=== PATIENT | female | born 1995 | race Native Hawaiian/Other Pacific Islander ===

== ENCOUNTER 2016-10-05 05:47 | Inpatient (IN) | payer OTHER ==
[2016-10-05] MEDS ORDERED: ceFAZolin 2 GM in SODIUM CHLORIDE 0.9% 100 ML IVPB ONE (06:03)
[2016-10-05] MEDS ORDERED: LACTATED RINGERS 1,000 ML IV ONE (06:03)
[2016-10-05] MEDS ORDERED: CITRIC ACID-SODIUM CITRATE 15 ML CUP PO ONE (06:03)
[2016-10-05 06:20] LABS: Basophils # (A) 0.1 k/uL (0-0.2); Basophils % (A) 1 %; CH 29.6; CHCM 35.1; Eosinophils # (A) 0.2 k/uL (0-0.7); Eosinophils % (A) 2 %; HCT 35.9 % (34.0-46.0); HDW 2.63; HGB 12.1 gm/dL (11.4-16.0); Luc # (Auto) 0.24; Luc % (Auto) 3; Lymphocytes # (A) 2.1 k/uL (1.0-4.8); Lymphocytes % (A) 22 %; MCH 28.6 pg (25.0-35.0); MCHC 33.7 g/dL (31.0-37.0); MCV 84.7 fL (80.0-100.0); Mean Platelet Volume 7.2; Monocytes # (A) 0.6 k/uL (0-1.0); Monocytes % (A) 7 %; Neutrophils # (A) 6.2 k/uL (1.3-7.7); Neutrophils % (A) 66 %; RBC 4.25 m/uL (3.80-5.40); RDW 14.4 % (11.5-15.5); WBC 9.3 k/uL (4.0-11.0); WBC (Perox) 10.14
[2016-10-05 06:41] VITALS: BMI 32.0
[2016-10-05] MEDS ORDERED: ePHEDrine 50 MG/ML 1 ML AMP ONE (07:50)
[2016-10-05] MEDS ORDERED: ONDANSETRON 4 MG/2 ML VIAL ONE (07:50)
[2016-10-05] MEDS ORDERED: NALBUPHINE 10 MG/ML AMPUL ONE (07:50)
[2016-10-05] MEDS ORDERED: OXYTOCIN 10 UNIT/ML 1 ML VIAL IM ONE (07:50)
[2016-10-05] MEDS ORDERED: MORPHINE SULFATE (PF) 0.3 MG/0.3 ML SYR ONE (07:50)
[2016-10-05] MEDS ORDERED: ACETAMINOPHEN TAB 325 MG TAB PO PRN (08:30)
[2016-10-05] MEDS ORDERED: Acetaminophen-Codeine 300-30mg TAB PO PRN (08:30)
[2016-10-05] MEDS ORDERED: METOCLOPRAMIDE 5 MG/ML 2 ML VIAL IVP PRN (08:30)
[2016-10-05] MEDS ORDERED: diphenhydrAMINE 50 MG/ML 1 ML VIAL IVP PRN ×3 (08:30→11:52)
[2016-10-05] MEDS ORDERED: ZOLPIDEM 5 MG TAB PO PRN (08:30)
[2016-10-05] MEDS ORDERED: diphenhydrAMINE 25 MG CAP PO PRN (08:30)
--- NOTE | 2016-10-05 08:33 | P.HPOB ---
History of Present Illness H&P Date: 10/05/16 Chief Complaint: IUP term: previous c/s Rhea is a 21-year-old at 39 weeks gestation with prior section. She is scheduled for repeat section. Risks benefits alternatives were reviewed and all questions are answered for her prior to proceeding to the operating room. Patient has pertinent labs include O+ blood type Rh and beta was negative rubella was immune appetite B surface antigen was negative. 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 Her course generally speaking otherwise was unremarkable and she was placed on acyclovir in the latter third of the . All questions are answered for her prior to proceeding to the operating room. Past Medical History Past Medical History: No Reported History Additional Past Medical History / Comment(s): ovarian cyst History of Any Multi-Drug Resistant Organisms: None Reported Past Surgical History: Section Past Anesthesia/Blood Transfusion Reactions: No Reported Reaction Past Psychological History: No Psychological Hx Reported Smoking Status: Never smoker Past Alcohol Use History: None Reported Past Drug Use History: None Reported - Past Family History Mother Family Medical History: No Reported History Medications and Allergies Home Medications Medication Instructions Recorded Confirmed Type Pnv with Ca,No.72/Iron/FA 1 tab PO DAILY 02/11/16 09/29/16 History [ Plus Tablet] Allergies Allergy/AdvReac Type Severity Reaction Status Date / Time Iodinated Contrast Media - Allergy Severe Anaphylaxis Verified 09/29/16 08:08 Oral and [Iodinated Contrast Media - IV Dye] iodine Allergy Severe Anaphylaxis Verified 09/29/16 08:08 Iodine and Iodide Containing Allergy Severe Anaphylaxis Verified 09/29/16 08:08 Produc Exam Osteopathic Statement: *. No significant issues noted on an osteopathic structural exam other than those noted in the History and Physical/Consult. - Vital Signs Vital signs: Vital Signs Temp Pulse Resp BP Pulse Ox 10/05/16 05:52 97.0 F L 90 16 116/72 97 Intake and Output 10/04/16 10/05/16 10/05/16 22:59 06:59 14:59 Other: Weight 79.379 kg - OBG Physical Exam Breast: both: normal (no masses) Abdomen: bowel sounds normal, no diffuse tenderness, no bruit present, no guarding noted, no hepatomegaly, no splenomegaly, no mass Vulva: both: normal Vagina: normal moisture, no discharge Cervix: no lesion, no discharge Uterus: normal size, normal contour Adnexa: both: normal Anus/Rectum: normal perianal skin, no rectal mass, no hemorrhoids, heme negative Results Result Diagrams: 10/05/16 06:10
--- NOTE | 2016-10-05 08:36 | P.OP ---
Date of Procedure: 10/05/16 Preoperative Diagnosis: Intrauterine at term: Previous section Postoperative Diagnosis: Same Procedure(s) Performed: Repeat low transverse section Anesthesia: spinal Surgeon: Efren Hagan Gas Examiner #1: Miya Saldana Estimated Blood Loss (ml): 400 IV fluids (ml): 1,000 Urine output (ml): 200 Pathology: other (Placenta) Condition: stable Disposition: floor Operative Findings: Female scores of 9 and 9 at one and 5 minutes respectively and the weight was 8 lbs. 3 oz. or was scar tissue noted uterus had essentially a shelf where the old scarring had created a divot in the uterus and under the skin there was also a another shelf had to be resected. Description of Procedure: Patient was taken to the operating suite where a spinal anesthetic was found be adequate she was prepped and draped in the normal sterile fashion and placed in dorsal supine position with leftward tilt. Initially a Pfannenstiel skin incision was made and this incision was carried through to underlying layer of the fascia was second knife. Fascia was then nicked in the midline and this opening was extended across with Maynard scissors. Superior and inferior aspect of this incision were then grasped tented up and bluntly and sharply dissected off the rectus muscles. Rectus muscles were then divided the midline and sharp dissection through the peritoneum was made. This opening was then extended superiorly and inferiorly with good visualization of both bowel bladder. Bladder blade was then placed vesicouterine peritoneum was identified grasped pickups and entered with Metzenbaum scissors. This opening was then extended across face of the uterus with Metzenbaum scissors and her bladder flap was digitally created. Knife was then used to incise uterus. This opening was then extended bluntly. Clear fluid was noted and head was atraumatically delivered. Mouth nares were then bulb suctioned and then anterior posterior shoulders were delivered gentle downward and upward traction. Once baby was fully delivered umbilical cord was clamped and cut in usual fashion nursery personnel was present to assume care. Placenta was then delivered intact and Pitocin was added to the IV. Uterus was then exteriorized cleared of clots and debris and closed in 2 layers with 0 Vicryl suture. Once excellent hemostasis was obtained blood and debris was suctioned the posterior cul-de-sac and the uterus was reinserted into the abdomen. Peritoneal layer was then closed oh with 2-0 Vicryl fascial layer was closed with 0 Vicryl suture one layer of 3-0 Vicryl was used to reapproximate the skin following resection and undermining of the tissues to remove scar tissue that had created a divot in her skin. Once this was accomplished skin was then closed with 3-0 Vicryl on a Chele needle. Patient tolerated surgery very well sponge lap and needle counts were correct 2 patient was taken to the recovery room in stable and satisfactory condition.
[2016-10-05] MEDS ORDERED: MORPHINE SULFATE 4 MG/ML SYRINGE IVP PRN ×3 (08:49→12:36)
[2016-10-05] MEDS ORDERED: NALOXONE 0.4 MG/ML 1 ML VIAL IV PRN ×2 (08:49→11:52)
[2016-10-05] MEDS: LACTATED RINGERS 1,000 ML IV SCH ×5 (09:07→19:08)
[2016-10-05] MEDS: KETOROLAC 30 MG/ML 1 ML VIAL IVP PRN ×3 (09:31→22:27)
[2016-10-05] MEDS: OXYTOCIN 30 UNITS/500 ML NS 30 UNIT in SALINE 1 500ML.BAG IV SCH ×3 (09:43→18:54)
[2016-10-05] MEDS: diphenhydrAMINE 50 MG/ML 1 ML VIAL IVP PRN ×2 (16:51→22:27)
[2016-10-05] MEDS: SENNOSIDES-DOCUSATE SODIUM 1 EACH TAB PO SCH (19:30)
[2016-10-06 07:26] LABS: Basophils % (A) 0 %; CH 29.5; CHCM 34.6; Eosinophils # (A) 0.1 k/uL (0-0.7); Eosinophils % (A) 1 %; HCT 30.5 % (34.0-46.0); HDW 2.53; HGB 10.3 gm/dL (11.4-16.0); Luc # (Auto) 0.12; Luc % (Auto) 1; Lymphocytes # (A) 1.4 k/uL (1.0-4.8); Lymphocytes % (A) 15 %; MCH 28.8 pg (25.0-35.0); MCHC 33.7 g/dL (31.0-37.0); MCV 85.6 fL (80.0-100.0); Mean Platelet Volume 7.8; Monocytes # (A) 0.7 k/uL (0-1.0); Monocytes % (A) 8 %; Neutrophils # (A) 6.8 k/uL (1.3-7.7); Neutrophils % (A) 75 %; RBC 3.57 m/uL (3.80-5.40); RDW 14.5 % (11.5-15.5); WBC 9.1 k/uL (4.0-11.0); WBC (Perox) 9.59
--- NOTE | 2016-10-06 08:15 | P.PNOBGPC ---
Subjective - Subjective Principal diagnosis: Postop day 1 Interval history: Rhea is seen and evaluated. She is overall doing very well. She voices no complaints. Her vital signs are stable and afebrile. Heart is regular, lungs are clear extremities without pain. Patient reports: Reports appetite normal, Reports voiding normally, Reports pain well controlled, Reports ambulating normally [place]: doing well Objective - Vital Signs Latest vital signs: Vital Signs Temp Pulse Resp BP Pulse Ox 10/06/16 04:00 99.3 F 108 H 16 105/55 95 10/06/16 00:00 99.4 F 100 16 103/55 96 10/05/16 19:51 98.8 F 88 16 129/63 96 10/05/16 16:00 98.3 F 82 16 112/62 99 10/05/16 12:53 98 10/05/16 12:00 98.5 F 77 16 115/65 100 10/05/16 11:49 100 10/05/16 10:37 96.4 F L 86 18 130/81 100 10/05/16 10:07 74 19 124/73 100 10/05/16 09:49 100 10/05/16 09:37 79 17 118/58 100 10/05/16 09:22 75 16 114/59 99 10/05/16 09:07 75 18 128/74 99 10/05/16 08:52 71 18 127/66 97 10/05/16 08:49 99 10/05/16 08:37 96.4 F L 86 17 125/60 98 Intake and Output 10/05/16 10/06/16 10/06/16 22:59 06:59 14:59 Intake Total 600 Output Total 900 400 Balance -900 200 Intake: Oral 600 Output: Urine 900 400 Other: # Voids 1 1 - Exam Lungs: bilateral: normal Chest: Normal S1, Normal S2 Extremities: Present: normal Abdomen: Present: normal appearance, soft. Absent: distention, tenderness Incision: Present: normal, dry, intact Uterus: Present: normal, firm - Labs Labs: Abnormal Lab Results - Last 24 Hours (Table) 10/06/16 Range/Units 07:05 RBC 3.57 L (3.80-5.40) m/uL Hgb 10.3 L (11.4-16.0) gm/dL Hct 30.5 L (34.0-46.0) %
[2016-10-06] MEDS: IBUPROFEN 600 MG TAB PO PRN ×2 (08:19→16:16)
[2016-10-06] MEDS: SENNOSIDES-DOCUSATE SODIUM 1 EACH TAB PO SCH ×3 (08:55→19:59)
--- NOTE | 2016-10-06 10:13 | P.PN ---
Progress Note - Text 0723 Anesthesia POD 1. Patient is status post section under spinal anesthesia with intra-thecal preservative free morphine 300 g. Minimal pruritus, good post-op analgesia, and headache or other complications.
[2016-10-06] MEDS: Acetaminophen-Codeine 300-30mg TAB PO PRN ×3 (13:11→23:56)
[2016-10-07] MEDS: IBUPROFEN 600 MG TAB PO PRN ×3 (06:58→19:52)
[2016-10-07] MEDS: SENNOSIDES-DOCUSATE SODIUM 1 EACH TAB PO SCH ×2 (08:01→20:38)
--- NOTE | 2016-10-07 08:46 | P.PNOBGPC ---
Subjective - Subjective Principal diagnosis: Postoperative day 2 Interval history: Overall Rhea is doing well. She is able to ambulate, void and she is tolerating her diet. Her only real complaint today is that her pain is not is well-controlled she would like, as well as a rash around her incision. Likely this rashes secondary to tape as it appeared shortly after we have removed the tape. Were provided Benadryl if still problematic may need to switch to steroid cream. Vital signs are otherwise stable she is afebrile Objective - Vital Signs Latest vital signs: Vital Signs Temp Pulse Resp BP Pulse Ox 10/07/16 07:53 98.6 F 83 16 115/66 10/07/16 00:00 98.0 F 95 18 111/59 98 10/06/16 16:00 97.9 F 94 16 115/58 Intake and Output 10/06/16 10/07/16 10/07/16 22:59 06:59 14:59 Other: # Voids 1 2 - Exam Abdomen: Present: other (Rash noted around incision otherwise incisions clean, dry, and intact)
[2016-10-07] MEDS: Acetaminophen-Codeine 300-30mg TAB PO PRN ×2 (09:25→16:37)
[2016-10-07] MEDS: diphenhydrAMINE 50 MG CAP PO PRN ×2 (17:29→23:47)
[2016-10-08] MEDS: Acetaminophen-Codeine 300-30mg TAB PO PRN (08:31)
[2016-10-08] MEDS: SENNOSIDES-DOCUSATE SODIUM 1 EACH TAB PO SCH ×2 (08:32→20:05)
--- NOTE | 2016-10-08 10:36 | P.PNOBGPC ---
Subjective - Subjective Principal diagnosis: Postop day 3 Interval history: Overall Rhea appears well. However her rash around her incision is actually worse today it is weeping a little bit and appears to have ALLERGIC reaction to the irrigated tape for dressing that was used. It is red and somewhat indurated again with some weeping along the incision line. As precaution we'll start antibiotics but also provide anti-allergens. We'll plan to adjust medication somewhat today with expectation hopefully to discharge home tomorrow. I would like this to be at least a little bit better before discharging her home just in case or something else that is actually going on. I'll signs are otherwise stable and she is afebrile. Objective - Vital Signs Latest vital signs: Vital Signs Temp Pulse Resp BP Pulse Ox 10/08/16 08:00 99.2 F 108 H 20 111/71 97 10/08/16 00:00 98.2 F 110 H 16 123/66 10/07/16 15:31 98.3 F 93 16 116/69 - Exam Abdomen: Present: other (Red rash around the incision along where the tape would 've been put on her given. Incision itself is clean and intact. Some weeping is noted however )
[2016-10-08] MEDS: CEPHALEXIN 500 MG CAP PO SCH ×2 (15:57→22:00)
[2016-10-08] MEDS: TRIAMCINOLONE 0.1% CREAM 80 GM TUBE TOPICAL SCH ×2 (15:57→22:01)
[2016-10-08] MEDS: IBUPROFEN 600 MG TAB PO PRN (19:48)
--- NOTE | 2016-10-09 05:50 | P.PNOBGPC ---
Subjective - Subjective Principal diagnosis: S/P RLTCS POD #4 Interval history: Patient seen and examined. Her pain is controlled but the area around her incision is still painful and red. It is warm and weepy. I do not believe she is ready to go home and we may need to culture the area today. Patient reports: Reports appetite normal, Reports voiding normally, Reports pain well controlled, Reports ambulating normally [place]: doing well Objective - Vital Signs Latest vital signs: Vital Signs Temp Pulse Resp BP Pulse Ox 10/09/16 00:00 98.5 F 99 16 115/55 99 10/08/16 16:00 98.2 F 100 20 108/61 99 10/08/16 08:00 99.2 F 108 H 20 111/71 97 - Exam Lungs: bilateral: normal Chest: Normal S1, Normal S2 Extremities: Present: normal Abdomen: Present: normal appearance, soft. Absent: distention, tenderness Incision: Present: erythematous (extends about 2-3 inches above the incision), intact, warm Uterus: Present: normal, firm Assessment and Plan (1) Status post repeat low transverse section Narrative/Plan: 1. cont po care 2. cont keflex po 3. may need to culture the area. Current Visit: Yes Status: Acute Code(s): Z98.891 - HISTORY OF UTERINE SCAR FROM PREVIOUS SURGERY SNOMED Code(s): 261828684 (2) Inflammation of operative incision Current Visit: Yes Status: Acute Code(s): T81.89XA - OTH COMPLICATIONS OF PROCEDURES, NEC, INIT SNOMED Code(s): 062827932
[2016-10-09] MEDS: CEPHALEXIN 500 MG CAP PO SCH ×3 (09:20→22:05)
[2016-10-09] MEDS: TRIAMCINOLONE 0.1% CREAM 80 GM TUBE TOPICAL SCH ×2 (09:20→18:26)
[2016-10-09] MEDS: SENNOSIDES-DOCUSATE SODIUM 1 EACH TAB PO SCH ×2 (09:20→22:05)
[2016-10-09] MEDS: Acetaminophen-Codeine 300-30mg TAB PO PRN (09:26)
[2016-10-10] MEDS: TRIAMCINOLONE 0.1% CREAM 80 GM TUBE TOPICAL SCH ×2 (00:56→09:10)
[2016-10-10] MEDS: IBUPROFEN 600 MG TAB PO PRN ×2 (05:05→13:52)
[2016-10-10 08:06] VITALS: BP 123/70; PULSE 85; RESP 17; TEMP 98.3
[2016-10-10] MEDS: SENNOSIDES-DOCUSATE SODIUM 1 EACH TAB PO SCH (08:24)
[2016-10-10] MEDS: CEPHALEXIN 500 MG CAP PO SCH (09:10)
--- NOTE | 2016-10-10 13:26 | P.DS ---
Providers Date of admission: 10/05/16 05:47 Expected date of discharge: 10/10/16 Attending physician: Efren Hagan Primary care physician: Stated None Hospital Course: Patient seen and evaluated postop day 5. Overall she is doing very well. Her incision exited today looks better than it did a couple of days ago. No sign of infection of cellulitis this time still some little bit of redness likely secondary to rash seems to be improving with the Kenalog cream. We'll plan to continue her on antibiotics and the Kenalog cream and have her follow up with me on just lichen taken a look at the incision. Otherwise her vital signs are stable and afebrile. Heart regular, lungs clear, extremities without pain. Abdomen is otherwise soft incisions clean dry and intact. She does have pain around the incision but otherwise no other issues. Assessment postop day 5. Plan discharged home discharge instructions thoroughly reviewed and all questions were answered for her. Prescriptions for Tok and Motrin have also been provided. She was wondering if the changes could be due to herpes virus but grossly does not appear to the that is the case. Seems unlikely as this does cross the midline and would involve more than one dermatome. Patient Condition at Discharge: Good Plan - Discharge Summary New Discharge Prescriptions: Cephalexin [Keflex] 500 mg PO Q6HR #20 cap HYDROcodone/APAP 5-325MG [Tok 5-325] 1 tab PO Q4HR PRN #30 tab PRN Reason: Pain Ibuprofen [Motrin] 600 mg PO Q6HR PRN #30 tab PRN Reason: Pain Discharge Medication List Pnv with Ca,No.72/Iron/FA [ Plus Tablet] 1 tab PO DAILY 02/11/16 [ History] Cephalexin [Keflex] 500 mg PO Q6HR #20 cap 10/08/16 [Rx] HYDROcodone/APAP 5-325MG [Tok 5-325] 1 tab PO Q4HR PRN #30 tab 10/08/16 [Rx] Ibuprofen [Motrin] 600 mg PO Q6HR PRN #30 tab 10/08/16 [Rx] Follow up Appointment(s)/Referral(s): Efren Hagan DO [Doctor of Osteopathic Medicine] - 1 Week Activity/Diet/Wound Care/Special Instructions: No heavy lifting, limit stairs and driving and pelvic rest. If any high temperatures, heavy bleeding, or severe pain call my office Discharge Disposition: HOME SELF-CARE
== END 2016-10-10 14:23 | disposition home or self-care (01) | DRG 766 ==
LOC: 4FBP 05:47
PROVIDERS: ADMIT Obstetrics & Gynecology; ATTEND Obstetrics & Gynecology
PROC: 10D00Z1 Extraction of Products of Conception, Low, Open Approach (ICD-10-PCS; principal; 2016-10-05 08:03)
DX: O34.211 Maternal care for low transverse scar from previous cesarean delivery (principal); Z91.041 Radiographic dye allergy status; Z37.0 Single live birth; Z3A.39 39 weeks gestation of pregnancy
CPT/HCPCS: 85025; 86850; 86900; 86901; 87070; 87077; 87186; 87205; 88307

== ENCOUNTER → 2017-02-10 | Outpatient (CLI) | payer OTHER ==
[2017-02-10 12:07] LABS: Basophils # (A) 0.1 k/uL (0-0.2); Basophils % (A) 1 %; CH 25.9; CHCM 32.9; Eosinophils # (A) 0.2 k/uL (0-0.7); Eosinophils % (A) 3 %; HCT 37.4 % (34.0-46.0); HGB 12.3 gm/dL (11.4-16.0); Luc # (Auto) 0.15; Luc % (Auto) 3; Lymphocytes # (A) 1.6 k/uL (1.0-4.8); Lymphocytes % (A) 27 %; MCH 25.9 pg (25.0-35.0); MCHC 32.9 g/dL (31.0-37.0); MCV 78.9 fL (80.0-100.0); Mean Platelet Volume 7.3; Monocytes # (A) 0.4 k/uL (0-1.0); Monocytes % (A) 6 %; Neutrophils # (A) 3.8 k/uL (1.3-7.7); Neutrophils % (A) 62 %; RBC 4.74 m/uL (3.80-5.40); RDW 14.9 % (11.5-15.5); WBC 6.2 k/uL (4.0-11.0); WBC (Perox) 6.27
== END | disposition home or self-care (01) ==
LOC: LABWHC1 11:44
PROVIDERS: ATTEND Nurse Practitioner Family
DX: L30.8 Other specified dermatitis (principal); L02.426 Furuncle of left lower limb; L02.425 Furuncle of right lower limb; R23.3 Spontaneous ecchymoses
CPT/HCPCS: 36415; 85025

== ENCOUNTER 2017-03-18 16:30 | Emergency (ER) | payer OTHER ==
--- NOTE | 2017-03-18 16:52 | ED ---
General Adult HPI - General Chief complaint: Urogenital Stated complaint: Urogenital Time Seen by Provider: 03/18/17 16:44 Source: patient, RN notes reviewed Mode of arrival: ambulatory Limitations: no limitations - History of Present Illness Initial comments: This is a 21-year-old female presents emergency Department chief complaint of dysuria possible . Patient states she took a home test which there was a faint line. Patient states that she is late for her menstrual cycle. Patient will be A0. Patient states her [employer] is Dr. Olmstead. Patient denies any vaginal bleeding or vaginal discharge. Patient has had recurrent urinary tract infections in the past. Denies any abdominal pains time she states that she had some cramping other day was felt like her menstrual cycle states that has subsided. Denies flank pain denies any vomiting states she's had some nausea. - Related Data Home Medications Medication Instructions Recorded Confirmed Pnv,Calcium 72/Iron/Folic Acid 1 tab PO DAILY 02/11/16 09/29/16 [ Plus Tablet] Previous Rx's Medication Instructions Recorded Cephalexin [Keflex] 500 mg PO Q6HR #20 cap 10/08/16 HYDROcodone/APAP 5-325MG [[place] 1 tab PO Q4HR PRN #30 tab 10/08/16 5-325] Ibuprofen [Motrin] 600 mg PO Q6HR PRN #30 tab 10/08/16 Nitrofurantoin Monohyd/M-Cryst 100 mg PO Q12HR #14 cap 03/18/17 [Macrobid] Allergies Allergy/AdvReac Type Severity Reaction Status Date / Time Iodinated Contrast Media - Allergy Severe Anaphylaxis Verified 03/18/17 16:39 Oral and [Iodinated Contrast Media - IV Dye] iodine Allergy Severe Anaphylaxis Verified 03/18/17 16:39 Iodine and Iodide Containing Allergy Severe Anaphylaxis Verified 03/18/17 16:39 Produc Review of Systems ROS Statement: Those systems with pertinent positive or pertinent negative responses have been documented in the HPI. ROS Other: All systems not noted in ROS Statement are negative. Past Medical History Past Medical History: No Reported History Additional Past Medical History / Comment(s): ovarian cyst History of Any Multi-Drug Resistant Organisms: None Reported Past Surgical History: No Surgical Hx Reported Past Anesthesia/Blood Transfusion Reactions: No Reported Reaction Past Psychological History: No Psychological Hx Reported Smoking Status: Never smoker Past Alcohol Use History: Occasional Past Drug Use History: None Reported - Past Family History Mother Family Medical History: No Reported History General Exam Limitations: no limitations General appearance: alert, in no apparent distress Neck exam: Present: normal inspection. Absent: tenderness, meningismus, lymphadenopathy Respiratory exam: Present: normal lung sounds bilaterally. Absent: respiratory distress, wheezes, rales, rhonchi, stridor Cardiovascular Exam: Present: regular rate, normal rhythm, normal heart sounds. Absent: systolic murmur, diastolic murmur, rubs, gallop, clicks GI/Abdominal exam: Present: soft, normal bowel sounds. Absent: distended, tenderness, guarding, rebound, rigid Back exam: Absent: CVA tenderness (R), CVA tenderness (L) Skin exam: Present: warm, dry, intact, normal color. Absent: rash Course Vital Signs 03/18/17 16:35 Temperature 98.5 F Pulse Rate 81 Respiratory 15 Rate Blood Pressure 108/59 O2 Sat by Pulse 96 Oximetry Medical Decision Making - Medical Decision Making 21-year-old female presented for possible , dysuria. Patient has urinary tract infection there is no evidence of test here. Patient will follow-up outpatient return parameters were discussed. - Lab Data Lab Results 03/18/17 03/18/17 Range/Units 16:54 16:54 Urine Color Light Yellow Urine Appearance Clear (Clear) Urine pH 7.0 (5.0-8.0) Ur Specific [place] 1.010 (1.001-1.035) Urine Protein Negative (Negative) Urine Glucose (UA) Negative (Negative) Urine Ketones Negative (Negative) Urine Blood Negative (Negative) Urine Nitrite Negative (Negative) Urine Bilirubin Negative (Negative) Urine Urobilinogen <2.0 (<2.0) mg/dL Ur Leukocyte Esterase Moderate H (Negative) Urine RBC <1 (0-5) /hpf Urine WBC 12 H (0-5) /hpf Ur Squamous Epith Cells 2 (0-4) /hpf Urine HCG, Qual Not Detected (Not Detectd) Disposition Clinical Impression: Urinary tract infection Disposition: HOME SELF-CARE Condition: Stable Instructions: Urinary Tract Infection in Women (ED) Additional Instructions: Please return to the Emergency Department if symptoms worsen or any other concerns. Prescriptions: Nitrofurantoin Monohyd/M-Cryst [Macrobid] 100 mg PO Q12HR #14 cap Referrals: None,Stated [Primary Care Provider] - 1-2 days Time of Disposition: 17:58
[2017-03-18 17:44] LABS: Appearance,Urine Clear (Clear); Bilirubin,Urine Negative (Negative); Glucose,Urine (UA) Negative (Negative); Ketones,Urine Negative (Negative); Leukocyte Esterase,Urine Moderate (Negative); Nitrite,Urine Negative (Negative); Particle Count 867; Protein,Urine Negative (Negative); RBC,Urine <1 /hpf (0-5); Squamous Epithelial Cell,Urine 2 /hpf (0-4); UA Billing (MACRO vs. MICRO) MICRO; Urobilinogen,Urine <2.0 mg/dL (<2.0); WBC,Urine 12 /hpf (0-5)
[2017-03-18 18:06] VITALS: BP 148/67; PULSE 70; RESP 18; TEMP 98
== END 2017-03-18 18:05 | disposition home or self-care (01) ==
LOC: EC 16:30
DX: N39.0 Urinary tract infection, site not specified (principal); R11.0 Nausea; Z79.899 Other long term (current) drug therapy; Z91.041 Radiographic dye allergy status; Z88.8 Allergy status to other drugs, medicaments and biological substances
CPT/HCPCS: 81001; 81025; 87086; 99283

== ENCOUNTER 2017-03-21 08:52 | Emergency (ER) | payer OTHER ==
[2017-03-21 09:00] VITALS: BP 117/77; PULSE 80; RESP 20; TEMP 98.1
--- NOTE | 2017-03-21 09:18 | ED ---
Abdominal Pain HPI - General Chief Complaint: Abdominal Pain Stated Complaint: abd pain Time Seen by Provider: 03/21/17 09:04 Source: patient, RN notes reviewed Mode of arrival: ambulatory Limitations: no limitations - History of Present Illness Initial Comments: Patient is a 21-year-old female presents to the emergency room for evaluation. Patient states she was here on Monday for abdominal pain. Patient states she was told she had a urinary tract infection and was sent home with antibiotics. Patient states she has not filled her antibiotic prescription yet. Patient states she still having left lower quadrant pain. Patient states she thinks she has an ovarian cyst. Patient states she is having 5 out of 10 intermittent pain in her left lower quadrant. Patient states she has history of 2 sections. Patient also states that she has not had a period in about a month. Patient states she received a test on Monday and it was negative. Patient states she wants another test. Patient does admit she began lightly spotting this morning. Patient states she is nauseous but denies vomiting. Patient denies chest pain or shortness of breath. Patient denies headache or dizziness. Patient denies any other history of abdominal surgeries. Patient denies any pain or burning during urination. - Related Data Home Medications Medication Instructions Recorded Confirmed Pnv,Calcium 72/Iron/Folic Acid 1 tab PO DAILY 02/11/16 03/21/17 [ Plus Tablet] Previous Rx's Medication Instructions Recorded Nitrofurantoin Monohyd/M-Cryst 100 mg PO Q12HR #14 cap 03/18/17 [Macrobid] Allergies Allergy/AdvReac Type Severity Reaction Status Date / Time Iodinated Contrast Media - Allergy Severe Anaphylaxis Verified 03/21/17 09:03 Oral and [Iodinated Contrast Media - IV Dye] iodine Allergy Severe Anaphylaxis Verified 03/21/17 09:03 Iodine and Iodide Containing Allergy Severe Anaphylaxis Verified 03/21/17 09:03 Produc Review of Systems ROS Statement: Those systems with pertinent positive or pertinent negative responses have been documented in the HPI. ROS Other: All systems not noted in ROS Statement are negative. Past Medical History Past Medical History: No Reported History Additional Past Medical History / Comment(s): ovarian cyst History of Any Multi-Drug Resistant Organisms: None Reported Past Surgical History: Section Past Anesthesia/Blood Transfusion Reactions: No Reported Reaction Past Psychological History: No Psychological Hx Reported Smoking Status: Never smoker Past Alcohol Use History: Occasional Past Drug Use History: None Reported - Past Family History Mother Family Medical History: No Reported History General Exam - General Exam Comments Initial Comments: Sitting in exam room, no acute distress. Limitations: no limitations General appearance: alert, in no apparent distress Head exam: Present: atraumatic, normocephalic, normal inspection Eye exam: Present: normal appearance ENT exam: Present: normal exam Neck exam: Present: normal inspection Respiratory exam: Present: normal lung sounds bilaterally. Absent: respiratory distress Cardiovascular Exam: Present: regular rate, normal rhythm, normal heart sounds GI/Abdominal exam: Present: soft, tenderness (LLQ), normal bowel sounds. Absent : distended, guarding, rebound, rigid Extremities exam: Present: normal inspection Back exam: Present: normal inspection Neurological exam: Present: alert, oriented X3, CN II-XII intact, normal gait Psychiatric exam: Present: normal affect, normal mood Skin exam: Present: warm, dry, intact, normal color. Absent: rash Course Vital Signs 03/21/17 08:58 Temperature 98.1 F Pulse Rate 80 Respiratory 20 Rate Blood Pressure 117/77 O2 Sat by Pulse 98 Oximetry Medical Decision Making - Medical Decision Making Patient is a 21-year-old female presents to the emergency room for evaluation of left lower quadrant pain and vaginal spotting. Patient states she was here on Monday and received a test that was negative. Patient requested another test. test was redone here and was positive. Patient refused transvaginal ultrasound. Patient refused pelvic exam or any further workup. Patient states she would rather follow-up with her [employer]. Risks discussed with patient on possible ectopic with abdominal pain and spotting. Patient still chooses to leave AGAINST MEDICAL ADVICE. Case discussed Dr. Haile. - Lab Data Lab Results 03/21/17 03/21/17 Range/Units 09:30 09:30 Urine Color Yellow Urine Appearance Clear (Clear) Urine pH 5.5 (5.0-8.0) Ur Specific [place] 1.011 (1.001-1.035) Urine Protein Negative (Negative) Urine Glucose (UA) Negative (Negative) Urine Ketones Negative (Negative) Urine Blood Moderate H (Negative) Urine Nitrite Negative (Negative) Urine Bilirubin Negative (Negative) Urine Urobilinogen <2.0 (<2.0) mg/dL Ur Leukocyte Esterase Small H (Negative) Urine RBC 1 (0-5) /hpf Urine WBC 7 H (0-5) /hpf Ur Squamous Epith Cells 2 (0-4) /hpf Urine Mucus Rare H (None) /hpf Urine HCG, Qual Detected (Not Detectd) Disposition Clinical Impression: , Abdominal pain Disposition: Left Against Medical Advice Condition: Stable Instructions: Abdominal Pain in (ED) Additional Instructions: Please follow-up with [employer]. If any new symptom arises or symptoms worsen, return to ER as soon as possible. Referrals: Efren Hagan DO [Doctor of Osteopathic Medicine] - 1-2 days Time of Disposition: 10:06
[2017-03-21 10:02] LABS: Appearance,Urine Clear (Clear); Bilirubin,Urine Negative (Negative); Glucose,Urine (UA) Negative (Negative); Ketones,Urine Negative (Negative); Leukocyte Esterase,Urine Small (Negative); Mucus,Urine Rare /hpf; Nitrite,Urine Negative (Negative); PH, Urine 5.5 (5.0-8.0); Particle Count 4038; Protein,Urine Negative (Negative); RBC,Urine 1 /hpf (0-5); Specific Gravity,Urine 1.011 (1.001-1.035); Squamous Epithelial Cell,Urine 2 /hpf (0-4); UA Billing (MACRO vs. MICRO) MICRO; Urobilinogen,Urine <2.0 mg/dL (<2.0); WBC,Urine 7 /hpf (0-5)
== END 2017-03-21 10:11 | disposition left against medical advice (07) ==
LOC: EC 08:52
DX: O99.89 Other specified diseases and conditions complicating pregnancy, childbirth and the puerperium (principal); R10.32 Left lower quadrant pain; R11.0 Nausea; O26.851 Spotting complicating pregnancy, first trimester; Z91.041 Radiographic dye allergy status
CPT/HCPCS: 81001; 81025; 99284

== ENCOUNTER → 2017-03-21 | Outpatient (CLI) | payer OTHER | END | disposition home or self-care (01) | LOC: LABWHC1 17:08 | PROVIDERS: ATTEND Obstetrics & Gynecology | DX: Z34.80 Encounter for supervision of other normal pregnancy, unspecified trimester (principal); Z3A.00 Weeks of gestation of pregnancy not specified | CPT/HCPCS: 36415; 84702 ==

== ENCOUNTER → 2017-03-23 | Outpatient (CLI) | payer OTHER | END | disposition home or self-care (01) | LOC: LABWHC1 13:14 | PROVIDERS: ATTEND Obstetrics & Gynecology | DX: Z34.80 Encounter for supervision of other normal pregnancy, unspecified trimester (principal); Z3A.00 Weeks of gestation of pregnancy not specified | CPT/HCPCS: 36415; 84702 ==

== ENCOUNTER 2017-03-27 18:04 | Emergency (ER) | payer OTHER ==
[2017-03-27 18:12] VITALS: BP 104/62; PULSE 83; RESP 20; TEMP 98.5
--- NOTE | 2017-03-27 18:42 | ED ---
General Adult HPI - General Chief complaint: OB/Uterine Contractions Stated complaint: Bleeding/ Time Seen by Provider: 03/27/17 18:15 Source: patient, RN notes reviewed Mode of arrival: ambulatory Limitations: no limitations - History of Present Illness Initial comments: Patient 21-year-old female who presents emergency room today with chief complaint of vaginal bleeding off and off for the last 5 days. Patient does admit that he started once again earlier today. She states she has been seen here in the emergency room for the same complaint recently. States she declined having ultrasound done at that time. States concerned about . States she is G5, P2 with 2 previous miscarriages. Does admit to abdominal cramping in lower abdomen both the left and right comes and goes. Patient denies any other complaints or symptoms. Patient denies any recent fever , chills, shortness of breath, chest pain, back pain, nausea or vomiting, numbness or tingling, dysuria or hematuria, constipation or diarrhea, headaches or visual changes, or any other complaints. - Related Data Home Medications Medication Instructions Recorded Confirmed Pnv,Calcium 72/Iron/Folic Acid 1 tab PO DAILY 02/11/16 03/27/17 [ Plus Tablet] Previous Rx's Medication Instructions Recorded Nitrofurantoin Monohyd/M-Cryst 100 mg PO Q12HR #14 cap 03/18/17 [Macrobid] Allergies Allergy/AdvReac Type Severity Reaction Status Date / Time Iodinated Contrast Media - Allergy Severe Anaphylaxis Verified 03/27/17 18:11 Oral and [Iodinated Contrast Media - IV Dye] Iodine and Iodide Containing Allergy Severe Anaphylaxis Verified 03/27/17 18:11 Produc Review of Systems ROS Statement: Those systems with pertinent positive or pertinent negative responses have been documented in the HPI. ROS Other: All systems not noted in ROS Statement are negative. Past Medical History Past Medical History: No Reported History Additional Past Medical History / Comment(s): ovarian cyst History of Any Multi-Drug Resistant Organisms: None Reported Past Surgical History: Section Past Anesthesia/Blood Transfusion Reactions: No Reported Reaction Past Psychological History: No Psychological Hx Reported Smoking Status: Never smoker Past Alcohol Use History: Occasional Past Drug Use History: None Reported - Past Family History Mother Family Medical History: No Reported History General Exam - General Exam Comments Initial Comments: General: The patient is awake and alert, in no distress, and does not appear acutely ill. Eye: Pupils are equal, round and reactive to light, extra-ocular movements are intact. No nystagmus. There is normal conjunctiva bilaterally. No signs of icterus. Ears, nose, mouth and throat: There are moist mucous membranes and no oral lesions. Neck: The neck is supple, there is no tenderness or JVD. Cardiovascular: There is a regular rate and rhythm. No murmur, rub or gallop is appreciated. Respiratory: Lungs are clear to auscultation, respirations are non-labored, breath sounds are equal. No wheezes, stridor, rales, or rhonchi. Gastrointestinal: Soft, non-distended, non-tender abdomen without masses or organomegaly noted. There is no rebound or guarding present. No CVA tenderness. Bowel sounds are unremarkable. Musculoskeletal: Normal ROM, no tenderness. Strength 5/5. Sensation intact. Pulses equal bilaterally 2+. Neurological: A&O x 3. CN II-XII intact, There are no obvious motor or sensory deficits. Coordination appears grossly intact. Speech is normal. Skin: Skin is warm and dry and no rashes or lesions are noted. Psychiatric: Cooperative, appropriate mood & affect, normal judgment. Limitations: no limitations Course Vital Signs 03/27/17 18:09 Temperature 98.5 F Pulse Rate 83 Respiratory 20 Rate Blood Pressure 104/62 O2 Sat by Pulse 100 Oximetry Medical Decision Making - Medical Decision Making Patient's ultrasound reviewed does show possible early intrauterine sac measuring 5 mm. No adnexal mass. Follow-up recommended in the next 14 days to confirm living fetus as read by radiologist Dr. Frederick. Patient's beta hCG greater than 5000 today. Compared to previous on March 23 and March 21 with beta hCG of 779 and 249 respectively. Results were discussed with the patient. At this time abdomen soft nontender. No abdominal pain. She states she does have cramping that comes and goes. Patient will be discharged advised following up with the [facility] over the next 2 days. Advised return if any symptoms increase or worsen. Will be given a prescription every beta hCG in 2 days. - Lab Data Lab Results 03/27/17 03/27/17 Range/Units 18:53 18:53 HCG, Quant 5305.9 mIU/mL Urine Color Yellow Urine Appearance Clear (Clear) Urine pH 6.0 (5.0-8.0) Ur Specific [place] 1.017 (1.001-1.035) Urine Protein Negative (Negative) Urine Glucose (UA) Negative (Negative) Urine Ketones Negative (Negative) Urine Blood Negative (Negative) Urine Nitrite Negative (Negative) Urine Bilirubin Negative (Negative) Urine Urobilinogen <2.0 (<2.0) mg/dL Ur Leukocyte Esterase Trace H (Negative) Urine RBC <1 (0-5) /hpf Urine WBC 5 (0-5) /hpf Ur Squamous Epith Cells 7 H (0-4) /hpf Urine Bacteria Rare H (None) /hpf Urine Mucus Rare H (None) /hpf Disposition Clinical Impression: Threatened Disposition: HOME SELF-CARE Condition: Good Instructions: Threatened Miscarriage (ED) Additional Instructions: Please have repeat blood test performed in 2 days. Please follow-up with OB/ FUNERAL ASSISTANT over the next 2 days. Please return to emergency room if the symptoms increase or worsen or for any other concerns. Referrals: None,Stated [Primary Care Provider] - 1-2 days Time of Disposition: 19:44
[2017-03-27 19:06] LABS: Appearance,Urine Clear (Clear); Bacteria,Urine Rare /hpf; Bilirubin,Urine Negative (Negative); Glucose,Urine (UA) Negative (Negative); Ketones,Urine Negative (Negative); Leukocyte Esterase,Urine Trace (Negative); Mucus,Urine Rare /hpf; Nitrite,Urine Negative (Negative); Particle Count 2568; Protein,Urine Negative (Negative); RBC,Urine <1 /hpf (0-5); Specific Gravity,Urine 1.017 (1.001-1.035); Squamous Epithelial Cell,Urine 7 /hpf (0-4); UA Billing (MACRO vs. MICRO) MICRO; Urobilinogen,Urine <2.0 mg/dL (<2.0); WBC,Urine 5 /hpf (0-5)
--- NOTE | 2017-03-27 19:39 | US ---
EXAMINATION TYPE: US OB <=14 wks transvag DATE OF EXAM: 03/27/2017 COMPARISON: NONE CLINICAL HISTORY: Spotting, Pain. EXAM PERFORMED: Transvaginal (TV) and Transabdominal (TA) EXAM MEASUREMENTS: GESTATIONAL AGE / DATING Physician Established: Not established Dates by LMP: Unknown Dates by First Scan: No previous Dates by Current Scan for: Too early MATERNAL ANATOMY Uterus: 8.2 x 4.5 x 5.4 cm Right Ovary: 2.9 x 1.7 x 2.0 cm Left Ovary: 4.4 x 2.6 x 2.3 cm. Hyperechoic area visualized measuring 1.6 x 1.4 x 1.8 cm, possible de rmoid vs other etiology Post CDS / Adnexa: Tiny amount of free fluid visualized in the posterior cul de sac Presence of free fluid: yes Presence of corpus luteal cyst: Yes, left ovary measuring 1.9 x 2.2 x 1.6 cm Presence of subchorionic bleed: No GESTATION / SURVEY IUP: No pole or yolk sac visualized on this exam, only possible early gestational sac visualiz ed Date of LMP: Unsure Beta HcG (if available): Not available at time of exam No pole or yolk sac visualized on this exam, only possible early gestational sac visualized. IMPRESSION: Possible early intrauterine gestational sac that measures 5 mm. No adnexal mass. Follow-up is recomme nded in 14 days to confirm a living fetus of clinically indicated.
== END 2017-03-27 20:07 | disposition home or self-care (01) ==
LOC: EC 18:04
DX: O20.0 Threatened abortion (principal); Z91.041 Radiographic dye allergy status; Z91.048 Other nonmedicinal substance allergy status; Z98.890 Other specified postprocedural states; Z3A.00 Weeks of gestation of pregnancy not specified; Z79.899 Other long term (current) drug therapy
CPT/HCPCS: 36415; 76801; 76817; 81001; 84702; 87086; 99284

== ENCOUNTER 2017-04-15 15:04 | Emergency (ER) | payer OTHER ==
[2017-04-15 16:49] LABS: Amorphous Sediment,Urine Rare /hpf; Appearance,Urine Clear (Clear); Bilirubin,Urine Negative (Negative); Glucose,Urine (UA) Negative (Negative); Ketones,Urine Trace (Negative); Leukocyte Esterase,Urine Small (Negative); Mucus,Urine Rare /hpf; Nitrite,Urine Negative (Negative); PH, Urine 5.5 (5.0-8.0); Particle Count 1336; Protein,Urine Negative (Negative); RBC,Urine 19 /hpf (0-5); Specific Gravity,Urine 1.008 (1.001-1.035); Sperm,Urine Moderate /hpf; Squamous Epithelial Cell,Urine <1 /hpf (0-4); UA Billing (MACRO vs. MICRO) MICRO; Urobilinogen,Urine <2.0 mg/dL (<2.0); WBC,Urine 7 /hpf (0-5)
--- NOTE | 2017-04-15 17:18 | US ---
EXAMINATION TYPE: US OB <=14 wks transvag DATE OF EXAM: 04/15/2017 COMPARISON: NONE CLINICAL HISTORY: bleeding EXAM PERFORMED: Transabdominal EXAM MEASUREMENTS: GESTATIONAL AGE / DATING Physician Established: not established yet Dates by LMP: unknown Dates by First Scan: not able to measure at the time 03/27/17 Dates by Current Scan for: ( 7 weeks/2 days) EDC: 11/30/2017 MATERNAL ANATOMY Uterus: 10.2 x 6.2 x 6.5 cm; appears wnl Right Ovary: 2.3 x 1.4 x 1.3 cm; appears wnl Left Ovary: 3.8 x 2.2 x 3.2 cm; appears to have echogenic lesion measuring 1.8 x 1.5 x 1.2 cm Post CDS / Adnexa: appears wnl Presence of free fluid: no Presence of corpus luteal cyst: not seen Presence of subchorionic bleed: not seen GESTATION / SURVEY CRL: 1.2 cm 7 weeks/2 days Yolk Sac (normal less than 6mm): 3 mm Heart Rate: 147 bpm Rhythm: normal IUP: single viable Date of LMP: unknown Beta HcG (if available): not avail. IMPRESSION: The ultrasound gestational age is 7 weeks 2 days. I see no complicating process.
--- NOTE | 2017-04-15 17:52 | ED ---
Female Urogenital HPI - General Chief complaint: Vaginal Bleeding Stated complaint: 8 weeks and spotting Time Seen by Provider: 04/15/17 15:40 Source: patient, RN notes reviewed Mode of arrival: ambulatory Limitations: no limitations - History of Present Illness Initial comments: 21-year-old female presented emergency Department chief complaint of vaginal bleeding in early . Patient states that she had sexual her course today which started the bleeding. Patient had on-and-off bleeding throughout the . Patient is O+ blood type. Patient denies any abdominal cramping. Patient states she has not seen her REPOSSESSOR but states she is appointment in [address] Olmstead. Patient is A0 Last Menstrual Period: 02/17/17 - Related Data Home Medications Medication Instructions Recorded Confirmed Pnv,Calcium 72/Iron/Folic Acid 1 tab PO DAILY 02/11/16 04/15/17 [ Plus Tablet] Allergies Allergy/AdvReac Type Severity Reaction Status Date / Time Iodinated Contrast- Oral and Allergy Severe Anaphylaxis Verified 04/15/17 15:37 IV Dye [Iodinated Contrast Media - IV Dye] Iodine and Iodide Containing Allergy Severe Anaphylaxis Verified 04/15/17 15:37 Produc Review of Systems ROS Statement: Those systems with pertinent positive or pertinent negative responses have been documented in the HPI. ROS Other: All systems not noted in ROS Statement are negative. Past Medical History Past Medical History: No Reported History Additional Past Medical History / Comment(s): ovarian cyst History of Any Multi-Drug Resistant Organisms: None Reported Past Surgical History: Section Past Anesthesia/Blood Transfusion Reactions: No Reported Reaction Past Psychological History: No Psychological Hx Reported Smoking Status: Never smoker Past Alcohol Use History: None Reported Past Drug Use History: None Reported - Past Family History Mother Family Medical History: No Reported History General Exam Limitations: no limitations General appearance: alert, in no apparent distress Respiratory exam: Present: normal lung sounds bilaterally. Absent: respiratory distress, wheezes, rales, rhonchi, stridor Cardiovascular Exam: Present: regular rate, normal rhythm, normal heart sounds. Absent: systolic murmur, diastolic murmur, rubs, gallop, clicks GI/Abdominal exam: Present: soft, normal bowel sounds. Absent: distended, tenderness, guarding, rebound, rigid External exam: Present: other (deferred) Course Vital Signs 04/15/17 15:27 Temperature 98.9 F Pulse Rate 72 Respiratory 16 Rate Blood Pressure 105/61 O2 Sat by Pulse 100 Oximetry Medical Decision Making - Medical Decision Making 21-year-old female presented for vaginal bleeding and . Patient ultrasound shows viable IUP 7 weeks 3 days. Patient is O+ blood type. There is no evidence of urinary tract infection. Patient states that she has an appointment with her REPOSSESSOR. patient refused pelvic - Lab Data Lab Results 04/15/17 Range/Units 16:20 Urine Color Yellow Urine Appearance Clear (Clear) Urine pH 5.5 (5.0-8.0) Ur Specific [place] 1.008 (1.001-1.035) Urine Protein Negative (Negative) Urine Glucose (UA) Negative (Negative) Urine Ketones Trace H (Negative) Urine Blood Moderate H (Negative) Urine Nitrite Negative (Negative) Urine Bilirubin Negative (Negative) Urine Urobilinogen <2.0 (<2.0) mg/dL Ur Leukocyte Esterase Small H (Negative) Urine RBC 19 H (0-5) /hpf Urine WBC 7 H (0-5) /hpf Ur Squamous Epith Cells <1 (0-4) /hpf Amorphous Sediment Rare H (None) /hpf Urine Mucus Rare H (None) /hpf Urine Sperm Moderate H (None) /hpf Disposition Clinical Impression: Threatened miscarriage in early Disposition: HOME SELF-CARE Condition: Stable Instructions: Threatened Miscarriage (ED) Additional Instructions: Please return to the Emergency Department if symptoms worsen or any other concerns. Referrals: None,Stated [Primary Care Provider] - 1-2 days Time of Disposition: 17:52
[2017-04-15 18:05] VITALS: BP 107/59; PULSE 60; RESP 18; TEMP 99.1
== END 2017-04-15 18:04 | disposition home or self-care (01) ==
LOC: EC 15:04
DX: O20.0 Threatened abortion (principal); Z79.899 Other long term (current) drug therapy; Z91.041 Radiographic dye allergy status; Z98.890 Other specified postprocedural states; Z67.40 Type O blood, Rh positive; Z3A.01 Less than 8 weeks gestation of pregnancy
CPT/HCPCS: 36415; 76801; 81001; 84702; 87086; 99284

== ENCOUNTER → 2017-05-08 | Outpatient (CLI) | payer OTHER ==
[2017-05-08 13:03] LABS: Glucose 79 mg/dL (74-99); Non-African American GFR(MDRD) >60 (>60 ml/min/1.73 sqM)
[2017-05-08 13:09] LABS: Anisocytosis Slight; HCT 36.6 % (34.0-46.0); HDW 2.49; HGB 12.3 gm/dL (11.4-16.0); MCH 26.9 pg (25.0-35.0); MCHC 33.5 g/dL (31.0-37.0); MCV 80.2 fL (80.0-100.0); Mean Platelet Volume 7.4; Microcytosis Slight; RBC 4.56 m/uL (3.80-5.40); RDW 16.8 % (11.5-15.5); WBC 8.4 k/uL (3.8-10.6)
--- NOTE | 2017-05-08 13:28 | US ---
EXAMINATION TYPE: US OB <= 14 wk fetus DATE OF EXAM: 05/08/2017 COMPARISON: NONE CLINICAL HISTORY: Z36 Confirm dates. EXAM PERFORMED: Transabdominal (TA) EXAM MEASUREMENTS: GESTATIONAL AGE / DATING Physician Established: not established Dates by LMP: unknown Dates by First Scan: (10 weeks/4 days) EDC: 11/30/17 Dates by Current Scan for: (11 weeks/1 days) EDC: 11/26/17 MATERNAL ANATOMY Uterus: 13.2 x 8.2 x 8.8cm Right Ovary: 2.9 x 2.5 x 1.5cm Left Ovary: 4.2 x 2.4 x 2.1cm Post CDS / Adnexa: wnl Presence of free fluid: no Presence of corpus luteal cyst: hyperechoic area left ovary = 1.4 x 1.5 x 1.3cm . This is unchanged from the examination of 03/15/2016 GESTATION / SURVEY CRL: 4.4cm (11 weeks/1 days) Yolk Sac (normal less than 6mm): 0.4cm Heart Rate: 151 bpm Rhythm: Normal IUP: Viable IUP Date of LMP: unknown Beta HcG (if available): unavailable Single viable IUP 11wks/1day with NORMA of 11/26/17. Hyperechoic area left ovary, ?possible corpus lute um vs. other IMPRESSION: 1. Single live intrauterine measuring 11 weeks and 1 day with estimated date of delivery of 11/26/2017. Dates are concordant with prior examinations. 2. Persistent left ovarian hyperechoic lesion is unchanged in size dating back to 03/15/2016 and may r epresent an ovarian dermoid.
[2017-05-08 13:35] LABS: Hepatitis B Surface Ag Index 0.05
== END ==
LOC: RADUSWWP 11:56
PROVIDERS: ATTEND Obstetrics & Gynecology
DX: Z36 Encounter for antenatal screening of mother (principal); Z34.90 Encounter for supervision of normal pregnancy, unspecified, unspecified trimester; Z3A.11 11 weeks gestation of pregnancy
CPT/HCPCS: 36415; 76801; 82565; 82947; 85027; 86762; 86780; 86850; 86900; 86901; 87340

== ENCOUNTER 2017-06-10 14:06 | Emergency (ER) | payer OTHER ==
[2017-06-10 15:53] LABS: Anisocytosis Slight; Basophils % (A) 0 %; CH 28.8; CHCM 36.9; Eosinophils # (A) 0.1 k/uL (0-0.7); Eosinophils % (A) 1 %; HCT 33.8 % (34.0-46.0); HDW 2.72; HGB 11.9 gm/dL (11.4-16.0); Luc # (Auto) 0.16; Luc % (Auto) 2; Lymphocytes % (A) 19 %; MCH 27.5 pg (25.0-35.0); MCHC 35.1 g/dL (31.0-37.0); MCV 78.4 fL (80.0-100.0); Microcytosis Slight; Monocytes # (A) 0.4 k/uL (0-1.0); Monocytes % (A) 4 %; Neutrophils % (A) 74 %; RBC 4.31 m/uL (3.80-5.40); RDW 16.5 % (11.5-15.5); WBC 10.7 k/uL (3.8-10.6)
[2017-06-10 15:55] LABS: Appearance,Urine Clear (Clear); Bilirubin,Urine Negative (Negative); Glucose,Urine (UA) Negative (Negative); Ketones,Urine Negative (Negative); Leukocyte Esterase,Urine Small (Negative); Mucus,Urine Occasional /hpf; Nitrite,Urine Negative (Negative); PH, Urine 5.5 (5.0-8.0); Particle Count 5184; Protein,Urine Negative (Negative); RBC,Urine 1 /hpf (0-5); Specific Gravity,Urine 1.013 (1.001-1.035); Squamous Epithelial Cell,Urine 1 /hpf (0-4); UA Billing (MACRO vs. MICRO) MICRO; Urobilinogen,Urine <2.0 mg/dL (<2.0); WBC,Urine 6 /hpf (0-5)
[2017-06-10 16:05] LABS: ALT 26 U/L (9-52); AST 19 U/L (14-36); Alkaline Phosphatase 50 U/L (38-126); Anion Gap 9 mmol/L; Blood Urea Nitrogen 5 mg/dL (7-17); Calcium 9.8 mg/dL (8.4-10.2); Carbon Dioxide 22 mmol/L (22-30); Chloride 106 mmol/L (98-107); Glucose 69 mg/dL (74-99); Non-African American GFR(MDRD) >60 (>60 ml/min/1.73 sqM); Potassium 3.7 mmol/L (3.5-5.1); Sodium 137 mmol/L (137-145); Total Bilirubin 0.6 mg/dL (0.2-1.3); Total Protein 7.3 g/dL (6.3-8.2)
[2017-06-10 16:08] LABS: Prothrombin Time 9.8 sec (9.0-12.0)
[2017-06-10 16:12] LABS: Partial Thromboplastin Time 20.4 sec (22.0-30.0)
--- NOTE | 2017-06-10 16:25 | ED ---
General Adult HPI - General Chief complaint: Abdominal Pain Stated complaint: abd pain-16 weeks pg Time Seen by Provider: 06/10/17 15:10 Source: patient, RN notes reviewed Mode of arrival: ambulatory Limitations: no limitations - History of Present Illness Initial comments: 22-year-old female presents for evaluation of hematuria and vaginal bleeding. Patient is approximately 16 weeks . She has had care. Last ultrasound was at approximately 16 weeks. She was evaluated for similar complaints at another hospital, told this was a possible threatened miscarriage. She has had some crampy lower abdominal pain, this was minimal. The patient time my evaluation. No significant vaginal bleeding, patient only has problems when she urinates. No clots. Patient has no significant past medical history. Denies fever or chills. Denies dysuria. Denies flank pain. - Related Data Home Medications Medication Instructions Recorded Confirmed Pnv,Calcium 72/Iron/Folic Acid 1 tab PO DAILY 02/11/16 06/10/17 [ Plus Tablet] Previous Rx's Medication Instructions Recorded Cephalexin [Keflex] 500 mg PO Q12HR #14 cap 06/10/17 Allergies Allergy/AdvReac Type Severity Reaction Status Date / Time Iodinated Contrast- Oral and Allergy Severe Anaphylaxis Verified 06/10/17 15:18 IV Dye [Iodinated Contrast Media - IV Dye] Iodine and Iodide Containing Allergy Severe Anaphylaxis Verified 06/10/17 15:18 Produc Review of Systems ROS Statement: Those systems with pertinent positive or pertinent negative responses have been documented in the HPI. ROS Other: All systems not noted in ROS Statement are negative. Past Medical History Past Medical History: No Reported History Additional Past Medical History / Comment(s): ovarian cyst History of Any Multi-Drug Resistant Organisms: None Reported Past Surgical History: Section Past Anesthesia/Blood Transfusion Reactions: No Reported Reaction Past Psychological History: No Psychological Hx Reported Smoking Status: Never smoker Past Alcohol Use History: Rare Past Drug Use History: None Reported - Past Family History Mother Family Medical History: No Reported History General Exam Limitations: no limitations General appearance: alert, in no apparent distress Head exam: Present: atraumatic, normocephalic Eye exam: Present: normal appearance, PERRL ENT exam: Present: normal exam Neck exam: Present: normal inspection. Absent: tenderness Respiratory exam: Present: normal lung sounds bilaterally. Absent: respiratory distress Cardiovascular Exam: Present: regular rate, normal rhythm GI/Abdominal exam: Present: soft. Absent: distended, tenderness Rectal exam: Present: normal inspection External exam: Present: normal external exam Speculum exam: Present: normal speculum exam. Absent: cervical discharge, vaginal bleeding Extremities exam: Present: normal inspection, full ROM Neurological exam: Present: alert, oriented X3 Psychiatric exam: Present: normal affect, normal mood Skin exam: Present: warm, dry, intact. Absent: cyanosis, diaphoretic Course Vital Signs 06/10/17 14:48 Temperature 98.2 F Pulse Rate 87 Respiratory 18 Rate Blood Pressure 126/64 O2 Sat by Pulse 99 Oximetry Medical Decision Making - Medical Decision Making 22-year-old female presenting with chief complaint hematuria and possible vaginal bleeding. Patient is 16 weeks . She is . This is her second ER visit for similar complaint. She has had care. Laboratory studies are obtained, significant for stable hemoglobin 11.9. Urinalysis shows 6 to be BC with positive leukocyte esterase. Urine culture is obtained. Patient will be started on a course of antibiotics. Ultrasound shows single live IUP 15 weeks gestation. Heart rate 154. No placenta previa. No active vaginal bleeding. Vital signs are stable. Diagnosis: Vaginal bleeding in , possible threatened miscarriage. - Lab Data Result diagrams: 06/10/17 15:40 06/10/17 15:40 Lab Results 06/10/17 06/10/17 06/10/17 Range/Units 15:40 15:40 15:40 WBC 10.7 H (3.8-10.6) k/uL RBC 4.31 (3.80-5.40) m/uL Hgb 11.9 (11.4-16.0) gm/dL Hct 33.8 L (34.0-46.0) % MCV 78.4 L (80.0-100.0) fL MCH 27.5 (25.0-35.0) pg MCHC 35.1 (31.0-37.0) g/dL RDW 16.5 H (11.5-15.5) % Plt Count 247 (150-450) k/uL Neutrophils % 74 % Lymphocytes % 19 % Monocytes % 4 % Eosinophils % 1 % Basophils % 0 % Neutrophils # 8.0 H (1.3-7.7) k/uL Lymphocytes # 2.0 (1.0-4.8) k/uL Monocytes # 0.4 (0-1.0) k/uL Eosinophils # 0.1 (0-0.7) k/uL Basophils # 0.0 (0-0.2) k/uL Anisocytosis Slight Microcytosis Slight PT 9.8 (9.0-12.0) sec INR 1.0 (<1.2) APTT 20.4 L (22.0-30.0) sec Sodium 137 (137-145) mmol/L Potassium 3.7 (3.5-5.1) mmol/L Chloride 106 (98-107) mmol/L Carbon Dioxide 22 (22-30) mmol/L Anion Gap 9 mmol/L BUN 5 L (7-17) mg/dL Creatinine 0.56 (0.52-1.04) mg/dL Est GFR (MDRD) Af Amer >60 (>60 ml/min/1.73 sqM) Est GFR (MDRD) Non-Af >60 (>60 ml/min/1.73 sqM) Glucose 69 L (74-99) mg/dL Calcium 9.8 (8.4-10.2) mg/dL Total Bilirubin 0.6 (0.2-1.3) mg/dL AST 19 (14-36) U/L ALT 26 (9-52) U/L Alkaline Phosphatase 50 (38-126) U/L Total Protein 7.3 (6.3-8.2) g/dL Albumin 4.1 (3.5-5.0) g/dL HCG, Quant 37383.7 mIU/mL Urine Color Urine Appearance (Clear) Urine pH (5.0-8.0) Ur Specific [place] (1.001-1.035) Urine Protein (Negative) Urine Glucose (UA) (Negative) Urine Ketones (Negative) Urine Blood (Negative) Urine Nitrite (Negative) Urine Bilirubin (Negative) Urine Urobilinogen (<2.0) mg/dL Ur Leukocyte Esterase (Negative) Urine RBC (0-5) /hpf Urine WBC (0-5) /hpf Ur Squamous Epith Cells (0-4) /hpf Urine Mucus (None) /hpf Urine HCG, Qual (Not Detectd) 06/10/17 06/10/17 Range/Units 15:40 15:40 WBC (3.8-10.6) k/uL RBC (3.80-5.40) m/uL Hgb (11.4-16.0) gm/dL Hct (34.0-46.0) % MCV (80.0-100.0) fL MCH (25.0-35.0) pg MCHC (31.0-37.0) g/dL RDW (11.5-15.5) % Plt Count (150-450) k/uL Neutrophils % % Lymphocytes % % Monocytes % % Eosinophils % % Basophils % % Neutrophils # (1.3-7.7) k/uL Lymphocytes # (1.0-4.8) k/uL Monocytes # (0-1.0) k/uL Eosinophils # (0-0.7) k/uL Basophils # (0-0.2) k/uL Anisocytosis Microcytosis PT (9.0-12.0) sec INR (<1.2) APTT (22.0-30.0) sec Sodium (137-145) mmol/L Potassium (3.5-5.1) mmol/L Chloride (98-107) mmol/L Carbon Dioxide (22-30) mmol/L Anion Gap mmol/L BUN (7-17) mg/dL Creatinine (0.52-1.04) mg/dL Est GFR (MDRD) Af Amer (>60 ml/min/1.73 sqM) Est GFR (MDRD) Non-Af (>60 ml/min/1.73 sqM) Glucose (74-99) mg/dL Calcium (8.4-10.2) mg/dL Total Bilirubin (0.2-1.3) mg/dL AST (14-36) U/L ALT (9-52) U/L Alkaline Phosphatase (38-126) U/L Total Protein (6.3-8.2) g/dL Albumin (3.5-5.0) g/dL HCG, Quant mIU/mL Urine Color Yellow Urine Appearance Clear (Clear) Urine pH 5.5 (5.0-8.0) Ur Specific [place] 1.013 (1.001-1.035) Urine Protein Negative (Negative) Urine Glucose (UA) Negative (Negative) Urine Ketones Negative (Negative) Urine Blood Negative (Negative) Urine Nitrite Negative (Negative) Urine Bilirubin Negative (Negative) Urine Urobilinogen <2.0 (<2.0) mg/dL Ur Leukocyte Esterase Small H (Negative) Urine RBC 1 (0-5) /hpf Urine WBC 6 H (0-5) /hpf Ur Squamous Epith Cells 1 (0-4) /hpf Urine Mucus Occasional H (None) /hpf Urine HCG, Qual Detected (Not Detectd) Disposition Clinical Impression: Urinary tract infection, Threatened miscarriage Disposition: HOME SELF-CARE Condition: Good Instructions: Urinary Tract Infection in Women (ED), Threatened Miscarriage (ED ) Prescriptions: Cephalexin [Keflex] 500 mg PO Q12HR #14 cap Referrals: None,Stated [Primary Care Provider] - 1-2 days
--- NOTE | 2017-06-10 16:42 | US ---
EXAMINATION TYPE: US OB >= 14 wk fetus DATE OF EXAM: 06/10/2017 COMPARISON: None CLINICAL HISTORY: Lower abdomen pain with spotting when patient urinates. TECHNIQUE: Transabdominal (TA) GESTATIONAL AGE / DATING Physician Established: (15 weeks/6 days) EDC: 11/26/17 Dates by LMP: LMP unknown Dates by First Scan: (15 weeks/2 days) EDC: 11/30/17 Dates by Current Scan: (15 weeks/3 days) EDC: 11/29/17 Beta HCG (if available): Not available at this time SURVEY IUP: Single PLACENTA: Anterior PREVIA: No Previa KELI: 9.7 cm Oligohydramnios CERVICAL LENGTH (transabdominal: norm > 3.0cm): 3.3 cm BIOMETRY PRESENTATION: Breech LIE: Longitudinal BPD: 2.9 cm 15 weeks / 1 days HC: 11.0 cm 15 weeks / 2 days AC: 9.1 cm 15 weeks / 2 days FL: 1.8 cm 15 weeks / 2 days ESTIMATED WEIGHT IN GRAMS: 119.2 grams ESTIMATED WEIGHT IN LBS/OZ: 4 lbs. 1 oz. WEIGHT PERCENTAGE BASED ON ESTABLISHED DATES: 10.7% HC/AC: 1.22 1.05-1.37 FL/AC: 19.62 HEART RATE: 154 bpm RHYTHM: Normal The cervix measures within normal limits. Bilateral ovarian color flow documented. IMPRESSION: 1. Single viable IUP in breech position measuring approximately 15 weeks 3 days with a heart ra te of 154 bpm. Dates are concordant with the physician established dates. There is no evidence of ke centa previa as the placenta is anterior and fundal. 2. There appears to be borderline oligohydramnios (9.7 cm) with the KELI measuring less that 10 cm. 3. The left ovary appears to have a hyperechoic area as seen in previous; possible dermoid versus oth er etiology . No free fluid noted in pelvis.
[2017-06-10 17:33] VITALS: BP 132/60; PULSE 90; RESP 20; TEMP 98
== END 2017-06-10 17:33 | disposition home or self-care (01) ==
LOC: EC 14:06
DX: O20.0 Threatened abortion (principal); O23.42 Unspecified infection of urinary tract in pregnancy, second trimester; Z3A.16 16 weeks gestation of pregnancy; Z91.041 Radiographic dye allergy status; Z91.048 Other nonmedicinal substance allergy status; Z79.899 Other long term (current) drug therapy
CPT/HCPCS: 36415; 76805; 80053; 81001; 81025; 84702; 85025; 85610; 85730; 87086; 99284

== ENCOUNTER 2017-06-25 15:19 | Emergency (ER) | payer OTHER ==
[2017-06-25] MEDS ORDERED: SODIUM CHLORIDE 0.9% 1,000 ML IV STA (15:39)
[2017-06-25 16:13] LABS: Anisocytosis Slight; Basophils % (A) 0 %; CH 29.8; Eosinophils # (A) 0.1 k/uL (0-0.7); Eosinophils % (A) 2 %; HCT 32.9 % (34.0-46.0); HDW 2.76; HGB 11.3 gm/dL (11.4-16.0); Luc # (Auto) 0.18; Luc % (Auto) 2; Lymphocytes # (A) 1.6 k/uL (1.0-4.8); Lymphocytes % (A) 20 %; MCH 28.5 pg (25.0-35.0); MCHC 34.2 g/dL (31.0-37.0); MCV 83.3 fL (80.0-100.0); Mean Platelet Volume 7.3; Monocytes # (A) 0.5 k/uL (0-1.0); Monocytes % (A) 6 %; Neutrophils # (A) 5.5 k/uL (1.3-7.7); Neutrophils % (A) 70 %; RBC 3.95 m/uL (3.80-5.40); RDW 16.8 % (11.5-15.5); WBC 7.8 k/uL (3.8-10.6); WBC (Perox) 8.07
--- NOTE | 2017-06-25 16:23 | ED ---
General Adult HPI - General Chief complaint: Dizziness Stated complaint: SYNCOPE 18 WEEKS Source: patient, EMS, RN notes reviewed Mode of arrival: EMS Limitations: no limitations - History of Present Illness Initial comments: 22-year-old female presents emergency Department chief complaint of near syncopal at episode at 18 weeks . Patient states she was walking through [place] starts just feel lightheaded. She states her vision started to fall. She sat down slowly started to feel better. Patient states she fell off like this for the past few weeks. Patient states she does get nausea during this otherwise feels fine. She has been getting some on and off headaches as well. Patient denies any nausea vomiting any vaginal bleeding. She has had normal pregnancies and this is her third . She lives at home. She's not had any fever chills any changes in urination. She denies any chest pain or shortness of breath this happened. Patient denies any recent fever, chills, shortness of breath, chest pain, back pain, abdominal pain, nausea vomiting, numbness or tingling, dysuria or hematuria, constipation or diarrhea, headaches or visual changes, or any other current symptoms. - Related Data Home Medications Medication Instructions Recorded Confirmed Pnv,Calcium 72/Iron/Folic Acid 1 tab PO DAILY 02/11/16 06/25/17 [ Plus Tablet] Allergies Allergy/AdvReac Type Severity Reaction Status Date / Time Iodinated Contrast- Oral and Allergy Severe Anaphylaxis Verified 06/25/17 16:22 IV Dye [Iodinated Contrast Media - IV Dye] Iodine and Iodide Containing Allergy Severe Anaphylaxis Verified 06/25/17 16:22 Produc Review of Systems ROS Statement: Those systems with pertinent positive or pertinent negative responses have been documented in the HPI. ROS Other: All systems not noted in ROS Statement are negative. Past Medical History Past Medical History: No Reported History Additional Past Medical History / Comment(s): ovarian cyst History of Any Multi-Drug Resistant Organisms: None Reported Past Surgical History: Section Past Anesthesia/Blood Transfusion Reactions: No Reported Reaction Past Psychological History: No Psychological Hx Reported Smoking Status: Never smoker Past Alcohol Use History: None Reported Past Drug Use History: None Reported - Past Family History Mother Family Medical History: No Reported History General Exam - General Exam Comments Initial Comments: General: The patient is awake and alert, in no distress, and does not appear acutely ill. Eye: Pupils are equal, round and reactive to light, extra-ocular movements are intact; there is normal conjunctiva bilaterally. No signs of icterus. Ears, nose, mouth and throat: There are moist mucous membranes and no oral lesions. Neck: The neck is supple, there is no tenderness. Cardiovascular: There is a regular rate and rhythm. No murmur, rub or gallop is appreciated. Respiratory: Lungs are clear to auscultation, respirations are non-labored, breath sounds are equal. No wheezes, stridor, rales, or rhonchi. Gastrointestinal: Soft, non-distended, non-tender abdomen without masses or organomegaly noted. There is no rebound or guarding present. No CVA tenderness. Bowel sounds are unremarkable. Back: There is no tenderness to palpation in the midline. There is no obvious deformity. No rashes noted. Musculoskeletal: Normal ROM, no tenderness, There is no pedal edema. There is no calf tenderness or swelling. Sensation intact. Pulses equal bilaterally 2+. Neurological: CN II-XII intact, There are no obvious motor or sensory deficits. Coordination appears grossly intact. Speech is normal. Skin: Skin is warm and dry and no rashes or lesions are noted. Psychiatric: Cooperative, appropriate mood & affect, normal judgment. Limitations: no limitations Course Vital Signs 06/25/17 06/25/17 06/25/17 15:28 16:01 16:02 Temperature 99.1 F Pulse Rate 75 73 Pulse Rate [ 77 82 Frozen Pie Maker ] Respiratory 16 16 Rate Blood Pressure 105/55 Blood Pressure 103/53 111/63 [Right Arm] O2 Sat by Pulse 100 100 Oximetry 06/25/17 16:03 Temperature Pulse Rate Pulse Rate [ 91 Frozen Pie Maker ] Respiratory Rate Blood Pressure Blood Pressure 99/57 [Right Arm] O2 Sat by Pulse Oximetry EKG Findings - EKG Comments: EKG Findings:: normal sinus rhythm 77 bpm, normal axis, no atopy, no S-T depressions or elevations, Medical Decision Making - Medical Decision Making 22-year-old female presents to the emergency department with a chief complaint of near syncope in . heart tones are stable at this time. Orthostatics are reviewed. This time lab work is reviewed. There is concern for possible UTI. We'll start her on antibiotics. We discussed increasing fluids and return parameters all patient's questions. She stated that she understood and she is in agreement with this plan. All questions have been answered. She will be discharged. - Lab Data Result diagrams: 06/25/17 16:00 06/25/17 16:00 Lab Results 06/25/17 06/25/17 06/25/17 Range/Units 16:00 16:00 17:17 WBC 7.8 (3.8-10.6) k/uL RBC 3.95 (3.80-5.40) m/uL Hgb 11.3 L (11.4-16.0) gm/dL Hct 32.9 L (34.0-46.0) % MCV 83.3 (80.0-100.0) fL MCH 28.5 (25.0-35.0) pg MCHC 34.2 (31.0-37.0) g/dL RDW 16.8 H (11.5-15.5) % Plt Count 197 (150-450) k/uL Neutrophils % 70 % Lymphocytes % 20 % Monocytes % 6 % Eosinophils % 2 % Basophils % 0 % Neutrophils # 5.5 (1.3-7.7) k/uL Lymphocytes # 1.6 (1.0-4.8) k/uL Monocytes # 0.5 (0-1.0) k/uL Eosinophils # 0.1 (0-0.7) k/uL Basophils # 0.0 (0-0.2) k/uL Anisocytosis Slight Sodium 135 L (137-145) mmol/L Potassium 3.8 (3.5-5.1) mmol/L Chloride 106 (98-107) mmol/L Carbon Dioxide 22 (22-30) mmol/L Anion Gap 7 mmol/L BUN 5 L (7-17) mg/dL Creatinine 0.50 L (0.52-1.04) mg/dL Est GFR (MDRD) Af Amer >60 (>60 ml/min/1.73 sqM) Est GFR (MDRD) Non-Af >60 (>60 ml/min/1.73 sqM) Glucose 76 (74-99) mg/dL Calcium 9.2 (8.4-10.2) mg/dL Total Bilirubin 0.4 (0.2-1.3) mg/dL AST 15 (14-36) U/L ALT 25 (9-52) U/L Alkaline Phosphatase 50 (38-126) U/L Total Protein 6.0 L (6.3-8.2) g/dL Albumin 3.2 L (3.5-5.0) g/dL Urine Color Light Yellow Urine Appearance Cloudy H (Clear) Urine pH 6.5 (5.0-8.0) Ur Specific [place] 1.007 (1.001-1.035) Urine Protein Negative (Negative) Urine Glucose (UA) Negative (Negative) Urine Ketones Negative (Negative) Urine Blood Negative (Negative) Urine Nitrite Negative (Negative) Urine Bilirubin Negative (Negative) Urine Urobilinogen <2.0 (<2.0) mg/dL Ur Leukocyte Esterase Moderate H (Negative) Urine RBC 1 (0-5) /hpf Urine WBC 8 H (0-5) /hpf Ur Squamous Epith Cells 4 (0-4) /hpf Urine Bacteria Rare H (None) /hpf Urine Mucus Rare H (None) /hpf Disposition Clinical Impression: Urinary tract infection Disposition: HOME SELF-CARE Condition: Stable Instructions: Urinary Tract Infection in Women (ED) Additional Instructions: Please use medication as discussed. Please follow up with family doctor if symptoms have not improved over the next two days. Please return to the emergency room if your symptoms increase or worsen or for any other concerns. Referrals: Efren Hagan DO [Primary Care Provider] - 1-2 days Time of Disposition: 17:42
[2017-06-25 16:29] LABS: ALT 25 U/L (9-52); AST 15 U/L (14-36); Alkaline Phosphatase 50 U/L (38-126); Anion Gap 7 mmol/L; Blood Urea Nitrogen 5 mg/dL (7-17); Calcium 9.2 mg/dL (8.4-10.2); Carbon Dioxide 22 mmol/L (22-30); Chloride 106 mmol/L (98-107); Glucose 76 mg/dL (74-99); Non-African American GFR(MDRD) >60 (>60 ml/min/1.73 sqM); Potassium 3.8 mmol/L (3.5-5.1); Sodium 135 mmol/L (137-145); Total Bilirubin 0.4 mg/dL (0.2-1.3)
[2017-06-25 17:26] LABS: Appearance,Urine Cloudy (Clear); Bacteria,Urine Rare /hpf; Bilirubin,Urine Negative (Negative); Glucose,Urine (UA) Negative (Negative); Ketones,Urine Negative (Negative); Leukocyte Esterase,Urine Moderate (Negative); Mucus,Urine Rare /hpf; Nitrite,Urine Negative (Negative); PH, Urine 6.5 (5.0-8.0); Particle Count 4069; Protein,Urine Negative (Negative); RBC,Urine 1 /hpf (0-5); Specific Gravity,Urine 1.007 (1.001-1.035); Squamous Epithelial Cell,Urine 4 /hpf (0-4); UA Billing (MACRO vs. MICRO) MICRO; Urobilinogen,Urine <2.0 mg/dL (<2.0); WBC,Urine 8 /hpf (0-5)
[2017-06-25 17:56] VITALS: BP 97/71; PULSE 93; RESP 18; TEMP 98.5
== END 2017-06-25 17:56 | disposition home or self-care (01) ==
LOC: EC 15:19
DX: O23.42 Unspecified infection of urinary tract in pregnancy, second trimester (principal); O99.89 Other specified diseases and conditions complicating pregnancy, childbirth and the puerperium; R42 Dizziness and giddiness; R55 Syncope and collapse; R11.0 Nausea; R51 Headache; Z3A.18 18 weeks gestation of pregnancy; Z91.041 Radiographic dye allergy status; Z88.8 Allergy status to other drugs, medicaments and biological substances
CPT/HCPCS: 36415; 80053; 81001; 85025; 87086; 93005; 96360; 99284

== ENCOUNTER 2017-09-05 19:50 | Outpatient (CLI) | payer OTHER ==
[2017-09-05 20:56] VITALS: BP 125/63; PULSE 93; RESP 16; TEMP 97.3
--- NOTE | 2017-11-06 06:42 | P.MSEPDOC ---
Presenting Problems - Arrival Data Date of Arrival on Unit: 09/05/17 Time of Arrival on Unit: 19:50 Mode of Transport: Ambulatory Medical History - Information : 5 Para: 2 Term: 2 : 0 Abortions: Spontaneous or Elective: 0 Number of Living Children: 2 - Gestational Age Gestational Age by NORMA (wks/days): 28 Weeks and 3 Days Vital Signs - Temperature Temperature: 97.3 F Temperature Source: Tympanic - Pulse Right Brachial Pulse Rate: 93 Pulse Assessment Method: Automatic Cuff - Respirations Respiratory Rate: 16 Oxygen Delivery Method: Room Air O2 Sat by Pulse Oximetry: 98 - Blood Pressure Right Arm Blood Pressure: 125/63 Blood Pressure Mean: 83 Blood Pressure Source: Automatic Cuff Medical Screen Scoring (Post) - Cervical Exam Dilation: Exam Deferred Effacement: Exam Deferred - Uterine Contractions Frequency: N/A Duration: N/A Intensity: N/A - Maternal Vital Signs Maternal Temperature: N/A Signs of Preeclampsia: N/A Maternal Respirations: N/A - Maternal Trauma Maternal Trauma: N/A - Assessment Heart Rate: 135 Heart Rate - NICHD Category: Category I (Normal) = 0 NST: Reactive Position: N/A Station: N/A - Total Score Total Score (Post): 0 - Post Treatment Level of Risk Post Treatment Level of Risk: Low (0-5) Physician Notification (Post) - Physician Notified Physician Notified Date: 09/05/17 Physician Notified Time: 20:30 Spoke With: florina Rashid Order Received: Yes - Notification Comment Comment: pt to call Dr. Hagan in the morning for follow up appointment Disposition - Disposition OB Disposition: Discharge to home Discharge Date: 09/05/17 Discharge Time: 20:32 I agree with the RN Medical Screening Exam: No Risk & Benefit of care provided described in d/c instruction: No Diagnosis: RELATED CONDITIONS, UNSPECIFIED, THIRD TRIMESTER ( Insufficient information is provided to me to complete this form.)
== END 2017-09-05 20:32 | disposition home or self-care (01) ==
LOC: FBPOP 19:50
PROVIDERS: ATTEND Obstetrics & Gynecology
DX: O26.93 Pregnancy related conditions, unspecified, third trimester (principal); Z3A.28 28 weeks gestation of pregnancy
CPT/HCPCS: 59025; G0463; 99213

== ENCOUNTER 2017-10-11 15:26 | Outpatient (CLI) | payer OTHER ==
[2017-10-11 17:30] LABS: Anisocytosis Slight; Basophils # (A) 0.1 k/uL (0-0.2); Basophils % (A) 1 %; Eosinophils # (A) 0.2 k/uL (0-0.7); Eosinophils % (A) 2 %; HCT 34.7 % (34.0-46.0); HGB 11.8 gm/dL (11.4-16.0); Lymphocytes # (A) 1.8 k/uL (1.0-4.8); Lymphocytes % (A) 17 %; MCH 28.8 pg (25.0-35.0); MCHC 33.9 g/dL (31.0-37.0); MCV 84.9 fL (80.0-100.0); Mean Platelet Volume 7.8; Monocytes # (A) 0.6 k/uL (0-1.0); Monocytes % (A) 6 %; Neutrophils # (A) 7.6 k/uL (1.3-7.7); Neutrophils % (A) 72 %; Platelet Count 188 k/uL (150-450); RBC 4.09 m/uL (3.80-5.40); RDW 16.2 % (11.5-15.5); WBC 10.5 k/uL (3.8-10.6)
[2017-10-11 17:37] LABS: Appearance,Urine Clear (Clear); Bilirubin,Urine Negative (Negative); Blood,Urine Negative (Negative); Color,Urine Light Yellow; Glucose,Urine (UA) Negative (Negative); Ketones,Urine Negative (Negative); Leukocyte Esterase,Urine Negative (Negative); Nitrite,Urine Negative (Negative); PH, Urine 6.5 (5.0-8.0); Protein,Urine Negative (Negative); Specific Gravity,Urine 1.009 (1.001-1.035); Urobilinogen,Urine <2.0 mg/dL (<2.0)
[2017-10-11 17:38] VITALS: PULSE 120; RESP 16; TEMP 97.3
[2017-10-11 17:40] LABS: ALT 27 U/L (9-52); AST 19 U/L (14-36); Blood Urea Nitrogen 5 mg/dL (7-17); LDH 508 U/L (313-618); Uric Acid 3.4 mg/dL (3.7-7.4)
[2017-10-11] MEDS ORDERED: ACETAMINOPHEN TAB 325 MG TAB PO STA (18:07)
[2017-10-11 19:26] VITALS: BP 126/45
--- NOTE | 2017-10-11 20:15 | P.MSEPDOC ---
Presenting Problems - Arrival Data Date of Arrival on Unit: 10/11/17 Time of Arrival on Unit: 15:19 Mode of Transport: Ambulatory - Complaint OB-Reason for Admission/Chief Complaint: Pain Comment: Pt reports to triage c/o suprapubic pain 03/04-started last night at 1800 Medical History - Information : 5 Para: 2 Term: 2 : 0 Abortions: Spontaneous or Elective: 0 Number of Living Children: 2 - Gestational Age Gestational Age by NORMA (wks/days): 33 Weeks and 2 Days - History Complications: Prior Review of Systems - Review of Systems Constitutional: No problems Breast: No problems ENT: No problems Cardiovascular: No problems Respiratory: No problems Gastrointestinal: No problems Genitourinary: No problems Musculoskeletal: No problems Neurological: No problems Skin: No problems Vital Signs - Temperature Temperature: 97.3 F Temperature Source: Temporal Artery Scan - Pulse Pulse Oximetery Pulse Rate: 120 Pulse Assessment Method: Pulse Oximetry - Respirations Respiratory Rate: 16 Oxygen Delivery Method: Room Air O2 Sat by Pulse Oximetry: 98 - Blood Pressure Right Arm Sitting Blood Pressure: 126/45 Blood Pressure Mean: 72 Blood Pressure Source: Automatic Cuff Medical Screen Scoring (Pre) - Cervical Exam Dilation: Exam Deferred Effacement: Exam Deferred Membranes: Intact - Uterine Contractions Frequency: N/A - Maternal Vital Signs Maternal Temperature: N/A Maternal Blood Pressure: Systolic >139 = 2 Signs of Preeclampsia: Headache = 1 Maternal Respirations: N/A - Pain Assessment Pain Location and Character: Abdomen Pain Scale Used: Numeric (1 - 10) Pain Intensity: 6 Pain Radiation Location: suprapubic Pain Frequency: Intermittent Pain Duration: 10 Pain Duration Units: Hours Pain Behavior: Vocalization Pain Aggravating Factors: None - Maternal Trauma Maternal Trauma: N/A - Assessment Baseline FHR: 140 Heart Rate - NICHD Category: Category I (Normal) = 0 NST: Reactive Position: N/A Station: N/A - Total Score Total Score (Pre): 3 - Level of Risk Level of Risk: Low (0-5) Physician Notification (Pre) - Physician Notified Physician Notified Date: 10/11/17 Physician Notified Time: 15:55 Physician/Practitioner Notifed:: Bentley Spoke With: Bentley New Order Received: Yes - Notification Comment Comment: Pts BP 164/84, repeat 198/88 on peritronics, REINOSO L frontal x 1 day, clonus absent, patellar bilateral reflexes +2, denies epigastric pain or RUQ pain, nausea or visual disturbances. No hx of HTN. Order PIH workup, serial BP. Medical Screen Scoring (Post) - Cervical Exam Dilation: Exam Deferred Effacement: Exam Deferred Membranes: Intact - Uterine Contractions Frequency: N/A - Maternal Vital Signs Maternal Temperature: N/A Maternal Blood Pressure: N/A Signs of Preeclampsia: N/A Maternal Respirations: N/A - Maternal Trauma Maternal Trauma: N/A - Assessment Heart Rate: 140 Heart Rate - NICHD Category: Category I (Normal) = 0 NST: Reactive Position: N/A Station: N/A - Total Score Total Score (Post): 0 - Post Treatment Level of Risk Post Treatment Level of Risk: N/A Physician Notification (Post) - Physician Notified Physician Notified Date: 10/11/17 Physician Notified Time: 17:50 Physician/Practitioner Notified:: Bentley Spoke With: Bentley New Order Received: Yes - Notification Comment Comment: Pt to be d/c home, call and make appt r/t missing appt today Disposition - Disposition OB Disposition: Discharge to home, Written follow up instructions reviewed Discharge Date: 10/11/17 Discharge Time: 18:50 I agree with the RN Medical Screening Exam: Yes Risk & Benefit of care provided described in d/c instruction: Yes Diagnosis: FALSE LABOR BEFORE 37 COMPLETED WEEKS OF GEST, THIRD TRI
== END 2017-10-11 18:50 | disposition home or self-care (01) ==
LOC: FBPOP 15:26
PROVIDERS: ATTEND Obstetrics & Gynecology
DX: O47.03 False labor before 37 completed weeks of gestation, third trimester (principal); Z3A.33 33 weeks gestation of pregnancy
CPT/HCPCS: 59025; 82565; 83615; 84450; 84460; 84520; 84550; 85025; 81003; G0463; 99213

== ENCOUNTER 2017-10-19 14:08 | Outpatient (CLI) | payer OTHER ==
[2017-10-19 14:36] VITALS: BP 116/68; PULSE 99; RESP 18; TEMP 97.9
--- NOTE | 2017-10-19 17:33 | P.MSEPDOC ---
Presenting Problems - Arrival Data Date of Arrival on Unit: 10/19/17 Time of Arrival on Unit: 14:10 Mode of Transport: Ambulatory - Complaint OB-Reason for Admission/Chief Complaint: Rule Out SROM Comment: pos SROM 1100 today, pt noticed spot of clear fluid x 2 today Medical History - Information : 5 Para: 2 Term: 2 : 0 Abortions: Spontaneous or Elective: 0 Number of Living Children: 2 - Gestational Age Gestational Age by NORMA (wks/days): 34 Weeks and 3 Days - History Complications: Prior Review of Systems - Review of Systems Constitutional: No problems Breast: No problems ENT: No problems Cardiovascular: No problems Respiratory: No problems Gastrointestinal: No problems Genitourinary: No problems Musculoskeletal: No problems Neurological: No problems Skin: No problems Vital Signs - Temperature Temperature: 97.9 F Temperature Source: Temporal Artery Scan - Pulse Right Sitting Brachial Pulse Rate: 99 Pulse Assessment Method: Automatic Cuff - Respirations Respiratory Rate: 18 Oxygen Delivery Method: Room Air - Blood Pressure Right Arm Sitting Blood Pressure: 116/68 Blood Pressure Mean: 84 Blood Pressure Source: Automatic Cuff Medical Screen Scoring (Pre) - Cervical Exam Dilation: Exam Deferred Effacement: Exam Deferred - Uterine Contractions Frequency: N/A Duration: N/A Intensity: N/A - Maternal Vital Signs Maternal Temperature: N/A Maternal Blood Pressure: N/A Signs of Preeclampsia: N/A Maternal Respirations: N/A - Pain Assessment Pain Scale Used: Numeric (1 - 10) Pain Intensity: 0 - Maternal Trauma Maternal Trauma: N/A - Assessment Baseline FHR: 140 Heart Rate - NICHD Category: Category I (Normal) = 0 NST: Reactive Position: N/A Station: N/A - Total Score Total Score (Pre): 0 - Level of Risk Level of Risk: Low (0-5) Medical Screen Scoring (Post) - Cervical Exam Dilation: 0 cm = 0 - Uterine Contractions Frequency: > 5 minutes apart = 1 Duration: N/A Intensity: N/A - Maternal Vital Signs Maternal Temperature: N/A Maternal Blood Pressure: N/A Signs of Preeclampsia: N/A Maternal Respirations: N/A - Pain Assessment Pain Intensity: 0 - Maternal Trauma Maternal Trauma: N/A - Assessment Heart Rate: 135 Heart Rate - NICHD Category: Category I (Normal) = 0 NST: Reactive Position: N/A Station: N/A - Total Score Total Score (Post): 1 - Post Treatment Level of Risk Post Treatment Level of Risk: Low (0-5) Physician Notification (Post) - Physician Notified Physician Notified Date: 10/19/17 Physician Notified Time: 15:09 Physician/Practitioner Notified:: Dr Saldana Spoke With: Dr Saldana New Order Received: Yes - Notification Comment Comment: Discharge home. Amnisure neg. Repeat amnisure performed with speculum - negative. No pooling of fluid noted on sterile vaginal exam. Disposition - Disposition OB Disposition: Discharge to home Discharge Date: 10/19/17 Discharge Time: 15:09 I agree with the RN Medical Screening Exam: Yes Risk & Benefit of care provided described in d/c instruction: Yes Diagnosis: FALSE LABOR BEFORE 37 COMPLETED WEEKS OF GEST, THIRD TRI
== END 2017-10-19 15:15 | disposition home or self-care (01) ==
LOC: FBPOP 14:08
PROVIDERS: ATTEND Obstetrics & Gynecology
DX: O47.02 False labor before 37 completed weeks of gestation, second trimester (principal); Z3A.34 34 weeks gestation of pregnancy
CPT/HCPCS: 59025; 84112; G0463; 99213

== ENCOUNTER 2017-10-31 06:34 | Outpatient (CLI) | payer OTHER ==
[2017-10-31 09:57] VITALS: BP 137/58; PULSE 103; RESP 15; TEMP 97.5
--- NOTE | 2017-10-31 12:24 | P.MSEPDOC ---
Presenting Problems - Arrival Data Date of Arrival on Unit: 10/31/17 Time of Arrival on Unit: 08:10 Mode of Transport: Ambulatory - Complaint OB-Reason for Admission/Chief Complaint: Other Comment: labial swelling and abd cramping Medical History - Information : 3 Para: 2 Term: 2 : 0 Abortions: Spontaneous or Elective: 0 Number of Living Children: 2 - Gestational Age Gestational Age by NORMA (wks/days): 36 Weeks and 2 Days - History Sexually Transmitted Diseases: HSV Review of Systems - Review of Systems Constitutional: No problems Breast: No problems ENT: No problems Cardiovascular: No problems Respiratory: No problems Gastrointestinal: No problems Genitourinary: No problems Musculoskeletal: No problems Neurological: No problems Skin: No problems Vital Signs - Temperature Temperature: 97.5 F Temperature Source: Temporal Artery Scan - Pulse Brachial Pulse Rate: 103 Pulse Assessment Method: Automatic Cuff - Respirations Respiratory Rate: 15 Oxygen Delivery Method: Room Air - Blood Pressure Right Arm Sitting Blood Pressure: 137/58 Blood Pressure Mean: 84 Blood Pressure Source: Automatic Cuff Medical Screen Scoring (Pre) - Cervical Exam Dilation: 1-3 cm = 1 Membranes: Intact - Uterine Contractions Frequency: > 5 minutes apart = 1 Duration: N/A Intensity: N/A - Maternal Vital Signs Maternal Temperature: N/A Maternal Blood Pressure: N/A Signs of Preeclampsia: N/A Maternal Respirations: N/A - Total Score Total Score (Pre): 2 - Level of Risk Level of Risk: Low (0-5) Medical Screen Scoring (Post) - Cervical Exam Dilation: 1-3 cm = 1 Membranes: Intact - Uterine Contractions Frequency: > 5 minutes apart = 1 Duration: N/A Intensity: N/A - Maternal Vital Signs Maternal Temperature: N/A Maternal Blood Pressure: N/A Signs of Preeclampsia: N/A Maternal Respirations: N/A - Pain Assessment Pain Location and Character: Abdomen Pain Scale Used: Numeric (1 - 10) Pain Intensity: 5 Pain Management Goal: 3 Pain Description: *Acute, Cramping Pain Frequency: Intermittent Pain Duration Units: Hours Pain Behavior: Vocalization Pain Aggravating Factors: Activity Pharmacological Interventions: PRN Medication Non-Pharmacological Interventions: Relaxation Technique - Maternal Trauma Maternal Trauma: N/A - Assessment Heart Rate: 145 - Total Score Total Score (Post): 2 - Post Treatment Level of Risk Post Treatment Level of Risk: Low (0-5) Physician Notification (Post) - Physician Notified Physician Notified Date: 10/31/17 Physician Notified Time: 08:05 Physician/Practitioner Notified:: Dr Hagan New Order Received: Yes - Notification Comment Comment: pt here for labial swelling and abd cramping. cervix was 1cm yest and remains the same today. orders received to dc pt home per v.o. Dr Hagan Disposition - Disposition OB Disposition: Triage Discharge Date: 10/31/17 Discharge Time: 08:10 I agree with the RN Medical Screening Exam: Yes Risk & Benefit of care provided described in d/c instruction: Yes Diagnosis: FALSE LABOR BEFORE 37 COMPLETED WEEKS OF GEST, THIRD TRI
== END 2017-10-31 08:10 | disposition home or self-care (01) ==
LOC: FBPOP 06:34
PROVIDERS: ATTEND Obstetrics & Gynecology
DX: O47.03 False labor before 37 completed weeks of gestation, third trimester (principal); Z3A.36 36 weeks gestation of pregnancy
CPT/HCPCS: 59025; G0463; 99213

== ENCOUNTER 2017-11-12 15:22 | Outpatient (CLI) | payer OTHER ==
[2017-11-12 15:56] VITALS: BP 117/72; PULSE 115; RESP 20; TEMP 98.9
--- NOTE | 2017-12-06 17:35 | P.MSEPDOC ---
Presenting Problems - Arrival Data Date of Arrival on Unit: 11/12/17 Time of Arrival on Unit: 15:26 Mode of Transport: Ambulatory - Complaint OB-Reason for Admission/Chief Complaint: Other Comment: painful bones in her hands and left leg numbness when walking at hinduism this am. ambulates well at this time. stable on her feet. needs no assist. pt is 5-3 and appears to have large fetus. discussed pelvic pressure against vessels and nerves. verb underst Medical History - Information : 5 Para: 2 Term: 2 : 0 Abortions: Spontaneous or Elective: 0 Number of Living Children: 2 - Gestational Age Gestational Age by NORMA (wks/days): 37 Weeks and 6 Days - History Complications: Other Comment: hands and left leg today. Review of Systems - Review of Systems Constitutional: No problems Breast: No problems ENT: No problems Cardiovascular: No problems Respiratory: No problems Gastrointestinal: No problems Genitourinary: No problems Musculoskeletal: No problems Neurological: No problems Skin: No problems Vital Signs - Temperature Temperature: 98.9 F Temperature Source: Oral - Pulse Right Brachial Pulse Rate: 115 Pulse Assessment Method: Automatic Cuff - Respirations Respiratory Rate: 20 Oxygen Delivery Method: Room Air O2 Sat by Pulse Oximetry: 98 - Blood Pressure Right Arm Blood Pressure: 117/72 Blood Pressure Mean: 87 Blood Pressure Source: Automatic Cuff Medical Screen Scoring (Pre) - Cervical Exam Dilation: Exam Deferred Effacement: Exam Deferred Membranes: Intact - Uterine Contractions Frequency: N/A Duration: N/A Intensity: N/A - Maternal Vital Signs Maternal Temperature: N/A Maternal Blood Pressure: N/A Signs of Preeclampsia: N/A Maternal Respirations: N/A - Pain Assessment Pain Location and Character: Left, Right, Hand Pain Scale Used: Numeric (1 - 10) Pain Intensity: 7 Pain Management Goal: 4 Pain Description: *Acute Pain Frequency: Intermittent Pain Duration: 3 Pain Duration Units: Hours Pain Behavior: Frustrated, Vocalization Pain Aggravating Factors: None Non-Pharmacological Interventions: Darkened Room - Maternal Trauma Maternal Trauma: N/A - Assessment Baseline FHR: 140 Heart Rate - NICHD Category: Category II (Indeterminate) = 3 NST: Non-reactive = 3 Position: N/A Station: N/A - Total Score Total Score (Pre): 6 - Level of Risk Level of Risk: Medium (6-9) Physician Notification (Pre) - Physician Notified Spoke With: cholo Rashid Order Received: Yes - Notification Comment Comment: discharge home after reactive nst. Medical Screen Scoring (Post) - Cervical Exam Dilation: Exam Deferred Effacement: Exam Deferred Membranes: Intact - Uterine Contractions Frequency: > 5 minutes apart = 1, > or = 36 weeks =2 Duration: N/A - Maternal Vital Signs Maternal Temperature: N/A Signs of Preeclampsia: N/A Maternal Respirations: N/A - Maternal Trauma Maternal Trauma: N/A - Assessment Heart Rate: 125 Heart Rate - NICHD Category: Category I (Normal) = 0 NST: Reactive Position: N/A Station: N/A - Total Score Total Score (Post): 3 - Post Treatment Level of Risk Post Treatment Level of Risk: Low (0-5) Physician Notification (Post) - Physician Notified Physician Notified Date: 11/12/17 Physician Notified Time: 16:15 Spoke With: dr cholo Rashid Order Received: No - Notification Comment Comment: reactive nst pt discharged to home insatisfactory condition Disposition - Disposition OB Disposition: Discharge to home Discharge Date: 11/12/17 Discharge Time: 16:30 I agree with the RN Medical Screening Exam: Yes Risk & Benefit of care provided described in d/c instruction: Yes Diagnosis: PAIN, UNSPECIFIED
== END 2017-11-12 16:30 | disposition home or self-care (01) ==
LOC: FBPOP 15:22
PROVIDERS: ATTEND Obstetrics & Gynecology
DX: O26.893 Other specified pregnancy related conditions, third trimester (principal); R10.2 Pelvic and perineal pain; Z3A.37 37 weeks gestation of pregnancy
CPT/HCPCS: 59025; G0463; 99213

== ENCOUNTER 2017-11-21 05:29 | Inpatient (IN) | payer OTHER ==
[2017-11-21] MEDS ORDERED: LACTATED RINGERS 1,000 ML IV ONE (05:39)
[2017-11-21] MEDS ORDERED: ceFAZolin IN SWFI 2 GM/20 ML SYRINGE IVP ONE (05:39)
[2017-11-21] MEDS ORDERED: CITRIC ACID-SODIUM CITRATE 15 ML CUP PO ONE (05:39)
[2017-11-21 05:48] VITALS: BMI 34.5
[2017-11-21] MEDS: LACTATED RINGERS 1,000 ML IV SCH ×4 (05:50→21:40)
[2017-11-21 05:59] LABS: Basophils % (A) 1 %; Eosinophils # (A) 0.2 k/uL (0-0.7); Eosinophils % (A) 2 %; HCT 35.4 % (34.0-46.0); HGB 11.9 gm/dL (11.4-16.0); Lymphocytes # (A) 1.9 k/uL (1.0-4.8); Lymphocytes % (A) 24 %; MCHC 33.5 g/dL (31.0-37.0); MCV 83.6 fL (80.0-100.0); Mean Platelet Volume 7.4; Monocytes # (A) 0.6 k/uL (0-1.0); Monocytes % (A) 7 %; Neutrophils # (A) 5.1 k/uL (1.3-7.7); Neutrophils % (A) 64 %; Platelet Count 189 k/uL (150-450); RBC 4.24 m/uL (3.80-5.40); RDW 14.6 % (11.5-15.5)
[2017-11-21] MEDS ORDERED: OXYTOCIN 10 UNIT/ML 1 ML VIAL ONE (07:57)
[2017-11-21] MEDS ORDERED: HYDROmorphone (PF) 1 MG/ML ONE (07:57)
[2017-11-21] MEDS ORDERED: KETOROLAC 30 MG/ML 1 ML VIAL ONE (07:57)
[2017-11-21] MEDS ORDERED: ONDANSETRON 4 MG/2 ML VIAL ONE (07:57)
[2017-11-21] MEDS ORDERED: PHENYLEPHRINE-0.9% NACL SYG 1 MG/10 ML SYRINGE ONE (07:57)
[2017-11-21] MEDS ORDERED: MIDAZOLAM 2 MG/2 ML VIAL ONE (07:57)
[2017-11-21] MEDS ORDERED: MORPHINE SULFATE (PF) 0.3 MG/0.3 ML SYR ONE (07:57)
[2017-11-21] MEDS ORDERED: NALBUPHINE 10 MG/ML AMPUL ONE (07:57)
[2017-11-21] MEDS ORDERED: MORPHINE SULFATE 4 MG/ML SYRINGE IVP PRN (08:19)
[2017-11-21] MEDS ORDERED: NALOXONE 0.4 MG/ML 1 ML VIAL IV PRN ×2 (08:19→08:37)
[2017-11-21] MEDS ORDERED: diphenhydrAMINE 50 MG/ML 1 ML VIAL IVP PRN ×3 (08:19→08:37)
[2017-11-21] MEDS ORDERED: ONDANSETRON 4 MG/2 ML VIAL IVP PRN ×2 (08:19→08:37)
[2017-11-21] MEDS ORDERED: SIMETHICONE 80 MG CHEWABLE PO PRN (08:37)
[2017-11-21] MEDS ORDERED: diphenhydrAMINE 50 MG CAP PO PRN (08:37)
[2017-11-21] MEDS ORDERED: Acetaminophen-Codeine 300-30mg TAB PO PRN ×2 (08:37)
[2017-11-21] MEDS ORDERED: diphenhydrAMINE 25 MG CAP PO PRN (08:37)
[2017-11-21] MEDS ORDERED: LANOLIN CREAM 5 GM TUBE TOPICAL PRN (08:37)
[2017-11-21] MEDS ORDERED: ZOLPIDEM 5 MG TAB PO PRN (08:37)
[2017-11-21] MEDS ORDERED: METOCLOPRAMIDE 5 MG/ML 2 ML VIAL IVP PRN (08:37)
[2017-11-21] MEDS ORDERED: ACETAMINOPHEN TAB 325 MG TAB PO PRN (08:37)
--- NOTE | 2017-11-21 08:41 | P.HPOB ---
History of Present Illness H&P Date: 11/21/17 Chief Complaint: Intrauterine at term repeat section Rhea is a 22-year-old with 2 prior sections is scheduled for repeat low transverse section. Her course was,. 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 She does have a son was diagnosed with a genetic disorder and later . she did see maternal medicine and coordinated with them. No other issues are noted. On physical exam vital signs are stable and afebrile. Heart regular, lungs clear, extremities without pain. Osteopathic exams unremarkable. Abdomen soft gravid uterus is noted in the heart tones were in the 140s to 150s. There are reactive. Pertinent labs did include O+ blood type rubella was immune hepatitis B surface antigen was negative as was RPR and her GBS was positive. Assessment intrauterine at term with 2 prior section. Plan repeat low transverse section Past Medical History Past Medical History: No Reported History Additional Past Medical History / Comment(s): hx ovarian cyst History of Any Multi-Drug Resistant Organisms: None Reported Past Surgical History: Section Past Anesthesia/Blood Transfusion Reactions: Previous Problems w/ Anesthesia Additional Past Anesthesia/Blood Transfusion Reaction / Comment(s): had skin reaction to topical betadine Past Psychological History: No Psychological Hx Reported Smoking Status: Never smoker Past Alcohol Use History: None Reported Past Drug Use History: None Reported - Past Family History Mother Family Medical History: No Reported History Medications and Allergies Home Medications Medication Instructions Recorded Confirmed Type Pnv,Calcium 72/Iron/Folic Acid 1 tab PO DAILY 02/11/16 11/21/17 History [ Plus Tablet] Allergies Allergy/AdvReac Type Severity Reaction Status Date / Time Iodinated Contrast- Oral and Allergy Severe Anaphylaxis Verified 11/21/17 05:38 IV Dye [Iodinated Contrast Media - IV Dye] Iodine and Iodide Containing Allergy Severe Anaphylaxis Verified 11/21/17 05:38 Produc povidone-iodine Allergy Severe Rash/Hives Verified 11/21/17 05:38 [From Betadine] soap [From Betadine] Allergy Severe Rash/Hives Verified 11/21/17 05:38 Exam Osteopathic Statement: *. No significant issues noted on an osteopathic structural exam other than those noted in the History and Physical/Consult. - Vital Signs Vital signs: Vital Signs Temp Pulse Resp BP Pulse Ox 11/21/17 05:41 97.0 F L 99 19 118/65 98 Intake and Output 11/20/17 11/21/17 11/21/17 22:59 06:59 14:59 Other: # Voids 0 Weight 85.729 kg Results Result Diagrams: 11/21/17 05:42
--- NOTE | 2017-11-21 08:44 | P.OP ---
Date of Procedure: 11/21/17 Preoperative Diagnosis: Intrauterine at term: Prior section Postoperative Diagnosis: Same Procedure(s) Performed: Repeat low transverse section Anesthesia: spinal Surgeon: Efren Hagan Landman #1: Sherry Saldana Estimated Blood Loss (ml): 500 IV fluids (ml): 800 Urine output (ml): 200 Pathology: other (Placenta) Condition: stable Disposition: floor Operative Findings: Male scores of 9 and 9 at one and 5 minutes respectively and the weight was 7 lbs. 10 oz. Description of Procedure: Patient was taken to the operating suite where a spinal anesthetic was found be adequate. She was prepped and draped in the normal sterile fashion and placed in dorsal supine position with leftward tilt. Initially a Pfannenstiel skin incision was made and this incision was then carried through to underlying layer of the fashion with second knife. Fascia was then nicked in the midline and this opening was extended laterally with Maynard scissors. Superior and inferior aspect of this incision were then grasped tented up and bluntly and sharply dissected off the rectus muscles. Rectus muscles were then divided the midline and sharp dissection into the peritoneum was made. This opening was then extended superiorly and inferiorly with good visualization of both bowel bladder with Metzenbaum scissors. Bladder blade was then placed and the vesicouterine peritoneum was identified. It was entered with Metzenbaum scissors and this opening was extended across face of the uterus Metzenbaum scissors. Knife was then used to maryse the midline getting close to through the uterine wall hemostat was then used to perforate through the uterine wall and this opening was extended bluntly. Head was then atraumatically delivered and mouth nares bulb suctioned. Anterior and posterior shoulders were delivered gentle downward and upward traction followed by the remainder of the baby. Umbilical cord was clamped cut usual fashion an nursery personnel was present to assume care. Placenta was then delivered intact and Pitocin was added to the IV. Uterus was then exteriorized cleared of clots and debris and closed in 2 layers with 0 Vicryl suture. Once excellent hemostasis was obtained and debris was suctioned from the posterior cul-de-sac. Uterus was then reinserted into the abdomen and peritoneal layer was reapproximated with 0 Vicryl suture. Fascial layer was then closed Lobac suture. 3-0 Vicryl was then used to reapproximate the skin and close the space. Skin was then closed with caridad. Sponge, lap, needle counts were all correct 2. Patient was then taken to the recovery room in stable and satisfactory condition.
[2017-11-21] MEDS: KETOROLAC 30 MG/ML 1 ML VIAL IVP PRN (17:28)
[2017-11-21] MEDS: SENNOSIDES-DOCUSATE SODIUM 1 EACH TAB PO SCH (20:43)
[2017-11-22] MEDS: KETOROLAC 30 MG/ML 1 ML VIAL IVP PRN (00:03)
[2017-11-22] MEDS: LACTATED RINGERS 1,000 ML IV SCH ×2 (01:13→04:28)
[2017-11-22] MEDS: SENNOSIDES-DOCUSATE SODIUM 1 EACH TAB PO SCH (08:19)
[2017-11-22 08:21] LABS: Basophils % (A) 0 %; Eosinophils # (A) 0.1 k/uL (0-0.7); Eosinophils % (A) 2 %; HCT 34.2 % (34.0-46.0); HGB 11.4 gm/dL (11.4-16.0); Lymphocytes # (A) 1.3 k/uL (1.0-4.8); Lymphocytes % (A) 15 %; MCH 28.2 pg (25.0-35.0); MCHC 33.2 g/dL (31.0-37.0); MCV 85.1 fL (80.0-100.0); Mean Platelet Volume 7.1; Monocytes # (A) 0.7 k/uL (0-1.0); Monocytes % (A) 8 %; Neutrophils # (A) 6.6 k/uL (1.3-7.7); Neutrophils % (A) 74 %; Platelet Count 197 k/uL (150-450); RBC 4.02 m/uL (3.80-5.40); RDW 14.6 % (11.5-15.5)
--- NOTE | 2017-11-22 08:29 | P.PN ---
Progress Note - Text Date: 11/22/2017 Time: 07 The patient is status post section Vital signs stable VAS:0-10 Patient has no complaints of pain. The patient incurred some minimal itching yesterday, this itching is now subsiding. Pain meds to be managed by service.
[2017-11-22] MEDS ORDERED: HYDROcodone/APAP 5-325MG 1 EACH TAB PO PRN (12:21)
--- NOTE | 2017-11-22 12:22 | P.PNOBGPC ---
Subjective - Subjective Principal diagnosis: Postop day 1 Interval history: Rhea is doing well postop day 1. She is ambulating, voiding and she is tolerating a diet. She voices no points of than tenderness particularly the left side of her incision her incision is however intact. Her vital signs stable and afebrile. Heart regular, lungs clear, extremities are without pain. Abdomen is soft and has positive bowel sounds. She does report that the time of 3 is not to enough for pain switched [place]. All the questions are answered for her at this time. Assessment postop day 1. Plan continue care. Patient reports: Reports appetite normal, Reports voiding normally, Reports pain well controlled, Reports ambulating normally : doing well Objective - Vital Signs Latest vital signs: Vital Signs Temp Pulse Resp BP Pulse Ox 11/22/17 11:53 99.0 F 86 16 102/58 97 11/22/17 11:47 16 11/22/17 07:44 98.5 F 85 18 121/51 97 11/22/17 04:00 99.6 F 88 17 110/54 11/22/17 01:00 18 11/22/17 00:00 100.0 F H 90 18 111/70 11/21/17 23:00 16 11/21/17 21:00 16 11/21/17 20:00 98.7 F 85 17 113/50 99 11/21/17 19:00 18 11/21/17 17:00 18 99 11/21/17 16:00 99.4 F 97 18 129/79 99 11/21/17 15:00 18 11/21/17 13:19 99 11/21/17 13:00 18 Intake and Output 11/21/17 11/22/17 11/22/17 22:59 06:59 14:59 Intake Total 360 Output Total 650 1250 Balance -650 -1250 360 Intake: Oral 360 Output: Urine 650 1250 Other: # Voids 1 1 - Exam Lungs: bilateral: normal Chest: Normal S1, Normal S2 Extremities: Present: normal Abdomen: Present: normal appearance, soft. Absent: distention, tenderness Incision: Present: normal, dry, intact Uterus: Present: normal, firm
[2017-11-22] MEDS: IBUPROFEN 600 MG TAB PO PRN ×2 (12:32→20:08)
[2017-11-22] MEDS: HYDROcodone/APAP 5-325MG 1 EACH TAB PO PRN ×2 (17:05→22:56)
[2017-11-23 00:38] VITALS: RESP 16
[2017-11-23] MEDS: SENNOSIDES-DOCUSATE SODIUM 1 EACH TAB PO SCH (08:00)
--- NOTE | 2017-11-23 09:00 | P.DS ---
Providers Date of admission: 11/21/17 05:29 Expected date of discharge: 11/23/17 Attending physician: Efren Hagan Primary care physician: Stated None Hospital Course: Rhea seen and evaluated postop day 2. She is doing very well. She is involuting, voiding, and she is tolerating her diet. She voices no placed. Pain is better controlled [place]. As she has a possible tape pathology will plan to leave caridad in place until Monday she'll follow-up in my office on Monday and have them removed then. We'll try and arrange a time for her to do that prior to her discharge. Otherwise her heart is regular, lungs are clear, extremities are without pain. Abdomen soft uterus is firm below the umbilicus lochia is reported be light. Incisions clean dry and intact. Assessment postop day 2. Plan discharged home follow up with me in approximately 1 week and follow-up follow up for staple removal in 3 days. Otherwise prescription for [place] and Motrin are provided as well as a prescription for a breast pump. Patient Condition at Discharge: Good Plan - Discharge Summary New Discharge Prescriptions: New HYDROcodone/APAP 5-325MG [[place] 5-325] 1 tab PO Q4HR PRN #30 tab PRN Reason: Pain Ibuprofen [Motrin] 600 mg PO Q6HR PRN #30 tab PRN Reason: Pain No Action Pnv,Calcium 72/Iron/Folic Acid [ Plus Tablet] 1 tab PO DAILY Discharge Medication List Pnv,Calcium 72/Iron/Folic Acid [ Plus Tablet] 1 tab PO DAILY 02/11/16 [ History] HYDROcodone/APAP 5-325MG [[place] 5-325] 1 tab PO Q4HR PRN #30 tab 11/23/17 [Rx] Ibuprofen [Motrin] 600 mg PO Q6HR PRN #30 tab 11/23/17 [Rx] Follow up Appointment(s)/Referral(s): Efren Hagan DO [Doctor of Osteopathic Medicine] - 3 Days (come in for staple removal) Activity/Diet/Wound Care/Special Instructions: No heavy lifting, limit stairs and driving, and pelvic rest. If any high temperatures, heavy bleeding, or severe pain call my office Discharge Disposition: HOME SELF-CARE
[2017-11-23 10:06] VITALS: BP 107/57; PULSE 84; TEMP 98.3
== END 2017-11-23 14:45 | disposition home or self-care (01) | DRG 765 ==
LOC: 4FBP 05:29
PROVIDERS: ADMIT Obstetrics & Gynecology; ATTEND Obstetrics & Gynecology
PROC: 10D00Z1 Extraction of Products of Conception, Low, Open Approach (ICD-10-PCS; principal; 2017-11-21 08:00)
DX: O34.211 Maternal care for low transverse scar from previous cesarean delivery (principal); O98.32 Other infections with a predominantly sexual mode of transmission complicating childbirth; Z37.0 Single live birth; Z91.041 Radiographic dye allergy status; Z3A.39 39 weeks gestation of pregnancy; O99.824 Streptococcus B carrier state complicating childbirth; A60.04 Herpesviral vulvovaginitis
CPT/HCPCS: 85025; 86850; 86900; 86901; 88307

== ENCOUNTER 2018-05-23 21:10 | Emergency (ER) | payer OTHER ==
[2018-05-23 21:19] VITALS: PULSE 60; RESP 20; TEMP 98.4
--- NOTE | 2018-05-23 22:02 | ED ---
ENT HPI - General Chief complaint: ENT Stated complaint: Sore Throat Time Seen by Provider: 05/23/18 21:28 Source: patient Mode of arrival: ambulatory Limitations: no limitations - History of Present Illness Initial comments: This patient is a 23-year-old woman who presents to be evaluated for left-sided anterior throat pain. She states it is now in its second day. She rates the severity is mild, states it is constant, and it does get worse when she swallows. It has not interfered with eating or drinking. She has not had fevers, chills, or cough. No change in speech or breathing. The patient mainly presents because she had used [employer] for the symptoms and have informed that cancer and HIV were possibilities for throat pain. The patient however is denying risk factors for both of these. MD complaint: sore throat -: hour(s) Location: throat Severity: mild Quality: dull Consistency: constant Improves with: none Worsens with: swallowing - Related Data Home Medications Medication Instructions Recorded Confirmed No Known Home Medications 05/23/18 05/23/18 Allergies Allergy/AdvReac Type Severity Reaction Status Date / Time Iodinated Contrast- Oral and Allergy Severe Anaphylaxis Verified 05/23/18 21:19 IV Dye [Iodinated Contrast Media - IV Dye] Iodine and Iodide Containing Allergy Severe Anaphylaxis Verified 05/23/18 21:19 Produc povidone-iodine Allergy Severe Rash/Hives Verified 05/23/18 21:19 [From Betadine] soap [From Betadine] Allergy Severe Rash/Hives Verified 05/23/18 21:19 Review of Systems ROS Statement: Those systems with pertinent positive or pertinent negative responses have been documented in the HPI. ROS Other: All systems not noted in ROS Statement are negative. Constitutional: Denies: fever, chills ENT: Reports: throat pain. Denies: ear pain, dental pain, hearing loss, congestion Respiratory: Denies: cough, dyspnea Cardiovascular: Denies: chest pain Gastrointestinal: Denies: abdominal pain, nausea, vomiting Skin: Denies: rash Neurological: Denies: headache Past Medical History Past Medical History: No Reported History Additional Past Medical History / Comment(s): hx ovarian cyst History of Any Multi-Drug Resistant Organisms: None Reported Past Surgical History: Section Past Anesthesia/Blood Transfusion Reactions: Previous Problems w/ Anesthesia Additional Past Anesthesia/Blood Transfusion Reaction / Comment(s): had skin reaction to topical betadine Past Psychological History: No Psychological Hx Reported Smoking Status: Never smoker Past Alcohol Use History: None Reported Past Drug Use History: None Reported - Past Family History Mother Family Medical History: No Reported History General Exam Limitations: no limitations General appearance: alert, in no apparent distress Head exam: Present: atraumatic, normocephalic Eye exam: Present: normal appearance. Absent: scleral icterus, conjunctival injection ENT exam: Present: mucous membranes moist, other (There is some cobblestoning of the pharynx. The uvula is midline without edema.) Neck exam: Present: normal inspection, full ROM. Absent: tenderness, meningismus, lymphadenopathy Respiratory exam: Present: normal lung sounds bilaterally. Absent: respiratory distress, wheezes, rales, rhonchi, stridor Cardiovascular Exam: Present: regular rate, normal rhythm, normal heart sounds. Absent: systolic murmur, diastolic murmur, rubs, gallop Neurological exam: Present: other (Speech normal) Skin exam: Present: warm, dry, intact, normal color. Absent: rash Course Vital Signs 05/23/18 21:16 Temperature 98.4 F Pulse Rate 60 Respiratory 20 Rate O2 Sat by Pulse 98 Oximetry Medical Decision Making - Lab Data Lab Results 05/23/18 Range/Units 21:20 Group A Strep Rapid Negative (Negative) Disposition Clinical Impression: Pharyngitis Disposition: HOME SELF-CARE Condition: Good Instructions: Strep Throat (ED) Is patient prescribed a controlled substance at d/c from ED?: No Referrals: None,Stated [Primary Care Provider] - 1-2 days
[2018-05-23] MEDS ORDERED: LIDOCAINE VISCOUS 2% 15 ML CUP MUCOUS MEM STA (22:11)
== END 2018-05-23 22:25 | disposition home or self-care (01) ==
LOC: EC 21:10
DX: J02.9 Acute pharyngitis, unspecified (principal); Z91.041 Radiographic dye allergy status; Z91.09 Other allergy status, other than to drugs and biological substances; Z88.8 Allergy status to other drugs, medicaments and biological substances
CPT/HCPCS: 87081; 87430; 99283

== ENCOUNTER 2018-06-22 01:29 | Emergency (ER) | payer OTHER ==
--- NOTE | 2018-06-22 01:51 | ED ---
Female Urogenital HPI - General Source: patient, family, RN notes reviewed Mode of arrival: ambulatory Limitations: no limitations <Caitlyn Yancey - Last Filed: 06/22/18 02:15> <Linda Pat - Last Filed: 06/22/18 02:22> - General Chief complaint: Urogenital Stated complaint: UTI Time Seen by Provider: 06/22/18 01:36 - History of Present Illness Initial comments: This is a 23-year-old female who presents to the emergency department with chief complaint of urinary tract infection symptoms. Patient states that 3 hours ago she developed dysuria, lower abdominal discomfort while urinating, increased urinary frequency and urgency and feelings of inability to fully empty the bladder. She denies any fevers or chills. Denies flank pain. Denies hematuria. Patient states that prior to arrival she did have sexual intercourse with the previous partner. She states that following intercourse, while urinating she has noticed a fishy odor. Denies concern for . Patient states that she did have sexual intercourse this evening with a previous partner and is concerned for possible STDs. She states that her last STD screening was negative. Denies nausea or vomiting, diarrhea. (Caitlyn Yancey) - Related Data Previous Rx's Medication Instructions Recorded Sulfamethox-Tmp 800-160Mg [Bactrim 1 tab PO Q12HR #10 tab 06/22/18 DS 800-160 mg] Allergies Allergy/AdvReac Type Severity Reaction Status Date / Time Iodinated Contrast- Oral and Allergy Severe Anaphylaxis Verified 05/23/18 21:19 IV Dye [Iodinated Contrast Media - IV Dye] Iodine and Iodide Containing Allergy Severe Anaphylaxis Verified 05/23/18 21:19 Produc povidone-iodine Allergy Severe Rash/Hives Verified 05/23/18 21:19 [From Betadine] soap [From Betadine] Allergy Severe Rash/Hives Verified 05/23/18 21:19 Review of Systems ROS Other: All systems not noted in ROS Statement are negative. <Caitlyn Yancey - Last Filed: 06/22/18 02:15> ROS Other: All systems not noted in ROS Statement are negative. <Linda Pat - Last Filed: 06/22/18 02:22> ROS Statement: Those systems with pertinent positive or pertinent negative responses have been documented in the HPI. Past Medical History Past Medical History: No Reported History Additional Past Medical History / Comment(s): hx ovarian cyst History of Any Multi-Drug Resistant Organisms: None Reported Past Surgical History: Section Past Anesthesia/Blood Transfusion Reactions: Previous Problems w/ Anesthesia Additional Past Anesthesia/Blood Transfusion Reaction / Comment(s): had skin reaction to topical betadine Past Psychological History: No Psychological Hx Reported Smoking Status: Never smoker Past Alcohol Use History: None Reported Past Drug Use History: None Reported - Past Family History Mother Family Medical History: No Reported History <Caitlyn Yancey - Last Filed: 06/22/18 02:15> General Exam Limitations: no limitations External exam: Present: normal external exam. Absent: erythema, swelling, lesions Speculum exam: Present: normal speculum exam. Absent: erythema, vaginal discharge <Caitlyn Yancey - Last Filed: 06/22/18 02:15> <Linda Pat - Last Filed: 06/22/18 02:22> - General Exam Comments Initial Comments: General: Awake and alert, well-developed; in no apparent distress. HEENT: Head atraumatic, normocephalic. Pupils are equal, round and reactive to light. Extraocular movements intact. Oropharynx moist without erythema or exudate. Neck: Supple. Normal ROM. Cardiovascular: Regular rate and rhythm. No murmurs, rubs or gallops. Chest symmetrical. Respiratory: Lungs clear to auscultation bilaterally. No wheezes, rales or rhonchi. Normal respiratory effort with no use of accessory muscles. Abdomen: Soft, non-tender, non-distended. No rigidity, rebound or guarding. Normal bowel sounds in all 4 quadrants. No CVA tenderness bilaterally. Musculoskeletal: Normal ROM, no tenderness bilateral upper and lower extremities. Ambulating normally. Skin: [place], warm and dry without rashes or lesions. Neurological: Alert and oriented x3. CN II-XII grossly intact. Speech is fluent and answers are appropriate. No focal neuro deficits. Psychiatric: Normal mood and affect. No overt signs of depression or anxiety noted. (Caitlyn Yancey) Vital Signs 06/22/18 01:32 Temperature 98.3 F Pulse Rate 60 Respiratory 20 Rate Blood Pressure 104/68 O2 Sat by Pulse 100 Oximetry Medical Decision Making <Caitlyn Yancey - Last Filed: 06/22/18 02:15> <Linda Pat - Last Filed: 06/22/18 02:22> - Medical Decision Making This is a 23-year-old female who presents to the emergency department with chief complaint of urinary tract infection symptoms. Patient reports dysuria, increased frequency, urgency and inability to fully empty bladder. Denies flank pain, fevers or chills. Patient states she is also concerned for STDs as she did have sexual intercourse with a previous partner since her last normal STD testing. Patient also reported a fishy vaginal odor. Pelvic examination was performed and no abnormalities were noted. Urine chlamydia and gonorrhea testing is pending. Patient does wish to be empirically treated so 1 g of azithromycin and 250 mg of ceftriaxone were administered. Patient will be started on Bactrim for a urinary tract infection. UA revealed large leukocyte esterase, high white blood cells and white blood cell clumps. UA also revealed blood and red blood cells. Recommended following up with primary care provider next week for repeat UA. Patient's vital signs have been stable and she is in no acute distress. She will be discharged home at this time. She is in agreement and voices understanding. All questions were answered. (Caitlyn Yancey) I was available for consultation in the emergency department. The history and physical exam were done by the midlevel provider. I was consulted for this patient's care. I reviewed the case with the midlevel provider and based on their presentation of the patient, I agree with the assessment, medical decision making and plan of care as documented. (Linda Pat) - Lab Data Lab Results 06/22/18 06/22/18 Range/Units 01:45 01:45 Urine Color Yellow Urine Appearance Cloudy H (Clear) Urine pH 6.5 (5.0-8.0) Ur Specific [place] 1.012 (1.001-1.035) Urine Protein Trace H (Negative) Urine Glucose (UA) Negative (Negative) Urine Ketones Negative (Negative) Urine Blood Large H (Negative) Urine Nitrite Negative (Negative) Urine Bilirubin Negative (Negative) Urine Urobilinogen <2.0 (<2.0) mg/dL Ur Leukocyte Esterase Large H (Negative) Urine RBC 145 H (0-5) /hpf Urine WBC >182 H (0-5) /hpf Urine WBC Clumps Many H (None) /hpf Ur Squamous Epith Cells 3 (0-4) /hpf Urine HCG, Qual Not Detected (Not Detectd) Disposition Is patient prescribed a controlled substance at d/c from ED?: No Time of Disposition: 02:19 <Caitlyn Yancey - Last Filed: 06/22/18 02:15> <Linda Pat - Last Filed: 06/22/18 02:22> Clinical Impression: Urinary tract infection, Possible exposure to STD Disposition: HOME SELF-CARE Condition: Good Instructions: Sexually Transmitted Diseases (ED), Urinary Tract Infection in Women (ED) Additional Instructions: Please take medications as prescribed. As discussed, please follow-up with primary care provider for repeat urinalysis. Please follow up with primary care provider within 1-2 days. Return to emergency department if symptoms should worsen or any concerns arise. Prescriptions: Sulfamethox-Tmp 800-160Mg [Bactrim DS 800-160 mg] 1 tab PO Q12HR #10 tab Referrals: Mary Borden DO [Primary Care Provider] - 1-2 days
[2018-06-22 01:56] LABS: Appearance,Urine Cloudy (Clear); Bilirubin,Urine Negative (Negative); Blood,Urine Large (Negative); Color,Urine Yellow; Glucose,Urine (UA) Negative (Negative); Ketones,Urine Negative (Negative); Leukocyte Esterase,Urine Large (Negative); Nitrite,Urine Negative (Negative); PH, Urine 6.5 (5.0-8.0); Protein,Urine Trace (Negative); RBC,Urine 145 /hpf (0-5); Specific Gravity,Urine 1.012 (1.001-1.035); Squamous Epithelial Cell,Urine 3 /hpf (0-4); Urobilinogen,Urine <2.0 mg/dL (<2.0); WBC,Urine >182 /hpf (0-5)
[2018-06-22] MEDS ORDERED: cefTRIAXone 250 MG VIAL IM STA (02:14)
[2018-06-22] MEDS ORDERED: AZITHROMYCIN 500 MG TAB PO STA (02:14)
[2018-06-22] MEDS ORDERED: SULFAMETHOX-TMP 800-160MG 1 EACH TAB PO STA (02:15)
[2018-06-22 02:38] VITALS: BP 110/66; PULSE 58; RESP 16; TEMP 98
[2018-06-23 15:24] LABS: C. trachomatis,PCR Negative (Neg,Equiv); Chlamydia trachomatis Source Urine; N. gonorrhoeae,PCR Negative (Neg,Equiv); Neisseria Source Urine
== END 2018-06-22 02:40 | disposition home or self-care (01) ==
LOC: EC 01:29
DX: N39.0 Urinary tract infection, site not specified (principal); R19.8 Other specified symptoms and signs involving the digestive system and abdomen; Z91.041 Radiographic dye allergy status; Z88.8 Allergy status to other drugs, medicaments and biological substances
CPT/HCPCS: 81001; 81025; 87491; 87591; 96372; 99283

== ENCOUNTER 2018-06-23 22:14 | Emergency (ER) | payer OTHER ==
[2018-06-23 22:20] VITALS: BP 104/69; PULSE 78; RESP 18; TEMP 98.3
--- NOTE | 2018-06-23 22:52 | ED ---
General Adult HPI - General Chief complaint: Urogenital Stated complaint: Urogenital Time Seen by Provider: 06/23/18 22:34 Source: patient, RN notes reviewed Mode of arrival: ambulatory Limitations: no limitations - History of Present Illness Initial comments: 23-year-old female presents to the emergency department for a chief complaint of sore on genitals times one day. Patient states she was evaluated in the emergency department yesterday and treated for gonorrhea and Chlamydia along with a urinary tract infection. Patient states this sore started today after she had sex. Patient states it is painful to touch. Patient states she has tested positive for herpes in her blood in the past and is concerned this is a herpes outbreak. Patient is not aware of any previous herpes outbreaks. Patient denies fevers or chills. Patient denies any vaginal discharge. Patient denies any pelvic pain. Patient states she is currently taking an antibiotic for a urinary tract infection. Patient has no other complaints at this time including shortness of breath, chest pain, abdominal pain, nausea or vomiting, headache, or visual changes. - Related Data Previous Rx's Medication Instructions Recorded Sulfamethox-Tmp 800-160Mg [Bactrim 1 tab PO Q12HR #10 tab 06/22/18 DS 800-160 mg] Acyclovir 400 mg PO TID 7 Days tablet 06/23/18 Allergies Allergy/AdvReac Type Severity Reaction Status Date / Time Iodinated Contrast- Oral and Allergy Severe Anaphylaxis Verified 06/23/18 22:20 IV Dye [Iodinated Contrast Media - IV Dye] Iodine and Iodide Containing Allergy Severe Anaphylaxis Verified 06/23/18 22:20 Produc povidone-iodine Allergy Severe Rash/Hives Verified 06/23/18 22:20 [From Betadine] soap [From Betadine] Allergy Severe Rash/Hives Verified 06/23/18 22:20 Review of Systems ROS Statement: Those systems with pertinent positive or pertinent negative responses have been documented in the HPI. ROS Other: All systems not noted in ROS Statement are negative. Past Medical History Past Medical History: No Reported History Additional Past Medical History / Comment(s): hx ovarian cyst History of Any Multi-Drug Resistant Organisms: None Reported Past Surgical History: Section Past Anesthesia/Blood Transfusion Reactions: Previous Problems w/ Anesthesia Additional Past Anesthesia/Blood Transfusion Reaction / Comment(s): had skin reaction to topical betadine Past Psychological History: No Psychological Hx Reported Smoking Status: Never smoker Past Alcohol Use History: None Reported Past Drug Use History: None Reported - Past Family History Mother Family Medical History: No Reported History General Exam Limitations: no limitations General appearance: alert, in no apparent distress Head exam: Present: atraumatic, normocephalic, normal inspection Eye exam: Present: normal appearance, PERRL, EOMI. Absent: scleral icterus, conjunctival injection, periorbital swelling ENT exam: Present: normal exam, mucous membranes moist Neck exam: Present: normal inspection, full ROM. Absent: tenderness, meningismus, lymphadenopathy Respiratory exam: Present: normal lung sounds bilaterally. Absent: respiratory distress, wheezes, rales, rhonchi, stridor Cardiovascular Exam: Present: regular rate, normal rhythm, normal heart sounds. Absent: systolic murmur, diastolic murmur, rubs, gallop, clicks GI/Abdominal exam: Present: soft, normal bowel sounds. Absent: distended, tenderness (No lower abdominal tenderness noted), guarding, rebound, rigid External exam: Present: lesions (Erythematous lesion noted on the inner right labia minora near the vaginal opening). Absent: swelling, lacerations, ecchymosis Speculum exam: Present: other (Patient refused speculum exam as she did just have one yesterday) By manual exam: Present: other (Patient refused bimanual examination she had one yesterday.) Course Vital Signs 06/23/18 22:16 Temperature 98.3 F Pulse Rate 78 Respiratory 18 Rate Blood Pressure 104/69 O2 Sat by Pulse 99 Oximetry Medical Decision Making - Medical Decision Making 23-year-old female presents to the emergency department for a chief complaint of genital sore times one day. Patient states this sore started today after she had sex. Patient was treated empirically for gonorrhea and Chlamydia yesterday and is currently on antibiotics for a urinary tract infection. Patient had a negative test at that time. Patient states she has had a positive blood test for herpes in the past but has not had an outbreak. She is concerned this is her initial outbreak. On exam there is an erythematous lesion noted on the labia minora. here is no vesicle to test fluid from at this time unfortunately. This is likely irritation rather than herpes. I did discuss this with the patient. However, patient is very concerned as she has had a positive blood test for herpes and states she thinks this is herpes. Patient is aware that I do not have a strong suspicion of herpes at this time but specifically requests the medication for it. I also discussed the patient that just because she had a positive HSV and blood it does not mean she has genital herpes. However, due to patient's concern as well as positive herpes blood test and lesion she will be treated. She is to follow up with primary care for this concern. Patient aware to return to the emergency Department if she has any worsening symptoms. Disposition Clinical Impression: Irritation of external female genitalia Disposition: HOME SELF-CARE Condition: Good Instructions: Genital Herpes Simplex (ED) Additional Instructions: Please take medications as directed. Please follow-up with primary care in 1-2 days. Return to the emergency department if you have any worsening symptoms. Prescriptions: Acyclovir 400 mg PO TID 7 Days tablet Is patient prescribed a controlled substance at d/c from ED?: No Referrals: Mary Borden DO [Primary Care Provider] - 1-2 days Time of Disposition: 22:51
== END 2018-06-23 23:13 | disposition home or self-care (01) ==
LOC: EC 22:14
DX: N90.89 Other specified noninflammatory disorders of vulva and perineum (principal); N39.0 Urinary tract infection, site not specified; Z88.8 Allergy status to other drugs, medicaments and biological substances; Z91.041 Radiographic dye allergy status; Z91.048 Other nonmedicinal substance allergy status
CPT/HCPCS: 99283

== ENCOUNTER 2018-09-04 20:10 | Emergency (ER) | payer OTHER ==
[2018-09-04 20:21] VITALS: TEMP 98.6
--- NOTE | 2018-09-04 20:51 | ED ---
Eye Problem HPI - General Chief complaint: Eye Problems Stated complaint: MRSA Time Seen by Provider: 09/04/18 20:46 Source: patient Mode of arrival: ambulatory Limitations: no limitations - History of Present Illness Initial comments: This is a 24-year-old female the ER for evaluation patient presents today for evasive bilateral lower edema. Patient has swelling but typically swelling just like her mouth swells she did patient's of steroid cream on not around her eyes. Patient encouraged not to place steroids This is patient is coming to the edema and edema started tonight with eye drainage. -: days(s) (1) Onset Description: gradual Location: both eyes Place: home If Injury: none Eye Symptoms: itching, blurry vision Severity: mild Severity scale (1-10): 1 Consistency: constant Context: recent uri Associated Symptoms: none Treatments Prior to Arrival: none - Related Data Previous Rx's Medication Instructions Recorded Famotidine [Pepcid] 20 mg PO BID #28 tablet 09/04/18 hydrOXYzine HCL [Atarax] 25 mg PO TID PRN #15 tab 09/04/18 Allergies Allergy/AdvReac Type Severity Reaction Status Date / Time Iodinated Contrast- Oral and Allergy Severe Anaphylaxis Verified 09/04/18 20:35 IV Dye [Iodinated Contrast Media - IV Dye] Iodine and Iodide Containing Allergy Severe Anaphylaxis Verified 09/04/18 20:35 Produc povidone-iodine Allergy Severe Rash/Hives Verified 09/04/18 20:35 [From Betadine] soap [From Betadine] Allergy Severe Rash/Hives Verified 09/04/18 20:35 Review of Systems ROS Statement: Those systems with pertinent positive or pertinent negative responses have been documented in the HPI. ROS Other: All systems not noted in ROS Statement are negative. Past Medical History Past Medical History: No Reported History Additional Past Medical History / Comment(s): hx ovarian cyst History of Any Multi-Drug Resistant Organisms: MRSA Date of last positivie culture/infection: 04/2018 MDRO Source:: mouth Past Surgical History: Section Past Anesthesia/Blood Transfusion Reactions: Previous Problems w/ Anesthesia Additional Past Anesthesia/Blood Transfusion Reaction / Comment(s): had skin reaction to topical betadine Past Psychological History: No Psychological Hx Reported Smoking Status: Never smoker Past Alcohol Use History: None Reported Past Drug Use History: None Reported - Past Family History Mother Family Medical History: No Reported History General Exam Limitations: no limitations General appearance: alert, in no apparent distress Head exam: Present: atraumatic, normocephalic, normal inspection Eye exam: Present: normal appearance, PERRL, EOMI. Absent: scleral icterus, conjunctival injection, periorbital swelling ENT exam: Present: normal exam, mucous membranes moist Neck exam: Present: normal inspection. Absent: tenderness, meningismus, lymphadenopathy Respiratory exam: Present: normal lung sounds bilaterally. Absent: respiratory distress, wheezes, rales, rhonchi, stridor Cardiovascular Exam: Present: regular rate, normal rhythm, normal heart sounds. Absent: systolic murmur, diastolic murmur, rubs, gallop, clicks GI/Abdominal exam: Present: soft, normal bowel sounds. Absent: distended, tenderness, guarding, rebound, rigid Extremities exam: Present: normal inspection, full ROM, normal capillary refill. Absent: tenderness, pedal edema, joint swelling, calf tenderness Back exam: Present: normal inspection Neurological exam: Present: alert, oriented X3, CN II-XII intact Psychiatric exam: Present: normal affect, normal mood Skin exam: Present: warm, dry, intact, normal color. Absent: rash Course Vital Signs 09/04/18 20:19 Temperature 98.6 F Pulse Rate 71 Respiratory 16 Rate Blood Pressure 109/57 O2 Sat by Pulse 98 Oximetry - Reevaluation(s) Reevaluation #1: 09/04/18 21:54 Medical record is reviewed Reevaluation #2: 09/04/18 21:54 Symptoms are controlled Medical Decision Making - Medical Decision Making 23 female the ER for evaluation of bilateral eyelid edema, patient placed on anti-inflammatories, given steroids and can be discharged home Disposition Clinical Impression: Allergic conjunctivitis, Eyelid edema Narrative: BIlateral Eyelid Edema Disposition: HOME SELF-CARE Condition: Good Instructions: Blurred Vision (ED), Edema (ED) Is patient prescribed a controlled substance at d/c from ED?: No Referrals: Mary Borden DO [Primary Care Provider] - 1-2 days
[2018-09-04] MEDS ORDERED: DEXAMETHASONE SOD PHOSPHATE 10 MG/ML 1 ML VIAL IM STA (21:49)
[2018-09-04] MEDS ORDERED: FAMOTIDINE 20 MG TAB PO STA (21:49)
[2018-09-04] MEDS ORDERED: hydrOXYzine HCL 25 MG TAB PO STA (21:49)
[2018-09-04] MEDS ORDERED: KETOTIFEN 0.025% OPHTH DROPS 5 ML BTL BOTH EYES STA (22:10)
[2018-09-04 22:17] LABS: Amorphous Sediment,Urine Rare /hpf; Appearance,Urine Cloudy (Clear); Bacteria,Urine Rare /hpf; Bilirubin,Urine Negative (Negative); Blood,Urine Trace (Negative); Color,Urine Light Yellow; Glucose,Urine (UA) Negative (Negative); Ketones,Urine Negative (Negative); Leukocyte Esterase,Urine Large (Negative); Nitrite,Urine Negative (Negative); PH, Urine 6.5 (5.0-8.0); Protein,Urine Trace (Negative); Squamous Epithelial Cell,Urine <1 /hpf (0-4); Urobilinogen,Urine <2.0 mg/dL (<2.0)
[2018-09-04 22:53] VITALS: BP 106/84; PULSE 83; RESP 18
[2018-09-05] MEDS ORDERED: MOXIFLOXACIN HCL 0.5% DROPS 3 ML BTL OP ONE (05:00)
[2018-09-05] MEDS ORDERED: TIMOLOL 0.5% OPHTH DROPS 5 ML BTL OP ONE (05:00)
[2018-09-05] MEDS ORDERED: PHENYLEPHRINE 2.5% OPHTH DRP 2ML OP NR (05:00)
[2018-09-05] MEDS ORDERED: TETRACAINE 0.5% OPHTH (PF) DROPS 4 ML BTL OP ONE (05:00)
[2018-09-05] MEDS ORDERED: CYCLOPENTOLATE 1% OPHTH SOLN 2 ML BTL OP ONE (05:00)
== END 2018-09-04 22:53 | disposition home or self-care (01) ==
LOC: EC 20:10
DX: H10.13 Acute atopic conjunctivitis, bilateral (principal); H02.843 Edema of right eye, unspecified eyelid; H02.846 Edema of left eye, unspecified eyelid; Z91.041 Radiographic dye allergy status; Z91.048 Other nonmedicinal substance allergy status; Z86.14 Personal history of Methicillin resistant Staphylococcus aureus infection
CPT/HCPCS: 81001; 81025; 87086; 99284; 96372; J1100

== ENCOUNTER 2018-09-10 15:07 | Emergency (ER) | payer OTHER ==
[2018-09-10] MEDS ORDERED: MORPHINE SULFATE 2 MG/ML SYRINGE IM STA (17:20)
[2018-09-10] MEDS ORDERED: predniSONE 20 MG TAB PO STA (17:20)
--- NOTE | 2018-09-10 17:28 | ED ---
Eye Problem HPI - General Chief complaint: Eye Problems Stated complaint: MRSA in eyes Time Seen by Provider: 09/10/18 15:29 Source: patient Mode of arrival: ambulatory Limitations: no limitations - History of Present Illness Initial comments: 23-year-old female presenting today for chief complaint of rash below the eyes. Patient states she's been following dermatology for chronic rashes of her face , below her eyes b/l. Pt states that she experienced a similar rash last week and was treated with steroids, she states this helped alleviate symptoms within that day. Patient denies any redness of the eye, pain of the eyes or pain with extra ocular eye movements. Patient is not a contact lens user, states she wore glasses as a child but has not of gait her prescription. Patient states that the rash is painful to touch. She also notes that the rash worsens and she experiences increased # of rash "outbreaks" with sunlight exposure. Pt has family history of lupus. Patient denies a fever, chills, night sweats, general malaise, visual changes, diplopia. Patient states that she has this rash often and often coincides with joint pain. Patient denies any ocular discharge, dysuria, urgency, frequency, vaginal discharge or concern for STD. Patient states she briefly had a Pap smear within the last month that was (-) for STD. Upon arrival pt appears well, vital signs within normal limits. Remainder of ROS is negative, patient denies any recent shortness of breath, chest pain, back pain, abdominal pain, nausea or vomiting, numbness or tingling, dysuria or hematuria, constipation or diarrhea, headaches or visual changes, or any other complaints. - Related Data Previous Rx's Medication Instructions Recorded Famotidine [Pepcid] 20 mg PO BID #28 tablet 09/04/18 hydrOXYzine HCL [Atarax] 25 mg PO TID PRN #15 tab 09/04/18 predniSONE 20 mg PO BID 4 Days #8 tab 09/10/18 Allergies Allergy/AdvReac Type Severity Reaction Status Date / Time Iodinated Contrast- Oral and Allergy Severe Anaphylaxis Verified 09/10/18 15:25 IV Dye [Iodinated Contrast Media - IV Dye] Iodine and Iodide Containing Allergy Severe Anaphylaxis Verified 09/10/18 15:25 Produc povidone-iodine Allergy Severe Rash/Hives Verified 09/10/18 15:25 [From Betadine] soap [From Betadine] Allergy Severe Rash/Hives Verified 09/10/18 15:25 Review of Systems ROS Statement: Those systems with pertinent positive or pertinent negative responses have been documented in the HPI. ROS Other: All systems not noted in ROS Statement are negative. Constitutional: Denies: fever, chills, night sweats Eyes: Denies: eye pain, vision change ENT: Denies: ear pain, throat pain Respiratory: Denies: cough, dyspnea, wheezes, hemoptysis Cardiovascular: Denies: chest pain, palpitations Gastrointestinal: Denies: abdominal pain, nausea, vomiting Genitourinary: Denies: urgency, dysuria Musculoskeletal: Reports: arthralgia Skin: Reports: rash Neurological: Denies: headache, weakness, numbness, paresthesias, confusion, abnormal gait Past Medical History Past Medical History: No Reported History Additional Past Medical History / Comment(s): hx ovarian cyst History of Any Multi-Drug Resistant Organisms: MRSA Date of last positivie culture/infection: 04/2018 MDRO Source:: mouth Past Surgical History: Section Past Anesthesia/Blood Transfusion Reactions: Previous Problems w/ Anesthesia Additional Past Anesthesia/Blood Transfusion Reaction / Comment(s): had skin reaction to topical betadine Past Psychological History: No Psychological Hx Reported Smoking Status: Never smoker Past Alcohol Use History: None Reported Past Drug Use History: None Reported - Past Family History Mother Family Medical History: No Reported History General Exam - General Exam Comments Initial Comments: General: The patient is awake and alert, in no distress, and does not appear acutely ill. Eye: No noted swelling of the orbits upon inspection of the eye, no erythema surrounding the orbits. +3 mm pupils are equal, round and reactive to light, extra-ocular movements are intact no pain with extraocular eye movement. No nystagmus. There is normal conjunctiva bilaterally. No signs of icterus. Ears, nose, mouth and throat: There are moist mucous membranes and no oral lesions. Neck: The neck is supple, there is no tenderness or JVD. Cardiovascular: There is a regular rate and rhythm. No murmur, rub or gallop is appreciated. Respiratory: Lungs are clear to auscultation, respirations are non-labored, breath sounds are equal. No wheezes, stridor, rales, or rhonchi. Musculoskeletal: Normal ROM, no tenderness. Strength 5/5. Sensation intact. Radial pulses equal bilaterally 2+. Neurological: A&O x 3. CN II-XII intact, There are no obvious motor or sensory deficits. Coordination appears grossly intact. Speech is normal. Skin: Skin is warm and dry. There is mild erythema in the malar distribution noted on face. No noted rashes of the LE. Psychiatric: Cooperative, appropriate mood & affect, normal judgment. Limitations: no limitations Course Vital Signs 09/10/18 09/10/18 15:22 17:45 Temperature 98.1 F 98.2 F Pulse Rate 89 86 Respiratory 16 18 Rate Blood Pressure 110/73 108/76 O2 Sat by Pulse 97 99 Oximetry Medical Decision Making - Medical Decision Making Given patient's rash is chronic in nature and was alleviated with steroids, pt has chronic complaints of joint pain, the rash worsens in sunlight and there is a family history for lupus I was concerned that patient's rash is related to lupus. Physical examination findings are not consistent with infection, more so a malar rash. I discussed the case with Dr. Gee who agrees with impression. Patient be started on prednisone 20 mg twice a day 4 days. In addition I instructed patient to follow up with rheumatology for further evaluation and treatment. Patient is to follow-up with her primary provider in the next 1-2 days. Patient is to return for any worsening symptoms, new symptoms, persistent symptoms, visual changes/loss, fever, chills or night sweats. Upon discharge pt VS within acceptable limits, pt appears well, nontoxic and appears pleased with plan. Disposition Clinical Impression: Rash and other nonspecific skin eruption Disposition: HOME SELF-CARE Condition: Good Instructions: Lupus Erythematosus (DC) Additional Instructions: Please use medication as discussed. Please follow-up with family doctor in the next 2 days, please seek evaluation by Rheumatoid specialist in the next 2-3 days. Please return to emergency room if the symptoms increase or worsen or for any other concerns. Prescriptions: predniSONE 20 mg PO BID 4 Days #8 tab Is patient prescribed a controlled substance at d/c from ED?: No Referrals: Mary Borden DO [Primary Care Provider] - 1-2 days Sandra Kwong MD [STAFF PHYSICIAN] - 1-2 days Time of Disposition: 17:21
[2018-09-10 17:46] VITALS: BP 108/76; PULSE 86; RESP 18; TEMP 98.2
== END 2018-09-10 17:45 | disposition home or self-care (01) ==
LOC: EC 15:07
DX: R21 Rash and other nonspecific skin eruption (principal); M25.50 Pain in unspecified joint; Z91.041 Radiographic dye allergy status; Z91.048 Other nonmedicinal substance allergy status; Z88.8 Allergy status to other drugs, medicaments and biological substances
CPT/HCPCS: 99282; J2270; J7512

== ENCOUNTER 2018-12-05 17:22 | Emergency (ER) | payer OTHER ==
[2018-12-05 18:11] VITALS: RESP 16; TEMP 99.7
--- NOTE | 2018-12-05 19:46 | XR ---
EXAMINATION TYPE: XR chest 2V DATE OF EXAM: 12/05/2018 COMPARISON: 05/17/2015 HISTORY: Cough and fever TECHNIQUE: Frontal and lateral views of the chest are obtained. FINDINGS: Heart and mediastinum are normal. Lungs are clear. Diaphragm is normal. Bony thorax appear s normal. IMPRESSION: Normal chest. No change.
[2018-12-05] MEDS ORDERED: ACETAMINOPHEN TAB 500 MG TAB PO STA (19:52)
--- NOTE | 2018-12-05 19:58 | ED ---
General Adult HPI - General Chief complaint: Upper Respiratory Infection Stated complaint: sick Time Seen by Provider: 12/05/18 19:09 Source: patient Mode of arrival: ambulatory Limitations: no limitations - History of Present Illness Initial comments: 23-year-old female presents to the emergency department for a chief complaint of fever and cough 3 days. Patient states the cough started 3 days ago and the fever started 2 days ago. Patient states the cough is nonproductive. She states she has not taken Motrin or Tylenol. Patient has not checked her temperature but states she feels like she has a fever and chills. She is complaining of body aches in her legs. Patient also complains of a sore throat. She has congestion as well. Patient did not receive her flu shot. Patient has no other complaints at this time including shortness of breath, chest pain, abdominal pain, nausea or vomiting, headache, or visual changes. - Related Data Previous Rx's Medication Instructions Recorded Famotidine [Pepcid] 20 mg PO BID #28 tablet 09/04/18 hydrOXYzine HCL [Atarax] 25 mg PO TID PRN #15 tab 09/04/18 predniSONE 20 mg PO BID 4 Days #8 tab 09/10/18 Allergies Allergy/AdvReac Type Severity Reaction Status Date / Time Iodinated Contrast- Oral and Allergy Severe Anaphylaxis Verified 12/05/18 18:11 IV Dye [Iodinated Contrast Media - IV Dye] Iodine and Iodide Containing Allergy Severe Anaphylaxis Verified 12/05/18 18:11 Produc povidone-iodine Allergy Severe Rash/Hives Verified 12/05/18 18:11 [From Betadine] soap [From Betadine] Allergy Severe Rash/Hives Verified 12/05/18 18:11 Review of Systems ROS Statement: Those systems with pertinent positive or pertinent negative responses have been documented in the HPI. ROS Other: All systems not noted in ROS Statement are negative. Past Medical History Past Medical History: No Reported History Additional Past Medical History / Comment(s): hx ovarian cyst History of Any Multi-Drug Resistant Organisms: MRSA Date of last positivie culture/infection: 04/2018 MDRO Source:: mouth Past Surgical History: Section Past Anesthesia/Blood Transfusion Reactions: Previous Problems w/ Anesthesia Additional Past Anesthesia/Blood Transfusion Reaction / Comment(s): had skin reaction to topical betadine Past Psychological History: No Psychological Hx Reported Smoking Status: Never smoker Past Alcohol Use History: None Reported Past Drug Use History: None Reported - Past Family History Mother Family Medical History: No Reported History General Exam Limitations: no limitations General appearance: alert, in no apparent distress Head exam: Present: atraumatic, normocephalic, normal inspection Eye exam: Present: normal appearance, PERRL, EOMI. Absent: scleral icterus, conjunctival injection, periorbital swelling ENT exam: Present: normal exam, normal oropharynx (uvula midline, no tonsillar exudates noted bilaterally,), mucous membranes moist, TM's normal bilaterally, normal external ear exam, other (Minimal maxillary tenderness) Neck exam: Present: normal inspection, full ROM. Absent: tenderness, meningismus, lymphadenopathy Respiratory exam: Present: normal lung sounds bilaterally. Absent: respiratory distress, wheezes, rales, rhonchi, stridor Cardiovascular Exam: Present: regular rate, normal rhythm, normal heart sounds. Absent: systolic murmur, diastolic murmur, rubs, gallop, clicks GI/Abdominal exam: Present: soft, normal bowel sounds. Absent: distended, tenderness, guarding, rebound, rigid Neurological exam: Present: alert, oriented X3, CN II-XII intact Psychiatric exam: Present: normal affect, normal mood Course Vital Signs 12/05/18 18:09 Temperature 99.7 F H Pulse Rate 93 Respiratory 16 Rate Blood Pressure 110/72 O2 Sat by Pulse 99 Oximetry Medical Decision Making - Medical Decision Making 23-year-old female presents for chief complaint of cough and fever 3 days. Patient also has congestion and sore throat. Patient has a low-grade fever of 99.7. Patient given Tylenol. Chest x-ray negative for pneumonia. However patient is positive for influenza A. Given that patient's symptoms were greater than 2 days she will not be treated with Tamiflu. Discussed hydration therapy and follow up with primary care. Discussed returning if she has any worsening symptoms. - Lab Data Lab Results 12/05/18 Range/Units 19:15 Influenza Type A RNA Detected H (Not Detectd) Influenza Type B (PCR) Not Detected (Not Detectd) Disposition Clinical Impression: Influenza A Disposition: HOME SELF-CARE Condition: Good Instructions (If sedation given, give patient instructions): Influenza (ED) Additional Instructions: Please drink plenty of fluids. Take over the counter cold and flu medicines. Take Motrin or Tylenol for fever. Follow-up with primary care in 1-2 days. Return to the emergency department if you have any worsening symptoms. Is patient prescribed a controlled substance at d/c from ED?: No Referrals: Mary Borden DO [Primary Care Provider] - 1-2 days Time of Disposition: 19:57
[2018-12-05 20:26] VITALS: BP 99/73; PULSE 73
== END 2018-12-05 20:24 | disposition home or self-care (01) ==
LOC: EC 17:22
DX: J10.1 Influenza due to other identified influenza virus with other respiratory manifestations (principal); Z86.14 Personal history of Methicillin resistant Staphylococcus aureus infection; Z91.041 Radiographic dye allergy status; Z91.048 Other nonmedicinal substance allergy status; Z88.8 Allergy status to other drugs, medicaments and biological substances
CPT/HCPCS: 71046; 87502; 99283

== ENCOUNTER 2018-12-07 10:30 | Emergency (ER) | payer OTHER ==
[2018-12-07 10:48] VITALS: BP 103/64; PULSE 98; RESP 18; TEMP 99.4
--- NOTE | 2018-12-07 11:26 | ED ---
Fever HPI - General Chief Complaint: Fever Stated Complaint: Flu, fever Time Seen by Provider: 12/07/18 11:13 Source: patient, RN notes reviewed, old records reviewed Mode of arrival: ambulatory Limitations: no limitations - History of Present Illness Initial Comments: This is a 21-year-old female the ER for evaluation. Patient resents today for evaluation regarding fever. Not feeling well. Recent diagnosis of influenza. Other sick contacts that she knows about no cough or congestion. No nausea vomiting or diarrhea. Patient not taking, regularly. MD Complaint: fever, weakness -: days(s) Temperature Source: subjective Associated Symptoms: chills, myalgias, sore throat Treatments Prior to Arrival: none - Related Data Home Medications Medication Instructions Recorded Confirmed Acetaminophen [Tylenol] 1,000 mg PO Q6H 12/07/18 12/07/18 Previous Rx's Medication Instructions Recorded Naproxen [Naprosyn] 500 mg PO Q12HR PRN #30 tab 12/07/18 Ondansetron [Zofran] 4 mg PO Q8HR PRN #30 tab 12/07/18 Allergies Allergy/AdvReac Type Severity Reaction Status Date / Time Iodinated Contrast- Oral and Allergy Severe Anaphylaxis Verified 12/07/18 11:33 IV Dye [Iodinated Contrast Media - IV Dye] Iodine and Iodide Containing Allergy Severe Anaphylaxis Verified 12/07/18 11:33 Produc povidone-iodine Allergy Severe Rash/Hives Verified 12/07/18 11:33 [From Betadine] soap [From Betadine] Allergy Severe Rash/Hives Verified 12/07/18 11:33 Review of Systems ROS Statement: Those systems with pertinent positive or pertinent negative responses have been documented in the HPI. ROS Other: All systems not noted in ROS Statement are negative. Past Medical History Past Medical History: No Reported History Additional Past Medical History / Comment(s): hx ovarian cyst History of Any Multi-Drug Resistant Organisms: MRSA Date of last positivie culture/infection: 04/2018 MDRO Source:: mouth Past Surgical History: Section Past Anesthesia/Blood Transfusion Reactions: Previous Problems w/ Anesthesia Additional Past Anesthesia/Blood Transfusion Reaction / Comment(s): had skin reaction to topical betadine Past Psychological History: No Psychological Hx Reported Smoking Status: Never smoker Past Alcohol Use History: None Reported Past Drug Use History: None Reported - Past Family History Mother Family Medical History: No Reported History General Exam Limitations: no limitations General appearance: alert, in no apparent distress Head exam: Present: atraumatic, normocephalic, normal inspection Eye exam: Present: normal appearance, PERRL, EOMI. Absent: scleral icterus, conjunctival injection, periorbital swelling ENT exam: Present: normal exam, mucous membranes moist Neck exam: Present: normal inspection. Absent: tenderness, meningismus, lymphadenopathy Respiratory exam: Present: normal lung sounds bilaterally. Absent: respiratory distress, wheezes, rales, rhonchi, stridor Cardiovascular Exam: Present: regular rate, normal rhythm, normal heart sounds. Absent: systolic murmur, diastolic murmur, rubs, gallop, clicks GI/Abdominal exam: Present: soft, normal bowel sounds. Absent: distended, tenderness, guarding, rebound, rigid Extremities exam: Present: normal inspection, full ROM, normal capillary refill. Absent: tenderness, pedal edema, joint swelling, calf tenderness Back exam: Present: normal inspection Neurological exam: Present: alert, oriented X3, CN II-XII intact Psychiatric exam: Present: normal affect, normal mood Skin exam: Present: warm, dry, intact, normal color. Absent: rash Course Vital Signs 12/07/18 12/07/18 10:45 12:27 Temperature 99.4 F 99.4 F Pulse Rate 98 98 Respiratory 18 18 Rate Blood Pressure 103/64 103/64 O2 Sat by Pulse 99 99 Oximetry Medical Decision Making - Medical Decision Making 23 female the ER with follow-up regarding influenza. Patient given medications which are improving symptoms here in the ER patient can be discharged home to increase hydration Disposition Clinical Impression: Influenza A, Influenza Disposition: HOME SELF-CARE Condition: Good Instructions (If sedation given, give patient instructions): Fever in Adults (ED), Influenza (ED) Prescriptions: Naproxen [Naprosyn] 500 mg PO Q12HR PRN #30 tab PRN Reason: Pain Ondansetron [Zofran] 4 mg PO Q8HR PRN #30 tab PRN Reason: Nausea And Vomiting Is patient prescribed a controlled substance at d/c from ED?: No Referrals: Mary Borden DO [Primary Care Provider] - 1-2 days
[2018-12-07] MEDS ORDERED: DEXAMETHASONE SOD PHOSPHATE 10 MG/ML 1 ML VIAL IM STA (11:41)
[2018-12-07] MEDS ORDERED: ACETAMINOPHEN TAB 500 MG TAB PO STA (11:41)
[2018-12-07] MEDS ORDERED: ONDANSETRON ODT 4 MG TAB PO STA (11:41)
[2018-12-07] MEDS ORDERED: IBUPROFEN 800 MG TAB PO STA (11:43)
== END 2018-12-07 12:27 | disposition home or self-care (01) ==
LOC: EC 10:30
DX: J10.1 Influenza due to other identified influenza virus with other respiratory manifestations (principal); Z86.14 Personal history of Methicillin resistant Staphylococcus aureus infection; Z79.899 Other long term (current) drug therapy; Z91.041 Radiographic dye allergy status; Z88.8 Allergy status to other drugs, medicaments and biological substances; Z91.09 Other allergy status, other than to drugs and biological substances
CPT/HCPCS: 99283; 96372; J1100

== ENCOUNTER 2019-01-02 17:44 | Emergency (ER) | payer OTHER ==
[2019-01-02 18:07] VITALS: BP 113/60; PULSE 113; RESP 16; TEMP 100.1
[2019-01-02 20:14] LABS: Amorphous Sediment,Urine Rare /hpf; Appearance,Urine Cloudy (Clear); Bilirubin,Urine Negative (Negative); Blood,Urine Trace (Negative); Color,Urine Yellow; Glucose,Urine (UA) Negative (Negative); Ketones,Urine Negative (Negative); Leukocyte Esterase,Urine Large (Negative); Mucus,Urine Occasional /hpf; Nitrite,Urine Negative (Negative); Protein,Urine Negative (Negative); RBC,Urine 2 /hpf (0-5); Specific Gravity,Urine 1.015 (1.001-1.035); Squamous Epithelial Cell,Urine 3 /hpf (0-4); Urobilinogen,Urine <2.0 mg/dL (<2.0); WBC,Urine 46 /hpf (0-5)
[2019-01-02] MEDS ORDERED: ACETAMINOPHEN TAB 325 MG TAB PO STA (20:49)
[2019-01-02] MEDS ORDERED: IBUPROFEN 600 MG TAB PO STA (20:49)
[2019-01-02] MEDS ORDERED: AZITHROMYCIN 500 MG TAB PO STA (21:04)
[2019-01-02] MEDS ORDERED: metroNIDAZOLE 500 MG TAB PO STA (21:04)
--- NOTE | 2019-01-02 21:06 | ED ---
Fever HPI - General Chief Complaint: Fever Stated Complaint: Fever Time Seen by Provider: 01/02/19 19:04 Source: patient Mode of arrival: ambulatory Limitations: no limitations - History of Present Illness Initial Comments: 23-year-old female patient presents to the emergency department today for evaluation of fever and body aches. Patient states she is also having abnormal vaginal discharge and is concerned she may be . Patient states that fever and bodyaches a going on for the last 2 days. She denies any cough, nasal congestion, sore throat, rash, or wounds. States she is having some mild dysuria and a yellowish thick vaginal discharge. She denies any dyspareunia. States that she has taken several negative test at home but is concerned that she may be . She denies any nausea, vomiting, abdominal pain, constipation, or diarrhea. States her period is 6 days late. She is . Patient denies any recent rash, shortness breath, chest pain, back pain, numbness, tingling, dizziness, weakness, headache, visual changes, or any other complaints. - Related Data Previous Rx's Medication Instructions Recorded Cephalexin [Keflex] 500 mg PO Q6H #28 cap 01/02/19 Allergies Allergy/AdvReac Type Severity Reaction Status Date / Time Iodinated Contrast- Oral and Allergy Severe Anaphylaxis Verified 01/02/19 19:07 IV Dye [Iodinated Contrast Media - IV Dye] Iodine and Iodide Containing Allergy Severe Anaphylaxis Verified 01/02/19 19:07 Produc povidone-iodine Allergy Severe Rash/Hives Verified 01/02/19 19:07 [From Betadine] soap [From Betadine] Allergy Severe Rash/Hives Verified 01/02/19 19:07 Review of Systems ROS Statement: Those systems with pertinent positive or pertinent negative responses have been documented in the HPI. ROS Other: All systems not noted in ROS Statement are negative. Past Medical History Past Medical History: No Reported History Additional Past Medical History / Comment(s): hx ovarian cyst History of Any Multi-Drug Resistant Organisms: MRSA Date of last positivie culture/infection: 04/2018 MDRO Source:: mouth Past Surgical History: Section Past Anesthesia/Blood Transfusion Reactions: Previous Problems w/ Anesthesia Additional Past Anesthesia/Blood Transfusion Reaction / Comment(s): had skin reaction to topical betadine Past Psychological History: No Psychological Hx Reported Smoking Status: Never smoker Past Alcohol Use History: None Reported Past Drug Use History: None Reported - Past Family History Mother Family Medical History: No Reported History General Exam Limitations: no limitations General appearance: alert, in no apparent distress, other (Also well-developed, well-nourished adult female patient in no acute distress. Vital signs upon presentation are temperature 100.1F, pulse 113, respirations 16, blood pressure 113/60, pulse ox 97% on room air.) Eye exam: Present: normal appearance, PERRL, EOMI. Absent: scleral icterus, conjunctival injection, periorbital swelling ENT exam: Present: normal exam, normal oropharynx, mucous membranes moist Respiratory exam: Present: normal lung sounds bilaterally. Absent: respiratory distress, wheezes, rales, rhonchi, stridor Cardiovascular Exam: Present: regular rate, normal rhythm, normal heart sounds. Absent: systolic murmur, diastolic murmur, rubs, gallop, clicks GI/Abdominal exam: Present: soft, normal bowel sounds. Absent: distended, tenderness, guarding, rebound, rigid External exam: Present: normal external exam Speculum exam: Present: vaginal discharge (Small amount of white vaginal discharge), vaginal bleeding (Trace amounts of vaginal bleeding). Absent: normal speculum exam, cervical discharge By manual exam: Present: normal by manual exam. Absent: cervical motion tenderness, adnexal tenderness Back exam: Present: normal inspection. Absent: CVA tenderness (R), CVA tenderness (L) Neurological exam: Present: alert, oriented X3, CN II-XII intact Psychiatric exam: Present: normal affect, normal mood Skin exam: Present: warm, dry, intact, normal color. Absent: rash Course Vital Signs 01/02/19 18:04 Temperature 100.1 F H Pulse Rate 113 H Respiratory 16 Rate Blood Pressure 113/60 O2 Sat by Pulse 97 Oximetry Medical Decision Making - Medical Decision Making 23-year-old female patient presents to the emergency department today for evalua tion of fever and vaginal discharge. Physical examination did reveal a small amount of whitish vaginal discharge. No cervical motion tenderness or adnexal tenderness. Abdomen is soft and nontender. She is influenza negative. Patient does report urinary symptoms. Urinalysis did show 46 white blood cells and white blood cell clumps. We will treat for urinary tract infection. Genital swabs have been sent. Patient is concerned for STDs we will treat her however she does refuse to take an intramuscular dose of Rocephin until she knows for sure. She has been given Flagyl and azithromycin. She will be discharged at this time to follow-up through primary care physician for recheck in 1-2 days. Return parameters were discussed in detail. She verbalizes understanding and agrees with this plan. - Lab Data Lab Results 01/02/19 01/02/19 01/02/19 Range/Units 19:45 19:45 19:45 Urine Color Yellow Urine Appearance Cloudy H (Clear) Urine pH 6.0 (5.0-8.0) Ur Specific [place] 1.015 (1.001-1.035) Urine Protein Negative (Negative) Urine Glucose (UA) Negative (Negative) Urine Ketones Negative (Negative) Urine Blood Trace H (Negative) Urine Nitrite Negative (Negative) Urine Bilirubin Negative (Negative) Urine Urobilinogen <2.0 (<2.0) mg/dL Ur Leukocyte Esterase Large H (Negative) Urine RBC 2 (0-5) /hpf Urine WBC 46 H (0-5) /hpf Urine WBC Clumps Occasional H (None) /hpf Ur Squamous Epith Cells 3 (0-4) /hpf Amorphous Sediment Rare H (None) /hpf Urine Mucus Occasional H (None) /hpf Urine HCG, Qual Not Detected (Not Detectd) Influenza Type A RNA Not Detected (Not Detectd) Influenza Type B (PCR) Not Detected (Not Detectd) Trichomonas Ag (Rapid) (Negative) 01/02/19 Range/Units 21:20 Urine Color Urine Appearance (Clear) Urine pH (5.0-8.0) Ur Specific [place] (1.001-1.035) Urine Protein (Negative) Urine Glucose (UA) (Negative) Urine Ketones (Negative) Urine Blood (Negative) Urine Nitrite (Negative) Urine Bilirubin (Negative) Urine Urobilinogen (<2.0) mg/dL Ur Leukocyte Esterase (Negative) Urine RBC (0-5) /hpf Urine WBC (0-5) /hpf Urine WBC Clumps (None) /hpf Ur Squamous Epith Cells (0-4) /hpf Amorphous Sediment (None) /hpf Urine Mucus (None) /hpf Urine HCG, Qual (Not Detectd) Influenza Type A RNA (Not Detectd) Influenza Type B (PCR) (Not Detectd) Trichomonas Ag (Rapid) Negative (Negative) Disposition Clinical Impression: Urinary tract infection, Concern about STD in female without diagnosis Disposition: HOME SELF-CARE Condition: Good Instructions (If sedation given, give patient instructions): Urinary Tract Infection in Women (ED) Additional Instructions: Take medications as directed. Increase fluids. Follow-up with your primary care physician for recheck in 1-2 days. Await culture results. Return to the emergency department immediately for any new, worsening, or concerning symptoms. Prescriptions: Cephalexin [Keflex] 500 mg PO Q6H #28 cap Is patient prescribed a controlled substance at d/c from ED?: No Referrals: Mary Borden DO [Primary Care Provider] - 1-2 days Time of Disposition: 21:06
[2019-01-04 14:26] LABS: C. trachomatis,PCR Negative (Neg,Equiv); Chlamydia trachomatis Source Vagina; N. gonorrhoeae,PCR Negative (Neg,Equiv); Neisseria Source Vagina
== END 2019-01-02 21:28 | disposition home or self-care (01) ==
LOC: EC 17:44
DX: N39.0 Urinary tract infection, site not specified (principal); Z20.2 Contact with and (suspected) exposure to infections with a predominantly sexual mode of transmission; Z86.14 Personal history of Methicillin resistant Staphylococcus aureus infection; Z88.8 Allergy status to other drugs, medicaments and biological substances; Z91.041 Radiographic dye allergy status
CPT/HCPCS: 81001; 81025; 87070; 87086; 87205; 87491; 87502; 87591; 87808; 99283

== ENCOUNTER 2019-04-08 14:37 | Emergency (ER) | payer OTHER ==
[2019-04-08 14:48] VITALS: BP 107/66; PULSE 83; RESP 18; TEMP 98.7
--- NOTE | 2019-04-08 15:55 | ED ---
Skin/Abscess/FB HPI - General Chief complaint: Skin/Abscess/Foreign Body Stated complaint: MRSA & Staph Infection-16 wks Time Seen by Provider: 04/08/19 14:54 Source: patient Mode of arrival: ambulatory Limitations: no limitations - History of Present Illness Initial comments: Patient is a 23-year-old female presenting to the emergency Department with complaints of a rash around her mouth 2 days. Patient is currently 4 months . Patient states she has a history of a staph infection of her face and currently sees a production line mechanic for this. Patient states she has noticed a few red bumps around her lips and states that this is likely going to get worse next few days and her OB as off, so patient came here instead. Patient states she previously used topical steroid cream that worked great on her rash. Patient denies any fever, chills. No other complaints at this time. - Related Data Home Medications Medication Instructions Recorded Confirmed Cholecalciferol [Vitamin D3 (25 1,000 unit PO DAILY 04/08/19 04/08/19 Mcg = 1000 Iu)] Dyj-Vuxe-Krrgu Acid 1 cap PO DAILY 04/08/19 04/08/19 [-U Capsule (formulary)] Previous Rx's Medication Instructions Recorded Cephalexin [Keflex] 500 mg PO Q6HR 5 Days #20 cap 04/08/19 Allergies Allergy/AdvReac Type Severity Reaction Status Date / Time Iodinated Contrast- Oral and Allergy Severe Anaphylaxis Verified 04/08/19 14:59 IV Dye [Iodinated Contrast Media - IV Dye] Iodine and Iodide Containing Allergy Severe Anaphylaxis Verified 04/08/19 14:59 Produc povidone-iodine Allergy Severe Rash/Hives Verified 04/08/19 14:59 [From Betadine] soap [From Betadine] Allergy Severe Rash/Hives Verified 04/08/19 14:59 [email or web address] Allergy Rash/Hives Verified 04/08/19 14:59 Review of Systems ROS Statement: Those systems with pertinent positive or pertinent negative responses have been documented in the HPI. ROS Other: All systems not noted in ROS Statement are negative. Past Medical History Past Medical History: No Reported History Additional Past Medical History / Comment(s): hx ovarian cyst History of Any Multi-Drug Resistant Organisms: MRSA Date of last positivie culture/infection: 04/2018 MDRO Source:: mouth Past Surgical History: Section Past Anesthesia/Blood Transfusion Reactions: Previous Problems w/ Anesthesia Additional Past Anesthesia/Blood Transfusion Reaction / Comment(s): had skin reaction to topical betadine Past Psychological History: No Psychological Hx Reported Smoking Status: Never smoker Past Alcohol Use History: None Reported Past Drug Use History: None Reported - Past Family History Mother Family Medical History: No Reported History General Exam - General Exam Comments Initial Comments: GENERAL: Well-appearing, well-nourished and in no acute distress. HEAD: Atraumatic, normocephalic. EYES: Pupils equal round and reactive to light, extraocular movements intact, sclera anicteric, conjunctiva are normal. ENT: Nares patent, oropharynx clear without exudates. Moist mucous membranes. NECK: Normal range of motion, supple without lymphadenopathy or JVD. LUNGS: Breath sounds clear to auscultation bilaterally and equal. No wheezes rales or rhonchi. HEART: Regular rate and rhythm without murmurs, rubs or gallops. ABDOMEN: Soft, nontender, normoactive bowel sounds. No guarding, no rebound. No masses appreciated. : Deferred EXTREMITIES: Normal range of motion, no pitting or edema. No clubbing or cyanosis. NEUROLOGICAL: Cranial nerves II through XII grossly intact. Normal speech, normal gait. PSYCH: Normal mood, normal affect. Limitations: no limitations Skin exam: Present: rash Expanded Distribution of rash: other (Around the mouth) Description of rash: Present: macular (A few small macular papular spots around the mouth.), papular Course Vital Signs 04/08/19 14:43 Temperature 98.7 F Pulse Rate 83 Respiratory 18 Rate Blood Pressure 107/66 O2 Sat by Pulse 99 Oximetry Medical Decision Making - Medical Decision Making Patient is a 23-year-old female complaining of a rash around her mouth 2 days. Patient states she has a history of staph infection. Patient is currently 4 months and is requesting more steroids to use for the rash. On exam patient has a few small macular/papular bumps that are not open, not draining, non erythematous. Patient is afebrile. Patient is concerned the rash will get worse if she doesn't have treatment today. It was discussed with patient that s teroids are not recommended for use during . Patient was giving a short course of antibiotics to use if the rash got worse. Patient will follow up with OB and/or production line mechanic for further treatment. Patient is okay with this plan. Return parameters were discussed with the patient. Case discussed with Dr. Dubon. Disposition Clinical Impression: Skin infection Disposition: HOME SELF-CARE Condition: Stable Instructions (If sedation given, give patient instructions): Acute Rash (ED) Additional Instructions: Please return to the Emergency Department if symptoms worsen or any other concerns. Follow-up with dermatology and/or RECRUITING SPECIALIST. Prescriptions: Cephalexin [Keflex] 500 mg PO Q6HR 5 Days #20 cap Is patient prescribed a controlled substance at d/c from ED?: No Referrals: Mary Borden DO [Primary Care Provider] - 1-2 days
== END 2019-04-08 16:09 | disposition home or self-care (01) ==
LOC: EC 14:37
DX: O99.712 Diseases of the skin and subcutaneous tissue complicating pregnancy, second trimester (principal); L08.9 Local infection of the skin and subcutaneous tissue, unspecified; Z88.8 Allergy status to other drugs, medicaments and biological substances; Z91.041 Radiographic dye allergy status; Z91.048 Other nonmedicinal substance allergy status; Z86.14 Personal history of Methicillin resistant Staphylococcus aureus infection; Z98.890 Other specified postprocedural states; Z3A.16 16 weeks gestation of pregnancy
CPT/HCPCS: 99282

== ENCOUNTER 2019-05-16 14:14 | Emergency (ER) | payer OTHER ==
[2019-05-16 14:31] VITALS: RESP 18
[2019-05-16] MEDS ORDERED: SODIUM CHLORIDE 0.9% 500 ML 500 ML IV STA (15:39)
--- NOTE | 2019-05-16 15:55 | ED ---
General Adult HPI - General Chief complaint: Abdominal Pain Stated complaint: Dizziness, cramping 18 weeks Time Seen by Provider: 05/16/19 15:29 Source: patient, RN notes reviewed, old records reviewed Mode of arrival: wheelchair Limitations: no limitations - History of Present Illness Initial comments: 24-year-old female patient who is a approximately 18 weeks dated by LMP and US presents to ED with multiple compaints. Patient reports that last week she had approximately 2 days of spotting which has since resolved. Patient reports that when she walks or gets up suddenly she has dizziness. Patient also reports that approximately 3 weeks ago she did have a syncopal episode getting up abruptly. Patient has been evaluated by her MARKETING AND PUBLIC RELATIONS MANAGER approximately 1 week ago who recommended presentation to cardiology. Patient not have any previous cardiac history. Patient reports that she does not have time to go to cardiology so she came here for further evaluation. Patient is currently asymptomatic at this time. She reports that last week she had a small amount of suprapubic cramping but does not have pain now. Systemic: Pt denies fatigue, fever/chills, rash. Pt denies weakness, night sweats, weight loss. Neuro: Pt denies headache, visual disturbances, syncope or pre-syncope. HEENT: Pt denies ocular discharge or irritation, otalgia, rhinorrhea, pharyngitis or notable lymphadenopathy. Cardiopulmonary: Pt denies chest pain, SOB, heart palpitations, dyspnea on exertion. Abdominal/GI: Pt denies abdominal pain, n/v/d. : Pt denies dysuria, burning w/ urination, frequency/urgency. Denies new onset urinary or bowel incontinence. MSK: Pt denies myalgia, loss of strength or function in extremities. Neuro: Pt denies new onset weakness, paresthesias. - Related Data Home Medications Medication Instructions Recorded Confirmed Cholecalciferol [Vitamin D3 (25 1,000 unit PO DAILY 04/08/19 04/08/19 Mcg = 1000 Iu)] Qge-Gztc-Crriu Acid 1 cap PO DAILY 04/08/19 04/08/19 [-U Capsule (formulary)] Previous Rx's Medication Instructions Recorded Cephalexin [Keflex] 500 mg PO Q6HR 5 Days #20 cap 04/08/19 Allergies Allergy/AdvReac Type Severity Reaction Status Date / Time Iodinated Contrast- Oral and Allergy Severe Anaphylaxis Verified 04/08/19 14:59 IV Dye [Iodinated Contrast Media - IV Dye] Iodine and Iodide Containing Allergy Severe Anaphylaxis Verified 04/08/19 14:59 Produc povidone-iodine Allergy Severe Rash/Hives Verified 04/08/19 14:59 [From Betadine] soap [From Betadine] Allergy Severe Rash/Hives Verified 04/08/19 14:59 hydrocortisone Allergy Rash/Hives Verified 04/08/19 14:59 Review of Systems ROS Statement: Those systems with pertinent positive or pertinent negative responses have been documented in the HPI. ROS Other: All systems not noted in ROS Statement are negative. Past Medical History Past Medical History: No Reported History Additional Past Medical History / Comment(s): hx ovarian cyst History of Any Multi-Drug Resistant Organisms: MRSA Date of last positivie culture/infection: 04/2018 MDRO Source:: mouth Past Surgical History: Section Past Anesthesia/Blood Transfusion Reactions: Previous Problems w/ Anesthesia Additional Past Anesthesia/Blood Transfusion Reaction / Comment(s): had skin reaction to topical betadine Past Psychological History: No Psychological Hx Reported Smoking Status: Never smoker Past Alcohol Use History: None Reported Past Drug Use History: None Reported - Past Family History Mother Family Medical History: No Reported History General Exam - General Exam Comments Initial Comments: Constitutional: NAD, AOX3, Pt has pleasant affect. HEENT: NC/AT, trachea midline, neck supple, no lymphadenopathy. Posterior pharynx non erythematous, without exudates. External ears appear normal, without discharge. Mucous membranes moist. Eyes PERRLA, EOM intact. There is no scleral icterus. No pallor noted. Cardiopulmonary: RRR, no murmurs, rubs or gallops, no JVD noted. Lungs CTAB in anterior and posterior jones. No peripheral edema. Abdominal exam: Abdomen soft and non-distended. Abdomen non-tender to palpation in all 4 quadrants. Bowel sounds active in LLQ. No hepatosplenomegaly. No ecchymosis Neuro: CN II-XII grossly intact. No nuchal rigidity. No raccon eyes, no lizama sign, no hemotympanum. No cervical spinal tenderness. MSK: No posterior calf tenderness bilaterally, homans sign negative bilaterally. Posterior tibialis and radial pulse +2 bilaterally. Sensation intact in upper and lower extremities. Full active ROM in upper and lower extremities, 5/5 stregnth. Limitations: no limitations Course Vital Signs 05/16/19 05/16/19 14:27 17:35 Temperature 98.3 F Pulse Rate 79 Pulse Rate [ 76 Sitting] Pulse Rate [ 78 Standing] Pulse Rate [ 88 Supine] Respiratory 18 Rate Blood Pressure 107/60 Blood Pressure 102/74 [Sitting] Blood Pressure 99/78 [Standing] Blood Pressure 106/66 [Supine] O2 Sat by Pulse 99 Oximetry Medical Decision Making - Medical Decision Making 24-year-old female patient who is a approximately 18 weeks dated by LMP and US presents to ED with multiple compaints. Patient reports that last week she had approximately 2 days of spotting which has since resolved. Patient reports that when she walks or gets up suddenly she has dizziness. Patient also reports that approximately 3 weeks ago she did have a syncopal episode getting up abruptly. Patient has been evaluated by her MARKETING AND PUBLIC RELATIONS MANAGER approximately 1 week ago who recommended presentation to cardiology. Patient not have any previous cardiac history. Patient reports that she does not have time to go to cardiology so she came here for further evaluation. Patient is currently asymptomatic at this time. She reports that last week she had a small amount of suprapubic cramping but does not have pain now. Patient vital signs stable, afebrile. Physical exam did not display acute pathology. Neurologic exam within normal limits, abdomen soft, nontender. Laboratory investigations revealed asymptomatic bacteria. Troponin negative 2. EKG not concerning for acute ischemia. Patient declined CT due to radiation burden. Patient blood type O positive. ultrasound displayed no, came process, gestational age 18 weeks 3 days. Patient discharged with Keflex. Patient to follow-up with law librarian as well as cardiology referral tomorrow as recommended byob/pt escort. Case discussed in depth with Dr. Abdullahi. - Lab Data Result diagrams: 05/16/19 15:45 05/16/19 15:45 Lab Results 05/16/19 05/16/19 05/16/19 Range/Units 15:45 15:45 15:45 WBC 9.4 (3.8-10.6) k/uL RBC 4.40 (3.80-5.40) m/uL Hgb 12.3 (11.4-16.0) gm/dL Hct 35.3 (34.0-46.0) % MCV 80.2 (80.0-100.0) fL MCH 27.9 (25.0-35.0) pg MCHC 34.9 (31.0-37.0) g/dL RDW 16.3 H (11.5-15.5) % Plt Count 222 (150-450) k/uL Neutrophils % 73 % Lymphocytes % 19 % Monocytes % 4 % Eosinophils % 2 % Basophils % 1 % Neutrophils # 6.9 (1.3-7.7) k/uL Lymphocytes # 1.8 (1.0-4.8) k/uL Monocytes # 0.4 (0-1.0) k/uL Eosinophils # 0.2 (0-0.7) k/uL Basophils # 0.1 (0-0.2) k/uL Anisocytosis Slight Sodium 138 (137-145) mmol/L Potassium 3.6 (3.5-5.1) mmol/L Chloride 104 (98-107) mmol/L Carbon Dioxide 27 (22-30) mmol/L Anion Gap 7 mmol/L BUN 6 L (7-17) mg/dL Creatinine 0.50 L (0.52-1.04) mg/dL Est GFR (CKD-EPI)AfAm >90 (>60 ml/min/1.73 sqM) Est GFR (CKD-EPI)NonAf >90 (>60 ml/min/1.73 sqM) Glucose 86 (74-99) mg/dL Calcium 9.5 (8.4-10.2) mg/dL Total Bilirubin 0.4 (0.2-1.3) mg/dL AST 18 (14-36) U/L ALT 14 (9-52) U/L Alkaline Phosphatase 55 (38-126) U/L Troponin I (0.000-0.034) ng/mL Total Protein 6.8 (6.3-8.2) g/dL Albumin 3.8 (3.5-5.0) g/dL Urine Color Urine Appearance (Clear) Urine pH (5.0-8.0) Ur Specific [place] (1.001-1.035) Urine Protein (Negative) Urine Glucose (UA) (Negative) Urine Ketones (Negative) Urine Blood (Negative) Urine Nitrite (Negative) Urine Bilirubin (Negative) Urine Urobilinogen (<2.0) mg/dL Ur Leukocyte Esterase (Negative) Urine RBC (0-5) /hpf Urine WBC (0-5) /hpf Ur Squamous Epith Cells (0-4) /hpf Urine Bacteria (None) /hpf Urine Mucus (None) /hpf Urine HCG, Qual (Not Detectd) Blood Type O Positive Blood Type Recheck No 05/16/19 05/16/19 05/16/19 Range/Units 15:45 15:47 15:47 WBC (3.8-10.6) k/uL RBC (3.80-5.40) m/uL Hgb (11.4-16.0) gm/dL Hct (34.0-46.0) % MCV (80.0-100.0) fL MCH (25.0-35.0) pg MCHC (31.0-37.0) g/dL RDW (11.5-15.5) % Plt Count (150-450) k/uL Neutrophils % % Lymphocytes % % Monocytes % % Eosinophils % % Basophils % % Neutrophils # (1.3-7.7) k/uL Lymphocytes # (1.0-4.8) k/uL Monocytes # (0-1.0) k/uL Eosinophils # (0-0.7) k/uL Basophils # (0-0.2) k/uL Anisocytosis Sodium (137-145) mmol/L Potassium (3.5-5.1) mmol/L Chloride (98-107) mmol/L Carbon Dioxide (22-30) mmol/L Anion Gap mmol/L BUN (7-17) mg/dL Creatinine (0.52-1.04) mg/dL Est GFR (CKD-EPI)AfAm (>60 ml/min/1.73 sqM) Est GFR (CKD-EPI)NonAf (>60 ml/min/1.73 sqM) Glucose (74-99) mg/dL Calcium (8.4-10.2) mg/dL Total Bilirubin (0.2-1.3) mg/dL AST (14-36) U/L ALT (9-52) U/L Alkaline Phosphatase (38-126) U/L Troponin I <0.012 (0.000-0.034) ng/mL Total Protein (6.3-8.2) g/dL Albumin (3.5-5.0) g/dL Urine Color Yellow Urine Appearance Clear (Clear) Urine pH 7.0 (5.0-8.0) Ur Specific [place] 1.012 (1.001-1.035) Urine Protein Negative (Negative) Urine Glucose (UA) Negative (Negative) Urine Ketones Negative (Negative) Urine Blood Negative (Negative) Urine Nitrite Negative (Negative) Urine Bilirubin Negative (Negative) Urine Urobilinogen <2.0 (<2.0) mg/dL Ur Leukocyte Esterase Large H (Negative) Urine RBC 1 (0-5) /hpf Urine WBC 2 (0-5) /hpf Ur Squamous Epith Cells 4 (0-4) /hpf Urine Bacteria Occasional H (None) /hpf Urine Mucus Rare H (None) /hpf Urine HCG, Qual Detected (Not Detectd) Blood Type Blood Type Recheck 05/16/19 Range/Units 18:40 WBC (3.8-10.6) k/uL RBC (3.80-5.40) m/uL Hgb (11.4-16.0) gm/dL Hct (34.0-46.0) % MCV (80.0-100.0) fL MCH (25.0-35.0) pg MCHC (31.0-37.0) g/dL RDW (11.5-15.5) % Plt Count (150-450) k/uL Neutrophils % % Lymphocytes % % Monocytes % % Eosinophils % % Basophils % % Neutrophils # (1.3-7.7) k/uL Lymphocytes # (1.0-4.8) k/uL Monocytes # (0-1.0) k/uL Eosinophils # (0-0.7) k/uL Basophils # (0-0.2) k/uL Anisocytosis Sodium (137-145) mmol/L Potassium (3.5-5.1) mmol/L Chloride (98-107) mmol/L Carbon Dioxide (22-30) mmol/L Anion Gap mmol/L BUN (7-17) mg/dL Creatinine (0.52-1.04) mg/dL Est GFR (CKD-EPI)AfAm (>60 ml/min/1.73 sqM) Est GFR (CKD-EPI)NonAf (>60 ml/min/1.73 sqM) Glucose (74-99) mg/dL Calcium (8.4-10.2) mg/dL Total Bilirubin (0.2-1.3) mg/dL AST (14-36) U/L ALT (9-52) U/L Alkaline Phosphatase (38-126) U/L Troponin I <0.012 (0.000-0.034) ng/mL Total Protein (6.3-8.2) g/dL Albumin (3.5-5.0) g/dL Urine Color Urine Appearance (Clear) Urine pH (5.0-8.0) Ur Specific [place] (1.001-1.035) Urine Protein (Negative) Urine Glucose (UA) (Negative) Urine Ketones (Negative) Urine Blood (Negative) Urine Nitrite (Negative) Urine Bilirubin (Negative) Urine Urobilinogen (<2.0) mg/dL Ur Leukocyte Esterase (Negative) Urine RBC (0-5) /hpf Urine WBC (0-5) /hpf Ur Squamous Epith Cells (0-4) /hpf Urine Bacteria (None) /hpf Urine Mucus (None) /hpf Urine HCG, Qual (Not Detectd) Blood Type Blood Type Recheck - EKG Data -: EKG Interpreted by Me (and Dr. Abdullahi ) EKG Comments: QRS 92, QT/QTC 390 02/26/2011. Normal sinus rhythm, normal EKG, no concern for acute ischemia. Disposition Clinical Impression: Lightheadedness, Asymptomatic bacteriuria Disposition: HOME SELF-CARE Condition: Stable Instructions (If sedation given, give patient instructions): (ED) Additional Instructions: Patient to adhere to previously discussed treatment plan and will take medication(s) as directed. Patient to follow up with PCP in 1-2 days. Patient to return to ED if symptoms do not improve. Take medication as directed. Follow up with primary care provider, MARKETING AND PUBLIC RELATIONS MANAGER and cardiology referral tomorrow. Return to ER if condition worsens. Is patient prescribed a controlled substance at d/c from ED?: No Referrals: Mary Borden DO [Primary Care Provider] - 1-2 days Cheryl Silva PAC [PHYSICIAN WINDOW DRESSER] - 1-2 days
[2019-05-16 16:11] LABS: ALT 14 U/L (9-52); AST 18 U/L (14-36); African American GFR (CKD) >90 (>60 ml/min/1.73 sqM); Albumin 3.8 g/dL (3.5-5.0); Alkaline Phosphatase 55 U/L (38-126); Anion Gap 7 mmol/L; Blood Urea Nitrogen 6 mg/dL (7-17); Calcium 9.5 mg/dL (8.4-10.2); Carbon Dioxide 27 mmol/L (22-30); Chloride 104 mmol/L (98-107); Glucose 86 mg/dL (74-99); Potassium 3.6 mmol/L (3.5-5.1); Sodium 138 mmol/L (137-145); Total Bilirubin 0.4 mg/dL (0.2-1.3); Total Protein 6.8 g/dL (6.3-8.2)
[2019-05-16 16:14] LABS: Appearance,Urine Clear (Clear); Bacteria,Urine Occasional /hpf; Bilirubin,Urine Negative (Negative); Blood,Urine Negative (Negative); Color,Urine Yellow; Glucose,Urine (UA) Negative (Negative); Ketones,Urine Negative (Negative); Leukocyte Esterase,Urine Large (Negative); Mucus,Urine Rare /hpf; Nitrite,Urine Negative (Negative); Protein,Urine Negative (Negative); RBC,Urine 1 /hpf (0-5); Specific Gravity,Urine 1.012 (1.001-1.035); Squamous Epithelial Cell,Urine 4 /hpf (0-4); Urobilinogen,Urine <2.0 mg/dL (<2.0); WBC,Urine 2 /hpf (0-5)
[2019-05-16 16:37] LABS: Anisocytosis Slight; Basophils # (A) 0.1 k/uL (0-0.2); Basophils % (A) 1 %; Eosinophils # (A) 0.2 k/uL (0-0.7); Eosinophils % (A) 2 %; HCT 35.3 % (34.0-46.0); HGB 12.3 gm/dL (11.4-16.0); Lymphocytes # (A) 1.8 k/uL (1.0-4.8); Lymphocytes % (A) 19 %; MCH 27.9 pg (25.0-35.0); MCHC 34.9 g/dL (31.0-37.0); MCV 80.2 fL (80.0-100.0); Mean Platelet Volume 7.1; Monocytes # (A) 0.4 k/uL (0-1.0); Monocytes % (A) 4 %; Neutrophils # (A) 6.9 k/uL (1.3-7.7); Neutrophils % (A) 73 %; Platelet Count 222 k/uL (150-450); RDW 16.3 % (11.5-15.5); WBC 9.4 k/uL (3.8-10.6)
--- NOTE | 2019-05-16 16:46 | US ---
EXAMINATION TYPE: US OB >= 14 wk fetus DATE OF EXAM: 05/16/2019 COMPARISON: None CLINICAL HISTORY: Pain TECHNIQUE: Transabdominal (TA) GESTATIONAL AGE / DATING Physician Established: (18 weeks/5 days) EDC: 10/12/18 Dates by LMP: LMP unknown Dates by First Scan: No previous this is first scan Dates by Current Scan: (18 weeks/3 days) EDC: 10/14/18 SURVEY IUP: Single PLACENTA: Anterior PREVIA: No Previa KELI: 13.3 cm CERVICAL LENGTH (transabdominal: norm > 3.0cm): 3.1 cm BIOMETRY PRESENTATION: Vertex BPD: 4.1 cm 18 weeks / 3 days HC: 15.3 cm 18 weeks / 2 days AC: 12.8 cm 18 weeks / 3 days FL: 2.9 cm 19 weeks / 0 days ESTIMATED WEIGHT IN GRAMS: 249 grams ESTIMATED WEIGHT IN LBS/OZ: 0 lbs. 9 oz. WEIGHT PERCENTAGE BASED ON ESTABLISHED DATES: 40% HC/AC: 1.2 FL/AC: 22.7 HEART RATE: 161 bpm RHYTHM: Normal IMPRESSION: Ultrasound gestational age is 18 weeks and 3 days. No complicating process seen.
[2019-05-16] MEDS ORDERED: CEPHALEXIN 500 MG CAP PO STA (17:08)
[2019-05-16] MEDS ORDERED: CEPHALEXIN 500MG STARTER PACK 4 CAP BTL PO STA (17:08)
[2019-05-16 19:37] VITALS: BP 109/60; PULSE 80; TEMP 98.7
== END 2019-05-16 19:36 | disposition home or self-care (01) ==
LOC: EC 14:14
DX: O99.89 Other specified diseases and conditions complicating pregnancy, childbirth and the puerperium (principal); R42 Dizziness and giddiness; R82.71 Bacteriuria; Z86.14 Personal history of Methicillin resistant Staphylococcus aureus infection; Z87.42 Personal history of other diseases of the female genital tract; Z91.041 Radiographic dye allergy status; Z88.8 Allergy status to other drugs, medicaments and biological substances; Z53.29 Procedure and treatment not carried out because of patient's decision for other reasons; Z3A.18 18 weeks gestation of pregnancy
CPT/HCPCS: 36415; 76805; 80053; 81001; 81025; 84484; 85025; 86900; 86901; 93005; 96360; 96361; 99285

== ENCOUNTER 2019-10-10 21:15 | Emergency (ER) | payer OTHER ==
[2019-10-10 21:19] VITALS: RESP 16
[2019-10-10] MEDS ORDERED: MORPHINE SULFATE 4 MG/ML SYRINGE IV STA (21:50)
[2019-10-10] MEDS ORDERED: SODIUM CHLORIDE 0.9% 500 ML 500 ML IV STA (21:51)
--- NOTE | 2019-10-10 21:52 | ED ---
General Adult HPI - General Chief complaint: Skin/Abscess/Foreign Body Stated complaint: C section infection Time Seen by Provider: 10/10/19 21:26 Source: patient Mode of arrival: ambulatory Limitations: no limitations - History of Present Illness Initial comments: Dictation was produced using [employer] dictation software. please excuse any grammatical, word or spelling errors. Chief Complaint: 24-year-old female presents with painful site History of Present Illness: She is 24-year-old female she just had her fourth . Patient states that she had performed on Monday at [facility] by Dr. Campbell. Since the patient has been having pain at the site. Patient began taking Keflex that she received from our emergency department April last year to try site pain. Patient noted that she feels as though the wound is coming apart and having slight drainage. States since its increasingly tender to the touch. He does have pain medications she's been taking. She states has not really been working. He was instructed to come to the emergency department if she had any issues with her site. She does report having slight constitutional symptoms. The ROS documented in this emergency department record has been reviewed and confirmed by me. Those systems with pertinent positive or negative responses have been documented in the HPI. All other systems are other negative and/or noncontributory. PHYSICAL EXAM: General Impression: Alert and oriented x3, acute distress secondary to pain HEENT: Normocephalic atraumatic, extra-ocular movements intact, pupils equal and reactive to light bilaterally, mucous membranes moist. Cardiovascular: Heart regular rate and rhythm, S1&S2 audible, no murmurs, rubs or gallops Chest: Lungs clear to auscultation bilaterally, no rhonchi, no wheeze, no rales Abdomen: Bowel sounds present, abdomen soft, non-tender, non-distended, no organomegaly Musculoskeletal: Pulses present and equal in all extremities, no peripheral edema Motor: no focal deficits noted Neurological: CN II-XII grossly intact, no focal motor or sensory deficits noted Skin: site is erythematous, very painful to the touch, there is clear drainage around the site, no induration, no significant dehiscence Psych: Normal affect and mood ED course: 24-year-old female presents with pain at site. was performed 4 days ago. She was just discharged from [facility] yesterday. Signs upon arrival are within acceptable limits. There is no significant dehiscence seen on physical examination, inflammation seem to be li mited to the intertriginous fold just below the pannus. There is no significant induration over site was very painful to the touch. There is no purulent drainage however there is erythema and tenderness at the surgical site. Differential includes cellulitis versus fungal infection. Discussed patient case in detail with Dr. Campbell who is patient's offset second press operator. She reports that patient was given Keflex yesterday for treatment of surgical site inflammatory changes. She requests that patient's physical site be probably Q- tip to see if there is any significant dehiscence. Q-tip was used to probe the wound without any significant dehiscence. It is recommended to us by primary surgeon to discharge the patient with instruction to continue taking her Keflex and to follow up at her office clinic tomorrow. Patient instructed to keep the wound site clean and dry. She is advised to wash the wound site with light soap and water twice a day. Patient given dressing supplies.Laboratory evaluation obtained. CBC unremarkable. Metabolic panel is negative. No significant leuk ocytosis. Patient is understandable and agreeable with discharge. Differential diagnosis was discussed with patient. She is encouraged to mention to her CRYPTOGRAPHIC VULNERABILITY ANALYST to consider potential fungal infection versus dermatitis. - Related Data Home Medications Medication Instructions Recorded Confirmed Cholecalciferol [Vitamin D3 (25 1,000 unit PO DAILY 04/08/19 04/08/19 Mcg = 1000 Iu)] Cct-Pzmo-Ljijo Acid 1 cap PO DAILY 04/08/19 04/08/19 [-U Capsule (formulary)] Previous Rx's Medication Instructions Recorded Cephalexin [Keflex] 500 mg PO Q6HR 5 Days #20 cap 04/08/19 Cephalexin [Keflex] 500 mg PO Q12HR 7 Days #14 cap 05/16/19 Allergies Allergy/AdvReac Type Severity Reaction Status Date / Time Iodinated Contrast Media Allergy Severe Anaphylaxis Verified 10/10/19 21:19 [Iodinated Contrast Media - IV Dye] Iodine and Iodide Containing Allergy Severe Anaphylaxis Verified 10/10/19 21:19 Produc povidone-iodine Allergy Severe Rash/Hives Verified 10/10/19 21:19 [From Betadine] soap [From Betadine] Allergy Severe Rash/Hives Verified 10/10/19 21:19 hydrocortisone Allergy Rash/Hives Verified 10/10/19 21:19 Review of Systems ROS Statement: Those systems with pertinent positive or pertinent negative responses have been documented in the HPI. ROS Other: All systems not noted in ROS Statement are negative. Past Medical History Past Medical History: No Reported History Additional Past Medical History / Comment(s): hx ovarian cyst History of Any Multi-Drug Resistant Organisms: MRSA Date of last positivie culture/infection: 04/2018 MDRO Source:: mouth Past Surgical History: Section Past Anesthesia/Blood Transfusion Reactions: Previous Problems w/ Anesthesia Additional Past Anesthesia/Blood Transfusion Reaction / Comment(s): had skin reaction to topical betadine Past Psychological History: No Psychological Hx Reported Smoking Status: Never smoker Past Alcohol Use History: None Reported Past Drug Use History: None Reported - Past Family History Mother Family Medical History: No Reported History General Exam Limitations: no limitations Course Vital Signs 10/10/19 21:16 Temperature 98.7 F Pulse Rate 85 Respiratory 16 Rate Blood Pressure 114/60 O2 Sat by Pulse 100 Oximetry Medical Decision Making - Lab Data Result diagrams: 10/10/19 22:05 10/10/19 22:05 Lab Results 10/10/19 10/10/19 Range/Units 22:05 22:05 WBC 9.1 (3.8-10.6) k/uL RBC 4.18 (3.80-5.40) m/uL Hgb 11.9 (11.4-16.0) gm/dL Hct 34.8 (34.0-46.0) % MCV 83.3 (80.0-100.0) fL MCH 28.4 (25.0-35.0) pg MCHC 34.1 (31.0-37.0) g/dL RDW 14.8 (11.5-15.5) % Plt Count 215 (150-450) k/uL Neutrophils % 68 % Lymphocytes % 16 % Monocytes % 7 % Eosinophils % 5 % Basophils % 2 % Neutrophils # 6.2 (1.3-7.7) k/uL Lymphocytes # 1.5 (1.0-4.8) k/uL Monocytes # 0.6 (0-1.0) k/uL Eosinophils # 0.4 (0-0.7) k/uL Basophils # 0.2 (0-0.2) k/uL Sodium 139 (137-145) mmol/L Potassium 4.2 (3.5-5.1) mmol/L Chloride 104 (98-107) mmol/L Carbon Dioxide 28 (22-30) mmol/L Anion Gap 7 mmol/L BUN 11 (7-17) mg/dL Creatinine 0.56 (0.52-1.04) mg/dL Est GFR (CKD-EPI)AfAm >90 (>60 ml/min/1.73 sqM) Est GFR (CKD-EPI)NonAf >90 (>60 ml/min/1.73 sqM) Glucose 93 (74-99) mg/dL Calcium 9.8 (8.4-10.2) mg/dL Disposition Clinical Impression: Pain at surgical site Disposition: HOME SELF-CARE Condition: Good Instructions (If sedation given, give patient instructions): Cellulitis (ED) Additional Instructions: follow up with Dr. Campbell in her office tomorrow morning. continue to take keflex. Is patient prescribed a controlled substance at d/c from ED?: No Referrals: Linda Campbell MD [REFERRING] - 1-2 days Time of Disposition: 22:33
[2019-10-10 22:19] LABS: Basophils # (A) 0.2 k/uL (0-0.2); Basophils % (A) 2 %; Eosinophils # (A) 0.4 k/uL (0-0.7); Eosinophils % (A) 5 %; HCT 34.8 % (34.0-46.0); HGB 11.9 gm/dL (11.4-16.0); Lymphocytes # (A) 1.5 k/uL (1.0-4.8); Lymphocytes % (A) 16 %; MCH 28.4 pg (25.0-35.0); MCHC 34.1 g/dL (31.0-37.0); MCV 83.3 fL (80.0-100.0); Mean Platelet Volume 7.8; Monocytes # (A) 0.6 k/uL (0-1.0); Monocytes % (A) 7 %; Neutrophils # (A) 6.2 k/uL (1.3-7.7); Neutrophils % (A) 68 %; Platelet Count 215 k/uL (150-450); RBC 4.18 m/uL (3.80-5.40); RDW 14.8 % (11.5-15.5); WBC 9.1 k/uL (3.8-10.6)
[2019-10-10] MEDS ORDERED: diphenhydrAMINE 50 MG/ML 1 ML VIAL IVP STA (22:20)
[2019-10-10 22:28] LABS: African American GFR (CKD) >90 (>60 ml/min/1.73 sqM); Anion Gap 7 mmol/L; Blood Urea Nitrogen 11 mg/dL (7-17); Calcium 9.8 mg/dL (8.4-10.2); Carbon Dioxide 28 mmol/L (22-30); Chloride 104 mmol/L (98-107); Glucose 93 mg/dL (74-99); Non-African American GFR(CKD) >90 (>60 ml/min/1.73 sqM); Potassium 4.2 mmol/L (3.5-5.1); Sodium 139 mmol/L (137-145)
[2019-10-10 23:13] VITALS: BP 118/78; PULSE 81; TEMP 98.2
== END 2019-10-10 23:11 | disposition home or self-care (01) ==
LOC: EC 21:15
DX: O99.355 Diseases of the nervous system complicating the puerperium (principal); G89.18 Other acute postprocedural pain; O99.89 Other specified diseases and conditions complicating pregnancy, childbirth and the puerperium; R10.30 Lower abdominal pain, unspecified; Z86.14 Personal history of Methicillin resistant Staphylococcus aureus infection; Z91.041 Radiographic dye allergy status; Z88.8 Allergy status to other drugs, medicaments and biological substances
CPT/HCPCS: 36415; 80048; 85025; 99283; 96374; 96375; J2270; J1200

== ENCOUNTER 2020-04-11 17:09 | Emergency (ER) | payer OTHER ==
[2020-04-11 17:21] VITALS: BP 104/84; PULSE 76; RESP 18; TEMP 98.3
--- NOTE | 2020-04-11 17:31 | ED ---
General Adult HPI - General Chief complaint: Urogenital Stated complaint: UTI Time Seen by Provider: 04/11/20 17:11 Source: patient Mode of arrival: ambulatory Limitations: no limitations - History of Present Illness Initial comments: Dictation was produced using [employer] dictation software. please excuse any grammatical, word or spelling errors. This patient was cared for during a federal and state declared state of emergency secondary to Covid 19 Chief Complaint: 24-year-old female with urinary symptoms. History of Present Illness: Patient 24-year-old female was presents today with multiple days of urinary frequency, urgency and hesitancy. Patient states that she was diagnosed recently with a urinary tract infection [place]. Patient travels frequently between main campus medical center and [place]. Patient states she had a prescription for Macrobid but only complaint 4 days. Points persistent symptoms. Patient denies any flank pain. No fever, chills or night sweats. The ROS documented in this emergency department record has been reviewed and confirmed by me. Those systems with pertinent positive or negative responses have been documented in the HPI. All other systems are other negative and/or noncontributory. PHYSICAL EXAM: General Impression: Alert and oriented x3, not in acute distress HEENT: Normocephalic atraumatic, extra-ocular movements intact, pupils equal and reactive to light bilaterally, mucous membranes moist. Cardiovascular: Heart regular rate and rhythm Chest: Able to complete full sentences, no retractions, no tachypnea Abdomen: abdomen soft, non-tender, non-distended, no organomegaly Musculoskeletal: Pulses present and equal in all extremities, no peripheral edema, no CVA tenderness Motor: no focal deficits noted Neurological: CN II-XII grossly intact, no focal motor or sensory deficits noted Skin: Intact with no visualized rashes Psych: Normal affect and mood ED course: 24-year-old female with urinary symptoms.. All signs upon arrival are within acceptable limits. Patient's well-appearing. Urinalysis is unremarkable. No red blood cells or white blood cells. Patient's urine is clear. Patient be discharged per she is told to follow up with primary care physician. - Related Data Home Medications Medication Instructions Recorded Confirmed Cholecalciferol [Vitamin D3 (25 1,000 unit PO DAILY 04/08/19 04/08/19 Mcg = 1000 Iu)] Fra-Qbhs-Bahql Acid 1 cap PO DAILY 04/08/19 04/08/19 [-U Capsule (formulary)] Previous Rx's Medication Instructions Recorded Cephalexin [Keflex] 500 mg PO Q6HR 5 Days #20 cap 04/08/19 Cephalexin [Keflex] 500 mg PO Q12HR 7 Days #14 cap 05/16/19 Allergies Allergy/AdvReac Type Severity Reaction Status Date / Time Iodinated Contrast Media Allergy Severe Anaphylaxis Verified 04/11/20 17:16 [Iodinated Contrast Media - IV Dye] Iodine and Iodide Containing Allergy Severe Anaphylaxis Verified 04/11/20 17:16 Produc povidone-iodine Allergy Severe Rash/Hives Verified 04/11/20 17:16 [From Betadine] soap [From Betadine] Allergy Severe Rash/Hives Verified 04/11/20 17:16 hydrocortisone Allergy Rash/Hives Verified 04/11/20 17:16 Review of Systems ROS Statement: Those systems with pertinent positive or pertinent negative responses have been documented in the HPI. ROS Other: All systems not noted in ROS Statement are negative. Past Medical History Past Medical History: No Reported History Additional Past Medical History / Comment(s): hx ovarian cyst History of Any Multi-Drug Resistant Organisms: MRSA Date of last positivie culture/infection: 04/2018 MDRO Source:: mouth Past Surgical History: Section Past Anesthesia/Blood Transfusion Reactions: Previous Problems w/ Anesthesia Additional Past Anesthesia/Blood Transfusion Reaction / Comment(s): had skin reaction to topical betadine Past Psychological History: No Psychological Hx Reported Smoking Status: Never smoker Past Alcohol Use History: Occasional Past Drug Use History: None Reported - Past Family History Mother Family Medical History: No Reported History General Exam Limitations: no limitations Course Vital Signs 04/11/20 17:16 Temperature 98.3 F Pulse Rate 76 Respiratory 18 Rate Blood Pressure 104/84 O2 Sat by Pulse 98 Oximetry Medical Decision Making - Lab Data Lab Results 04/11/20 04/11/20 Range/Units 17:25 17:37 Urine Color Yellow Urine Appearance Clear (Clear) Urine pH 6.0 (5.0-8.0) Ur Specific [place] 1.014 (1.001-1.035) Urine Protein Negative (Negative) Urine Glucose (UA) Negative (Negative) Urine Ketones Negative (Negative) Urine Blood Negative (Negative) Urine Nitrite Negative (Negative) Urine Bilirubin Negative (Negative) Urine Urobilinogen <2.0 (<2.0) mg/dL Ur Leukocyte Esterase Small H (Negative) Urine RBC 1 (0-5) /hpf Urine WBC 2 (0-5) /hpf Ur Squamous Epith Cells 2 (0-4) /hpf Urine Mucus Rare H (None) /hpf Urine HCG, Qual Not Detected (Not Detectd) Disposition Clinical Impression: Dysuria Disposition: HOME SELF-CARE Condition: Good Instructions (If sedation given, give patient instructions): Urinary Tract Infection in Women (ED) Is patient prescribed a controlled substance at d/c from ED?: No Referrals: Mary Borden DO [Primary Care Provider] - 1-2 days Time of Disposition: 18:19
[2020-04-11 17:45] LABS: Appearance,Urine Clear (Clear); Bilirubin,Urine Negative (Negative); Blood,Urine Negative (Negative); Color,Urine Yellow; Glucose,Urine (UA) Negative (Negative); Ketones,Urine Negative (Negative); Leukocyte Esterase,Urine Small (Negative); Mucus,Urine Rare /hpf; Nitrite,Urine Negative (Negative); Protein,Urine Negative (Negative); RBC,Urine 1 /hpf (0-5); Specific Gravity,Urine 1.014 (1.001-1.035); Squamous Epithelial Cell,Urine 2 /hpf (0-4); Urobilinogen,Urine <2.0 mg/dL (<2.0); WBC,Urine 2 /hpf (0-5)
== END 2020-04-11 18:35 | disposition home or self-care (01) ==
LOC: EC 17:09
DX: R30.0 Dysuria (principal); R39.15 Urgency of urination; R39.11 Hesitancy of micturition; Z91.041 Radiographic dye allergy status; Z91.048 Other nonmedicinal substance allergy status; Z88.8 Allergy status to other drugs, medicaments and biological substances
CPT/HCPCS: 81001; 81025; 99283

== ENCOUNTER 2020-06-16 16:50 | Emergency (ER) | payer SELFPAY ==
[2020-06-16 16:58] VITALS: TEMP 98.4
--- NOTE | 2020-06-16 17:01 | ED ---
SOB HPI - General Chief Complaint: Shortness of Breath Stated Complaint: SOB, fever, cough Time Seen by Provider: 06/16/20 17:00 Source: patient Mode of arrival: ambulatory Limitations: no limitations - History of Present Illness Initial Comments: She notes 25-year-old female presenting to the emergency room with a chief complaint of a cough and shortness of breath. Patient states her symptoms started about 2-3 weeks ago. Patient states she recently came from [place] where she was in close contact with a covert positive patient. Patient states over the past week she has been having increased cough with yellow/green sputum production. Patient reports she develops wheezing particularly at night and morning. States the symptoms improved throughout the day. She denies any fevers but does report chills. She does report some shortness of breath whenever she has wheezing. Denies any unilateral calf swelling or pain. Does not take any exogenous estrogens. No history of DVT or PE. Denies hemoptysis or recent hospital stay. No smoker history of asthma. Patient also requesting to be tested for a UTI due to increased urgency or frequency but no dysuria. She states her blood pressure is low at baseline. - Related Data Home Medications Medication Instructions Recorded Confirmed Cholecalciferol [Vitamin D3 (25 1,000 unit PO DAILY 04/08/19 04/08/19 Mcg = 1000 Iu)] Mov-Kxpw-Mipsn Acid 1 cap PO DAILY 04/08/19 04/08/19 [-U Capsule (formulary)] Previous Rx's Medication Instructions Recorded Cephalexin [Keflex] 500 mg PO Q6HR 5 Days #20 cap 04/08/19 Cephalexin [Keflex] 500 mg PO Q12HR 7 Days #14 cap 05/16/19 Albuterol Sulfate [Ventolin HFA] 1 - 2 puff INHALATION Q6H PRN #1 06/16/20 inhaler Azithromycin [Zithromax Z-pack] 0 mg PO DIRECTED #1 pack 06/16/20 Fluconazole [Diflucan] 150 mg PO ONCE #2 tab 06/16/20 Allergies Allergy/AdvReac Type Severity Reaction Status Date / Time Iodinated Contrast Media Allergy Severe Anaphylaxis Verified 06/16/20 16:58 [Iodinated Contrast Media - IV Dye] Iodine and Iodide Containing Allergy Severe Anaphylaxis Verified 06/16/20 16:58 Produc povidone-iodine Allergy Severe Rash/Hives Verified 06/16/20 16:58 [From Betadine] soap [From Betadine] Allergy Severe Rash/Hives Verified 06/16/20 16:58 hydrocortisone Allergy Rash/Hives Verified 06/16/20 16:58 Review of Systems ROS Statement: Those systems with pertinent positive or pertinent negative responses have been documented in the HPI. ROS Other: All systems not noted in ROS Statement are negative. Past Medical History Past Medical History: No Reported History Additional Past Medical History / Comment(s): hx ovarian cyst History of Any Multi-Drug Resistant Organisms: MRSA Date of last positivie culture/infection: 04/2018 MDRO Source:: mouth Past Surgical History: Section Past Anesthesia/Blood Transfusion Reactions: Previous Problems w/ Anesthesia Additional Past Anesthesia/Blood Transfusion Reaction / Comment(s): had skin reaction to topical betadine Past Psychological History: No Psychological Hx Reported Smoking Status: Never smoker Past Alcohol Use History: None Reported Past Drug Use History: None Reported - Past Family History Mother Family Medical History: No Reported History General Exam Limitations: no limitations General appearance: alert, in no apparent distress Head exam: Present: atraumatic, normocephalic, normal inspection Eye exam: Present: normal appearance, PERRL, EOMI. Absent: conjunctival injection, nystagmus Pupils: Present: normal accommodation ENT exam: Present: normal exam, normal oropharynx, mucous membranes moist, TM's normal bilaterally, normal external ear exam Neck exam: Present: normal inspection, full ROM. Absent: tenderness Respiratory exam: Present: normal lung sounds bilaterally. Absent: respiratory distress, wheezes, rales, rhonchi, stridor, chest wall tenderness, accessory muscle use, decreased breath sounds, prolonged expiratory Cardiovascular Exam: Present: regular rate, normal rhythm, normal heart sounds GI/Abdominal exam: Present: soft. Absent: distended, tenderness, guarding, rebound Extremities exam: Present: normal inspection, full ROM, normal capillary refill. Absent: tenderness, pedal edema, joint swelling, calf tenderness Back exam: Present: normal inspection, full ROM. Absent: tenderness, CVA tenderness (R), CVA tenderness (L) Neurological exam: Present: alert, oriented X3 Psychiatric exam: Present: normal affect, normal mood Skin exam: Present: warm, dry, intact, normal color Course Vital Signs 06/16/20 06/16/20 06/16/20 16:54 18:16 18:27 Temperature 98.4 F Pulse Rate 89 68 72 Respiratory 18 16 16 Rate Blood Pressure 99/42 O2 Sat by Pulse 98 Oximetry Medical Decision Making - Medical Decision Making Patient is 25-year-old female presenting to emergency Department with chief complaint of cough and shortness of breath. On physical examination, patient has an intermittent dry cough. She is clear to auscultation. She does not have history of asthma or smoking. X-rays are negative. Covid testing pending. Patient is PERC negative. Patient was also requesting UTI testing. UA shows no signs of a urinary tract infection. Patient was also concerned that she might develop a yeast infection and was requesting Diflucan and will only use if necessary. She will be discharged with Diflucan. Patient will also be discharged with azithromycin considering her symptoms of an ongoing for about 2- 3 weeks. I also give her a refill for the albuterol inhaler. I advised the patient to self isolate and only take Tylenol and to she receives results of the Covid testing. She was advised to follow-up with her primary care physician. Strict return parameters were thoroughly discussed the patient was understanding and agreeable. Case discussed with physician. - Lab Data Lab Results 06/16/20 06/16/20 Range/Units 17:23 17:27 Urine Color Yellow Urine Appearance Clear (Clear) Urine pH 6.5 (5.0-8.0) Ur Specific [place] 1.015 (1.001-1.035) Urine Protein Negative (Negative) Urine Glucose (UA) Negative (Negative) Urine Ketones Negative (Negative) Urine Blood Negative (Negative) Urine Nitrite Negative (Negative) Urine Bilirubin Negative (Negative) Urine Urobilinogen <2.0 (<2.0) mg/dL Ur Leukocyte Esterase Moderate H (Negative) Urine RBC 1 (0-5) /hpf Urine WBC 4 (0-5) /hpf Ur Squamous Epith Cells 3 (0-4) /hpf Amorphous Sediment Rare H (None) /hpf Urine Mucus Rare H (None) /hpf Urine HCG, Qual Not Detected (Not Detectd) Disposition Clinical Impression: Coughing, Respiratory infection Disposition: HOME SELF-CARE Condition: Stable Instructions (If sedation given, give patient instructions): Acute Bronchitis (ED) Additional Instructions: Take prescribed medication as directed. Follow with the primary care physician. Return to emergency department if symptoms worsen. Prescriptions: Albuterol Sulfate [Ventolin HFA] 1 - 2 puff INHALATION Q6H PRN #1 inhaler PRN Reason: Wheezing Azithromycin [Zithromax Z-pack] 0 mg PO DIRECTED #1 pack Is patient prescribed a controlled substance at d/c from ED?: No Referrals: None,Stated [Primary Care Provider] - 1-2 days Time of Disposition: 18:42
[2020-06-16] MEDS ORDERED: IPRATROPIUM-ALBUTEROL 3 ML NEB INHALATION STA (17:36)
[2020-06-16 17:38] LABS: Amorphous Sediment,Urine Rare /hpf; Appearance,Urine Clear (Clear); Bilirubin,Urine Negative (Negative); Blood,Urine Negative (Negative); Color,Urine Yellow; Glucose,Urine (UA) Negative (Negative); Ketones,Urine Negative (Negative); Leukocyte Esterase,Urine Moderate (Negative); Mucus,Urine Rare /hpf; Nitrite,Urine Negative (Negative); PH, Urine 6.5 (5.0-8.0); Protein,Urine Negative (Negative); RBC,Urine 1 /hpf (0-5); Specific Gravity,Urine 1.015 (1.001-1.035); Squamous Epithelial Cell,Urine 3 /hpf (0-4); Urobilinogen,Urine <2.0 mg/dL (<2.0); WBC,Urine 4 /hpf (0-5)
--- NOTE | 2020-06-16 18:09 | XR ---
EXAMINATION TYPE: XR chest 2V DATE OF EXAM: 06/16/2020 COMPARISON: Prior chest x-ray 12/05/2018 HISTORY: Cough TECHNIQUE: Frontal and lateral views of the chest are obtained. FINDINGS: There is no focal air space opacity, pleural effusion, or pneumothorax seen. The cardiac silhouette size is within normal limits. The osseous structures are intact. IMPRESSION: No acute cardiopulmonary process.
[2020-06-16 18:17] VITALS: RESP 16
[2020-06-16 18:45] VITALS: BP 110/70; PULSE 80
== END 2020-06-16 18:44 | disposition home or self-care (01) ==
LOC: EC 16:50
DX: J98.8 Other specified respiratory disorders (principal); Z91.041 Radiographic dye allergy status; Z91.048 Other nonmedicinal substance allergy status; Z88.8 Allergy status to other drugs, medicaments and biological substances; Z86.14 Personal history of Methicillin resistant Staphylococcus aureus infection; Z20.828 Contact with and (suspected) exposure to other viral communicable diseases
CPT/HCPCS: 94640; 81001; 81025; 71046; 99285; U0003

== ENCOUNTER 2020-06-17 21:57 | Emergency (ER) | payer OTHER ==
[2020-06-17 22:07] VITALS: RESP 16
[2020-06-18 00:10] LABS: Appearance,Urine Clear (Clear); Bilirubin,Urine Negative (Negative); Blood,Urine Negative (Negative); Color,Urine Light Yellow; Glucose,Urine (UA) Negative (Negative); Ketones,Urine Negative (Negative); Leukocyte Esterase,Urine Trace (Negative); Nitrite,Urine Negative (Negative); Protein,Urine Negative (Negative); Specific Gravity,Urine 1.012 (1.001-1.035); Squamous Epithelial Cell,Urine <1 /hpf (0-4); Urobilinogen,Urine <2.0 mg/dL (<2.0); WBC,Urine 1 /hpf (0-5)
--- NOTE | 2020-06-18 00:32 | ED ---
SOB HPI - General Chief Complaint: Shortness of Breath Stated Complaint: SOB, revisit Time Seen by Provider: 06/17/20 22:27 Source: patient Mode of arrival: ambulatory Limitations: no limitations - History of Present Illness MD Complaint: shortness of breath, cough -: days(s) Quality: other (Tightness) Consistency: constant Improves With: nothing Worsens With: nothing Context: recent URI Associated Symptoms: denies other symptoms - Related Data Home Medications Medication Instructions Recorded Confirmed Cholecalciferol [Vitamin D3 (25 1,000 unit PO DAILY 04/08/19 04/08/19 Mcg = 1000 Iu)] Wsy-[id number]-Nidcz Acid 1 cap PO DAILY 04/08/19 04/08/19 [-U Capsule (formulary)] Previous Rx's Medication Instructions Recorded Cephalexin [Keflex] 500 mg PO Q6HR 5 Days #20 cap 04/08/19 Cephalexin [Keflex] 500 mg PO Q12HR 7 Days #14 cap 05/16/19 Albuterol Sulfate [Ventolin HFA] 1 - 2 puff INHALATION Q6H PRN #1 06/16/20 inhaler Azithromycin [Zithromax Z-pack (6 0 mg PO DIRECTED #1 pack 06/16/20 tabs)] Fluconazole [Diflucan] 150 mg PO ONCE #2 tab 06/16/20 Allergies Allergy/AdvReac Type Severity Reaction Status Date / Time Iodinated Contrast Media Allergy Severe Anaphylaxis Verified 06/17/20 22:07 [Iodinated Contrast Media - IV Dye] Iodine and Iodide Containing Allergy Severe Anaphylaxis Verified 06/17/20 22:07 Produc povidone-iodine Allergy Severe Rash/Hives Verified 06/17/20 22:07 [From Betadine] soap [From Betadine] Allergy Severe Rash/Hives Verified 06/17/20 22:07 hydrocortisone Allergy Rash/Hives Verified 06/17/20 22:07 Review of Systems ROS Statement: Those systems with pertinent positive or pertinent negative responses have been documented in the HPI. ROS Other: All systems not noted in ROS Statement are negative. Constitutional: Denies: fever, chills ENT: Reports: congestion Respiratory: Reports: cough, dyspnea, wheezes Cardiovascular: Denies: chest pain, palpitations, edema Gastrointestinal: Denies: abdominal pain, vomiting, diarrhea Genitourinary: Reports: dysuria, discharge. Denies: frequency, hematuria Musculoskeletal: Denies: back pain Skin: Denies: rash Neurological: Denies: headache, weakness, numbness Past Medical History Past Medical History: No Reported History Additional Past Medical History / Comment(s): Lupus; hx ovarian cyst History of Any Multi-Drug Resistant Organisms: MRSA Date of last positivie culture/infection: 04/2018 MDRO Source:: mouth Past Surgical History: Section Past Anesthesia/Blood Transfusion Reactions: Previous Problems w/ Anesthesia Additional Past Anesthesia/Blood Transfusion Reaction / Comment(s): had skin reaction to topical betadine Past Psychological History: No Psychological Hx Reported Smoking Status: Never smoker Past Alcohol Use History: None Reported Past Drug Use History: None Reported - Past Family History Mother Family Medical History: No Reported History General Exam Limitations: no limitations General appearance: alert, in no apparent distress Head exam: Present: atraumatic, normocephalic Eye exam: Present: normal appearance. Absent: scleral icterus, conjunctival injection ENT exam: Present: normal oropharynx Neck exam: Present: normal inspection Respiratory exam: Present: wheezes. Absent: respiratory distress, rales, rhonchi, stridor, accessory muscle use, decreased breath sounds, prolonged expiratory Cardiovascular Exam: Present: regular rate, normal rhythm, normal heart sounds. Absent: systolic murmur, diastolic murmur, rubs, gallop GI/Abdominal exam: Present: soft. Absent: distended, tenderness, guarding, rebound, rigid, mass Extremities exam: Present: normal inspection, normal capillary refill. Absent: pedal edema, calf tenderness Back exam: Present: normal inspection. Absent: CVA tenderness (R), CVA tenderness (L) Neurological exam: Present: alert Skin exam: Present: warm, dry, intact, normal color. Absent: rash Course Vital Signs 06/17/20 06/18/20 22:01 00:57 Temperature 98.3 F 98.4 F Pulse Rate 79 84 Respiratory 16 16 Rate Blood Pressure 124/72 124/62 O2 Sat by Pulse 97 97 Oximetry Medical Decision Making - Medical Decision Making Patient is 25-year-old woman with mild wheeze and dyspnea. Patient with recent started treatment, and looks stable to continue treatment as outpatient. She is continuing have dysuria, and we did discuss possibility of STI as the etiology and patient does request empiric treatment pending the results of testing. Discussed appropriate further care and follow-up. - Lab Data Lab Results 06/17/20 06/17/20 06/17/20 Range/Units 23:27 23:27 23:27 Urine Color Light Yellow Urine Appearance Clear (Clear) Urine pH 7.0 (5.0-8.0) Ur Specific [place] 1.012 (1.001-1.035) Urine Protein Negative (Negative) Urine Glucose (UA) Negative (Negative) Urine Ketones Negative (Negative) Urine Blood Negative (Negative) Urine Nitrite Negative (Negative) Urine Bilirubin Negative (Negative) Urine Urobilinogen <2.0 (<2.0) mg/dL Ur Leukocyte Esterase Trace H (Negative) Urine WBC 1 (0-5) /hpf Ur Squamous Epith Cells <1 (0-4) /hpf Urine HCG, Qual Not Detected (Not Detectd) Chlamydia Source Urine Chlamydia DNA (PCR) Negative (Neg,Equiv) N. gonorrhoeae Source Urine N.gonorrhoeae DNA Probe Negative (Neg,Equiv) Disposition Clinical Impression: Upper respiratory infection, Vulvovaginal candidiasis Disposition: HOME SELF-CARE Condition: Good Instructions (If sedation given, give patient instructions): Upper Respiratory Infection (ED), Vaginitis (ED) Is patient prescribed a controlled substance at d/c from ED?: No Referrals: None,Stated [Primary Care Provider] - 1-2 days
[2020-06-18] MEDS ORDERED: cefTRIAXone 250 MG VIAL IM STA (00:37)
[2020-06-18 00:58] VITALS: BP 124/62; PULSE 84; TEMP 98.4
[2020-06-19 15:17] LABS: C. trachomatis,PCR Negative (Neg,Equiv); Chlamydia trachomatis Source Urine; N. gonorrhoeae,PCR Negative (Neg,Equiv); Neisseria Source Urine
== END 2020-06-18 00:55 | disposition home or self-care (01) ==
LOC: EC 21:57
DX: J06.9 Acute upper respiratory infection, unspecified (principal); B37.3 Candidiasis of vulva and vagina; Z91.041 Radiographic dye allergy status; Z88.3 Allergy status to other anti-infective agents; Z88.8 Allergy status to other drugs, medicaments and biological substances; Z91.048 Other nonmedicinal substance allergy status; Z86.14 Personal history of Methicillin resistant Staphylococcus aureus infection; Z98.890 Other specified postprocedural states
CPT/HCPCS: 81001; 81025; 87491; 87591; 96372; 99284; J0696

== ENCOUNTER 2021-02-24 12:02 | Emergency (ER) | payer OTHER ==
[2021-02-24] MEDS ORDERED: SODIUM CHLORIDE 0.9% 1,000 ML IV STA (12:38)
--- NOTE | 2021-02-24 12:51 | ED ---
General Adult HPI - General Chief complaint: Syncope Stated complaint: 17Wks Preg/Abd Pain Time Seen by Provider: 02/24/21 12:23 Source: patient Mode of arrival: ambulatory Limitations: no limitations - History of Present Illness Initial comments: 25 year-old female patient presents to the emergency department for evaluation after having a syncope while in the shower. She also reports feeling a "small gush of fluid" from the vagina. Patient is 17w4d , . Receives [facility] care in [place]. Had amniocentesis on 02/16. States she has had mild abdominal cramping. One episode of mild clear fluid discharge today. No vaginal bleeding. No back pain. States that she has been having frequent syncopal episodes since becoming , has had 8 previous episodes. States she has also been having headaches. States today she was in the shower, her legs and arms went numb, vision went blurry, then she passed out. Sister helped her to the couch. She denies any chest pain or shortness of breath. Denies any leg swelling or pain. States that she has been evaluated by cardiology will be having a heart monitor placed soon back in [place]. Patient denies any recent rash, cough, shortness of breath, abdominal pain, nausea, vomiting, diarrhea, constipation, back pain, hematuria, dysuria, urinary urgency, urinary frequency, or any other complaints. - Related Data Home Medications Medication Instructions Recorded Confirmed [id number] Acid 1 cap PO DAILY 04/08/19 02/24/21 [-U Capsule (formulary)] Allergies Allergy/AdvReac Type Severity Reaction Status Date / Time Iodinated Contrast Media Allergy Severe Anaphylaxis Verified 02/24/21 12:53 [Iodinated Contrast Media - IV Dye] Iodine and Iodide Containing Allergy Severe Anaphylaxis Verified 02/24/21 12:53 Produc povidone-iodine Allergy Severe Rash/Hives Verified 02/24/21 12:53 [From Betadine] soap [From Betadine] Allergy Severe Rash/Hives Verified 02/24/21 12:53 hydrocortisone Allergy Rash/Hives Verified 02/24/21 12:53 Review of Systems ROS Statement: Those systems with pertinent positive or pertinent negative responses have been documented in the HPI. ROS Other: All systems not noted in ROS Statement are negative. Past Medical History Past Medical History: No Reported History Additional Past Medical History / Comment(s): Lupus; hx ovarian cyst History of Any Multi-Drug Resistant Organisms: MRSA Date of last positivie culture/infection: 04/2018 MDRO Source:: mouth Past Surgical History: Section Past Anesthesia/Blood Transfusion Reactions: Previous Problems w/ Anesthesia Additional Past Anesthesia/Blood Transfusion Reaction / Comment(s): had skin reaction to topical betadine Past Psychological History: No Psychological Hx Reported Smoking Status: Never smoker Past Alcohol Use History: None Reported Past Drug Use History: None Reported - Past Family History Mother Family Medical History: No Reported History General Exam Limitations: no limitations General appearance: alert, in no apparent distress Eye exam: Present: normal appearance, PERRL, EOMI. Absent: scleral icterus, conjunctival injection, periorbital swelling ENT exam: Present: normal exam, normal oropharynx, mucous membranes moist Respiratory exam: Present: normal lung sounds bilaterally. Absent: respiratory distress, wheezes, rales, rhonchi, stridor Cardiovascular Exam: Present: regular rate, normal rhythm, normal heart sounds. Absent: systolic murmur, diastolic murmur, rubs, gallop, clicks GI/Abdominal exam: Present: soft, normal bowel sounds. Absent: distended, tenderness, guarding, rebound, rigid Neurological exam: Present: alert, oriented X3, CN II-XII intact, other (Strength in all 4 extremities is 5/5.) Psychiatric exam: Present: normal affect, normal mood Skin exam: Present: warm, dry, intact, normal color. Absent: rash Course Vital Signs 02/24/21 02/24/21 12:14 16:10 Pulse Rate 83 78 Respiratory 16 18 Rate Blood Pressure 104/69 118/78 O2 Sat by Pulse 98 99 Oximetry EKG Findings - EKG Comments: EKG Findings:: EKG obtained at 1223 shows normal sinus rhythm with ventricular rate of 90, DE interval 134, QRS duration 88, QT 378, QTC 462. No evidence of ST elevation or depression. Medical Decision Making - Medical Decision Making 25-year-old female patient presents to the emergency department today for evaluation after having a syncopal episode. Also follow small gush of fluid and is 17 weeks . Physical examination reveals soft nontender abdomen. Denies any current vaginal discharge or bleeding. Ultrasound was obtained and was unremarkable, heart rate 150. Labs reviewed and were unremarkable. EKG shows normal sinus rhythm. Patient has been having frequent syncopal episodes and is currently being worked up by her credit officer in [place]. She will be discharged with instructions to follow-up as soon as possible. Return parameters were discussed in detail. She verbalizes understanding and agrees with this plan. Case discussed with my attending Dr. Kang. - Lab Data Result diagrams: 02/24/21 13:02 02/24/21 13:02 Lab Results 02/24/21 02/24/21 02/24/21 Range/Units 13:02 13:02 13:02 WBC 10.4 (3.8-10.6) k/uL RBC 4.33 (3.80-5.40) m/uL Hgb 12.6 (11.4-16.0) gm/dL Hct 34.6 (34.0-46.0) % MCV 79.9 L (80.0-100.0) fL MCH 29.2 (25.0-35.0) pg MCHC 36.5 (31.0-37.0) g/dL RDW 14.6 (11.5-15.5) % Plt Count 189 (150-450) k/uL MPV 7.2 Neutrophils % 75 % Lymphocytes % 17 % Monocytes % 5 % Eosinophils % 2 % Basophils % 1 % Neutrophils # 7.8 H (1.3-7.7) k/uL Lymphocytes # 1.7 (1.0-4.8) k/uL Monocytes # 0.5 (0-1.0) k/uL Eosinophils # 0.2 (0-0.7) k/uL Basophils # 0.1 (0-0.2) k/uL Sodium 135 L (137-145) mmol/L Potassium 4.0 (3.5-5.1) mmol/L Chloride 106 (98-107) mmol/L Carbon Dioxide 24 (22-30) mmol/L Anion Gap 5 mmol/L BUN 6 L (7-17) mg/dL Creatinine 0.52 (0.52-1.04) mg/dL Est GFR (CKD-EPI)AfAm >90 (>60 ml/min/1.73 sqM) Est GFR (CKD-EPI)NonAf >90 (>60 ml/min/1.73 sqM) Glucose 84 (74-99) mg/dL Calcium 9.6 (8.4-10.2) mg/dL Magnesium 1.8 (1.6-2.3) mg/dL Total Bilirubin 0.3 (0.2-1.3) mg/dL AST 16 (14-36) U/L ALT 6 (4-34) U/L Alkaline Phosphatase 49 (38-126) U/L Total Protein 6.3 (6.3-8.2) g/dL Albumin 3.6 (3.5-5.0) g/dL Urine Color Light Yellow Urine Appearance Clear (Clear) Urine pH 6.5 (5.0-8.0) Ur Specific [place] 1.013 (1.001-1.035) Urine Protein Negative (Negative) Urine Glucose (UA) Negative (Negative) Urine Ketones 1+ H (Negative) Urine Blood Negative (Negative) Urine Nitrite Negative (Negative) Urine Bilirubin Negative (Negative) Urine Urobilinogen <2.0 (<2.0) mg/dL Ur Leukocyte Esterase Trace H (Negative) Urine WBC 5 (0-5) /hpf Ur Squamous Epith Cells <1 (0-4) /hpf Urine Mucus Rare H (None) /hpf - Radiology Data Radiology results: report reviewed, image reviewed Ultrasound showed single intrauterine with an average ultrasound gestational age is 17 weeks and 3 days. Last menstrual. Gestational age is 17 weeks 4 days. heart rate is 150. Disposition Clinical Impression: Syncope, Vaginal discharge Disposition: HOME SELF-CARE Condition: Good Instructions (If sedation given, give patient instructions): Syncope (ED) Additional Instructions: Follow-up with the primary care physician for recheck in 1-2 days for follow-up with [facility] for recheck as soon as possible. Return for any new, worsening, or concerning symptoms. Is patient prescribed a controlled substance at d/c from ED?: No Referrals: None,Stated [Primary Care Provider] - 1-2 days Time of Disposition: 15:32
[2021-02-24] MEDS ORDERED: ACETAMINOPHEN TAB 325 MG TAB PO STA (13:13)
[2021-02-24 13:21] LABS: Basophils # (A) 0.1 k/uL (0-0.2); Basophils % (A) 1 %; Eosinophils # (A) 0.2 k/uL (0-0.7); Eosinophils % (A) 2 %; HCT 34.6 % (34.0-46.0); HGB 12.6 gm/dL (11.4-16.0); Lymphocytes # (A) 1.7 k/uL (1.0-4.8); Lymphocytes % (A) 17 %; MCH 29.2 pg (25.0-35.0); MCHC 36.5 g/dL (31.0-37.0); MCV 79.9 fL (80.0-100.0); Mean Platelet Volume 7.2; Monocytes # (A) 0.5 k/uL (0-1.0); Monocytes % (A) 5 %; Neutrophils # (A) 7.8 k/uL (1.3-7.7); Neutrophils % (A) 75 %; Platelet Count 189 k/uL (150-450); RBC 4.33 m/uL (3.80-5.40); RDW 14.6 % (11.5-15.5); WBC 10.4 k/uL (3.8-10.6)
[2021-02-24 13:35] LABS: ALT 6 U/L (4-34); AST 16 U/L (14-36); African American GFR (CKD) >90 (>60 ml/min/1.73 sqM); Albumin 3.6 g/dL (3.5-5.0); Alkaline Phosphatase 49 U/L (38-126); Anion Gap 5 mmol/L; Blood Urea Nitrogen 6 mg/dL (7-17); Calcium 9.6 mg/dL (8.4-10.2); Carbon Dioxide 24 mmol/L (22-30); Chloride 106 mmol/L (98-107); Glucose 84 mg/dL (74-99); Magnesium 1.8 mg/dL (1.6-2.3); Non-African American GFR(CKD) >90 (>60 ml/min/1.73 sqM); Sodium 135 mmol/L (137-145); Total Bilirubin 0.3 mg/dL (0.2-1.3); Total Protein 6.3 g/dL (6.3-8.2)
--- NOTE | 2021-02-24 14:37 | US ---
EXAMINATION TYPE: US OB >= 14 wk fetus DATE OF EXAM: 02/24/2021 COMPARISON: None CLINICAL HISTORY: Leaking fluidSyncope leaking fluid GESTATIONAL AGE / DATING Physician Established: (17 weeks/4 days) EDC: 07/31/2021 Dates by LMP: (17 weeks/4 days) EDC: 07/31/2021 Dates by First Scan: No previous this is first scan Dates by Current Scan: (17 weeks/3 days) EDC: 08/01/2021 Beta HCG (if available): Not available at this time SURVEY IUP: Single PLACENTA: Posterior PREVIA: No Previa KELI: 13.2 cm Normal CERVICAL LENGTH (transabdominal: norm > 3.0cm): 3.3 cm BIOMETRY PRESENTATION: Breech LIE: Longitudinal BPD: 3.61 cm 17 weeks / 1 days HC: 4.6 cm 16 weeks / 5 days AC: 12.41 cm 18 weeks / 0 days FL: 71.03 cm 17 weeks / 6 days ESTIMATED WEIGHT IN GRAMS: 209.39 grams ESTIMATED WEIGHT IN LBS/OZ: 0 lbs. 7 oz. WEIGHT PERCENTAGE BASED ON ESTABLISHED DATES: 58% HC/AC: 1.06 Normal FL/AC: 20.68 Normal HEART RATE: 150 bpm RHYTHM: Normal IMPRESSION: Single intrauterine with an average ultrasound gestational age of 17 weeks and 3 days. Last menstrual period gestational age is 17 weeks 4 days. heart rate is 150 bpm. Please see finding s above.
[2021-02-24 15:29] LABS: Appearance,Urine Clear (Clear); Bilirubin,Urine Negative (Negative); Blood,Urine Negative (Negative); Color,Urine Light Yellow; Glucose,Urine (UA) Negative (Negative); Ketones,Urine 1+ (Negative); Leukocyte Esterase,Urine Trace (Negative); Mucus,Urine Rare /hpf; Nitrite,Urine Negative (Negative); PH, Urine 6.5 (5.0-8.0); Protein,Urine Negative (Negative); Specific Gravity,Urine 1.013 (1.001-1.035); Squamous Epithelial Cell,Urine <1 /hpf (0-4); Urobilinogen,Urine <2.0 mg/dL (<2.0); WBC,Urine 5 /hpf (0-5)
[2021-02-24 16:11] VITALS: BP 118/78; PULSE 78; RESP 18
== END 2021-02-24 16:11 | disposition home or self-care (01) ==
LOC: EC 12:02
DX: O26.892 Other specified pregnancy related conditions, second trimester (principal); R55 Syncope and collapse; O23.592 Infection of other part of genital tract in pregnancy, second trimester; N89.8 Other specified noninflammatory disorders of vagina; Z3A.17 17 weeks gestation of pregnancy; Z88.8 Allergy status to other drugs, medicaments and biological substances; Z91.048 Other nonmedicinal substance allergy status
CPT/HCPCS: 36415; 76805; 80053; 81001; 83735; 85025; 93005; 99284

== ENCOUNTER 2021-07-05 14:55 | Emergency (ER) | payer SELFPAY ==
[2021-07-05 15:15] VITALS: RESP 18; TEMP 98.5
[2021-07-05] MEDS ORDERED: SODIUM CHLORIDE 0.9% 1,000 ML IV ONE (16:11)
--- NOTE | 2021-07-05 16:26 | ED ---
General Adult HPI - General Chief complaint: Extremity Problem,Nontraumatic Stated complaint: 36wks preg, SOB Time Seen by Provider: 07/05/21 15:36 Source: patient, RN notes reviewed Mode of arrival: ambulatory Limitations: no limitations - History of Present Illness Initial comments: 26-year-old female, , presents to the emergency Department with complaints of bilateral lower extremity edema and numbness. Patient states she relocated here yesterday, arriving from [place] where all her care has been done. Patient states the lower extremity symptoms do not correlate with activity or positioning. States the symptoms have been occurring intermittently for the past week so had not discussed them with her previous OB provider. Den ies injury; has not attempted use of compression stockings to alleviate symptoms. States she has been resting with her legs elevated, but does not notice a difference. Also reports multiple episodes of syncope occurring prior to June 15. Patient states she had been hospitalized for the previous episodes of syncope and diagnosed with orthostatic hypotension. Denies feeling dizzy or lightheaded at this time but was instructed to seek Emergency department when she called a local OB provider who delivered her previous pregnancies. Denies headache, chest pain, shortness of breath, abdominal pain, vaginal bleeding or leaking of fluid. - Related Data Home Medications Medication Instructions Recorded Confirmed Byj-Ride-Fhgwn Acid 1 cap PO DAILY 04/08/19 07/05/21 [-U Capsule (formulary)] Previous Rx's Medication Instructions Recorded Cephalexin [Keflex] 500 mg PO Q12HR 7 Days #14 cap 07/05/21 Allergies Allergy/AdvReac Type Severity Reaction Status Date / Time Iodinated Contrast Media Allergy Severe Anaphylaxis Verified 07/05/21 15:50 [Iodinated Contrast Media - IV Dye] Iodine and Iodide Containing Allergy Severe Anaphylaxis Verified 07/05/21 15:50 Produc povidone-iodine Allergy Severe Rash/Hives Verified 07/05/21 15:50 [From Betadine] soap [From Betadine] Allergy Severe Rash/Hives Verified 07/05/21 15:50 hydrocortisone Allergy Rash/Hives Verified 07/05/21 15:50 Review of Systems ROS Statement: Those systems with pertinent positive or pertinent negative responses have been documented in the HPI. ROS Other: All systems not noted in ROS Statement are negative. Past Medical History Past Medical History: No Reported History, Syncope Additional Past Medical History / Comment(s): Lupus; hx ovarian cyst History of Any Multi-Drug Resistant Organisms: MRSA Date of last positivie culture/infection: 04/2018 MDRO Source:: mouth Past Surgical History: Section Past Anesthesia/Blood Transfusion Reactions: Previous Problems w/ Anesthesia Additional Past Anesthesia/Blood Transfusion Reaction / Comment(s): had skin reaction to topical betadine Past Psychological History: No Psychological Hx Reported Smoking Status: Never smoker Past Alcohol Use History: None Reported Past Drug Use History: None Reported - Past Family History Mother Family Medical History: No Reported History General Exam Limitations: no limitations (Well-developed, well-nourished female in no acute distress. Initial temperature 98.5, pulse 95, respirations 18, blood pressure 103/63, pulse ox 99% on room air.) General appearance: alert, in no apparent distress Respiratory exam: Present: normal lung sounds bilaterally. Absent: respiratory distress, wheezes, rales, rhonchi, stridor Cardiovascular Exam: Present: regular rate, normal rhythm, normal heart sounds. Absent: systolic murmur, diastolic murmur, rubs, gallop, clicks GI/Abdominal exam: Present: soft, normal bowel sounds. Absent: distended, tenderness, guarding Left Lower Leg exam: Present: normal inspection, full ROM. Absent: tenderness, swelling Ankle exam: Present: full ROM. Absent: normal inspection, tenderness, swelling Foot/Toe exam: Present: normal inspection, full ROM. Absent: tenderness, swelling Neurovascular tendon exam: Present: no vascular compromise. Absent: pulse d eficit, abnormal cap refill, motor deficit, sensory deficit Right Lower Leg exam: Present: normal inspection, full ROM. Absent: tenderness, swelling Ankle exam: Present: normal inspection, full ROM. Absent: tenderness, swelling Foot/Toe exam: Present: normal inspection, full ROM. Absent: tenderness, swelling Neurovascular tendon exam: Present: no vascular compromise. Absent: pulse deficit, abnormal cap refill, motor deficit, sensory deficit Back exam: Present: normal inspection, full ROM Neurological exam: Present: alert, oriented X3, CN II-XII intact Psychiatric exam: Present: normal affect, normal mood Skin exam: Present: warm, dry, intact, normal color. Absent: rash Course Vital Signs 07/05/21 07/05/21 07/05/21 15:09 17:00 17:48 Temperature 98.5 F Pulse Rate 95 Pulse Rate [ 111 H Right Sitting Pulse Oximetery ] Pulse Rate [ 133 H Right Standing Pulse Oximetery ] Pulse Rate [ 107 H Right Supine Pulse Oximetery ] Respiratory 18 18 18 Rate Blood Pressure 103/63 Blood Pressure 111/66 [Right Arm Sitting] Blood Pressure 82/56 [Right Arm Standing] Blood Pressure 109/81 [Right Arm Supine] O2 Sat by Pulse 99 Oximetry 07/05/21 18:24 Temperature 98.5 F Pulse Rate 96 Pulse Rate [ Right Sitting Pulse Oximetery ] Pulse Rate [ Right Standing Pulse Oximetery ] Pulse Rate [ Right Supine Pulse Oximetery ] Respiratory 18 Rate Blood Pressure 102/62 Blood Pressure [Right Arm Sitting] Blood Pressure [Right Arm Standing] Blood Pressure [Right Arm Supine] O2 Sat by Pulse 99 Oximetry Medical Decision Making - Medical Decision Making 36 week 26-year-old female, , with a history of orthostatic hypotension is evaluated for complaints of intermittent bilateral lower extremity edema and numbness. Patient's physical exam is negative for any edema or shortness of breath. Sensation remains intact; +2 pedal and posttibial pulses palpable. heart tones range from 135-141 with observed movement. Positive orthostatic hypotension, which patient was already aware of. 1 L of IV fluid was infused; vitals were rechecked and found to be within normal limits. Pertinent lab findings include some urinary leukocytes with rare bacteria. As patient is new to the area, just moved here from [place] yesterday, and is not established with OB services, antibiotic therapy will be initiated. This patient's case was discussed with my attending Dr. Borden. Patient is instructed to follow up with OB as soon as possible. Return parameters were discussed in detail. Patient verbalizes understanding and agrees with this plan. - Lab Data Result diagrams: 07/05/21 16:38 07/05/21 16:38 Lab Results 07/05/21 07/05/21 07/05/21 Range/Units 16:38 16:38 16:38 WBC 10.9 H (3.8-10.6) k/uL RBC 4.13 (3.80-5.40) m/uL Hgb 12.2 (11.4-16.0) gm/dL Hct 33.8 L (34.0-46.0) % MCV 81.8 (80.0-100.0) fL MCH 29.5 (25.0-35.0) pg MCHC 36.1 (31.0-37.0) g/dL RDW 15.6 H (11.5-15.5) % Plt Count 194 (150-450) k/uL MPV 7.6 Neutrophils % 75 % Lymphocytes % 15 % Monocytes % 6 % Eosinophils % 2 % Basophils % 1 % Neutrophils # 8.2 H (1.3-7.7) k/uL Lymphocytes # 1.6 (1.0-4.8) k/uL Monocytes # 0.6 (0-1.0) k/uL Eosinophils # 0.2 (0-0.7) k/uL Basophils # 0.1 (0-0.2) k/uL Sodium 135 L (137-145) mmol/L Potassium 3.7 (3.5-5.1) mmol/L Chloride 107 (98-107) mmol/L Carbon Dioxide 23 (22-30) mmol/L Anion Gap 5 mmol/L BUN 4 L (7-17) mg/dL Creatinine 0.49 L (0.52-1.04) mg/dL Est GFR (CKD-EPI)AfAm >90 (>60 ml/min/1.73 sqM) Est GFR (CKD-EPI)NonAf >90 (>60 ml/min/1.73 sqM) Glucose 109 H (74-99) mg/dL Calcium 9.6 (8.4-10.2) mg/dL Total Bilirubin 0.6 (0.2-1.3) mg/dL AST 22 (14-36) U/L ALT 8 (4-34) U/L Alkaline Phosphatase 100 (38-126) U/L Total Protein 5.9 L (6.3-8.2) g/dL Albumin 3.2 L (3.5-5.0) g/dL Urine Color Yellow Urine Appearance Clear (Clear) Urine pH 6.0 (5.0-8.0) Ur Specific [place] 1.013 (1.001-1.035) Urine Protein Negative (Negative) Urine Glucose (UA) Negative (Negative) Urine Ketones Trace H (Negative) Urine Blood Negative (Negative) Urine Nitrite Negative (Negative) Urine Bilirubin Negative (Negative) Urine Urobilinogen <2.0 (<2.0) mg/dL Ur Leukocyte Esterase Small H (Negative) Urine WBC 10 H (0-5) /hpf Ur Squamous Epith Cells <1 (0-4) /hpf Urine Bacteria Rare H (None) /hpf Urine Mucus Rare H (None) /hpf Disposition Clinical Impression: Third trimester , Urinary tract infection during Disposition: HOME SELF-CARE Condition: Stable Instructions (If sedation given, give patient instructions): (ED), Urinary Tract Infection in Women (ED) Additional Instructions: Increase fluids Elevate lower extremities Reduce sodium intake Take antibiotic as directed. Call OB provider first thing tomorrow morning. Explained that you were seen in the emergency department and started on an antibiotic for an early urinary tract infection. Keep July 09 appointment if unable to be seen sooner. Return to the emergency department with any new, worsening, or concerning symptoms. Prescriptions: Cephalexin [Keflex] 500 mg PO Q12HR 7 Days #14 cap Is patient prescribed a controlled substance at d/c from ED?: No Referrals: None,Stated [Primary Care Provider] - 1-2 days Time of Disposition: 18:08
[2021-07-05 16:46] LABS: Basophils # (A) 0.1 k/uL (0-0.2); Basophils % (A) 1 %; Eosinophils # (A) 0.2 k/uL (0-0.7); Eosinophils % (A) 2 %; HCT 33.8 % (34.0-46.0); HGB 12.2 gm/dL (11.4-16.0); Lymphocytes # (A) 1.6 k/uL (1.0-4.8); Lymphocytes % (A) 15 %; MCH 29.5 pg (25.0-35.0); MCHC 36.1 g/dL (31.0-37.0); MCV 81.8 fL (80.0-100.0); Mean Platelet Volume 7.6; Monocytes # (A) 0.6 k/uL (0-1.0); Monocytes % (A) 6 %; Neutrophils # (A) 8.2 k/uL (1.3-7.7); Neutrophils % (A) 75 %; Platelet Count 194 k/uL (150-450); RBC 4.13 m/uL (3.80-5.40); RDW 15.6 % (11.5-15.5); WBC 10.9 k/uL (3.8-10.6)
[2021-07-05 16:50] LABS: Appearance,Urine Clear (Clear); Bacteria,Urine Rare /hpf; Bilirubin,Urine Negative (Negative); Blood,Urine Negative (Negative); Color,Urine Yellow; Glucose,Urine (UA) Negative (Negative); Ketones,Urine Trace (Negative); Leukocyte Esterase,Urine Small (Negative); Mucus,Urine Rare /hpf; Nitrite,Urine Negative (Negative); Protein,Urine Negative (Negative); Specific Gravity,Urine 1.013 (1.001-1.035); Squamous Epithelial Cell,Urine <1 /hpf (0-4); Urobilinogen,Urine <2.0 mg/dL (<2.0); WBC,Urine 10 /hpf (0-5)
[2021-07-05 17:01] LABS: ALT 8 U/L (4-34); AST 22 U/L (14-36); African American GFR (CKD) >90 (>60 ml/min/1.73 sqM); Albumin 3.2 g/dL (3.5-5.0); Alkaline Phosphatase 100 U/L (38-126); Anion Gap 5 mmol/L; Blood Urea Nitrogen 4 mg/dL (7-17); Calcium 9.6 mg/dL (8.4-10.2); Carbon Dioxide 23 mmol/L (22-30); Chloride 107 mmol/L (98-107); Glucose 109 mg/dL (74-99); Non-African American GFR(CKD) >90 (>60 ml/min/1.73 sqM); Potassium 3.7 mmol/L (3.5-5.1); Sodium 135 mmol/L (137-145); Total Bilirubin 0.6 mg/dL (0.2-1.3); Total Protein 5.9 g/dL (6.3-8.2)
[2021-07-05 18:25] VITALS: BP 102/62; PULSE 96
== END 2021-07-05 18:25 | disposition home or self-care (01) ==
LOC: EC 14:55
DX: O23.43 Unspecified infection of urinary tract in pregnancy, third trimester (principal); O12.03 Gestational edema, third trimester; O99.891 Other specified diseases and conditions complicating pregnancy; Z3A.36 36 weeks gestation of pregnancy; R06.02 Shortness of breath; R20.0 Anesthesia of skin; Z88.8 Allergy status to other drugs, medicaments and biological substances; Z91.041 Radiographic dye allergy status; Z88.3 Allergy status to other anti-infective agents
CPT/HCPCS: 36415; 80053; 81001; 85025; 96360; 99284

== ENCOUNTER 2024-05-11 08:48 | Emergency (ER) | payer OTHER ==
[2024-05-11] MEDS ORDERED: PHENAZOPYRIDINE 100 MG TAB ONE (10:05)
[2024-05-11] MEDS ORDERED: KETOROLAC 15 MG/ML 1 ML VIAL ONE (10:06)
[2024-05-11] MEDS ORDERED: methylPREDNISolone SOD SUCCI 125 MG/2 ML VIAL ONE (10:42)
[2024-05-11] MEDS ORDERED: CYCLOBENZAPRINE 10MG STARTER 3 TAB BTL ONE (10:42)
[2024-05-11] MEDS ORDERED: ACET/COD 300 MG/30 MG STARTER PACK 6 TAB BTL PO ONE (11:51)
[2024-05-11] MEDS ORDERED: HYDROcodone/APAP 7.5-325MG 1 EACH TAB ONE (11:52)
[2024-05-11] MEDS ORDERED: cefTRIAXone 250 MG VIAL ONE (11:52)
[2024-05-11] MEDS ORDERED: cefTRIAXone 1,000 MG VIAL (IM USE) IM ONE (11:58)
[2024-05-11] MEDS ORDERED: LIDOCAINE 1% INJ 10MG/ML (20 ML MDV) ONE (11:58)
== END 2024-05-11 12:14 | disposition home or self-care (01) ==
LOC: EC 08:48
DX: N39.0 Urinary tract infection, site not specified (principal)
CPT/HCPCS: 87077; 87086; 87186; 96372; 99283

== ENCOUNTER 2024-06-04 09:23 | Emergency (ER) | payer OTHER ==
[2024-06-04 09:32] VITALS: BP 104/58; PULSE 77; TEMP 98.4
[2024-06-04] MEDS: cefTRIAXone 1,000 MG VIAL (IM USE) IM STA (10:57)
[2024-06-04] MEDS: KETOROLAC 15 MG/ML 1 ML VIAL IM STA (10:58)
[2024-06-04] MEDS: HYDROcodone/APAP 5-325MG 1 EACH TAB PO STA (10:58)
--- NOTE | 2024-06-04 11:00 | ED ---
Female Urogenital HPI - General Chief complaint: Vaginal Bleeding Stated complaint: female issues Time Seen by Provider: 06/04/24 09:52 Source: patient, RN notes reviewed Mode of arrival: ambulatory Limitations: no limitations - History of Present Illness Initial comments: This is a 29-year-old female who presents to the emergency department for genitourinary concerns and a lupus flare. Patient states that for the last few days she has had yellow vaginal discharge with a foul fishy odor. Reports a history of bacterial vaginosis and states that symptoms feel similar. She is also concerned about STDs and would like to be treated for those as well. Additionally, states that she has a history of lupus and it has been flaring up on her recently. She has been here before and was treated with muscle relaxants and anti-inflammatories, which she states are usually effective for her. Not currently on any maintenance medication for the lupus. States that steroids do not typically help very much. - Related Data Previous Rx's Medication Instructions Recorded Doxycycline Hyclate 100 mg PO BID 7 Days #14 capsule 06/04/24 Fluconazole [Diflucan] 150 mg PO ONCE 1 Days #1 tab 06/04/24 Ketorolac [Toradol] 10 mg PO Q6HR PRN #15 tab 06/04/24 metroNIDAZOLE [Flagyl] 500 mg PO BID 7 Days #14 tab 06/04/24 tiZANidine HCL 6 mg PO Q8HR PRN #30 cap 06/04/24 Allergies Allergy/AdvReac Type Severity Reaction Status Date / Time Iodinated Contrast Media Allergy Anaphylaxis Verified 06/04/24 09:32 iodine AdvReac Anaphylaxis Verified 06/04/24 09:32 Review of Systems ROS Statement: Those systems with pertinent positive or pertinent negative responses have been documented in the HPI. ROS Other: All systems not noted in ROS Statement are negative. Past Medical History Additional Past Medical History / Comment(s): daniel History of Any Multi-Drug Resistant Organisms: MRSA Date of last positivie culture/infection: 05/04/24 Past Surgical History: Section Smoking Status: Never smoker Past Alcohol Use History: None Reported Past Drug Use History: Marijuana General Exam Limitations: no limitations General appearance: alert, in no apparent distress Head exam: Present: atraumatic, normocephalic, normal inspection Respiratory exam: Present: normal lung sounds bilaterally. Absent: respiratory distress, wheezes, rales, rhonchi, stridor Cardiovascular Exam: Present: regular rate, normal rhythm, normal heart sounds. Absent: systolic murmur, diastolic murmur, rubs, gallop, clicks GI/Abdominal exam: Present: soft, normal bowel sounds. Absent: distended, tenderness, guarding, rebound, rigid Neurological exam: Present: alert, oriented X3, CN II-XII intact Psychiatric exam: Present: normal affect, normal mood Skin exam: Present: warm, dry, intact, normal color. Absent: rash Course Vital Signs 06/04/24 06/04/24 09:28 11:24 Temperature 98.4 F Pulse Rate 77 Respiratory 20 16 Rate Blood Pressure 104/58 O2 Sat by Pulse 99 Oximetry Medical Decision Making - Medical Decision Making This is a 29-year-old female who presents to the emergency department for vaginal discharge and bodyaches. Was pt. sent in by a medical professional or institution? @ -No Did you speak to anyone other than the patient for history? @ -No Did you review nursing and triage notes? @ -Yes, and I agree, it is accurate with regards to the patient's symptoms. Were old charts reviewed? @ -No Differential Diagnosis? @ -Differential Vaginal Discharge: UTI, STI, BV, yeast infection, this is not meant to be an all-inclusive list. EKG interpreted by me (3pts min.)? @ -Not obtained X-rays interpreted by me (1pt min.)? @ -Not obtained CT interpreted by me (1pt min.)? @ -Not obtained U/S interpreted by me (1pt. min.)? @ -Not obtained What testing was considered but not performed? (CT, X-rays, U/S, labs)? Why? @ -We discussed lab lab work, such as a CBC and CMP, however patient declined and states that symptoms are consistent with prior flareups. What meds were considered but not given? Why? @ -None Did you discuss the management of the patient with other professionals? @ -No Did you reconcile home meds? @ -No Was smoking cessation discussed for >3mins.? @ -No Was critical care preformed (if so, how long)? @ -No Were there social determinants of health that impacted care today? How? (Homelessness, low income, unemployed, alcoholism, drug addiction, transportation, low edu. Level, literacy, decrease access to med. care, long term, rehab)? @ -No Was there de-escalation of care discussed even if they declined? (Discuss DNR or withdrawal of care, Hospice)? @ -No What co-morbidities impacted this encounter? (DM, HTN, Smoking, COPD, CAD, Cancer, CVA, Hep., AIDS, mental health diagnosis, sleep apnea, morbid obesity)? @ -Lupus Was patient admitted / discharged? @ -Discharged. Urinalysis demonstrates some blood. Gonorrhea and chlamydia testing ordered with results pending at the time of discharge. Patient states that symptoms feel consistent with prior BV and lupus flareups. She declines any additional testing aside from the urine and states that she would just like to be treated for the lupus and BV. Patient started on Flagyl for concerns of BV. She is concerned about STD treatment as well. 1 g of Rocephin administered in the emergency department and she was given a prescription for 7 days of doxycycline. Toradol and tizanidine refilled for lupus flareup. Diflucan prescribed as well due to her concern for developing a yeast infection with Flagyl. Patient then discharged home in stable condition and advised to follow- up with her PCP. Case discussed with ED attending Dr. Ryan. Return precautions reviewed in depth, the patient is instructed to return to the emergency department with any new, worsening, or concerning symptoms. Patient verbalized understanding. Undiagnosed new problem with uncertain prognosis? @ -None Drug Therapy requiring intensive monitoring for toxicity (Heparin, Nitro, Insulin, Cardizem)? @ -None Were any procedures done? @ -None Diagnosis/symptom? @ -BV, possible STD exposure Acute, or Chronic, or Acute on Chronic? @ -Acute Uncomplicated (without systemic symptoms) or Complicated (systemic symptoms)? @ -Uncomplicated Side effects of treatment? @ -None Exacerbation, Progression, or Severe Exacerbation] @ -Not applicable Poses a threat to life or bodily function? @ -No Diagnosis/symptom? @ -Lupus arthritis Acute, or Chronic, or Acute on Chronic? @ -Chronic Uncomplicated (without systemic symptoms) or Complicated (systemic symptoms)? @ -Complicated Side effects of treatment? @ -None Exacerbation, Progression, or Severe Exacerbation] @ -Exacerbation Poses a threat to life or bodily function? @ -Patient states that pain is limiting her function. - Lab Data Lab Results 06/04/24 06/04/24 Range/Units 11:06 11:06 Urine Color Colorless Urine Appearance Clear (Clear) Urine pH 6.0 (5.0-8.0) Ur Specific [place] 1.013 (1.001-1.035) Urine Protein Negative (Negative) Urine Glucose (UA) Negative (Negative) Urine Ketones Negative (Negative) Urine Blood Large H (Negative) Urine Nitrite Negative (Negative) Urine Bilirubin Negative (Negative) Urine Urobilinogen <2.0 (<2.0) mg/dL Ur Leukocyte Esterase Moderate H (Negative) Urine RBC 9 H (0-5) /hpf Urine WBC 7 H (0-5) /hpf Ur Squamous Epith Cells 1 (0-4) /hpf Urine Mucus Rare H (None) /hpf Urine HCG, Qual Not Detected (Not Detectd) Disposition Clinical Impression: Bacterial vaginosis, Lupus arthritis, Possible exposure to STD Disposition: HOME SELF-CARE Instructions (If sedation given, give patient instructions): Bacterial Vaginosis (ED) Additional Instructions: Return to the emergency department with any new, worsening, or concerning symptoms. Take the metronidazole and doxycycline as prescribed for 7 days. Take the Toradol with Tylenol as needed for pain relief. If you choose to take the Toradol, do not take any other anti-inflammatories such as ibuprofen, take one or the other. Take the tizanidine every 6-8 hours as needed. Follow up with your primary care provider in 1-2 days. Prescriptions: Fluconazole [Diflucan] 150 mg PO ONCE 1 Days #1 tab Doxycycline Hyclate 100 mg PO BID 7 Days #14 capsule metroNIDAZOLE [Flagyl] 500 mg PO BID 7 Days #14 tab tiZANidine HCL 6 mg PO Q8HR PRN #30 cap PRN Reason: Pain Ketorolac [Toradol] 10 mg PO Q6HR PRN #15 tab PRN Reason: Pain Is patient prescribed a controlled substance at d/c from ED?: No Referrals: None,Stated [Primary Care Provider] - 1-2 days Time of Disposition: 11:03
[2024-06-04] MEDS: ACET/COD 300 MG/30 MG STARTER PACK 6 TAB BTL PO STA (11:11)
[2024-06-04 11:23] LABS: Appearance,Urine Clear (Clear); Bilirubin,Urine Negative (Negative); Blood,Urine Large (Negative); Color,Urine Colorless; Glucose,Urine (UA) Negative (Negative); Ketones,Urine Negative (Negative); Leukocyte Esterase,Urine Moderate (Negative); Mucus,Urine Rare /hpf; Nitrite,Urine Negative (Negative); Protein,Urine Negative (Negative); RBC,Urine 9 /hpf (0-5); Specific Gravity,Urine 1.013 (1.001-1.035); Squamous Epithelial Cell,Urine 1 /hpf (0-4); Urobilinogen,Urine <2.0 mg/dL (<2.0); WBC,Urine 7 /hpf (0-5)
[2024-06-04 11:25] VITALS: RESP 16
[2024-06-10 11:58] LABS: C. trachomatis,PCR Negative (Negative)
[2024-06-10 12:13] LABS: N. gonorrhoeae,PCR Negative (Negative)
== END 2024-06-04 11:25 | disposition home or self-care (01) ==
LOC: EC 09:23 → MERGE 09:23 → EC 11:25
DX: N76.0 Acute vaginitis (principal); M32.8 Other forms of systemic lupus erythematosus; Z91.041 Radiographic dye allergy status
CPT/HCPCS: 81001; 81025; 87491; 87591; 96372; 99284; J0696; J1885

== ENCOUNTER 2024-06-21 10:16 | Emergency (ER) | payer OTHER ==
[2024-06-21 10:29] VITALS: BP 128/78; PULSE 83; RESP 18; TEMP 98.7
--- NOTE | 2024-06-21 10:55 | ED ---
Recheck HPI - General Chief Complaint: Recheck/Abnormal Lab/Rx Stated Complaint: Weakness Time Seen by Provider: 06/21/24 10:33 Source: patient, RN notes reviewed Mode of arrival: ambulatory Limitations: no limitations - History of Present Illness Initial Comments: 29-year-old female presents emergency department with chief complaint of lupus flare. 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 Patient states she started having increasing joint pain, lupus issues. She is also concerned about possible UTI denies any chance of she states that she had recent vaginal testing but still concerned about possible gonorrhea chlamydia. Patient denies any fevers chills abdominal pain - Related Data Home Medications Medication Instructions Recorded Confirmed [id number] Acid 1 cap PO DAILY 04/08/19 07/05/21 [-U Capsule (formulary)] Previous Rx's Medication Instructions Recorded Cephalexin [Keflex] 500 mg PO Q12HR 7 Days #14 cap 07/05/21 Sulfamethox-Tmp 800-160Mg [Bactrim 1 each PO Q12HR #20 tab 02/02/22 Ds] Doxycycline Hyclate 100 mg PO BID 7 Days #14 capsule 06/04/24 Fluconazole [Diflucan] 150 mg PO ONCE 1 Days #1 tab 06/04/24 Ketorolac [Toradol] 10 mg PO Q6HR PRN #15 tab 06/04/24 metroNIDAZOLE [Flagyl] 500 mg PO BID 7 Days #14 tab 06/04/24 tiZANidine HCL 6 mg PO Q8HR PRN #30 cap 06/04/24 predniSONE 50 mg PO DAILY #5 tab 06/21/24 Allergies Allergy/AdvReac Type Severity Reaction Status Date / Time Iodinated Contrast Media Allergy Severe Anaphylaxis Verified 06/21/24 10:28 [Iodinated Contrast Media - IV Dye] Iodine and Iodide Containing Allergy Severe Anaphylaxis Verified 06/21/24 10:28 Produc povidone-iodine Allergy Severe Rash/Hives Verified 06/21/24 10:28 [From Betadine] soap [From Betadine] Allergy Severe Rash/Hives Verified 06/21/24 10:28 hydrocortisone Allergy Rash/Hives Verified 06/21/24 10:28 iodine AdvReac Anaphylaxis Verified 06/21/24 10:28 Review of Systems ROS Statement: Those systems with pertinent positive or pertinent negative responses have been documented in the HPI. ROS Other: All systems not noted in ROS Statement are negative. Past Medical History Past Medical History: No Reported History, Syncope Additional Past Medical History / Comment(s): daniel History of Any Multi-Drug Resistant Organisms: MRSA Date of last positivie culture/infection: 05/04/24 MDRO Source:: mouth Past Surgical History: Section Past Anesthesia/Blood Transfusion Reactions: Previous Problems w/ Anesthesia Additional Past Anesthesia/Blood Transfusion Reaction / Comment(s): had skin reaction to topical betadine Past Psychological History: No Psychological Hx Reported Past Drug Use History: Marijuana, None Reported - Past Family History Mother Family Medical History: No Reported History General Exam Limitations: no limitations General appearance: alert, in no apparent distress Head exam: Present: atraumatic, normocephalic, normal inspection Neck exam: Present: normal inspection, full ROM. Absent: tenderness, meningismus, lymphadenopathy Respiratory exam: Present: normal lung sounds bilaterally. Absent: respiratory distress, wheezes, rales, rhonchi, stridor Cardiovascular Exam: Present: regular rate, normal rhythm, normal heart sounds. Absent: systolic murmur, diastolic murmur, rubs, gallop, clicks GI/Abdominal exam: Present: soft, normal bowel sounds. Absent: distended, tenderness, guarding, rebound, rigid Course Vital Signs 06/21/24 10:22 Temperature 98.7 F Pulse Rate 83 Respiratory 18 Rate Blood Pressure 128/78 O2 Sat by Pulse 97 Oximetry Medical Decision Making - Medical Decision Making Was pt. sent in by a medical professional or institution (, PA, HOT STICK MAN, urgent care, hospital, or group home...) When possible be specific @ -No Did you speak to anyone other than the patient for history (EMS, parent, family, police, friend...)? What history was obtained from this source @ -No Did you review nursing and triage notes (agree or disagree)? Why? @ -I reviewed and agree with nursing and triage notes Were old charts reviewed (outside hosp., previous admission, EMS record, old EKG, old radiological studies, urgent care reports/EKG's, group home records)? Report findings @ -none Differential Diagnosis (chest pain, altered mental status, abdominal pain women, abdominal pain men, vaginal bleeding, weakness, fever, dyspnea, syncope, headache, dizziness, GI bleed, back pain, seizure, CVA, palpatations, mental health, musculoskeletal)? @ -joint pain, lupus, osteoarthritis, UTI, EKG interpreted by me (3pts min.). @ -None X-rays interpreted by me (1pt min.). @ -None done CT interpreted by me (1pt min.). @ -None done U/S interpreted by me (1pt. min.). @ -None done What testing was considered but not performed or refused? (CT, X-rays, U/S, labs)? Why? @ -None What meds were considered but not given or refused? Why? @ -None Did you discuss the management of the patient with other professionals (professionals i.e. , PA, HOT STICK MAN, lab, RT, psych nurse, clinical social work therapist, aircraft loadmaster superintendent, teacher, chief revenue officer, hospice case manager)? Give summary @ -No Was smoking cessation discussed for >3mins.? @ -No Was critical care preformed (if so, how long)? @ -No Were there social determinants of health that impacted care today? How? (Homelessness, low income, unemployed, alcoholism, drug addiction, transportation, low edu. Level, literacy, decrease access to med. care, care home, rehab)? @ -No Was there de-escalation of care discussed even if they declined (Discuss DNR or withdrawal of care, Hospice)? DNR status @ -No What co-morbidities impacted this encounter? (DM, HTN, Smoking, COPD, CAD, Cancer, CVA, ARF, Chemo, Hep., AIDS, mental health diagnosis, sleep apnea, morbid obesity)? @ -None Was patient admitted / discharged? Hospital course, mention meds given and route, prescriptions, significant lab abnormalities, going to OR and other perti nent info. @Patient left AGAINST MEDICAL ADVICE Undiagnosed new problem with uncertain prognosis? @ -No Drug Therapy requiring intensive monitoring for toxicity (Heparin, Nitro, Insulin, Cardizem)? @ -No Were any procedures done? @ -No Diagnosis/symptom? @ -Pain, lupus Acute, or Chronic, or Acute on Chronic? @ -Acute Uncomplicated (without systemic symptoms) or Complicated (systemic symptoms)? @ -On complicated Side effects of treatment? @ -No Exacerbation, Progression, or Severe Exacerbation? @ -No Poses a threat to life or bodily function? How? (Chest pain, USA, CT, pneumonia, PE, COPD, DKA, ARF, appy, cholecystitis, CVA, Diverticulitis, Homicidal, Suicidal, threat to staff... and all critical care pts) @ -No - Lab Data Lab Results 06/21/24 06/21/24 Range/Units 11:00 11:00 Urine Color Colorless Urine Appearance Clear (Clear) Urine pH 5.5 (5.0-8.0) Ur Specific [place] 1.011 (1.001-1.035) Urine Protein Negative (Negative) Urine Glucose (UA) Negative (Negative) Urine Ketones Negative (Negative) Urine Blood Negative (Negative) Urine Nitrite Negative (Negative) Urine Bilirubin Negative (Negative) Urine Urobilinogen <2.0 (<2.0) mg/dL Ur Leukocyte Esterase Small H (Negative) Urine RBC <1 (0-5) /hpf Urine WBC 1 (0-5) /hpf Ur Squamous Epith Cells 4 (0-4) /hpf Urine Mucus Rare H (None) /hpf Urine HCG, Qual Not Detected (Not Detectd) Disposition Clinical Impression: Lupus arthritis Disposition: LEFT AGAINST MEDICAL ADVICE Condition: Stable Additional Instructions: Please return to the Emergency Department if symptoms worsen or any other concerns. Prescriptions: predniSONE 50 mg PO DAILY #5 tab Is patient prescribed a controlled substance at d/c from ED?: No Referrals: None,Stated [Primary Care Provider] - 1-2 days Time of Disposition: 11:50
[2024-06-21 11:19] LABS: Appearance,Urine Clear (Clear); Bilirubin,Urine Negative (Negative); Blood,Urine Negative (Negative); Color,Urine Colorless; Glucose,Urine (UA) Negative (Negative); Ketones,Urine Negative (Negative); Leukocyte Esterase,Urine Small (Negative); Mucus,Urine Rare /hpf; Nitrite,Urine Negative (Negative); PH, Urine 5.5 (5.0-8.0); Protein,Urine Negative (Negative); RBC,Urine <1 /hpf (0-5); Specific Gravity,Urine 1.011 (1.001-1.035); Squamous Epithelial Cell,Urine 4 /hpf (0-4); Urobilinogen,Urine <2.0 mg/dL (<2.0); WBC,Urine 1 /hpf (0-5)
[2024-06-21] MEDS ORDERED: ACET/COD 300 MG/30 MG STARTER PACK 6 TAB BTL PO STA (11:50)
[2024-06-24 12:45] LABS: N. gonorrhoeae,PCR Negative (Negative)
[2024-06-24 12:57] LABS: C. trachomatis,PCR Negative (Negative)
== END 2024-06-21 11:51 | disposition left against medical advice (07) ==
LOC: EC 10:16
CPT/HCPCS: 81001; 81025; 87491; 87591; 99284

== ENCOUNTER 2024-07-21 08:06 | Emergency (ER) | payer OTHER ==
--- NOTE | 2024-07-21 08:48 | ED ---
ENT HPI - General Chief complaint: Dental/Oral Stated complaint: Oral Pain Time Seen by Provider: 07/21/24 08:45 Source: patient, RN notes reviewed, old records reviewed Mode of arrival: ambulatory Limitations: no limitations - History of Present Illness Initial comments: 29-year-old female presenting to the ER with a chief complaint of left-sided chest discomfort and jaw pain. Patient reports a history of lupus. She is currently visiting from [place] and has not been able to follow-up outpatient with a linen folder due to insurance issues. Patient states for approximately 3 days she has been endorsing a pressure left-sided chest discomfort. She denies any radiation. She denies any shortness of breath, dizziness, lightheadedness, nausea or vomiting. Patient also is reporting a throbbing pain to her right upper jaw. She states jaw pain started approximately 5 days ago. She does report she has a fracture in one of her upper right molars. She denies any drainage. Patient does state her pain feels similar to lupus flareup. Patient denies any fevers, chills, abdominal pain, constipation/diarrhea, urinary complaints or peripheral edema - Related Data Home Medications Medication Instructions Recorded Confirmed Celecoxib [CeleBREX] 100 mg PO BID 07/21/24 07/21/24 HYDROcodone/APAP 5-325MG [[place] 1 tab PO Q6H PRN 07/21/24 07/21/24 5-325] Metaxalone [Skelaxin] 800 mg PO DIRECTED 07/21/24 07/21/24 Naproxen Sodium [Aleve] 220 mg PO BID PRN 07/21/24 07/21/24 predniSONE 50 mg PO DIRECTED 07/21/24 07/21/24 traZODone HCL [Desyrel] 100 mg PO DIRECTED 07/21/24 07/21/24 Previous Rx's Medication Instructions Recorded Ketorolac [Toradol] 10 mg PO Q6HR PRN #15 tab 06/04/24 tiZANidine HCL 6 mg PO Q8HR PRN #30 cap 06/04/24 Amoxic-Pot Clav 875-125Mg 1 tab PO Q12HR #20 tab 07/21/24 [Augmentin 875-125] Allergies Allergy/AdvReac Type Severity Reaction Status Date / Time Iodinated Contrast Media Allergy Severe Anaphylaxis Verified 07/21/24 12:07 [Iodinated Contrast Media - IV Dye] Iodine and Iodide Containing Allergy Severe Anaphylaxis Verified 07/21/24 12:07 Produc povidone-iodine Allergy Severe Rash/Hives Verified 07/21/24 12:07 [From Betadine] soap [From Betadine] Allergy Severe Rash/Hives Verified 07/21/24 12:07 hydrocortisone Allergy Rash/Hives Verified 07/21/24 12:07 iodine AdvReac Anaphylaxis Verified 07/21/24 12:07 Review of Systems ROS Statement: Those systems with pertinent positive or pertinent negative responses have been documented in the HPI. ROS Other: All systems not noted in ROS Statement are negative. Past Medical History Past Medical History: No Reported History, Syncope Additional Past Medical History / Comment(s): daniel History of Any Multi-Drug Resistant Organisms: MRSA Date of last positivie culture/infection: 05/04/24 MDRO Source:: mouth Past Surgical History: Section Past Anesthesia/Blood Transfusion Reactions: Previous Problems w/ Anesthesia Additional Past Anesthesia/Blood Transfusion Reaction / Comment(s): had skin reaction to topical betadine Past Psychological History: No Psychological Hx Reported Smoking Status: Never smoker Past Alcohol Use History: None Reported Past Drug Use History: Marijuana - Past Family History Mother Family Medical History: No Reported History General Exam Limitations: no limitations General appearance: alert, in no apparent distress ENT exam: Present: normal exam, mucous membranes moist, TM's normal bilaterally, other (Fracture to right upper molar. No drainable dental abscess. No erythema. Tenderness palpation of right maxillary sinus. No overlying skin changes. ) Respiratory exam: Present: normal lung sounds bilaterally. Absent: respiratory distress, wheezes, rales, rhonchi, stridor Cardiovascular Exam: Present: regular rate, normal rhythm, normal heart sounds. Absent: systolic murmur, diastolic murmur, rubs, gallop, clicks Extremities exam: Present: normal inspection, full ROM, normal capillary refill. Absent: tenderness, pedal edema, joint swelling, calf tenderness Neurological exam: Present: alert, oriented X3, CN II-XII intact Skin exam: Present: warm, dry, intact, normal color. Absent: rash Course Vital Signs 07/21/24 07/21/24 08:14 13:47 Temperature 98.5 F 97.9 F Pulse Rate 79 82 Respiratory 16 18 Rate Blood Pressure 104/65 141/86 O2 Sat by Pulse 100 97 Oximetry - Reevaluation(s) Reevaluation #1: 07/21/24 10:20 Case discussed with sound physician, , who advised on outpatient management as she is a low cardiac risk at this time. Medical Decision Making - Medical Decision Making Was pt. sent in by a medical professional or institution (, PA, MANAGER PRODUCT, urgent care, hospital, or fpc...) When possible be specific @ -No Did you speak to anyone other than the patient for history (EMS, parent, family, police, friend...)? What history was obtained from this source @ -No Did you review nursing and triage notes (agree or disagree)? Why? @ -I reviewed and agree with nursing and triage notes Were old charts reviewed (outside hosp., previous admission, EMS record, old EKG, old radiological studies, urgent care reports/EKG's, fpc records)? Report findings @ -No old charts were reviewed Differential Diagnosis (chest pain, altered mental status, abdominal pain women, abdominal pain men, vaginal bleeding, weakness, fever, dyspnea, syncope, headache, dizziness, GI bleed, back pain, seizure, CVA, palpatations, mental health, musculoskeletal)? @ -Differential Chest Pain:Stable Angina, Unstable Angina, STEMI, NSTEMI Aortic Dissection, Pneumothorax, Musculoskeletal, Esophageal Spasm GERD, Cholecystitis, Pancreatitis, Zoster, this is not meant to be an all-inclusive list. EKG interpreted by me (3pts min.). @ -Chest x-ray interpreted by me negative for acute cardiopulmonary process. X-rays interpreted by me (1pt min.). @ -None done CT interpreted by me (1pt min.). @ -Chest CTA no large central or definitive lobar branch embolus. No acute pulmonary process seen. Study is limited as patient was breathing during exam. U/S interpreted by me (1pt. min.). @ -None done What testing was considered but not performed or refused? (CT, X-rays, U/S, labs)? Why? @ -None What meds were considered but not given or refused? Why? @ -None Did you discuss the management of the patient with other professionals (professionals i.e. , UNIQUE, MANAGER PRODUCT, lab, RT, psych nurse, bilingual social worker, cardiac rehab nurse, teacher, president and chief operating officer, block and case maker)? Give summary @ -Case was discussed with nakita physician, Dr. Garcia, who advised on outpatient management as she is a low cardiac risk at this time. Was smoking cessation discussed for >3mins.? @ -No Was critical care preformed (if so, how long)? @ -No Were there social determinants of health that impacted care today? How? (Homele ssness, low income, unemployed, alcoholism, drug addiction, transportation, low edu. Level, literacy, decrease access to med. care, fci, rehab)? @ -Yes, patient lives in [place] and frequently visits [place]. Patient's PCP and linen folder are in [place]. Was there de-escalation of care discussed even if they declined (Discuss DNR or withdrawal of care, Hospice)? DNR status @ -No What co-morbidities impacted this encounter? (DM, HTN, Smoking, COPD, CAD, Cancer, CVA, ARF, Chemo, Hep., AIDS, mental health diagnosis, sleep apnea, morbid obesity)? @ -Lupus Was patient admitted / discharged? Hospital course, mention meds given and route, prescriptions, significant lab abnormalities, going to OR and other pertinent info. @ -Discharge. 29-year-old female presented the ER with a chief complaint of jaw and chest pain. History and physical exam completed. Vital stable. Patient in no signs of acute distress. Exam remarkable for tenderness to right maxillary sinus. There is a fractured tooth to right upper molar. Due to complaint of chest pain and patient's history of lupus, cardiac workup will be obtained. Patient is agreeable to this. Laboratory studies unimpressive. Troponin x 2 negative. D-dimer elevated at 1.32. CTA chest negative for acute evidence of pulmonary embolism. Study is limited as patient was breathing during exam. Ddimer believed to be elevated due to lupus. EKG showing sinus rhythm no acute evidence of infarct. Case was discussed with Nakita Jolley, who advised on outpatient management as patient is a low cardiac risk at this time. HEART score 1. Patient received symptomatic control in the ER, with improvement. Patient reevaluated no signs of acute distress. Results discussed with patient, all questions answered. Patient will be started on Augmentin for possible dental infection due to right maxillary sinus tenderness and fractured tooth. Advised close follow-up with dentist. Patient discharged with a starter pack of Tylenol threes for outpatient pain control. Strict return parameters discussed. Patient discharged in stable condition with follow-up to PCP, linen folder and dentist. Patient verbally expressed understanding and agreement with care plan. Case discussed with ED attending, . Undiagnosed new problem with uncertain prognosis? @ -No Drug Therapy requiring intensive monitoring for toxicity (Heparin, Nitro, Insulin, Cardizem)? @ -No Were any procedures done? @ -No Diagnosis/symptom? @ -Lupus/chest pain/dental pain Acute, or Chronic, or Acute on Chronic? @ -Acute Uncomplicated (without systemic symptoms) or Complicated (systemic symptoms)? @ -Complicated Side effects of treatment? @ -No Exacerbation, Progression, or Severe Exacerbation? @ -No Poses a threat to life or bodily function? How? (Chest pain, [place], [place], pneumonia, PE, COPD, DKA, ARF, appy, cholecystitis, CVA, Diverticulitis, Homicidal, Suicidal, threat to staff... and all critical care pts) @ -No - Lab Data Result diagrams: 07/21/24 08:46 07/21/24 08:46 Lab Results 07/21/24 07/21/24 07/21/24 Range/Units 08:46 08:46 08:46 WBC 10.4 (3.8-10.6) k/uL RBC 4.72 (3.80-5.40) m/uL Hgb 12.6 (11.4-16.0) gm/dL Hct 37.6 (34.0-46.0) % MCV 79.8 L (80.0-100.0) fL MCH 26.7 (25.0-35.0) pg MCHC 33.4 (31.0-37.0) g/dL RDW 14.4 (11.5-15.5) % Plt Count 211 (150-450) k/uL MPV 7.3 Neutrophils % 76 % Lymphocytes % 15 % Monocytes % 5 % Eosinophils % 2 % Basophils % 0 % Neutrophils # 7.9 H (1.3-7.7) k/uL Lymphocytes # 1.5 (1.0-4.8) k/uL Monocytes # 0.5 (0-1.0) k/uL Eosinophils # 0.2 (0-0.7) k/uL Basophils # 0.0 (0-0.2) k/uL PT 10.5 (10.0-12.5) sec INR 0.9 (<1.2) APTT 27.3 (22.0-30.0) sec D-Dimer (<0.60) mg/L FEU Sodium 141 (137-145) mmol/L Potassium 4.2 (3.5-5.1) mmol/L Chloride 108 H (98-107) mmol/L Carbon Dioxide 26 (22-30) mmol/L Anion Gap 7 mmol/L BUN 11 (7-17) mg/dL Creatinine 0.65 (0.52-1.04) mg/dL Est GFR (CKD-EPI)AfAm >90 (>60 ml/min/1.73 sqM) Est GFR (CKD-EPI)NonAf >90 (>60 ml/min/1.73 sqM) Glucose 100 H (74-99) mg/dL Calcium 9.5 (8.4-10.2) mg/dL Magnesium 2.0 (1.6-2.3) mg/dL Total Bilirubin 0.6 (0.2-1.3) mg/dL AST 25 (14-36) U/L ALT 18 (4-34) U/L Alkaline Phosphatase 46 (38-126) U/L Troponin I (0.000-0.034) ng/mL Total Protein 7.0 (6.3-8.2) g/dL Albumin 4.3 (3.5-5.0) g/dL 07/21/24 07/21/24 07/21/24 Range/Units 08:46 08:46 11:35 WBC (3.8-10.6) k/uL RBC (3.80-5.40) m/uL Hgb (11.4-16.0) gm/dL Hct (34.0-46.0) % MCV (80.0-100.0) fL MCH (25.0-35.0) pg MCHC (31.0-37.0) g/dL RDW (11.5-15.5) % Plt Count (150-450) k/uL MPV Neutrophils % % Lymphocytes % % Monocytes % % Eosinophils % % Basophils % % Neutrophils # (1.3-7.7) k/uL Lymphocytes # (1.0-4.8) k/uL Monocytes # (0-1.0) k/uL Eosinophils # (0-0.7) k/uL Basophils # (0-0.2) k/uL PT (10.0-12.5) sec INR (<1.2) APTT (22.0-30.0) sec D-Dimer 1.32 H (<0.60) mg/L FEU Sodium (137-145) mmol/L Potassium (3.5-5.1) mmol/L Chloride (98-107) mmol/L Carbon Dioxide (22-30) mmol/L Anion Gap mmol/L BUN (7-17) mg/dL Creatinine (0.52-1.04) mg/dL Est GFR (CKD-EPI)AfAm (>60 ml/min/1.73 sqM) Est GFR (CKD-EPI)NonAf (>60 ml/min/1.73 sqM) Glucose (74-99) mg/dL Calcium (8.4-10.2) mg/dL Magnesium (1.6-2.3) mg/dL Total Bilirubin (0.2-1.3) mg/dL AST (14-36) U/L ALT (4-34) U/L Alkaline Phosphatase (38-126) U/L Troponin I <0.012 <0.012 (0.000-0.034) ng/mL Total Protein (6.3-8.2) g/dL Albumin (3.5-5.0) g/dL - EKG Data -: EKG Interpreted by Me EKG Comments: EKG taken at 8: 38 showing a sinus rhythm no acute ST segment or T wave abnormalities. Ventricular rate 72, UT interval 175, QRS duration 94, QT/QTc 362/386. - Radiology Data Radiology results: report reviewed, image reviewed Disposition Clinical Impression: Lupus, Chest pain, Pain, dental Disposition: HOME SELF-CARE Condition: Stable Instructions (If sedation given, give patient instructions): Toothache (ED) Additional Instructions: Complete full course of antibiotics. Follow-up with dentist. Follow-up with PCP. Return to the ER for any new or worsening concerns. Prescriptions: Amoxic-Pot Clav 875-125Mg [Augmentin 875-125] 1 tab PO Q12HR #20 tab Is patient prescribed a controlled substance at d/c from ED?: No Referrals: None,Stated [Primary Care Provider] - 1-2 days Jhon Trevino DDS [STAFF PHYSICIAN] - 1-2 days Kamini Ramos DDS [STAFF PHYSICIAN] - 1-2 days Forms: Area PCPs Time of Disposition: 12:57
[2024-07-21] MEDS: SODIUM CHLORIDE 0.9% 1,000 ML IV STA (08:49)
[2024-07-21] MEDS: KETOROLAC 15 MG/ML 1 ML VIAL IVP STA (08:58)
[2024-07-21 08:59] LABS: Basophils % (A) 0 %; Eosinophils # (A) 0.2 k/uL (0-0.7); Eosinophils % (A) 2 %; HCT 37.6 % (34.0-46.0); HGB 12.6 gm/dL (11.4-16.0); Lymphocytes # (A) 1.5 k/uL (1.0-4.8); Lymphocytes % (A) 15 %; MCH 26.7 pg (25.0-35.0); MCHC 33.4 g/dL (31.0-37.0); MCV 79.8 fL (80.0-100.0); Mean Platelet Volume 7.3; Monocytes # (A) 0.5 k/uL (0-1.0); Monocytes % (A) 5 %; Neutrophils # (A) 7.9 k/uL (1.3-7.7); Neutrophils % (A) 76 %; Platelet Count 211 k/uL (150-450); RBC 4.72 m/uL (3.80-5.40); RDW 14.4 % (11.5-15.5); WBC 10.4 k/uL (3.8-10.6)
[2024-07-21 09:09] LABS: ALT 18 U/L (4-34); AST 25 U/L (14-36); African American GFR (CKD) >90 (>60 ml/min/1.73 sqM); Albumin 4.3 g/dL (3.5-5.0); Alkaline Phosphatase 46 U/L (38-126); Anion Gap 7 mmol/L; Blood Urea Nitrogen 11 mg/dL (7-17); Calcium 9.5 mg/dL (8.4-10.2); Carbon Dioxide 26 mmol/L (22-30); Chloride 108 mmol/L (98-107); Glucose 100 mg/dL (74-99); Non-African American GFR(CKD) >90 (>60 ml/min/1.73 sqM); Potassium 4.2 mmol/L (3.5-5.1); Sodium 141 mmol/L (137-145); Total Bilirubin 0.6 mg/dL (0.2-1.3)
[2024-07-21 09:12] LABS: INR 0.9 (<1.2); Partial Thromboplastin Time 27.3 sec (22.0-30.0); Prothrombin Time 10.5 sec (10.0-12.5)
--- NOTE | 2024-07-21 09:17 | XR ---
EXAMINATION TYPE: XR chest 2V DATE OF EXAM: 07/21/2024 COMPARISON: 06/16/2020 HISTORY: 29-year-old female with chest pain TECHNIQUE: PA and lateral views FINDINGS: Heart normal size. Aortopulmonary vasculature within normal limits. Hazy lower lung densities relatin g to overlying soft tissue. Bilateral nipple bars. No consolidation or pleural effusion. IMPRESSION: No acute cardiopulmonary process. [facility], , 07/21/2024 9:15 AM
[2024-07-21] MEDS: HYDROmorphone 1 MG/ML 1 ML SYRINGE IVP STA ×2 (10:15→13:01)
[2024-07-21] MEDS: diphenhydrAMINE 50 MG/ML 1 ML VIAL IVP STA (10:53)
[2024-07-21] MEDS: FAMOTIDINE 20 MG/2 ML VIAL IV STA (10:53)
[2024-07-21] MEDS: methylPREDNISolone SOD SUCCI 125 MG/2 ML VIAL IV STA (10:53)
--- NOTE | 2024-07-21 11:37 | CT ---
EXAMINATION TYPE: CT chest angio for PE DATE OF EXAM: 07/21/2024 COMPARISON: Radiograph same day HISTORY: 29-year-old female chest pain x3 days, hx of lupus TECHNIQUE: Contiguous axial scanning of the chest performed with IV Contrast, patient injected with 1 00 mL of Isovue 370. Coronal/sagittal MIP reconstructions performed. CT DLP: 345.5 mGycm Automated exposure control for dose reduction was used. FINDINGS: The heart is normal size without pericardial effusion. No flattening of the interventricular septum r eflux of contrast into the hepatic veins. Aorta is normal caliber with conventional vessel branching anatomy. No thoracic lymphadenopathy by CT size criteria. While there is satisfactory opacification of the pulmonary arterial system, there is very limited ron luation due to patient breathing through the skin. No large central or definite lobar branch pulmonar y embolus is seen. Segmental more distal arterial branches are nondiagnostic due to the degree of cristin athing motion artifact. Allowing for the breathing motion, no consolidation or pleural effusion is seen. Visualized upper abdomen shows no specific abnormality. Bones: No osseous destructive process. IMPRESSION: 1. EXAM DEGRADED THE PATIENT WAS BREATHING THROUGH THE SCAN. SEGMENTAL AND MORE DISTAL ARTERIAL BR ANCHES ARE ENTIRELY NONDIAGNOSTIC AND EMBOLI IN THESE LOCATIONS CANNOT BE EXCLUDED ON THE BASIS OF TH IS EXAM. NO LARGE CENTRAL OR DEFINITE LOBAR BRANCH EMBOLUS. 2. NO ACUTE PULMONARY PROCESS SEEN. [facility], , 07/21/2024 11:34 AM
[2024-07-21] MEDS: ACET/COD 300 MG/30 MG STARTER PACK 6 TAB BTL PO STA (13:02)
[2024-07-21] MEDS: HYDROmorphone 1 MG/ML 1 ML SYRINGE IM STA (13:11)
[2024-07-21 13:49] VITALS: BP 141/86; PULSE 82; RESP 18; TEMP 97.9
== END 2024-07-21 13:49 | disposition home or self-care (01) ==
LOC: EC 08:06
CPT/HCPCS: 36415; 71046; 71275; 80053; 83735; 84484; 85025; 85379; 85610; 85730; 93005; 96361; 96372; 96374; 96375; 99284

== ENCOUNTER 2024-08-08 05:45 | Emergency (ER) | payer OTHER ==
[2024-08-08 05:50] VITALS: TEMP 98.1
--- NOTE | 2024-08-08 06:11 | ED ---
Back Pain HPI - General Chief Complaint: Back Pain/Injury Stated Complaint: Back pain Time Seen by Provider: 08/08/24 05:58 Source: patient, RN notes reviewed Mode of arrival: ambulatory Limitations: no limitations - History of Present Illness Initial Comments: This is a 29-year-old female who presents to the emergency department for back pain. States that she started to develop right mid to lower back pain about an hour ago radiating down into the buttocks. Denies any injuries. States that she has a substantial history of UTIs and feels like she is developing another one. Denies any urinary symptoms, fevers/chills, or nausea. States that whenever she gets UTIs she typically only gets the back discomfort. Denies any hx of kidney stones. MD Complaint: back pain - Related Data Home Medications Medication Instructions Recorded Confirmed Celecoxib [CeleBREX] 100 mg PO BID 07/21/24 07/21/24 HYDROcodone/APAP 5-325MG [[place] 1 tab PO Q6H PRN 07/21/24 07/21/24 5-325] Metaxalone [Skelaxin] 800 mg PO DIRECTED 07/21/24 07/21/24 Naproxen Sodium [Aleve] 220 mg PO BID PRN 07/21/24 07/21/24 predniSONE 50 mg PO DIRECTED 07/21/24 07/21/24 traZODone HCL [Desyrel] 100 mg PO DIRECTED 07/21/24 07/21/24 Previous Rx's Medication Instructions Recorded Ketorolac [Toradol] 10 mg PO Q6HR PRN #15 tab 06/04/24 tiZANidine HCL 6 mg PO Q8HR PRN #30 cap 06/04/24 Amoxic-Pot Clav 875-125Mg 1 tab PO Q12HR #20 tab 07/21/24 [Augmentin 875-125] Fluconazole [Diflucan] 150 mg PO ONCE 1 Days #1 tab 08/08/24 Nitrofurantoin Monohyd/M-Cryst 100 mg PO Q12HR 5 Days #10 cap 08/08/24 [Macrobid] Allergies Allergy/AdvReac Type Severity Reaction Status Date / Time Iodinated Contrast Media Allergy Severe Anaphylaxis Verified 08/08/24 05:50 [Iodinated Contrast Media - IV Dye] Iodine and Iodide Containing Allergy Severe Anaphylaxis Verified 08/08/24 05:50 Produc povidone-iodine Allergy Severe Rash/Hives Verified 08/08/24 05:50 [From Betadine] soap [From Betadine] Allergy Severe Rash/Hives Verified 08/08/24 05:50 hydrocortisone Allergy Rash/Hives Verified 08/08/24 05:50 iodine AdvReac Anaphylaxis Verified 08/08/24 05:50 Review of Systems ROS Statement: Those systems with pertinent positive or pertinent negative responses have been documented in the HPI. ROS Other: All systems not noted in ROS Statement are negative. Past Medical History Past Medical History: No Reported History, Syncope Additional Past Medical History / Comment(s): daniel History of Any Multi-Drug Resistant Organisms: MRSA Date of last positivie culture/infection: 05/04/24 MDRO Source:: mouth Past Surgical History: Section Past Anesthesia/Blood Transfusion Reactions: Previous Problems w/ Anesthesia Additional Past Anesthesia/Blood Transfusion Reaction / Comment(s): had skin reaction to topical betadine Past Psychological History: No Psychological Hx Reported Smoking Status: Never smoker Past Alcohol Use History: None Reported Past Drug Use History: Marijuana - Past Family History Mother Family Medical History: No Reported History General Exam Limitations: no limitations General appearance: alert, in no apparent distress Head exam: Present: atraumatic, normocephalic, normal inspection Respiratory exam: Present: normal lung sounds bilaterally. Absent: respiratory distress, wheezes, rales, rhonchi, stridor Cardiovascular Exam: Present: regular rate, normal rhythm, normal heart sounds. Absent: systolic murmur, diastolic murmur, rubs, gallop, clicks GI/Abdominal exam: Present: soft, normal bowel sounds. Absent: distended, tenderness, guarding, rebound, rigid Back exam: Present: CVA tenderness (R). Absent: CVA tenderness (L) Neurological exam: Present: alert, oriented X3, CN II-XII intact Psychiatric exam: Present: normal affect, normal mood Skin exam: Present: warm, dry, intact, normal color. Absent: rash Course Vital Signs 08/08/24 08/08/24 05:46 06:40 Temperature 98.1 F 98.1 F Pulse Rate 78 84 Respiratory 18 19 Rate Blood Pressure 112/78 113/78 O2 Sat by Pulse 99 99 Oximetry Medical Decision Making - Medical Decision Making This is a 29-year-old female who presents to the emergency department for back pain. Was pt. sent in by a medical professional or institution? @ -No Did you speak to anyone other than the patient for history? @ -No Did you review nursing and triage notes? @ -Yes, and I agree, it is accurate with regards to the patient's symptoms. Were old charts reviewed? @ -No Differential Diagnosis? @ -Differential Back Pain: Strain, zoster, cauda equina syndrome, epidural abscess, vertebral osteomyelitis, discitis, fracture, subluxation, disc herniation, DJD, spinal stenosis, dissection, AAA, pancreatitis, peptic ulcer disease, pyelonephritis, kidney stone, this is not meant to be an all-inclusive list. EKG interpreted by me (3pts min.)? @ -Not obtained X-rays interpreted by me (1pt min.)? @ -Not obtained CT interpreted by me (1pt min.)? @ -Not obtained U/S interpreted by me (1pt. min.)? @ -Not obtained What testing was considered but not performed? (CT, X-rays, U/S, labs)? Why? @ -None What meds were considered but not given? Why? @ -None Did you discuss the management of the patient with other professionals? @ -No Did you reconcile home meds? @ -No Was smoking cessation discussed for >3mins.? @ -No Was critical care preformed (if so, how long)? @ -No Were there social determinants of health that impacted care today? How? (Homelessness, low income, unemployed, alcoholism, drug addiction, transportation, low edu. Level, literacy, decrease access to med. care, penitentiary, rehab)? @ -No Was there de-escalation of care discussed even if they declined? (Discuss DNR or withdrawal of care, Hospice)? @ -No What co-morbidities impacted this encounter? (DM, HTN, Smoking, COPD, CAD, Cancer, CVA, Hep., AIDS, mental health diagnosis, sleep apnea, morbid obesity)? @ -Lupus Was patient admitted / discharged? @ -Discharged. Urinalysis demonstrates moderate leukocyte esterase. However, there is no elevation in white blood cells, any bacteria, or nitrites. No blood is present either. There is also contamination. This is not overly suggestive of infection at this point. However, symptoms have only been present for about an hour. We discussed that it could be an early UTI or musculoskeletal in nature. Will send in Macrobid in the event symptoms worsen, otherwise advised ibuprofen and Tylenol for the meantime. Patient discharged home in stable condition. Case discussed with ED attending Dr. Swartz. Return precautions reviewed in depth, the patient is instructed to return to the emergency department with any new, worsening, or concerning symptoms. Patient verbalized understanding. Undiagnosed new problem with uncertain prognosis? @ -None Drug Therapy requiring intensive monitoring for toxicity (Heparin, Nitro, Insulin, Cardizem)? @ -None Were any procedures done? @ -None Diagnosis/symptom? @ -Back pain, possible UTI Acute, or Chronic, or Acute on Chronic? @ -Acute Uncomplicated (without systemic symptoms) or Complicated (systemic symptoms)? @ -Uncomplicated Side effects of treatment? @ -None Exacerbation, Progression, or Severe Exacerbation] @ -Not applicable Poses a threat to life or bodily function? @ -No - Lab Data Lab Results 08/08/24 08/08/24 Range/Units 06:07 06:07 Urine Color Colorless Urine Appearance Cloudy H (Clear) Urine pH 5.5 (5.0-8.0) Ur Specific [place] 1.014 (1.001-1.035) Urine Protein Negative (Negative) Urine Glucose (UA) Negative (Negative) Urine Ketones Negative (Negative) Urine Blood Negative (Negative) Urine Nitrite Negative (Negative) Urine Bilirubin Negative (Negative) Urine Urobilinogen <2.0 (<2.0) mg/dL Ur Leukocyte Esterase Moderate H (Negative) Urine RBC 4 (0-5) /hpf Urine WBC 2 (0-5) /hpf Ur Squamous Epith Cells 9 H (0-4) /hpf Urine Mucus Rare H (None) /hpf Urine Yeast (Budding) Rare H (None) /hpf Urine HCG, Qual Not Detected (Not Detectd) Disposition Clinical Impression: Back pain, UTI (urinary tract infection) Disposition: HOME SELF-CARE Instructions (If sedation given, give patient instructions): Urinary Tract Infection in Women (ED), Acute Low Back Pain (ED) Additional Instructions: Return to the emergency department with any new, worsening, or concerning symptoms. Take the antibiotic as prescribed for 5 days. Follow-up with your primary care provider in 1 to 2 days. Prescriptions: Fluconazole [Diflucan] 150 mg PO ONCE 1 Days #1 tab Nitrofurantoin Monohyd/M-Cryst [Macrobid] 100 mg PO Q12HR 5 Days #10 cap Is patient prescribed a controlled substance at d/c from ED?: No Referrals: None,Stated [Primary Care Provider] - 1-2 days Time of Disposition: 06:29
[2024-08-08 06:18] LABS: Appearance,Urine Cloudy (Clear); Bilirubin,Urine Negative (Negative); Blood,Urine Negative (Negative); Budding Yeast,Urine Rare /hpf; Color,Urine Colorless; Glucose,Urine (UA) Negative (Negative); Ketones,Urine Negative (Negative); Leukocyte Esterase,Urine Moderate (Negative); Mucus,Urine Rare /hpf; Nitrite,Urine Negative (Negative); PH, Urine 5.5 (5.0-8.0); Protein,Urine Negative (Negative); RBC,Urine 4 /hpf (0-5); Specific Gravity,Urine 1.014 (1.001-1.035); Squamous Epithelial Cell,Urine 9 /hpf (0-4); Urobilinogen,Urine <2.0 mg/dL (<2.0); WBC,Urine 2 /hpf (0-5)
[2024-08-08] MEDS: NITROFURANTOIN MONOHYD/M-CRYST 100 MG CAP PO STA (06:34)
[2024-08-08 06:41] VITALS: BP 113/78; PULSE 84; RESP 19
== END 2024-08-08 06:40 | disposition home or self-care (01) ==
LOC: EC 05:45
DX: N39.0 Urinary tract infection, site not specified (principal); Z88.8 Allergy status to other drugs, medicaments and biological substances; Z91.041 Radiographic dye allergy status
CPT/HCPCS: 81001; 81025; 87086; 99283

== ENCOUNTER 2024-08-30 15:18 | Emergency (ER) | payer OTHER ==
[2024-08-30 15:31] VITALS: RESP 18; TEMP 98.2
--- NOTE | 2024-08-30 16:32 | ED ---
Female Urogenital HPI - General Chief complaint: Urogenital Stated complaint: Generalized pain Time Seen by Provider: 08/30/24 16:00 Source: patient, RN notes reviewed Mode of arrival: ambulatory Limitations: no limitations - History of Present Illness Initial comments: 29-year-old female with history of lupus presenting for STD testing. Patient states she recently had unprotected sexual intercourse with a male partner and would like to be tested for STDs. Denies vaginal discharge, dysuria, urinary frequency, urinary urgency, fevers, chills. States she is having some low back pain that radiates to her right buttocks however states this has been chronic for several years. She is also requesting HIV testing. States she recently moved here from [place] and feels as though she is having a flareup of her lupus. States Toradol usually works for her flareups. - Related Data Home Medications Medication Instructions Recorded Confirmed Celecoxib [CeleBREX] 100 mg PO BID 07/21/24 07/21/24 HYDROcodone/APAP 5-325MG [[place] 1 tab PO Q6H PRN 07/21/24 07/21/24 5-325] Metaxalone [Skelaxin] 800 mg PO DIRECTED 07/21/24 07/21/24 Naproxen Sodium [Aleve] 220 mg PO BID PRN 07/21/24 07/21/24 predniSONE 50 mg PO DIRECTED 07/21/24 07/21/24 traZODone HCL [Desyrel] 100 mg PO DIRECTED 07/21/24 07/21/24 Previous Rx's Medication Instructions Recorded Ketorolac [Toradol] 10 mg PO Q6HR PRN #15 tab 06/04/24 tiZANidine HCL 6 mg PO Q8HR PRN #30 cap 06/04/24 Amoxic-Pot Clav 875-125Mg 1 tab PO Q12HR #20 tab 07/21/24 [Augmentin 875-125] Fluconazole [Diflucan] 150 mg PO ONCE 1 Days #1 tab 08/08/24 Nitrofurantoin Monohyd/M-Cryst 100 mg PO Q12HR 5 Days #10 cap 08/08/24 [Macrobid] Fluconazole [Diflucan] 150 mg PO ONCE 1 Days #1 tab 08/10/24 Allergies Allergy/AdvReac Type Severity Reaction Status Date / Time Iodinated Contrast Media Allergy Severe Anaphylaxis Verified 08/30/24 15:26 [Iodinated Contrast Media - IV Dye] Iodine and Iodide Containing Allergy Severe Anaphylaxis Verified 08/30/24 15:26 Produc povidone-iodine Allergy Severe Rash/Hives Verified 08/30/24 15:26 [From Betadine] soap [From Betadine] Allergy Severe Rash/Hives Verified 08/30/24 15:26 hydrocortisone Allergy Rash/Hives Verified 08/30/24 15:26 iodine AdvReac Anaphylaxis Verified 08/30/24 15:26 Review of Systems ROS Statement: Those systems with pertinent positive or pertinent negative responses have been documented in the HPI. ROS Other: All systems not noted in ROS Statement are negative. Past Medical History Past Medical History: Syncope Additional Past Medical History / Comment(s): Lupus History of Any Multi-Drug Resistant Organisms: MRSA Date of last positivie culture/infection: 05/04/24 MDRO Source:: mouth Past Surgical History: Section Past Anesthesia/Blood Transfusion Reactions: Previous Problems w/ Anesthesia Additional Past Anesthesia/Blood Transfusion Reaction / Comment(s): had skin reaction to topical betadine Past Psychological History: No Psychological Hx Reported Smoking Status: Never smoker Past Alcohol Use History: None Reported Past Drug Use History: Marijuana - Past Family History Mother Family Medical History: No Reported History General Exam Limitations: no limitations General appearance: alert, in no apparent distress Head exam: Present: atraumatic, normocephalic, normal inspection Eye exam: Present: normal appearance, PERRL, EOMI. Absent: scleral icterus, conjunctival injection, periorbital swelling GI/Abdominal exam: Present: soft, normal bowel sounds. Absent: distended, tenderness, guarding, rebound, rigid External exam: Present: other (Patient declined pelvic exam) Back exam: Present: normal inspection, full ROM. Absent: tenderness, CVA tenderness (R), CVA tenderness (L), rash noted Neurological exam: Present: alert, oriented X3 Psychiatric exam: Present: normal affect, normal mood Skin exam: Present: warm, dry, intact, normal color. Absent: rash Course Vital Signs 08/30/24 15:26 Temperature 98.2 F Pulse Rate 82 Respiratory 18 Rate Blood Pressure 107/66 O2 Sat by Pulse 98 Oximetry Medical Decision Making - Medical Decision Making Was pt. sent in by a medical professional or institution (, PA, WARRANTY COORDINATOR, urgent care, hospital, or assisted...) When possible be specific @ -No Did you speak to anyone other than the patient for history (EMS, parent, family, police, friend...)? What history was obtained from this source @ -No Did you review nursing and triage notes (agree or disagree)? Why? @ -I reviewed and agree with nursing and triage notes Were old charts reviewed (outside hosp., previous admission, EMS record, old EKG, old radiological studies, urgent care reports/EKG's, assisted records)? Report findings @ -No old charts were reviewed Differential Diagnosis (chest pain, altered mental status, abdominal pain women, abdominal pain men, vaginal bleeding, weakness, fever, dyspnea, syncope, headache, dizziness, GI bleed, back pain, seizure, CVA, palpatations, mental health, musculoskeletal)? @ -STD, BV, HIV, UTI EKG interpreted by me (3pts min.). @ -None X-rays interpreted by me (1pt min.). @ -None done CT interpreted by me (1pt min.). @ -None done U/S interpreted by me (1pt. min.). @ -None done What testing was considered but not performed or refused? (CT, X-rays, U/S, labs)? Why? @ -None What meds were considered but not given or refused? Why? @ -None Did you discuss the management of the patient with other professionals (professionals i.e. , UNIQUE, WARRANTY COORDINATOR, lab, RT, psych nurse, social science analyst, bag loader machine operator, teacher, gifts officer, case work aide)? Give summary @ -We discussed lab work however patient states this feels like her usual lupus flareups Was smoking cessation discussed for >3mins.? @ -No Was critical care preformed (if so, how long)? @ -No Were there social determinants of health that impacted care today? How? (Homelessness, low income, unemployed, alcoholism, drug addiction, transportation, low edu. Level, literacy, decrease access to med. care, intermediate, rehab)? @ -No Was there de-escalation of care discussed even if they declined (Discuss DNR or withdrawal of care, Hospice)? DNR status @ -No What co-morbidities impacted this encounter? (DM, HTN, Smoking, COPD, CAD, Cancer, CVA, ARF, Chemo, Hep., AIDS, mental health diagnosis, sleep apnea, morbid obesity)? @ -None Was patient admitted / discharged? Hospital course, mention meds given and route, prescriptions, significant lab abnormalities, going to OR and other pertinent info. @ -Discharge. This is a 29-year-old female presenting for STD testing. Currently asymptomatic. Discussed empiric treatment and patient declines. Urinalysis was unremarkable. Urine negative. Culture sent out for gonorrhea and chlamydia. HIV was sent per patient request. Discussed with patient that we do not test for all STDs today and I recommend follow-up with health department for comprehensive STD screening. Patient is also having a flareup of her lupus and is requesting a dose of Toradol today. Case was discussed with my ED attending Dr. Swartz. Undiagnosed new problem with uncertain prognosis? @ -No Drug Therapy requiring intensive monitoring for toxicity (Heparin, Nitro, Insulin, Cardizem)? @ -No Were any procedures done? @ -No Diagnosis/symptom? @ -STD testing Acute, or Chronic, or Acute on Chronic? @ -Acute Uncomplicated (without systemic symptoms) or Complicated (systemic symptoms)? @ -Uncomplicated Side effects of treatment? @ -No Exacerbation, Progression, or Severe Exacerbation? @ -No Poses a threat to life or bodily function? How? (Chest pain, [place], [place], pneumonia, PE, COPD, DKA, ARF, appy, cholecystitis, CVA, Diverticulitis, Homicidal, Suicidal, threat to staff... and all critical care pts) @ -No - Lab Data Lab Results 08/30/24 08/30/24 Range/Units 16:36 16:36 Urine Color Colorless Urine Appearance Clear (Clear) Urine pH 7.0 (5.0-8.0) Ur Specific [place] 1.011 (1.001-1.035) Urine Protein Negative (Negative) Urine Glucose (UA) Negative (Negative) Urine Ketones Negative (Negative) Urine Blood Negative (Negative) Urine Nitrite Negative (Negative) Urine Bilirubin Negative (Negative) Urine Urobilinogen <2.0 (<2.0) mg/dL Ur Leukocyte Esterase Negative (Negative) Urine HCG, Qual Not Detected (Not Detectd) Disposition Clinical Impression: Screen for STD (sexually transmitted disease) Disposition: HOME SELF-CARE Condition: Stable Instructions (If sedation given, give patient instructions): Safe Sex Practices (ED) Additional Instructions: You were tested today for gonorrhea, chlamydia, and HIV. I recommend that you follow-up with the health department for full STD screening. Please return to the Emergency Department if symptoms worsen or any other concerns. Is patient prescribed a controlled substance at d/c from ED?: No Referrals: None,Stated [Primary Care Provider] - 1-2 days Time of Disposition: 17:51
[2024-08-30 16:52] LABS: Appearance,Urine Clear (Clear); Bilirubin,Urine Negative (Negative); Blood,Urine Negative (Negative); Color,Urine Colorless; Glucose,Urine (UA) Negative (Negative); Ketones,Urine Negative (Negative); Leukocyte Esterase,Urine Negative (Negative); Nitrite,Urine Negative (Negative); Protein,Urine Negative (Negative); Specific Gravity,Urine 1.011 (1.001-1.035); Urobilinogen,Urine <2.0 mg/dL (<2.0)
[2024-08-30] MEDS: KETOROLAC 15 MG/ML 1 ML VIAL IM STA (17:06)
[2024-08-30 17:58] VITALS: BP 105/72; PULSE 80
[2024-08-31 05:57] LABS: HIV 2 AB Non-Reactive (Non-Reactive); HIV AB P24 Non-Reactive (Non-Reactive); HIV P24 AG Non-Reactive (Non-Reactive)
[2024-09-02 09:16] LABS: HIV-1 RNA Not detected (Not detected); HIV-1 RNA, Quant <20 Copies/mL (<20); LOG HIV Copies/mL <1.30 (<1.30)
[2024-09-02 13:28] LABS: N. gonorrhoeae,PCR Negative (Negative)
[2024-09-02 13:30] LABS: C. trachomatis,PCR Negative (Negative)
== END 2024-08-30 17:57 | disposition home or self-care (01) ==
LOC: EC 15:18
DX: Z11.3 Encounter for screening for infections with a predominantly sexual mode of transmission (principal); Z91.041 Radiographic dye allergy status; Z88.3 Allergy status to other anti-infective agents; Z88.8 Allergy status to other drugs, medicaments and biological substances; Z88.5 Allergy status to narcotic agent; Z91.048 Other nonmedicinal substance allergy status
CPT/HCPCS: 36415; 87536; 81003; 81025; 87491; 87591; 87390; 99283; 96372; J1885

== ENCOUNTER 2024-09-08 11:21 | Emergency (ER) | payer OTHER ==
[2024-09-08 12:25] VITALS: BP 111/73; PULSE 84; RESP 18; TEMP 98.5
--- NOTE | 2024-09-08 13:00 | ED ---
Back Pain HPI - General Chief Complaint: Back Pain/Injury Stated Complaint: Lupus Time Seen by Provider: 09/08/24 11:38 Source: patient, RN notes reviewed Mode of arrival: ambulatory Limitations: no limitations - History of Present Illness Initial Comments: This is a 29-year-old female with history of SLE presenting with lump near left groin x 2 days. Patient endorses attempting to be seen in this ER 2 days ago for right lower abdominal pain but left AMA with pain still ongoing. Endorses some pinkish fluid from her vagina. Endorses constipation about 1 week. Denies fever, chills, urinary symptoms radiating pain hematuria, vaginal discharge. MD Complaint: other Onset/Timin -: days(s) Radiation: groin Associated Symptoms: constipation - Related Data Home Medications Medication Instructions Recorded Confirmed Celecoxib [CeleBREX] 100 mg PO BID 07/21/24 07/21/24 HYDROcodone/APAP 5-325MG [[place] 1 tab PO Q6H PRN 07/21/24 07/21/24 5-325] Metaxalone [Skelaxin] 800 mg PO DIRECTED 07/21/24 07/21/24 Naproxen Sodium [Aleve] 220 mg PO BID PRN 07/21/24 07/21/24 predniSONE 50 mg PO DIRECTED 07/21/24 07/21/24 traZODone HCL [Desyrel] 100 mg PO DIRECTED 07/21/24 07/21/24 Previous Rx's Medication Instructions Recorded Ketorolac [Toradol] 10 mg PO Q6HR PRN #15 tab 06/04/24 tiZANidine HCL 6 mg PO Q8HR PRN #30 cap 06/04/24 Amoxic-Pot Clav 875-125Mg 1 tab PO Q12HR #20 tab 07/21/24 [Augmentin 875-125] Fluconazole [Diflucan] 150 mg PO ONCE 1 Days #1 tab 08/08/24 Nitrofurantoin Monohyd/M-Cryst 100 mg PO Q12HR 5 Days #10 cap 08/08/24 [Macrobid] Fluconazole [Diflucan] 150 mg PO ONCE 1 Days #1 tab 08/10/24 Allergies Allergy/AdvReac Type Severity Reaction Status Date / Time Iodinated Contrast Media Allergy Severe Anaphylaxis Verified 09/08/24 12:17 [Iodinated Contrast Media - IV Dye] Iodine and Iodide Containing Allergy Severe Anaphylaxis Verified 09/08/24 12:17 Produc povidone-iodine Allergy Severe Rash/Hives Verified 09/08/24 12:17 [From Betadine] soap [From Betadine] Allergy Severe Rash/Hives Verified 09/08/24 12:17 hydrocortisone Allergy Rash/Hives Verified 09/08/24 12:17 iodine AdvReac Anaphylaxis Verified 09/08/24 12:17 Review of Systems ROS Statement: Those systems with pertinent positive or pertinent negative responses have been documented in the HPI. ROS Other: All systems not noted in ROS Statement are negative. Past Medical History Past Medical History: Syncope Additional Past Medical History / Comment(s): Lupus History of Any Multi-Drug Resistant Organisms: MRSA Date of last positivie culture/infection: 05/04/24 MDRO Source:: mouth Past Surgical History: Section Past Anesthesia/Blood Transfusion Reactions: Previous Problems w/ Anesthesia Additional Past Anesthesia/Blood Transfusion Reaction / Comment(s): had skin nadeen ction to topical betadine Past Psychological History: No Psychological Hx Reported Smoking Status: Never smoker Past Alcohol Use History: None Reported Past Drug Use History: Marijuana - Past Family History Mother Family Medical History: No Reported History General Exam Limitations: no limitations General appearance: alert, in no apparent distress Head exam: Present: atraumatic, normocephalic, normal inspection Eye exam: Present: normal appearance, PERRL, EOMI. Absent: scleral icterus, conjunctival injection, periorbital swelling ENT exam: Present: normal exam, mucous membranes moist Neck exam: Present: normal inspection. Absent: tenderness, meningismus, lymphadenopathy Respiratory exam: Present: normal lung sounds bilaterally. Absent: respiratory distress, wheezes, rales, rhonchi, stridor Cardiovascular Exam: Present: regular rate, normal rhythm, normal heart sounds. Absent: systolic murmur, diastolic murmur, rubs, gallop, clicks GI/Abdominal exam: Present: soft, tenderness (Positive right hypogastric tenderness without guarding. Negative right lower quadrant tenderness, negative McBurney's point), normal bowel sounds. Absent: distended, guarding, rebound, rigid External exam: Present: swelling (Cutaneous cyst of left inferior aspect of vulva notable only by palpation. No overlying erythema). Absent: erythema, lesions, ecchymosis Speculum exam: Present: normal speculum exam. Absent: erythema, vaginal discharge, cervical discharge, vaginal bleeding, foreign body, tissue, laceration Extremities exam: Present: normal inspection, full ROM, normal capillary refill. Absent: tenderness, pedal edema, joint swelling, calf tenderness Back exam: Present: normal inspection Neurological exam: Present: alert, oriented X3, CN II-XII intact Psychiatric exam: Present: normal affect, normal mood Skin exam: Present: warm, dry, intact, normal color. Absent: rash Course Vital Signs 09/08/24 12:18 Temperature 98.5 F Pulse Rate 84 Respiratory 18 Rate Blood Pressure 111/73 O2 Sat by Pulse 99 Oximetry Medical Decision Making - Medical Decision Making Was pt. sent in by a medical professional or institution (, PA, SHINGLE WEAVER, urgent care, hospital, or group home...) When possible be specific @ -[No] Did you speak to anyone other than the patient for history (EMS, parent, family, police, friend...)? What history was obtained from this source @ -[No] Did you review nursing and triage notes (agree or disagree)? Why? @ -[I reviewed and agree with nursing and triage notes] Were old charts reviewed (outside hosp., previous admission, EMS record, old EKG, old radiological studies, urgent care reports/EKG's, group home records)? Report findings @ -[No old charts were reviewed] Differential Diagnosis (chest pain, altered mental status, abdominal pain women, abdominal pain men, vaginal bleeding, weakness, fever, dyspnea, syncope, headache, dizziness, GI bleed, back pain, seizure, CVA, palpatations, mental health, musculoskeletal)? @ -Differential Abdominal Pain Women: Appendicitis, Cholecystitis, diverticulosis, ischemic bowel, pancreatitis, hepatitis, UTI, gastroenteritis, AAA, incarcerated hernia, bowel obstruction, constipation, inflammatory bowel, hepatitis, peptic ulcer disease, splenic infarction, perforated viscus, vulvitis, ovarian torsion, PID, kidney stone, pl acenta abruption, this is not meant to be an all-inclusive list EKG interpreted by me (3pts min.). @ -Not done X-rays interpreted by me (1pt min.). @ -[None done] CT interpreted by me (1pt min.). @ -[None done] U/S interpreted by me (1pt. min.). @ -[None done] What testing was considered but not performed or refused? (CT, X-rays, U/S, labs)? Why? @ -[None] What meds were considered but not given or refused? Why? @ -[None] Did you discuss the management of the patient with other professionals (professionals i.e. , PA, SHINGLE WEAVER, lab, RT, psych nurse, older adult social work specialist, storehouse clerk, teacher, loan review officer, comp field case manager)? Give summary @ -[No] Was smoking cessation discussed for >3mins.? @ -[No] Was critical care preformed (if so, how long)? @ -[No] Were there social determinants of health that impacted care today? How? (Homelessness, low income, unemployed, alcoholism, drug addiction, transportation, low edu. Level, literacy, decrease access to med. care, retirement, rehab)? @ -[No] Was there de-escalation of care discussed even if they declined (Discuss DNR or withdrawal of care, Hospice)? DNR status @ -[No] What co-morbidities impacted this encounter? (DM, HTN, Smoking, COPD, CAD, Cancer, CVA, ARF, Chemo, Hep., AIDS, mental health diagnosis, sleep apnea, morbid obesity)? @ -[None] Was patient admitted / discharged? Hospital course, mention meds given and route, prescriptions, significant lab abnormalities, going to OR and other pertinent info. @ -[hospital course] Undiagnosed new problem with uncertain prognosis? @ -[No] Drug Therapy requiring intensive monitoring for toxicity (Heparin, Nitro, Insulin, Cardizem)? @ -[No] Were any procedures done? @ -[No] Diagnosis/symptom? @ -[default] Acute, or Chronic, or Acute on Chronic? @ -Acute Uncomplicated (without systemic symptoms) or Complicated (systemic symptoms)? @ -Uncomplicated Side effects of treatment? @ -[No] Exacerbation, Progression, or Severe Exacerbation? @ -[No] Poses a threat to life or bodily function? How? (Chest pain, [place], [place], pneumonia, PE, COPD, DKA, ARF, appy, cholecystitis, CVA, Diverticulitis, Homicidal, Suicidal, threat to staff... and all critical care pts) @ -[No] - Lab Data Lab Results 09/08/24 09/08/24 Range/Units 13:00 13:00 Urine Color Colorless Urine Appearance Clear (Clear) Urine pH 5.5 (5.0-8.0) Ur Specific [place] 1.016 (1.001-1.035) Urine Protein Negative (Negative) Urine Glucose (UA) Negative (Negative) Urine Ketones Negative (Negative) Urine Blood Negative (Negative) Urine Nitrite Negative (Negative) Urine Bilirubin Negative (Negative) Urine Urobilinogen <2.0 (<2.0) mg/dL Ur Leukocyte Esterase Negative (Negative) Urine HCG, Qual Not Detected (Not Detectd) Disposition Clinical Impression: Bartholin's cyst, Female pelvic congestion syndrome Disposition: HOME SELF-CARE Condition: Good Instructions (If sedation given, give patient instructions): Bartholin Cyst (ED) Additional Instructions: Follow-up with PCP/OB for Word catheter placement Is patient prescribed a controlled substance at d/c from ED?: No Referrals: None,Stated [Primary Care Provider] - 1-2 days Time of Disposition: 14:53
[2024-09-08 13:13] LABS: Appearance,Urine Clear (Clear); Bilirubin,Urine Negative (Negative); Blood,Urine Negative (Negative); Color,Urine Colorless; Glucose,Urine (UA) Negative (Negative); Ketones,Urine Negative (Negative); Leukocyte Esterase,Urine Negative (Negative); Nitrite,Urine Negative (Negative); PH, Urine 5.5 (5.0-8.0); Protein,Urine Negative (Negative); Specific Gravity,Urine 1.016 (1.001-1.035); Urobilinogen,Urine <2.0 mg/dL (<2.0)
--- NOTE | 2024-09-08 13:57 | US ---
EXAMINATION TYPE: US groin LT DATE OF EXAM: 09/08/2024 COMPARISON: NONE CLINICAL INDICATION: Female, 29 years old with history of Left labial mass; Lump left labia x 1 day. TECHNIQUE: Scanned area of concern left posterior labia. FINDINGS: Complex area seen with peripheral vascularity: 3.0 x 2.1 x 1.4 cm. Minimal internal echoes seen. IMPRESSION: Cystic structure in the area of the left labia. Correlate with location could represent s ebaceous cysts versus infectious process versus Bartholin's gland cyst versus [place]'s gland cyst vers us other. [facility], , 09/08/2024 1:55 PM
--- NOTE | 2024-09-08 14:00 | US ---
EXAMINATION TYPE: US transvaginal DATE OF EXAM: 09/08/2024 COMPARISON: prior OB exams in PACS CLINICAL INDICATION: Female, 29 years old with history of Left labial mass, right pelvic pain; Right pelvic pain. Hx 5 C sections. . TECHNIQUE: Transvaginal (TV). Doppler imaging: Color Doppler Images were obtained. Spectral doppler images were obtained. FINDINGS: Date of LMP: Unknown EXAM MEASUREMENTS: Uterus: 9.6 x 5.9 x 5.0 cm Endometrial Stripe: 1.26 cm Right Ovary: 3.8 x 1.7 x 1.9 cm Left Ovary: 3.8 x 3.0 x 2.2 cm 1. Uterus: Anteverted Heterogeneous. Some anechoic-appearing fluid in cervix. Angled appearance of uterus from prior C sections? Subcentimeter anechoic areas in cervix. 2. Endometrium: Measures 1.26 cm. LMP unknown 3. Right Ovary: Appears wnl 4. Left Ovary: -Area of mixed echogenicity with shadowing seen: 2.4 x 2.1 x 2.2 cm, appears partially calcified. Anechoic area seen: 1.6 x 2.2 x 1.8 cm. Spectral, color and waveform doppler imaging shows arterial and venous flow within the ovaries. 5. Bilateral Adnexa: Prominent vessels seen in right adnexa measure up to 6 mm. Free fluid seen in left adnexa* 6. Posterior cul-de-sac: Fluid seen. IMPRESSION: 1. No evidence for acute process. 2. Post changes to the anterior uterus. 3. Appropriate arterial and venous spectral waveforms to the ovaries. 4. Left ovarian simple appearing dominant follicle as well as suspected involuting hemorrhagic cyst. 5. Prominent vessels in the adnexa, correlate for pelvic congestion syndrome. [facility], , 09/08/2024 1:58 PM
[2024-09-08] MEDS ORDERED: LIDOCAINE 1% INJ 10MG/ML (20 ML MDV) SQ ONE (14:27)
[2024-09-09 11:56] LABS: C. trachomatis,PCR Negative (Negative)
[2024-09-09 12:05] LABS: N. gonorrhoeae,PCR Negative (Negative)
== END 2024-09-08 15:03 | disposition home or self-care (01) ==
LOC: EC 11:21
DX: N75.0 Cyst of Bartholin's gland (principal); N94.89 Other specified conditions associated with female genital organs and menstrual cycle; Z91.041 Radiographic dye allergy status; Z91.048 Other nonmedicinal substance allergy status; Z88.4 Allergy status to anesthetic agent; Z88.3 Allergy status to other anti-infective agents; Z88.9 Allergy status to unspecified drugs, medicaments and biological substances
CPT/HCPCS: 76830; 81003; 81025; 87491; 87591; 93975; 99284

== ENCOUNTER 2024-09-13 09:35 | Emergency (ER) | payer OTHER ==
[2024-09-13 09:52] VITALS: BP 114/57; PULSE 76; RESP 18; TEMP 98.5
--- NOTE | 2024-09-13 10:33 | ED ---
Skin/Abscess/FB HPI - General Chief complaint: Skin/Abscess/Foreign Body Stated complaint: anum núñez Time Seen by Provider: 09/13/24 09:54 Source: patient, RN notes reviewed Mode of arrival: ambulatory Limitations: no limitations - History of Present Illness Initial comments: 29-year-old female presents emergency department chief complaint of skin rash. She states she has skin disorder in which she has been followed by dermatology states that she uses betamethasone cream and states that she does not have this. She states that the thing gets an infection but she does not use antibiotics. Patient states that it has been biopsied. Patient also complains of chronic bacterial vaginosis she states that she has symptoms again does not want any testing. - Related Data Home Medications Medication Instructions Recorded Confirmed Celecoxib [CeleBREX] 100 mg PO BID 07/21/24 07/21/24 HYDROcodone/APAP 5-325MG [[place] 1 tab PO Q6H PRN 07/21/24 07/21/24 5-325] Metaxalone [Skelaxin] 800 mg PO DIRECTED 07/21/24 07/21/24 Naproxen Sodium [Aleve] 220 mg PO BID PRN 07/21/24 07/21/24 predniSONE 50 mg PO DIRECTED 07/21/24 07/21/24 traZODone HCL [Desyrel] 100 mg PO DIRECTED 07/21/24 07/21/24 Previous Rx's Medication Instructions Recorded Ketorolac [Toradol] 10 mg PO Q6HR PRN #15 tab 06/04/24 tiZANidine HCL 6 mg PO Q8HR PRN #30 cap 06/04/24 Amoxic-Pot Clav 875-125Mg 1 tab PO Q12HR #20 tab 07/21/24 [Augmentin 875-125] Fluconazole [Diflucan] 150 mg PO ONCE 1 Days #1 tab 08/08/24 Nitrofurantoin Monohyd/M-Cryst 100 mg PO Q12HR 5 Days #10 cap 08/08/24 [Macrobid] Fluconazole [Diflucan] 150 mg PO ONCE 1 Days #1 tab 08/10/24 Amoxic-Pot Clav 875-125Mg 1 tab PO Q12HR #14 tab 09/08/24 [Augmentin 875-125] Betamethasone Dipropionate 1 applic TOPICAL BID #15 gm 09/13/24 [Betamethasone Dipropionate 0.05% Cream] Fluconazole [Diflucan] 150 mg PO ONCE #4 tab 09/13/24 metroNIDAZOLE [Flagyl] 500 mg PO BID #14 tab 09/13/24 Allergies Allergy/AdvReac Type Severity Reaction Status Date / Time Iodinated Contrast Media Allergy Severe Anaphylaxis Verified 09/13/24 09:48 [Iodinated Contrast Media - IV Dye] Iodine and Iodide Containing Allergy Severe Anaphylaxis Verified 09/13/24 09:48 Produc povidone-iodine Allergy Severe Rash/Hives Verified 09/13/24 09:48 [From Betadine] soap [From Betadine] Allergy Severe Rash/Hives Verified 09/13/24 09:48 hydrocortisone Allergy Rash/Hives Verified 09/13/24 09:48 iodine AdvReac Anaphylaxis Verified 09/13/24 09:48 Review of Systems ROS Statement: Those systems with pertinent positive or pertinent negative responses have been documented in the HPI. ROS Other: All systems not noted in ROS Statement are negative. Past Medical History Past Medical History: Syncope Additional Past Medical History / Comment(s): Lupus History of Any Multi-Drug Resistant Organisms: MRSA Date of last positivie culture/infection: 05/04/24 MDRO Source:: mouth Past Surgical History: Section Past Anesthesia/Blood Transfusion Reactions: Previous Problems w/ Anesthesia Additional Past Anesthesia/Blood Transfusion Reaction / Comment(s): had skin reaction to topical betadine Past Psychological History: No Psychological Hx Reported Smoking Status: Never smoker Past Alcohol Use History: None Reported Past Drug Use History: Marijuana - Past Family History Mother Family Medical History: No Reported History General Exam Limitations: no limitations General appearance: alert, in no apparent distress Head exam: Present: atraumatic, normocephalic, normal inspection Eye exam: Present: normal appearance, PERRL, EOMI. Absent: scleral icterus, conjunctival injection, periorbital swelling ENT exam: Present: normal exam, mucous membranes moist Neck exam: Present: normal inspection, full ROM. Absent: tenderness, meningismus, lymphadenopathy Respiratory exam: Present: normal lung sounds bilaterally. Absent: respiratory distress, wheezes, rales, rhonchi, stridor Cardiovascular Exam: Present: regular rate, normal rhythm, normal heart sounds. Absent: systolic murmur, diastolic murmur, rubs, gallop, clicks Course Vital Signs 09/13/24 09:48 Temperature 98.5 F Pulse Rate 76 Respiratory 18 Rate Blood Pressure 114/57 O2 Sat by Pulse 99 Oximetry Medical Decision Making - Medical Decision Making Was pt. sent in by a medical professional or institution ([facility], DIE SET UP WORKER, urgent care, hospital, or [facility]...) When possible be specific @ -No Did you speak to anyone other than the patient for history (EMS, parent, family, police, friend...)? What history was obtained from this source @ -No Did you review nursing and triage notes (agree or disagree)? Why? @ -I reviewed and agree with nursing and triage notes Were old charts reviewed (outside hosp., previous admission, EMS record, old EKG, old radiological studies, urgent care reports/EKG's, [facility] records)? Report findings @ -No old charts were reviewed Differential Diagnosis (chest pain, altered mental status, abdominal pain women, abdominal pain men, vaginal bleeding, weakness, fever, dyspnea, syncope, headache, dizziness, GI bleed, back pain, seizure, CVA, palpatations, mental health, musculoskeletal)? @ -[Dermatitis, cellulitis, cold sore, EKG interpreted by me (3pts min.). @ -None X-rays interpreted by me (1pt min.). @ -None done CT interpreted by me (1pt min.). @ -None done U/S interpreted by me (1pt. min.). @ -None done What testing was considered but not performed or refused? (CT, X-rays, U/S, labs)? Why? @ -None What meds were considered but not given or refused? Why? @ -None Did you discuss the management of the patient with other professionals (professionals i.e. [facility], DIE SET UP WORKER, lab, RT, psych nurse, social work lecturer, account adjuster, teacher, chief green officer, immigration case manager)? Give summary @ -No Was smoking cessation discussed for >3mins.? @ -No Was critical care preformed (if so, how long)? @ -No Were there social determinants of health that impacted care today? How? (Homelessness, low income, unemployed, alcoholism, drug addiction, transportation, low edu. Level, literacy, decrease access to med. care, longterm, rehab)? @ -No Was there de-escalation of care discussed even if they declined (Discuss DNR or withdrawal of care, Hospice)? DNR status @ -No What co-morbidities impacted this encounter? (DM, HTN, Smoking, COPD, CAD, Cancer, CVA, ARF, Chemo, Hep., AIDS, mental health diagnosis, sleep apnea, morbid obesity)? @ -None Was patient admitted / discharged? Hospital course, mention meds given and route, prescriptions, significant lab abnormalities, going to OR and other pertinent info. @ -Does charge patient was given refill of her steroid cream as she has been using directed by dermatology. Patient given treatment for bacterial vaginosis recommended testing patient declines. Undiagnosed new problem with uncertain prognosis? @ -No Drug Therapy requiring intensive monitoring for toxicity (Heparin, Nitro, Insulin, Cardizem)? @ -No Were any procedures done? @ -No Diagnosis/symptom? @ -Bacterial vaginosis, dermatitis Acute, or Chronic, or Acute on Chronic? @ -Acute Uncomplicated (without systemic symptoms) or Complicated (systemic symptoms)? @ -Uncomplicated Side effects of treatment? @ -No Exacerbation, Progression, or Severe Exacerbation? @ -No Poses a threat to life or bodily function? How? (Chest pain, [place], [place], pneumonia, PE, COPD, DKA, ARF, appy, cholecystitis, CVA, Diverticulitis, Homicidal, Suicidal, threat to staff... and all critical care pts) @ -No Disposition Clinical Impression: Bacterial vaginosis, Dermatitis Disposition: HOME SELF-CARE Condition: Stable Instructions (If sedation given, give patient instructions): Dermatitis (ED) Additional Instructions: Please return to the Emergency Department if symptoms worsen or any other concerns. Prescriptions: Betamethasone Dipropionate [Betamethasone Dipropionate 0.05% Cream] 1 applic TOPICAL BID #15 gm Fluconazole [Diflucan] 150 mg PO ONCE #4 tab metroNIDAZOLE [Flagyl] 500 mg PO BID #14 tab Is patient prescribed a controlled substance at d/c from ED?: No Referrals: Nonstaff,Physician [Primary Care Provider] - 1-2 days Time of Disposition: 10:28
== END 2024-09-13 10:42 | disposition home or self-care (01) ==
LOC: EC 09:35
DX: L30.9 Dermatitis, unspecified (principal); N76.0 Acute vaginitis; B96.89 Other specified bacterial agents as the cause of diseases classified elsewhere; Z91.041 Radiographic dye allergy status; Z88.8 Allergy status to other drugs, medicaments and biological substances
CPT/HCPCS: 99282

== ENCOUNTER 2024-09-19 07:38 | Emergency (ER) | payer OTHER ==
--- NOTE | 2024-09-19 07:59 | ED ---
General Adult HPI - General Chief complaint: Upper Respiratory Infection Stated complaint: cough Time Seen by Provider: 09/19/24 07:51 Source: patient, RN notes reviewed, old records reviewed Mode of arrival: ambulatory Limitations: no limitations - History of Present Illness Initial comments: Patient is a 29-year-old female present to the emergency department with concerns for cough. Onset of symptoms was a week ago. Patient does have cough and chest congestion. Patient denies sore throat to me. Patient states she does have some clear urine and is urinating frequently. - Related Data Home Medications Medication Instructions Recorded Confirmed Celecoxib [CeleBREX] 100 mg PO BID 07/21/24 07/21/24 HYDROcodone/APAP 5-325MG [[place] 1 tab PO Q6H PRN 07/21/24 07/21/24 5-325] Metaxalone [Skelaxin] 800 mg PO DIRECTED 07/21/24 07/21/24 Naproxen Sodium [Aleve] 220 mg PO BID PRN 07/21/24 07/21/24 predniSONE 50 mg PO DIRECTED 07/21/24 07/21/24 traZODone HCL [Desyrel] 100 mg PO DIRECTED 07/21/24 07/21/24 Previous Rx's Medication Instructions Recorded Ketorolac [Toradol] 10 mg PO Q6HR PRN #15 tab 06/04/24 tiZANidine HCL 6 mg PO Q8HR PRN #30 cap 06/04/24 Amoxic-Pot Clav 875-125Mg 1 tab PO Q12HR #20 tab 07/21/24 [Augmentin 875-125] Fluconazole [Diflucan] 150 mg PO ONCE 1 Days #1 tab 08/08/24 Nitrofurantoin Monohyd/M-Cryst 100 mg PO Q12HR 5 Days #10 cap 08/08/24 [Macrobid] Fluconazole [Diflucan] 150 mg PO ONCE 1 Days #1 tab 08/10/24 Amoxic-Pot Clav 875-125Mg 1 tab PO Q12HR #14 tab 09/08/24 [Augmentin 875-125] Betamethasone Dipropionate 1 applic TOPICAL BID #15 gm 09/13/24 [Betamethasone Dipropionate 0.05% Cream] Betamethasone Dipropionate 1 applic TOPICAL BID #15 gm 09/13/24 [Betamethasone Dipropionate 0.05%] Fluconazole [Diflucan] 150 mg PO ONCE #4 tab 09/13/24 metroNIDAZOLE [Flagyl] 500 mg PO BID #14 tab 09/13/24 Albuterol Inhaler [Ventolin Hfa 2 puff INHALATION Q4HR PRN #1 each 09/19/24 Inhaler] Allergies Allergy/AdvReac Type Severity Reaction Status Date / Time Iodinated Contrast Media Allergy Severe Anaphylaxis Verified 09/13/24 09:48 [Iodinated Contrast Media - IV Dye] Iodine and Iodide Containing Allergy Severe Anaphylaxis Verified 09/13/24 09:48 Produc povidone-iodine Allergy Severe Rash/Hives Verified 09/13/24 09:48 [From Betadine] soap [From Betadine] Allergy Severe Rash/Hives Verified 09/13/24 09:48 hydrocortisone Allergy Rash/Hives Verified 09/13/24 09:48 latex Allergy Rash/Hives Verified 09/19/24 07:49 iodine AdvReac Anaphylaxis Verified 09/13/24 09:48 Review of Systems ROS Statement: Those systems with pertinent positive or pertinent negative responses have been documented in the HPI. ROS Other: All systems not noted in ROS Statement are negative. Constitutional: Reports: chills Eyes: Denies: eye pain ENT: Denies: ear pain, throat pain Respiratory: Reports: as per HPI, cough Cardiovascular: Denies: chest pain Endocrine: Reports: fatigue Gastrointestinal: Denies: abdominal pain Genitourinary: Reports: as per HPI, frequency Musculoskeletal: Denies: back pain Past Medical History Past Medical History: Syncope Additional Past Medical History / Comment(s): Lupus History of Any Multi-Drug Resistant Organisms: MRSA Date of last positivie culture/infection: 05/04/24 MDRO Source:: mouth Past Surgical History: Section Past Anesthesia/Blood Transfusion Reactions: Previous Problems w/ Anesthesia Additional Past Anesthesia/Blood Transfusion Reaction / Comment(s): had skin reaction to topical betadine Past Psychological History: No Psychological Hx Reported Smoking Status: Never smoker Past Alcohol Use History: None Reported Past Drug Use History: Marijuana - Past Family History Mother Family Medical History: No Reported History General Exam Limitations: no limitations General appearance: alert, in no apparent distress Head exam: Present: normocephalic Eye exam: Present: normal appearance ENT exam: Present: normal oropharynx Neck exam: Present: normal inspection Respiratory exam: Present: normal lung sounds bilaterally Cardiovascular Exam: Present: regular rate, normal rhythm GI/Abdominal exam: Present: soft. Absent: tenderness Extremities exam: Present: normal inspection. Absent: calf tenderness Neurological exam: Present: alert Psychiatric exam: Present: normal affect, normal mood Skin exam: Present: normal color Course Vital Signs 09/19/24 09/19/24 07:47 08:06 Temperature 98.4 F Pulse Rate 85 Respiratory 16 18 Rate Blood Pressure 106/58 O2 Sat by Pulse 97 Oximetry Medical Decision Making - Medical Decision Making Was pt. sent in by a medical professional or institution (, PA, GANG SUPER[employer]OR [employer], urgent care, hospital, or care home...) When possible be specific @ -No Did you speak to anyone other than the patient for history (EMS, parent, family, police, friend...)? What history was obtained from this source @ -No Did you review nursing and triage notes (agree or disagree)? Why? @ -I reviewed and agree with nursing and triage notes Were old charts reviewed (outside hosp., previous admission, EMS record, old EKG, old radiological studies, urgent care reports/EKG's, care home records)? Report findings @ -No old charts were reviewed Differential Diagnosis (chest pain, altered mental status, abdominal pain women, abdominal pain men, vaginal bleeding, weakness, fever, dyspnea, syncope, headache, dizziness, GI bleed, back pain, seizure, CVA, palpatations, mental health, musculoskeletal)? @ -Differential Fever: Pneumonia, viral URI, endocarditis, myocarditis, pericarditis, otitis, sinusitis, peritonsillar Abscess, retropharyngeal Abscess, epiglottitis, peritonitis, appendicitis, Nancy cystitis, diverticulitis, hepatitis, colitis, UTI, PID, TOA, pyelonephritis, prostatitis, epididymitis, meningitis, encephalitis, pulmonary embolism, CVA, thyroid storm, pancreatitis, adrenal crisis, cavernous sinus thrombosis, this is not meant to be an all-inclusive list. EKG interpreted by me (3pts min.). @ -As above X-rays interpreted by me (1pt min.). @ -Chest x-ray shows no acute process CT interpreted by me (1pt min.). @ -None done U/S interpreted by me (1pt. min.). @ -None done What testing was considered but not performed or refused? (CT, X-rays, U/S, labs)? Why? @ -None What meds were considered but not given or refused? Why? @ -None Did you discuss the management of the patient with other professionals (professionals i.e. , PA, G[employer] SU[employer], lab, RT, psych nurse, oncology social work, bender machine, teacher, chief business officer, transplant case manager)? Give summary @ -No Was smoking cessation discussed for >3mins.? @ -No Was critical care preformed (if so, how long)? @ -No Were there social determinants of health that impacted care today? How? (Homelessness, low income, unemployed, alcoholism, drug addiction, transportation, low edu. Level, literacy, decrease access to med. care, nursing home, rehab)? @ -No Was there de-escalation of care discussed even if they declined (Discuss DNR or withdrawal of care, Hospice)? DNR status @ -No What co-morbidities impacted this encounter? (DM, HTN, Smoking, COPD, CAD, Cancer, CVA, ARF, Chemo, Hep., AIDS, mental health diagnosis, sleep apnea, morbid obesity)? @ -None Was patient admitted / discharged? Hospital course, mention meds given and route, prescriptions, significant lab abnormalities, going to OR and other pertinent info. @ -Patient presents with cough and upper respiratory symptoms. No fever. Evaluation unremarkable. Vital signs stable. Patient will be discharged with close follow-up with primary care physician. Patient advised to return if fever or shortness of breath or worsening symptoms Undiagnosed new problem with uncertain prognosis? @ -No Drug Therapy requiring intensive monitoring for toxicity (Heparin, Nitro, Insulin, Cardizem)? @ -No Were any procedures done? @ -No Diagnosis/symptom? @ -Upper respiratory infection Acute, or Chronic, or Acute on Chronic? @ -Acute Uncomplicated (without systemic symptoms) or Complicated (systemic symptoms)? @ -Default Side effects of treatment? @ -No Exacerbation, Progression, or Severe Exacerbation? @ -No Poses a threat to life or bodily function? How? (Chest pain, [place], [place], pneumonia, PE, COPD, DKA, ARF, appy, cholecystitis, CVA, Diverticulitis, Homicidal, Suicidal, threat to staff... and all critical care pts) @ -No - Lab Data Lab Results 09/19/24 09/19/24 09/19/24 Range/Units 08:01 08:01 08:01 Urine Color Light Yellow Urine Appearance Clear (Clear) Urine pH 5.5 (5.0-8.0) Ur Specific [place] 1.014 (1.001-1.035) Urine Protein Negative (Negative) Urine Glucose (UA) Negative (Negative) Urine Ketones Negative (Negative) Urine Blood Negative (Negative) Urine Nitrite Negative (Negative) Urine Bilirubin Negative (Negative) Urine Urobilinogen <2.0 (<2.0) mg/dL Ur Leukocyte Esterase Negative (Negative) Urine HCG, Qual Not Detected (Not Detectd) Influenza Type A (PCR) Not Detected (Not Detectd) Influenza Type B (PCR) Not Detected (Not Detectd) RSV (PCR) Not Detected (Not Detectd) SARS-CoV-2 (PCR) Not Detected (Not Detectd) Disposition Clinical Impression: Acute upper respiratory infection Disposition: HOME SELF-CARE Condition: Stable Instructions (If sedation given, give patient instructions): Upper Respiratory Infection (ED) Additional Instructions: Prescription sent to pharmacy. Please do follow-up with your primary care physician in the next couple of days for recheck. Return for fevers, difficulty breathing, worsening or changing symptoms or any other concerns. Prescriptions: Albuterol Inhaler [Ventolin Hfa Inhaler] 2 puff INHALATION Q4HR PRN #1 each PRN Reason: Dyspnea Is patient prescribed a controlled substance at d/c from ED?: No Referrals: Nonstaff,Physician [Primary Care Provider] - 1-2 days Cesar Bruce MD [STAFF PHYSICIAN] - 1-2 days Forms: Area PCPs Time of Disposition: 09:04
[2024-09-19 08:10] VITALS: RESP 18
[2024-09-19 08:16] LABS: Appearance,Urine Clear (Clear); Bilirubin,Urine Negative (Negative); Blood,Urine Negative (Negative); Color,Urine Light Yellow; Glucose,Urine (UA) Negative (Negative); Ketones,Urine Negative (Negative); Leukocyte Esterase,Urine Negative (Negative); Nitrite,Urine Negative (Negative); PH, Urine 5.5 (5.0-8.0); Protein,Urine Negative (Negative); Specific Gravity,Urine 1.014 (1.001-1.035); Urobilinogen,Urine <2.0 mg/dL (<2.0)
--- NOTE | 2024-09-19 08:43 | XR ---
EXAMINATION TYPE: XR chest 2V DATE OF EXAM: 09/19/2024 COMPARISON: NONE CLINICAL INDICATION: Female, 29 years old with history of COUGH; , TECHNIQUE: XR chest 2V views of the chest. FINDINGS: The lungs are clear and there is no pneumothorax, pleural effusion, or focal pneumonia. Heart size normal and no overt failure. Osseous structures intact. IMPRESSION: 1. No acute process. [facility], , 09/19/2024 8:41 AM
[2024-09-19 09:14] VITALS: BP 114/76; PULSE 64; TEMP 98.2
== END 2024-09-19 09:14 | disposition home or self-care (01) ==
LOC: EC 07:38
DX: J06.9 Acute upper respiratory infection, unspecified (principal); Z91.040 Latex allergy status; Z91.041 Radiographic dye allergy status; Z91.048 Other nonmedicinal substance allergy status; Z88.8 Allergy status to other drugs, medicaments and biological substances
CPT/HCPCS: 71046; 81003; 81025; 87636; 99283

== ENCOUNTER 2024-09-23 11:59 | Emergency (ER) | payer OTHER ==
[2024-09-23 14:24] LABS: Appearance,Urine Cloudy (Clear); Bacteria,Urine Few /hpf; Bilirubin,Urine Negative (Negative); Blood,Urine Trace (Negative); Color,Urine Colorless; Glucose,Urine (UA) Negative (Negative); Ketones,Urine Negative (Negative); Leukocyte Esterase,Urine Large (Negative); Mucus,Urine Rare /hpf; Nitrite,Urine Negative (Negative); PH, Urine 5.5 (5.0-8.0); Protein,Urine Negative (Negative); RBC,Urine 5 /hpf (0-5); Specific Gravity,Urine 1.015 (1.001-1.035); Squamous Epithelial Cell,Urine 2 /hpf (0-4); Urobilinogen,Urine <2.0 mg/dL (<2.0); WBC,Urine 174 /hpf (0-5)
--- NOTE | 2024-09-23 15:27 | ED ---
Female Urogenital HPI - General Chief complaint: Urogenital Stated complaint: , cramping Time Seen by Provider: 09/23/24 13:43 Source: patient, RN notes reviewed Mode of arrival: ambulatory Limitations: no limitations - History of Present Illness Initial comments: This is a 29-year-old female who presents to the emergency department for concerns of a UTI and requesting a test. States that she was supposed to start her period 7 days ago, and has since started to develop some cramping in the lower abdomen and urinary symptoms. She took 4 tests at home and states that they were all faintly positive. She would like to have this confirmed. Also states that she feels like she is starting to develop a UTI and BV. - Related Data Home Medications Medication Instructions Recorded Confirmed Celecoxib [CeleBREX] 100 mg PO BID 07/21/24 07/21/24 HYDROcodone/APAP 5-325MG [[place] 1 tab PO Q6H PRN 07/21/24 07/21/24 5-325] Metaxalone [Skelaxin] 800 mg PO DIRECTED 07/21/24 07/21/24 Naproxen Sodium [Aleve] 220 mg PO BID PRN 07/21/24 07/21/24 predniSONE 50 mg PO DIRECTED 07/21/24 07/21/24 traZODone HCL [Desyrel] 100 mg PO DIRECTED 07/21/24 07/21/24 Previous Rx's Medication Instructions Recorded Ketorolac [Toradol] 10 mg PO Q6HR PRN #15 tab 06/04/24 tiZANidine HCL 6 mg PO Q8HR PRN #30 cap 06/04/24 Amoxic-Pot Clav 875-125Mg 1 tab PO Q12HR #20 tab 07/21/24 [Augmentin 875-125] Fluconazole [Diflucan] 150 mg PO ONCE 1 Days #1 tab 08/08/24 Nitrofurantoin Monohyd/M-Cryst 100 mg PO Q12HR 5 Days #10 cap 08/08/24 [Macrobid] Fluconazole [Diflucan] 150 mg PO ONCE 1 Days #1 tab 08/10/24 Amoxic-Pot Clav 875-125Mg 1 tab PO Q12HR #14 tab 09/08/24 [Augmentin 875-125] Betamethasone Dipropionate 1 applic TOPICAL BID #15 gm 09/13/24 [Betamethasone Dipropionate 0.05% Cream] Betamethasone Dipropionate 1 applic TOPICAL BID #15 gm 09/13/24 [Betamethasone Dipropionate 0.05%] Fluconazole [Diflucan] 150 mg PO ONCE #4 tab 09/13/24 metroNIDAZOLE [Flagyl] 500 mg PO BID #14 tab 09/13/24 Albuterol Inhaler [Ventolin Hfa 2 puff INHALATION Q4HR PRN #1 each 09/19/24 Inhaler] Cephalexin [Keflex] 500 mg PO Q6HR 7 Days #28 cap 09/23/24 114/Iron A-G/Folate 1 1 each PO DAILY #30 tablet 09/23/24 [Prenate Elite Tablet] metroNIDAZOLE 500 mg PO BID 7 Days #14 tablet 09/23/24 Allergies Allergy/AdvReac Type Severity Reaction Status Date / Time Iodinated Contrast Media Allergy Severe Anaphylaxis Verified 09/23/24 12:04 [Iodinated Contrast Media - IV Dye] Iodine and Iodide Containing Allergy Severe Anaphylaxis Verified 09/23/24 12:04 Produc povidone-iodine Allergy Severe Rash/Hives Verified 09/23/24 12:04 [From Betadine] soap [From Betadine] Allergy Severe Rash/Hives Verified 09/23/24 12:04 hydrocortisone Allergy Rash/Hives Verified 09/23/24 12:04 latex Allergy Rash/Hives Verified 09/23/24 12:04 iodine AdvReac Anaphylaxis Verified 09/23/24 12:04 Review of Systems ROS Statement: Those systems with pertinent positive or pertinent negative responses have been documented in the HPI. ROS Other: All systems not noted in ROS Statement are negative. Past Medical History Past Medical History: Syncope Additional Past Medical History / Comment(s): Lupus History of Any Multi-Drug Resistant Organisms: MRSA Date of last positivie culture/infection: 05/04/24 MDRO Source:: mouth Past Surgical History: Section Past Anesthesia/Blood Transfusion Reactions: Previous Problems w/ Anesthesia Additional Past Anesthesia/Blood Transfusion Reaction / Comment(s): had skin reaction to topical betadine Past Psychological History: No Psychological Hx Reported Smoking Status: Never smoker Past Alcohol Use History: None Reported Past Drug Use History: None Reported - Past Family History Mother Family Medical History: No Reported History General Exam Limitations: no limitations General appearance: alert, in no apparent distress Respiratory exam: Present: normal lung sounds bilaterally. Absent: respiratory distress, wheezes, rales, rhonchi, stridor Cardiovascular Exam: Present: regular rate, normal rhythm, normal heart sounds. Absent: systolic murmur, diastolic murmur, rubs, gallop, clicks Neurological exam: Present: alert, oriented X3, CN II-XII intact Psychiatric exam: Present: normal affect, normal mood Skin exam: Present: warm, dry, intact, normal color. Absent: rash Course Vital Signs 09/23/24 09/23/24 12:01 15:53 Temperature 98.3 F 98.1 F Pulse Rate 78 76 Respiratory 18 20 Rate Blood Pressure 118/76 136/68 O2 Sat by Pulse 100 97 Oximetry Medical Decision Making - Medical Decision Making This is a 29-year-old female who presents to the emergency department for urinary symptoms. Was pt. sent in by a medical professional or institution? @ -No Did you speak to anyone other than the patient for history? @ -No Did you review nursing and triage notes? @ -Yes, and I agree, it is accurate with regards to the patient's symptoms. Were old charts reviewed? @ -No Differential Diagnosis? @ -UTI, STI, , BV, yeast infection, this is not meant to be an all- inclusive list. EKG interpreted by me (3pts min.)? @ -Not obtained X-rays interpreted by me (1pt min.)? @ -Not obtained CT interpreted by me (1pt min.)? @ -Not obtained U/S interpreted by me (1pt. min.)? @ -Not obtained What testing was considered but not performed? (CT, X-rays, U/S, labs)? Why? @ -None What meds were considered but not given? Why? @ -None Did you discuss the management of the patient with other professionals? @ -No Did you reconcile home meds? @ -No Was smoking cessation discussed for >3mins.? @ -No Was critical care preformed (if so, how long)? @ -No Were there social determinants of health that impacted care today? How? (Homelessness, low income, unemployed, alcoholism, drug addiction, transportation, low edu. Level, literacy, decrease access to med. care, penitentiary, rehab)? @ -No Was there de-escalation of care discussed even if they declined? (Discuss DNR or withdrawal of care, Hospice)? @ -No What co-morbidities impacted this encounter? (DM, HTN, Smoking, COPD, CAD, Cancer, CVA, Hep., AIDS, mental health diagnosis, sleep apnea, morbid obesity)? @ -Lupus Was patient admitted / discharged? @ -Discharged. Urinalysis is suggestive of infection and urine was sent for culture. Urine test negative. However, beta-hCG positive at 19. Advised that this is likely a very early . Prescription for Keflex and Flagyl provided to treat both the UTI and BV. Prescription for vitamins provided as well per patient's request. She was given information for follow-up with [facility] and discharged home in stable condition. Return precautions reviewed in depth, the patient is instructed to return to the emergency department with any new, worsening, or concerning symptoms. Patient verbalized understanding. Undiagnosed new problem with uncertain prognosis? @ -None Drug Therapy requiring intensive monitoring for toxicity (Heparin, Nitro, Insulin, Cardizem)? @ -None Were any procedures done? @ -None Diagnosis/symptom? @ -UTI , BV Acute, or Chronic, or Acute on Chronic? @ -Acute Uncomplicated (without systemic symptoms) or Complicated (systemic symptoms)? @ -Uncomplicated Side effects of treatment? @ -None Exacerbation, Progression, or Severe Exacerbation] @ -Not applicable Poses a threat to life or bodily function? @ -No - Lab Data Lab Results 09/23/24 09/23/24 09/23/24 Range/Units 13:48 13:48 13:48 HCG, Quant 19.0 mIU/mL Urine Color Colorless Urine Appearance Cloudy H (Clear) Urine pH 5.5 (5.0-8.0) Ur Specific [place] 1.015 (1.001-1.035) Urine Protein Negative (Negative) Urine Glucose (UA) Negative (Negative) Urine Ketones Negative (Negative) Urine Blood Trace H (Negative) Urine Nitrite Negative (Negative) Urine Bilirubin Negative (Negative) Urine Urobilinogen <2.0 (<2.0) mg/dL Ur Leukocyte Esterase Large H (Negative) Urine RBC 5 (0-5) /hpf Urine WBC 174 H (0-5) /hpf Ur Squamous Epith Cells 2 (0-4) /hpf Urine Bacteria Few H (None) /hpf Urine Mucus Rare H (None) /hpf Urine HCG, Qual Not Detected (Not Detectd) Disposition Clinical Impression: UTI in , Bacterial vaginosis Disposition: HOME SELF-CARE Instructions (If sedation given, give patient instructions): Urinary Tract Infection in Women (ED), Urinary Tract Infection in (ED) Additional Instructions: Return to the emergency department with any new, worsening, or concerning sym ptoms. Take the antibiotic as prescribed for 7 days. Take the Flagyl as prescribed for 7 days as well. Begin taking a vitamin daily. Become established with an [facility] for ongoing obstetrics care. Prescriptions: Cephalexin [Keflex] 500 mg PO Q6HR 7 Days #28 cap metroNIDAZOLE 500 mg PO BID 7 Days #14 tablet 114/Iron A-G/Folate 1 [Prenate Elite Tablet] 1 each PO DAILY #30 tablet Is patient prescribed a controlled substance at d/c from ED?: No Referrals: [facility] [NON-STAFF] - 1-2 days [facility] [NON-STAFF] - 1-2 days None,Stated [Primary Care Provider] - 1-2 days Emi Davison MD [STAFF PHYSICIAN] - 1-2 days Forms: PH Area PCPs Time of Disposition: 15:27
[2024-09-23 15:55] VITALS: BP 136/68; PULSE 76; RESP 20; TEMP 98.1
== END 2024-09-23 15:53 | disposition home or self-care (01) ==
LOC: EC 11:59
DX: O23.40 Unspecified infection of urinary tract in pregnancy, unspecified trimester (principal); N39.0 Urinary tract infection, site not specified; O23.599 Infection of other part of genital tract in pregnancy, unspecified trimester; Z88.8 Allergy status to other drugs, medicaments and biological substances; Z91.040 Latex allergy status; Z91.041 Radiographic dye allergy status; Z3A.00 Weeks of gestation of pregnancy not specified
CPT/HCPCS: 36415; 81001; 81025; 84702; 87086; 99284

== ENCOUNTER 2024-09-30 08:19 | Emergency (ER) | payer OTHER ==
[2024-09-30 08:51] VITALS: BP 102/66; PULSE 74; RESP 22; TEMP 98.3
--- NOTE | 2024-09-30 09:05 | ED ---
Female Urogenital HPI - General Source: patient, RN notes reviewed, old records reviewed Mode of arrival: ambulatory Limitations: no limitations - History of Present Illness Last Menstrual Period: 08/18/24 <Shirin Simpson - Last Filed: 09/30/24 09:03> - General Source: patient, RN notes reviewed, old records reviewed Mode of arrival: ambulatory Limitations: no limitations <Suresh Parekh - Last Filed: 09/30/24 12:02> - General Chief complaint: Vaginal Bleeding Stated complaint: Bleeding/Preg Time Seen by Provider: 09/30/24 09:03 - History of Present Illness Initial comments: Quick note: 29-year-old female presented the ER for evaluation of vaginal spotting. Patient states after rough intercourse she had episodes of vaginal spotting. Patient had a positive blood test completed here on 09-23-2024. Patient is concerned her levels are not going up appropriately. She reports bleeding only occurs after rough intercourse. (Shirin Simpson) 21-year-old female presents emergency department complaining of vaginal spotting . Patient states that started after having some intercourse. Patient states she has no pain. Patient states she had hCG of 19 the other day. Patient states that she is O+ blood type. Patient denies any other associated symptoms. (Suresh Parekh) - Related Data Home Medications Medication Instructions Recorded Confirmed Celecoxib [CeleBREX] 100 mg PO BID 07/21/24 07/21/24 HYDROcodone/APAP 5-325MG [[place] 1 tab PO Q6H PRN 07/21/24 07/21/24 5-325] Metaxalone [Skelaxin] 800 mg PO DIRECTED 07/21/24 07/21/24 Naproxen Sodium [Aleve] 220 mg PO BID PRN 07/21/24 07/21/24 predniSONE 50 mg PO DIRECTED 07/21/24 07/21/24 traZODone HCL [Desyrel] 100 mg PO DIRECTED 07/21/24 07/21/24 Previous Rx's Medication Instructions Recorded Ketorolac [Toradol] 10 mg PO Q6HR PRN #15 tab 06/04/24 tiZANidine HCL 6 mg PO Q8HR PRN #30 cap 06/04/24 Amoxic-Pot Clav 875-125Mg 1 tab PO Q12HR #20 tab 07/21/24 [Augmentin 875-125] Fluconazole [Diflucan] 150 mg PO ONCE 1 Days #1 tab 08/08/24 Nitrofurantoin Monohyd/M-Cryst 100 mg PO Q12HR 5 Days #10 cap 08/08/24 [Macrobid] Fluconazole [Diflucan] 150 mg PO ONCE 1 Days #1 tab 08/10/24 Amoxic-Pot Clav 875-125Mg 1 tab PO Q12HR #14 tab 09/08/24 [Augmentin 875-125] Betamethasone Dipropionate 1 applic TOPICAL BID #15 gm 09/13/24 [Betamethasone Dipropionate 0.05% Cream] Betamethasone Dipropionate 1 applic TOPICAL BID #15 gm 09/13/24 [Betamethasone Dipropionate 0.05%] Fluconazole [Diflucan] 150 mg PO ONCE #4 tab 09/13/24 metroNIDAZOLE [Flagyl] 500 mg PO BID #14 tab 09/13/24 Albuterol Inhaler [Ventolin Hfa 2 puff INHALATION Q4HR PRN #1 each 09/19/24 Inhaler] Cephalexin [Keflex] 500 mg PO Q6HR 7 Days #28 cap 09/23/24 114/Iron A-G/Folate 1 1 each PO DAILY #30 tablet 09/23/24 [Prenate Elite Tablet] metroNIDAZOLE 500 mg PO BID 7 Days #14 tablet 09/23/24 Fluconazole [Diflucan] 150 mg PO ONCE 1 Days #1 tab 09/26/24 Nitrofurantoin Monohyd/M-Cryst 100 mg PO Q12HR 5 Days #10 cap 09/26/24 [Macrobid] Allergies Allergy/AdvReac Type Severity Reaction Status Date / Time Iodinated Contrast Media Allergy Severe Anaphylaxis Verified 09/30/24 08:51 [Iodinated Contrast Media - IV Dye] Iodine and Iodide Containing Allergy Severe Anaphylaxis Verified 09/30/24 08:51 Produc povidone-iodine Allergy Severe Rash/Hives Verified 09/30/24 08:51 [From Betadine] soap [From Betadine] Allergy Severe Rash/Hives Verified 09/30/24 08:51 hydrocortisone Allergy Rash/Hives Verified 09/30/24 08:51 latex Allergy Rash/Hives Verified 09/30/24 08:51 iodine AdvReac Anaphylaxis Verified 09/30/24 08:51 Review of Systems ROS Other: All systems not noted in ROS Statement are negative. <Shirin Simpson - Last Filed: 09/30/24 09:03> ROS Other: All systems not noted in ROS Statement are negative. <Suresh Parekh - Last Filed: 09/30/24 12:02> ROS Statement: Those systems with pertinent positive or pertinent negative responses have been documented in the HPI. Past Medical History Past Medical History: Syncope Additional Past Medical History / Comment(s): Lupus History of Any Multi-Drug Resistant Organisms: MRSA Date of last positivie culture/infection: 05/04/24 MDRO Source:: mouth Past Surgical History: Section Past Anesthesia/Blood Transfusion Reactions: Previous Problems w/ Anesthesia Additional Past Anesthesia/Blood Transfusion Reaction / Comment(s): had skin reaction to topical betadine Past Psychological History: No Psychological Hx Reported Smoking Status: Never smoker Past Alcohol Use History: None Reported Past Drug Use History: None Reported - Past Family History Mother Family Medical History: No Reported History <Shirin Simpson - Last Filed: 09/30/24 09:03> General Exam Limitations: no limitations <Shirin Simpson - Last Filed: 09/30/24 09:03> General appearance: alert, in no apparent distress Head exam: Present: atraumatic, normocephalic, normal inspection Eye exam: Present: normal appearance, PERRL, EOMI. Absent: scleral icterus, conjunctival injection, periorbital swelling ENT exam: Present: normal exam, normal oropharynx, mucous membranes moist Neck exam: Present: normal inspection, full ROM. Absent: tenderness, meningismus, lymphadenopathy Respiratory exam: Present: normal lung sounds bilaterally. Absent: respiratory distress, wheezes, rales, rhonchi, stridor Cardiovascular Exam: Present: regular rate, normal rhythm, normal heart sounds. Absent: systolic murmur, diastolic murmur, rubs, gallop, clicks GI/Abdominal exam: Present: soft, normal bowel sounds. Absent: distended, tenderness, guarding, rebound, rigid <Suresh Parekh - Last Filed: 09/30/24 12:02> - General Exam Comments Initial Comments: Visual Physical Exam Vital signs reviewed General: Well-appearing, nontoxic, no acute distress. Head: Normocephalic, atraumatic Eyes: PERRLA, EOMI ENT: Airway patent Chest: Nonlabored breathing Skin: No visual rash, normal skin tone Neuro: Alert and oriented 3 Musculoskeletal: No gross abnormalities (Shirin Simpson) Course Vital Signs 09/30/24 08:46 Temperature 98.3 F Pulse Rate 74 Respiratory 22 Rate Blood Pressure 102/66 O2 Sat by Pulse 99 Oximetry Medical Decision Making <Shirin Simpson - Last Filed: 09/30/24 09:03> - Lab Data Result diagrams: 09/30/24 10:14 09/30/24 10:14 <Suresh Parekh - Last Filed: 09/30/24 12:02> - Medical Decision Making I performed the quick note portion of this chart. Electronically signed by Shirin Simpson PA-C (Shirin Simpson) Was pt. sent in by a medical professional or institution ([facility] Travis, [employer], urgent care, hospital, or long term...) When possible be specific @ -No Did you speak to anyone other than the patient for history (EMS, parent, family, police, friend...)? What history was obtained from this source @ -No Did you review nursing and triage notes (agree or disagree)? Why? @ -I reviewed and agree with nursing and triage notes Were old charts reviewed (outside hosp., previous admission, EMS record, old EKG, old radiological studies, urgent care reports/EKG's, long term records)? Report findings @ -No old charts were reviewed Differential Diagnosis (chest pain, altered mental status, abdominal pain women, abdominal pain men, vaginal bleeding, weakness, fever, dyspnea, syncope, headache, dizziness, GI bleed, back pain, seizure, CVA, palpatations, mental health, musculoskeletal)? @ -Differential Vaginal Bleeding: Spontaneous , threatened , molar , ectopic , bloody show, incompetent cervix, abruptioplacenta, placenta previa, uterine rupture, dysfunctional uterine bleeding, hemorrhage, uterine fibroids, this is not meant to be an all-inclusive list. EKG interpreted by me (3pts min.). @ -None X-rays interpreted by me (1pt min.). @ -None done CT interpreted by me (1pt min.). @ -None done U/S interpreted by me (1pt. min.). @ -None done What testing was considered but not performed or refused? (CT, X-rays, U/S, labs)? Why? @ -None What meds were considered but not given or refused? Why? @ -None Did you discuss the management of the patient with other professionals (mirna chavira i.e. , PA, [employer], lab, RT, psych nurse, social worker palliative care, cargo surveyor, teacher, deportation officer, dependency case manager)? Give summary @ -No Was smoking cessation discussed for >3mins.? @ -No Was critical care preformed (if so, how long)? @ -No Were there social determinants of health that impacted care today? How? (Homelessness, low income, unemployed, alcoholism, drug addiction, transportation, low edu. Level, literacy, decrease access to med. care, fdc, rehab)? @ -No Was there de-escalation of care discussed even if they declined (Discuss DNR or withdrawal of care, Hospice)? DNR status @ -No What co-morbidities impacted this encounter? (DM, HTN, Smoking, COPD, CAD, Cancer, CVA, ARF, Chemo, Hep., AIDS, mental health diagnosis, sleep apnea, morbid obesity)? @ -None Was patient admitted / discharged? Hospital course, mention meds given and route, prescriptions, significant lab abnormalities, going to OR and other pertinent info. @ -Discharge patient bHCG is less than 2.4. Patient discharged in stable condition return for as discussed. Undiagnosed new problem with uncertain prognosis? @ -No Drug Therapy requiring intensive monitoring for toxicity (Heparin, Nitro, Insulin, Cardizem)? @ -No Were any procedures done? @ -No Diagnosis/symptom? @ -Vaginal bleeding Acute, or Chronic, or Acute on Chronic? @ -Acute Uncomplicated (without systemic symptoms) or Complicated (systemic symptoms)? @ -Uncomplicated Side effects of treatment? @ -No Exacerbation, Progression, or Severe Exacerbation? @ -No Poses a threat to life or bodily function? How? (Chest pain, [place], [place], pneumonia, PE, COPD, DKA, ARF, appy, cholecystitis, CVA, Diverticulitis, Homicidal, Suicidal, threat to staff... and all critical care pts) @ -No (Suresh aPrekh) - Lab Data Lab Results 09/30/24 09/30/24 09/30/24 Range/Units 10:08 10:14 10:14 WBC 7.4 (3.8-10.6) k/uL RBC 4.84 (3.80-5.40) m/uL Hgb 12.7 (11.4-16.0) gm/dL Hct 38.6 (34.0-46.0) % MCV 79.7 L (80.0-100.0) fL MCH 26.2 (25.0-35.0) pg MCHC 32.9 (31.0-37.0) g/dL RDW 14.2 (11.5-15.5) % Plt Count 249 (150-450) k/uL MPV 7.1 Neutrophils % 64 % Lymphocytes % 26 % Monocytes % 6 % Eosinophils % 2 % Basophils % 1 % Neutrophils # 4.7 (1.3-7.7) k/uL Lymphocytes # 1.9 (1.0-4.8) k/uL Monocytes # 0.4 (0-1.0) k/uL Eosinophils # 0.2 (0-0.7) k/uL Basophils # 0.1 (0-0.2) k/uL Sodium 141 (137-145) mmol/L Potassium 3.9 (3.5-5.1) mmol/L Chloride 105 (98-107) mmol/L Carbon Dioxide 27 (22-30) mmol/L Anion Gap 9 mmol/L BUN 14 (7-17) mg/dL Creatinine 0.77 (0.52-1.04) mg/dL Est GFR (CKD-EPI)AfAm >90 (>60 ml/min/1.73 sqM) Est GFR (CKD-EPI)NonAf >90 (>60 ml/min/1.73 sqM) Glucose 98 (74-99) mg/dL Calcium 9.8 (8.4-10.2) mg/dL Total Bilirubin 0.4 (0.2-1.3) mg/dL AST 20 (14-36) U/L ALT 16 (4-34) U/L Alkaline Phosphatase 45 (38-126) U/L Total Protein 7.4 (6.3-8.2) g/dL Albumin 4.7 (3.5-5.0) g/dL HCG, Quant <2.4 mIU/mL Urine Color Urine Appearance (Clear) Urine pH (5.0-8.0) Ur Specific [place] (1.001-1.035) Urine Protein (Negative) Urine Glucose (UA) (Negative) Urine Ketones (Negative) Urine Blood (Negative) Urine Nitrite (Negative) Urine Bilirubin (Negative) Urine Urobilinogen (<2.0) mg/dL Ur Leukocyte Esterase (Negative) Blood Type O Positive Blood Type Recheck O Pos Bld Type Recheck Status No 09/30/24 Range/Units 10:57 WBC (3.8-10.6) k/uL RBC (3.80-5.40) m/uL Hgb (11.4-16.0) gm/dL Hct (34.0-46.0) % MCV (80.0-100.0) fL MCH (25.0-35.0) pg MCHC (31.0-37.0) g/dL RDW (11.5-15.5) % Plt Count (150-450) k/uL MPV Neutrophils % % Lymphocytes % % Monocytes % % Eosinophils % % Basophils % % Neutrophils # (1.3-7.7) k/uL Lymphocytes # (1.0-4.8) k/uL Monocytes # (0-1.0) k/uL Eosinophils # (0-0.7) k/uL Basophils # (0-0.2) k/uL Sodium (137-145) mmol/L Potassium (3.5-5.1) mmol/L Chloride (98-107) mmol/L Carbon Dioxide (22-30) mmol/L Anion Gap mmol/L BUN (7-17) mg/dL Creatinine (0.52-1.04) mg/dL Est GFR (CKD-EPI)AfAm (>60 ml/min/1.73 sqM) Est GFR (CKD-EPI)NonAf (>60 ml/min/1.73 sqM) Glucose (74-99) mg/dL Calcium (8.4-10.2) mg/dL Total Bilirubin (0.2-1.3) mg/dL AST (14-36) U/L ALT (4-34) U/L Alkaline Phosphatase (38-126) U/L Total Protein (6.3-8.2) g/dL Albumin (3.5-5.0) g/dL HCG, Quant mIU/mL Urine Color Light Yellow Urine Appearance Clear (Clear) Urine pH 5.5 (5.0-8.0) Ur Specific [place] 1.015 (1.001-1.035) Urine Protein Negative (Negative) Urine Glucose (UA) Negative (Negative) Urine Ketones Negative (Negative) Urine Blood Negative (Negative) Urine Nitrite Negative (Negative) Urine Bilirubin Negative (Negative) Urine Urobilinogen <2.0 (<2.0) mg/dL Ur Leukocyte Esterase Negative (Negative) Blood Type Blood Type Recheck Bld Type Recheck Status Disposition <Shirin Simpson - Last Filed: 09/30/24 09:03> Is patient prescribed a controlled substance at d/c from ED?: No Time of Disposition: 12:00 <Suresh Parekh - Last Filed: 09/30/24 12:02> Clinical Impression: Vaginal bleeding Disposition: HOME SELF-CARE Condition: Stable Additional Instructions: Please return to the Emergency Department if symptoms worsen or any other concerns. Referrals: [facility] [NON-STAFF] - 1-2 days [facility] [NON-[facility]] - 1-2 days Forms: Area PCPs
[2024-09-30 10:30] LABS: Basophils # (A) 0.1 k/uL (0-0.2); Basophils % (A) 1 %; Eosinophils # (A) 0.2 k/uL (0-0.7); Eosinophils % (A) 2 %; HCT 38.6 % (34.0-46.0); HGB 12.7 gm/dL (11.4-16.0); Lymphocytes # (A) 1.9 k/uL (1.0-4.8); Lymphocytes % (A) 26 %; MCH 26.2 pg (25.0-35.0); MCHC 32.9 g/dL (31.0-37.0); MCV 79.7 fL (80.0-100.0); Mean Platelet Volume 7.1; Monocytes # (A) 0.4 k/uL (0-1.0); Monocytes % (A) 6 %; Neutrophils # (A) 4.7 k/uL (1.3-7.7); Neutrophils % (A) 64 %; Platelet Count 249 k/uL (150-450); RBC 4.84 m/uL (3.80-5.40); RDW 14.2 % (11.5-15.5); WBC 7.4 k/uL (3.8-10.6)
[2024-09-30 10:43] LABS: ALT 16 U/L (4-34); AST 20 U/L (14-36); African American GFR (CKD) >90 (>60 ml/min/1.73 sqM); Albumin 4.7 g/dL (3.5-5.0); Alkaline Phosphatase 45 U/L (38-126); Anion Gap 9 mmol/L; Blood Urea Nitrogen 14 mg/dL (7-17); Calcium 9.8 mg/dL (8.4-10.2); Carbon Dioxide 27 mmol/L (22-30); Chloride 105 mmol/L (98-107); Glucose 98 mg/dL (74-99); Non-African American GFR(CKD) >90 (>60 ml/min/1.73 sqM); Potassium 3.9 mmol/L (3.5-5.1); Sodium 141 mmol/L (137-145); Total Bilirubin 0.4 mg/dL (0.2-1.3); Total Protein 7.4 g/dL (6.3-8.2)
[2024-09-30 10:59] LABS: HCG,Quantitative Serum <2.4 mIU/mL
[2024-09-30 11:27] LABS: Appearance,Urine Clear (Clear); Bilirubin,Urine Negative (Negative); Blood,Urine Negative (Negative); Color,Urine Light Yellow; Glucose,Urine (UA) Negative (Negative); Ketones,Urine Negative (Negative); Leukocyte Esterase,Urine Negative (Negative); Nitrite,Urine Negative (Negative); PH, Urine 5.5 (5.0-8.0); Protein,Urine Negative (Negative); Specific Gravity,Urine 1.015 (1.001-1.035); Urobilinogen,Urine <2.0 mg/dL (<2.0)
== END 2024-09-30 12:00 | disposition home or self-care (01) ==
LOC: EC 08:19
DX: O46.90 Antepartum hemorrhage, unspecified, unspecified trimester (principal); Z88.5 Allergy status to narcotic agent; Z91.041 Radiographic dye allergy status; Z91.048 Other nonmedicinal substance allergy status; Z91.040 Latex allergy status; Z88.8 Allergy status to other drugs, medicaments and biological substances; Z3A.00 Weeks of gestation of pregnancy not specified
CPT/HCPCS: 36415; 80053; 81003; 84702; 85025; 86900; 86901; 99284

== ENCOUNTER 2024-12-19 08:56 | Emergency (ER) | payer OTHER ==
[2024-12-19 09:00] VITALS: TEMP 98.4
--- NOTE | 2024-12-19 09:07 | ED ---
General Adult HPI - General Stated complaint: bleeding Source: patient Mode of arrival: ambulatory Limitations: no limitations - History of Present Illness Initial comments: Patient is a 29-year-old female with no past medical history presents to the ER with vaginal bleeding that started about 3 days ago. Patient is currently with an estimated gestational age of around 12 weeks based on last ultrasound on 12/03/2024. Patient started noticing vaginal bleeding about 3 days ago and has noticed blood intermittently when she pees. She reports the blood to be bright red. Has not noticed any blood clots. No profuse bleeding. Patient has had 5 C-sections in the past. No complications with other pregnancies. Patient did go to her OB on Monday and was instructed to go on pelvic rest. Patient also noticed some white vaginal discharge with fishy smell that has been going on for about 3 days. Has not had sexual intercourse since the bleeding started on Monday. Does report some lower abdominal tenderness and cramping, body chills, nausea, dry heaving. Denies fever, chest pain, shortness of breath, dysuria, diarrhea or constipation. - Related Data Home Medications Medication Instructions Recorded Confirmed Celecoxib [CeleBREX] 100 mg PO BID 07/21/24 07/21/24 HYDROcodone/APAP 5-325MG [[place] 1 tab PO Q6H PRN 07/21/24 07/21/24 5-325] Metaxalone [Skelaxin] 800 mg PO DIRECTED 07/21/24 07/21/24 Naproxen Sodium [Aleve] 220 mg PO BID PRN 07/21/24 07/21/24 predniSONE 50 mg PO DIRECTED 07/21/24 07/21/24 traZODone HCL [Desyrel] 100 mg PO DIRECTED 07/21/24 07/21/24 Previous Rx's Medication Instructions Recorded Ketorolac [Toradol] 10 mg PO Q6HR PRN #15 tab 06/04/24 tiZANidine HCL 6 mg PO Q8HR PRN #30 cap 06/04/24 Amoxic-Pot Clav 875-125Mg 1 tab PO Q12HR #20 tab 07/21/24 [Augmentin 875-125] Fluconazole [Diflucan] 150 mg PO ONCE 1 Days #1 tab 08/08/24 Nitrofurantoin Monohyd/M-Cryst 100 mg PO Q12HR 5 Days #10 cap 08/08/24 [Macrobid] Fluconazole [Diflucan] 150 mg PO ONCE 1 Days #1 tab 08/10/24 Amoxic-Pot Clav 875-125Mg 1 tab PO Q12HR #14 tab 09/08/24 [Augmentin 875-125] Betamethasone Dipropionate 1 applic TOPICAL BID #15 gm 09/13/24 [Betamethasone Dipropionate 0.05% Cream] Betamethasone Dipropionate 1 applic TOPICAL BID #15 gm 09/13/24 [Betamethasone Dipropionate 0.05%] Fluconazole [Diflucan] 150 mg PO ONCE #4 tab 09/13/24 metroNIDAZOLE [Flagyl] 500 mg PO BID #14 tab 09/13/24 Albuterol Inhaler [Ventolin Hfa 2 puff INHALATION Q4HR PRN #1 each 09/19/24 Inhaler] Cephalexin [Keflex] 500 mg PO Q6HR 7 Days #28 cap 09/23/24 114/Iron A-G/Folate 1 1 each PO DAILY #30 tablet 09/23/24 [Prenate Elite Tablet] metroNIDAZOLE 500 mg PO BID 7 Days #14 tablet 09/23/24 Fluconazole [Diflucan] 150 mg PO ONCE 1 Days #1 tab 09/26/24 Nitrofurantoin Monohyd/M-Cryst 100 mg PO Q12HR 5 Days #10 cap 09/26/24 [Macrobid] Albuterol Inhaler [Ventolin Hfa 2 puff INHALATION Q4HR PRN #8 gm 10/24/24 Inhaler] Ondansetron Odt [Zofran ODT] 4 mg PO Q8HR PRN #10 tab 10/24/24 predniSONE 60 mg PO DAILY #30 tab 10/24/24 Amoxicillin 875 mg PO Q12HR 7 Days #14 tablet 11/11/24 metroNIDAZOLE [Flagyl] 500 mg PO BID 7 Days #14 tab 12/19/24 Allergies Allergy/AdvReac Type Severity Reaction Status Date / Time Iodinated Contrast Media Allergy Severe Anaphylaxis Verified 12/19/24 09:00 [Iodinated Contrast Media - IV Dye] Iodine and Iodide Containing Allergy Severe Anaphylaxis Verified 12/19/24 09:00 Produc povidone-iodine Allergy Severe Rash/Hives Verified 12/19/24 09:00 [From Betadine] soap [From Betadine] Allergy Severe Rash/Hives Verified 12/19/24 09:00 hydrocortisone Allergy Rash/Hives Verified 12/19/24 09:00 latex Allergy Rash/Hives Verified 12/19/24 09:00 iodine AdvReac Anaphylaxis Verified 12/19/24 09:00 Review of Systems ROS Statement: Those systems with pertinent positive or pertinent negative responses have been documented in the HPI. ROS Other: All systems not noted in ROS Statement are negative. Constitutional: Reports: chills. Denies: fever Respiratory: Denies: cough, dyspnea, wheezes Cardiovascular: Denies: chest pain, palpitations Gastrointestinal: Reports: abdominal pain, nausea. Denies: vomiting, diarrhea, constipation Genitourinary: Denies: urgency, dysuria, abnormal menses Skin: Denies: rash Past Medical History Past Medical History: Syncope Additional Past Medical History / Comment(s): Lupus History of Any Multi-Drug Resistant Organisms: MRSA Date of last positivie culture/infection: 05/04/24 MDRO Source:: mouth Past Surgical History: Section Past Anesthesia/Blood Transfusion Reactions: Previous Problems w/ Anesthesia Additional Past Anesthesia/Blood Transfusion Reaction / Comment(s): had skin reaction to topical betadine Past Psychological History: No Psychological Hx Reported Smoking Status: Never smoker Past Alcohol Use History: None Reported Past Drug Use History: None Reported - Past Family History Mother Family Medical History: No Reported History General Exam - General Exam Comments Initial Comments: GENERAL: This is a 29-year-old in no apparent distress at the time of examination. Pleasant and cooperative. HEENT: Head is atraumatic, normocephalic. Pupils are equal, round, and reactive to light. Sclerae anicteric. RESPIRATORY: Clear to auscultation. No wheezes, rales, or rhonchi. No use of accessory muscles. Patient maintaining oxygen saturation greater than 92%. CARDIOVASCULAR: Regular rate and rhythm. S1 and S2 noted. No systolic or diastolic murmur auscultated. No JVD noted. No S3 or S4 noted. GASTROINTESTINAL: No distention noted. Abdomen soft and round. Normal active bowel sounds auscultated x 4 quadrants. Mild abdominal tenderness in the left lower quadrant and right lower quadrant. INTEGUMENTARY: No cyanosis. No jaundice. No rashes noted. No cellulitis noted. EXTREMITIES: 2+ peripheral pulses. No evidence of peripheral edema. No calf tenderness noted. NEUROLOGIC: Cranial nerves II-XII intact. PSYCHIATRIC: Awake, alert, and oriented X 3. Appropriate affect. Intact judgement and insight. Limitations: no limitations Course Vital Signs 12/19/24 12/19/24 12/19/24 08:59 10:10 11:09 Temperature 98.4 F Pulse Rate 102 H 82 78 Respiratory 17 20 20 Rate Blood Pressure 108/65 101/69 95/65 O2 Sat by Pulse 97 97 100 Oximetry Medical Decision Making - Medical Decision Making Was pt. sent in by a medical professional or institution (, UNIQUE, DERRICK FOLLOWER, urgent care, hospital, or fci...) When possible be specific @ -No Did you speak to anyone other than the patient for history (EMS, parent, family, police, friend...)? What history was obtained from this source @ -No Did you review nursing and triage notes (agree or disagree)? Why? @ -I reviewed and agree with nursing and triage notes Were old charts reviewed (outside hosp., previous admission, EMS record, old EKG, old radiological studies, urgent care reports/EKG's, fci records)? Report findings @ -No old charts were reviewed Differential Diagnosis? @ -Subchorionic hemorrhage, vaginal discharge, STI, . EKG interpreted by me (3pts min.). @ -As above X-rays interpreted by me (1pt min.). @ -None done CT interpreted by me (1pt min.). @ -None done U/S interpreted by me (1pt. min.). @ -None done What testing was considered but not performed or refused? (CT, X-rays, U/S, labs)? Why? @ -None What meds were considered but not given or refused? Why? @ -None Did you discuss the management of the patient with other professionals (professionals i.e. UNIQUE Travis, DERRICK FOLLOWER, lab, RT, psych nurse, social science professor, brand protection manager, teacher, seal delivery vehicle officer, housing case manager)? Give summary @ -Discussed with Dr. Abdullahi Was smoking cessation discussed for >3mins.? @ -No Was critical care preformed (if so, how long)? @ -No Were there social determinants of health that impacted care today? How? (Homelessness, low income, unemployed, alcoholism, drug addiction, transportation, low edu. Level, literacy, decrease access to med. care, [facility], rehab)? @ -No Was there de-escalation of care discussed even if they declined (Discuss DNR or withdrawal of care, Hospice)? DNR status @ -No What co-morbidities impacted this encounter? (DM, HTN, Smoking, COPD, CAD, Cancer, CVA, ARF, Chemo, Hep., AIDS, mental health diagnosis, sleep apnea, morbid obesity)? @ -None Was patient admitted / discharged? Hospital course, mention meds given and route, prescriptions, significant lab abnormalities, going to OR and other pertinent info. @ -Patient is a 29-year-old female presented to the ER with vaginal bleeding for the past 3 days. Currently with an estimated gestational age of about 12 weeks. CBC and CMP were unremarkable. Ultrasound showed single live intrauterine with a calculated ultrasound age of 10 weeks 5 days with small subchorionic hemorrhage. Tested patient's vaginal discharge for Neisseria gonorrhea, chlamydia, trichomoniasis. Will send patient home with Flagyl. Undiagnosed new problem with uncertain prognosis? @ -No Drug Therapy requiring intensive monitoring for toxicity (Heparin, Nitro, Insulin, Cardizem)? @ -No Were any procedures done? @ -No Diagnosis/symptom? @ -Subchorionic hemorrhage Acute, or Chronic, or Acute on Chronic? @ -Default Uncomplicated (without systemic symptoms) or Complicated (systemic symptoms)? @ -Default Side effects of treatment? @ -No Exacerbation, Progression, or Severe Exacerbation? @ -No Poses a threat to life or bodily function? How? (Chest pain, [place], [place], pneumonia, PE, COPD, DKA, ARF, appy, cholecystitis, CVA, Diverticulitis, Homicidal, Suicidal, threat to staff... and all critical care pts) @ -No - Lab Data Result diagrams: 12/19/24 09:52 12/19/24 09:52 Lab Results 12/19/24 12/19/24 12/19/24 Range/Units 09:52 09:52 09:52 WBC 9.0 (3.8-10.6) k/uL RBC 4.66 (3.80-5.40) m/uL Hgb 12.3 (11.4-16.0) gm/dL Hct 36.4 (34.0-46.0) % MCV 78.1 L (80.0-100.0) fL MCH 26.4 (25.0-35.0) pg MCHC 33.8 (31.0-37.0) g/dL RDW 15.0 (11.5-15.5) % Plt Count 224 (150-450) k/uL MPV 7.3 Neutrophils % 75 % Lymphocytes % 16 % Monocytes % 6 % Eosinophils % 2 % Basophils % 0 % Neutrophils # 6.7 (1.3-7.7) k/uL Lymphocytes # 1.4 (1.0-4.8) k/uL Monocytes # 0.5 (0-1.0) k/uL Eosinophils # 0.2 (0-0.7) k/uL Basophils # 0.0 (0-0.2) k/uL Sodium 136 L (137-145) mmol/L Potassium 3.7 (3.5-5.1) mmol/L Chloride 102 (98-107) mmol/L Carbon Dioxide 28 (22-30) mmol/L Anion Gap 6 mmol/L BUN 7 (7-17) mg/dL Creatinine 0.60 (0.52-1.04) mg/dL Est GFR (CKD-EPI)AfAm >90 (>60 ml/min/1.73 sqM) Est GFR (CKD-EPI)NonAf >90 (>60 ml/min/1.73 sqM) Glucose 89 (74-99) mg/dL Calcium 9.6 (8.4-10.2) mg/dL Total Bilirubin 0.5 (0.2-1.3) mg/dL AST 18 (14-36) U/L ALT 14 (4-34) U/L Alkaline Phosphatase 45 (38-126) U/L Total Protein 6.8 (6.3-8.2) g/dL Albumin 4.1 (3.5-5.0) g/dL HCG, Quant 31945.9 mIU/mL Urine HCG, Qual Detected (Not Detectd) Disposition Clinical Impression: Subchorionic hemorrhage Narrative: Patient will be discharged home. Disposition: HOME SELF-CARE Condition: Stable Additional Instructions: Every disease is a spectrum and a small chance still exists that a serious condition could develop, for this reason, please monitor yourself closely for new, changing or worsening symptoms, new confusion, changes in behavior, severe headache, changes in vision, numbness, weakness, chest pain, fever, inability to tolerate/keep down fluids or your medications, inability to follow up with outpatient providers as instructed and should you experience these symptoms or should you have any further concerns for your wellbeing please return to the ED or call 911 immediately. PLEASE call your primary care physician as soon as possible to arrange / discuss plan for followup appointment. Appointment in the next 1-3 days is strongly encouraged if possible. PLEASE let us know here before you leave if there is anything further we can do to be of any assistance. Take care and feel Better! Prescriptions: metroNIDAZOLE [Flagyl] 500 mg PO BID 7 Days #14 tab Is patient prescribed a controlled substance at d/c from ED?: No Referrals: None,Stated [Primary Care Provider] - 1-2 days Time of Disposition: 12:30
[2024-12-19 10:05] LABS: Basophils % (A) 0 %; Eosinophils # (A) 0.2 k/uL (0-0.7); Eosinophils % (A) 2 %; HCT 36.4 % (34.0-46.0); HGB 12.3 gm/dL (11.4-16.0); Lymphocytes # (A) 1.4 k/uL (1.0-4.8); Lymphocytes % (A) 16 %; MCH 26.4 pg (25.0-35.0); MCHC 33.8 g/dL (31.0-37.0); MCV 78.1 fL (80.0-100.0); Mean Platelet Volume 7.3; Monocytes # (A) 0.5 k/uL (0-1.0); Monocytes % (A) 6 %; Neutrophils # (A) 6.7 k/uL (1.3-7.7); Neutrophils % (A) 75 %; Platelet Count 224 k/uL (150-450); RBC 4.66 m/uL (3.80-5.40)
[2024-12-19 10:25] LABS: ALT 14 U/L (4-34); AST 18 U/L (14-36); African American GFR (CKD) >90 (>60 ml/min/1.73 sqM); Albumin 4.1 g/dL (3.5-5.0); Alkaline Phosphatase 45 U/L (38-126); Anion Gap 6 mmol/L; Blood Urea Nitrogen 7 mg/dL (7-17); Calcium 9.6 mg/dL (8.4-10.2); Carbon Dioxide 28 mmol/L (22-30); Chloride 102 mmol/L (98-107); Glucose 89 mg/dL (74-99); Non-African American GFR(CKD) >90 (>60 ml/min/1.73 sqM); Potassium 3.7 mmol/L (3.5-5.1); Sodium 136 mmol/L (137-145); Total Bilirubin 0.5 mg/dL (0.2-1.3); Total Protein 6.8 g/dL (6.3-8.2)
[2024-12-19 11:09] VITALS: BP 95/65; PULSE 78; RESP 20
--- NOTE | 2024-12-19 11:42 | US ---
EXAMINATION TYPE: Transabdominal DATE OF EXAM: 12/19/2024 11:00 AM COMPARISON: Ultrasound OB 11/05/2024 CLINICAL INDICATION: Female, 29 years old with history of pain; spotting TECHNIQUE: Transabdominal (TA) with grayscale and color Doppler imaging including first trimester pre gnancy. FINDINGS: EXAM MEASUREMENTS: GESTATIONAL AGE / DATING Physician Established: Not yet established Dates by LMP: LMP unknown Dates by First Scan: No previous this is first scan Dates by Current Scan for: (10 weeks/5 days) EDC: 07/12/2025 MATERNAL ANATOMY Uterus: 11.1 x 8.7 x 10 cm Hypoechoic area seen 1.6 x .8 x 1.3 cm. Right Ovary: 2.2 x 3.1 x 2.0 cm Left Ovary: Obscured by bowel gas. Post CDS / Adnexa: wnl Presence of free fluid: no Presence of corpus luteal cyst: yes right. Presence of subchorionic bleed: Yes 1.6 x .8 x 1.3 cm. GESTATION / SURVEY CRL: 3.84 (10 weeks/5 days) Cardiac Activity/Heart Rate: 165 bpm Rhythm: Normal IUP: Viable IUP Single live intrauterine gestation. Hypodense region adjacent to the uterus most consistent with a miller bchorionic hemorrhage. IMPRESSION: 1. Single live intrauterine with calculated ultrasound age of 10 weeks 5 days with an estim ated date of delivery of 07/12/2025. 2. Small subchorionic hemorrhage. Close clinical surveillance is recommended. [facility], , 12/19/2024 11:40 AM
[2024-12-20 15:06] LABS: C. trachomatis,PCR Negative (Negative)
[2024-12-20 15:09] LABS: N. gonorrhoeae,PCR Negative (Negative)
== END 2024-12-19 13:15 | disposition home or self-care (01) ==
LOC: EC 08:56
DX: O20.8 Other hemorrhage in early pregnancy (principal); Z91.040 Latex allergy status; Z91.041 Radiographic dye allergy status; Z88.8 Allergy status to other drugs, medicaments and biological substances; Z91.048 Other nonmedicinal substance allergy status; Z3A.10 10 weeks gestation of pregnancy
CPT/HCPCS: 36415; 76801; 80053; 81025; 84702; 85025; 87491; 87591; 87808; 99284

== ENCOUNTER 2024-12-31 20:34 | Emergency (ER) | payer OTHER ==
[2024-12-31 20:44] VITALS: RESP 16
[2024-12-31] MEDS: metroNIDAZOLE 500 MG TAB PO STA (21:24)
--- NOTE | 2024-12-31 21:26 | ED ---
Female Urogenital HPI - General Chief complaint: Urogenital Stated complaint: 12 Weeks preg,Cramping Time Seen by Provider: 12/31/24 21:00 Source: patient Mode of arrival: ambulatory Limitations: no limitations - History of Present Illness Initial comments: This patient is a 29-year-old woman who presents to have further treatment for symptoms she states are identical to previous bacterial vaginosis. The patient states she is been having some itching and burning of the vulva. She states that she had been given topical clotrimazole which she has used for 2 days but not having much relief. She states that previously with that she had been given an antibiotic to take she thinks was Flagyl. Complaint: other -: days(s) Location: labia Severity: moderate Quality: other (Itching) Consistency: constant Improves with: none Worsens with: none Patient : Yes Number of weeks : 12 Associated Symptoms: denies other symptoms - Related Data Sexually active: Yes Home Medications Medication Instructions Recorded Confirmed Ybx-Fepi-Cshyt Acid 1 cap PO HS 01/09/25 01/09/25 [-U Capsule (formulary)] Previous Rx's Medication Instructions Recorded Ondansetron Odt [Zofran ODT] 4 mg PO Q8HR PRN #10 tab 10/24/24 Allergies Allergy/AdvReac Type Severity Reaction Status Date / Time Iodinated Contrast Media Allergy Severe Anaphylaxis Verified 01/09/25 13:24 [Iodinated Contrast Media - IV Dye] Iodine and Iodide Containing Allergy Severe Anaphylaxis Verified 01/09/25 13:24 Produc povidone-iodine Allergy Severe Rash/Hives Verified 01/09/25 13:24 [From Betadine] soap [From Betadine] Allergy Severe Rash/Hives Verified 01/09/25 13:24 hydrocortisone Allergy Rash/Hives Verified 01/09/25 13:24 latex Allergy Rash/Hives Verified 01/09/25 13:24 iodine AdvReac Anaphylaxis Verified 01/09/25 13:24 Review of Systems ROS Statement: Those systems with pertinent positive or pertinent negative responses have been documented in the HPI. ROS Other: All systems not noted in ROS Statement are negative. Constitutional: Denies: fever, chills Respiratory: Denies: cough, dyspnea Cardiovascular: Denies: chest pain, palpitations Gastrointestinal: Denies: abdominal pain, nausea, vomiting, diarrhea Genitourinary: Denies: dysuria, frequency, hematuria, abnormal menses Musculoskeletal: Denies: back pain Skin: Denies: rash Neurological: Denies: headache Past Medical History Past Medical History: Syncope Additional Past Medical History / Comment(s): Lupus History of Any Multi-Drug Resistant Organisms: MRSA Date of last positivie culture/infection: 05/04/24 MDRO Source:: mouth Past Surgical History: Section Past Anesthesia/Blood Transfusion Reactions: Previous Problems w/ Anesthesia Additional Past Anesthesia/Blood Transfusion Reaction / Comment(s): had skin reaction to topical betadine Past Psychological History: No Psychological Hx Reported Smoking Status: Never smoker Past Alcohol Use History: None Reported Past Drug Use History: None Reported - Past Family History Mother Family Medical History: No Reported History General Exam Limitations: no limitations General appearance: alert, in no apparent distress Head exam: Present: atraumatic, normocephalic Respiratory exam: Present: normal lung sounds bilaterally. Absent: respiratory distress, wheezes, rales, rhonchi, stridor, accessory muscle use Cardiovascular Exam: Present: regular rate, normal rhythm, normal heart sounds. Absent: systolic murmur, diastolic murmur, rubs, gallop GI/Abdominal exam: Present: soft, distended, normal bowel sounds. Absent: diminished bowel sounds, hyperactive bowel sounds, hypoactive bowel sounds, organomegaly, mass Extremities exam: Present: normal inspection, normal capillary refill. Absent: pedal edema, calf tenderness Skin exam: Present: warm, dry, intact, normal color. Absent: rash Course Vital Signs 12/31/24 12/31/24 20:41 21:43 Temperature 98.1 F 98.2 F Pulse Rate 83 85 Respiratory 16 16 Rate Blood Pressure 138/81 118/79 O2 Sat by Pulse 99 100 Oximetry Medical Decision Making - Medical Decision Making Patient is a 29-year-old woman approximately 12 weeks by ultrasound. She states she is having similar symptoms to previous bacterial vaginosis. Discussed risks, benefits, indications and patient states she would rather take the one-time dose of metronidazole then the 3 times daily for for 1 week. Patient declined DIE CLEANER exam here, states she will follow-up with her electronic equipment set up operator if no improvement. Discussed return parameters. Was pt. sent in by a medical professional or institution (, PA, INVENTORY CONTROL ANALYST, urgent care, hospital, or usp...) When possible be specific @ -[No] Did you speak to anyone other than the patient for history (EMS, parent, family, police, friend...)? What history was obtained from this source @ -[No] Did you review nursing and triage notes (agree or disagree)? Why? @ -[I reviewed and agree with nursing and triage notes] Were old charts reviewed (outside hosp., previous admission, EMS record, old EKG, old radiological studies, urgent care reports/EKG's, usp records)? Report findings @ -[No old charts were reviewed] Differential Diagnosis (chest pain, altered mental status, abdominal pain women, abdominal pain men, vaginal bleeding, weakness, fever, dyspnea, syncope, headache, dizziness, GI bleed, back pain, seizure, CVA, palpatations, mental health, musculoskeletal)? @ -[Differential Women: UTI, vulvitis, STI, PID, dermatitis this is not meant to be an all-inclusive list EKG interpreted by me (3pts min.). @ -[As above] X-rays interpreted by me (1pt min.). @ -[None done] CT interpreted by me (1pt min.). @ -[None done] U/S interpreted by me (1pt. min.). @ -[None done] What testing was considered but not performed or refused? (CT, X-rays, U/S, labs)? Why? @ -[None] What meds were considered but not given or refused? Why? @ -[None] Did you discuss the management of the patient with other professionals (mirna chavira i.e. , PA, INVENTORY CONTROL ANALYST, lab, RT, psych nurse, renal social worker, employee communications intern, teacher, chief administrative officer, spring encaser)? Give summary @ -[No] Was smoking cessation discussed for >3mins.? @ -[No] Was critical care preformed (if so, how long)? @ -[No] Were there social determinants of health that impacted care today? How? (Homelessness, low income, unemployed, alcoholism, drug addiction, transportation, low edu. Level, literacy, decrease access to med. care, prison, rehab)? @ -[No] Was there de-escalation of care discussed even if they declined (Discuss DNR or withdrawal of care, Hospice)? DNR status @ -[No] What co-morbidities impacted this encounter? (DM, HTN, Smoking, COPD, CAD, Cancer, CVA, ARF, Chemo, Hep., AIDS, mental health diagnosis, sleep apnea, morbid obesity)? @ -[None] Was patient admitted / discharged? Hospital course, mention meds given and route, prescriptions, significant lab abnormalities, going to OR and other pertinent info. @ -[As above Undiagnosed new problem with uncertain prognosis? @ -[No] Drug Therapy requiring intensive monitoring for toxicity (Heparin, Nitro, Insulin, Cardizem)? @ -[No] Were any procedures done? @ -[No] Diagnosis/symptom? @ -[Vaginitis Acute, or Chronic, or Acute on Chronic? @ -[Acute Uncomplicated (without systemic symptoms) or Complicated (systemic symptoms)? @ -[Uncomplicated Side effects of treatment? @ -[No] Exacerbation, Progression, or Severe Exacerbation? @ -[No] Poses a threat to life or bodily function? How? (Chest pain, [place], [place], pneumonia, PE, COPD, DKA, ARF, appy, cholecystitis, CVA, Diverticulitis, Homicidal, Suicidal, threat to staff... and all critical care pts) @ -[No] All treatments are based on ideal body weight as in ED triage Disposition Clinical Impression: Vaginitis affecting in first trimester, antepartum Disposition: HOME SELF-CARE Condition: Good Instructions (If sedation given, give patient instructions): Bacterial Vaginosis (ED) Is patient prescribed a controlled substance at d/c from ED?: No Referrals: None,Stated [Primary Care Provider] - 1-2 days Miya Saldana DO [Doctor of Osteopathic Medicine] - 1-2 days
[2024-12-31 21:44] VITALS: BP 118/79; PULSE 85; TEMP 98.2
== END 2024-12-31 21:44 | disposition home or self-care (01) ==
LOC: EC 20:34
DX: O23.591 Infection of other part of genital tract in pregnancy, first trimester (principal); Z91.040 Latex allergy status; Z91.041 Radiographic dye allergy status; Z88.8 Allergy status to other drugs, medicaments and biological substances; Z3A.12 12 weeks gestation of pregnancy
CPT/HCPCS: 99283

== ENCOUNTER 2025-01-09 11:40 | Emergency (ER) | payer OTHER ==
--- NOTE | 2025-01-09 11:53 | ED ---
General Adult HPI - General Chief complaint: Abdominal Pain Stated complaint: Abd cramping(14 weeks preg) Time Seen by Provider: 01/09/25 11:47 Source: patient, RN notes reviewed Mode of arrival: ambulatory Limitations: no limitations - History of Present Illness Initial comments: This is a 29-year-old female, [id number], presenting to the emergency department at approximately 14 weeks gestation for complaints of lower abdominal/pelvic cramping that has been relatively constant over the past week. Patient states the pain intensified while she is up and moving and coughing feeling like she has "popped something ". She states that she contacted her OB who stated symptoms are likely secondary to and to follow-up as scheduled. Patient denies urinary symptoms, vaginal bleeding, vaginal discharge, fevers or chills. - Related Data Home Medications Medication Instructions Recorded Confirmed Zuq-Rifi-Uyfnm Acid 1 cap PO HS 01/09/25 01/09/25 [-U Capsule (formulary)] Previous Rx's Medication Instructions Recorded Ondansetron Odt [Zofran ODT] 4 mg PO Q8HR PRN #10 tab 10/24/24 Allergies Allergy/AdvReac Type Severity Reaction Status Date / Time Iodinated Contrast Media Allergy Severe Anaphylaxis Verified 01/09/25 13:24 [Iodinated Contrast Media - IV Dye] Iodine and Iodide Containing Allergy Severe Anaphylaxis Verified 01/09/25 13:24 Produc povidone-iodine Allergy Severe Rash/Hives Verified 01/09/25 13:24 [From Betadine] soap [From Betadine] Allergy Severe Rash/Hives Verified 01/09/25 13:24 hydrocortisone Allergy Rash/Hives Verified 01/09/25 13:24 latex Allergy Rash/Hives Verified 01/09/25 13:24 iodine AdvReac Anaphylaxis Verified 01/09/25 13:24 Review of Systems ROS Statement: Those systems with pertinent positive or pertinent negative responses have been documented in the HPI. ROS Other: All systems not noted in ROS Statement are negative. Past Medical History Past Medical History: Syncope Additional Past Medical History / Comment(s): Lupus History of Any Multi-Drug Resistant Organisms: MRSA Date of last positivie culture/infection: 05/04/24 MDRO Source:: mouth Past Surgical History: Section Past Anesthesia/Blood Transfusion Reactions: Previous Problems w/ Anesthesia Additional Past Anesthesia/Blood Transfusion Reaction / Comment(s): had skin reaction to topical betadine Past Psychological History: No Psychological Hx Reported Smoking Status: Never smoker Past Alcohol Use History: None Reported Past Drug Use History: None Reported - Past Family History Mother Family Medical History: No Reported History General Exam Limitations: no limitations General appearance: alert, in no apparent distress Neck exam: Present: normal inspection. Absent: tenderness, meningismus, lymphadenopathy Respiratory exam: Present: normal lung sounds bilaterally. Absent: respiratory distress, wheezes, rales, rhonchi, stridor Cardiovascular Exam: Present: regular rate, normal rhythm, normal heart sounds. Absent: systolic murmur, diastolic murmur, rubs, gallop, clicks GI/Abdominal exam: Present: soft, normal bowel sounds. Absent: distended, tenderness, guarding, rebound, rigid Extremities exam: Present: normal inspection, full ROM, normal capillary refill. Absent: tenderness, pedal edema, joint swelling, calf tenderness Back exam: Present: normal inspection. Absent: CVA tenderness (R), CVA tenderness (L) Skin exam: Present: warm, dry, intact, normal color. Absent: rash Course Vital Signs 01/09/25 11:41 Temperature 99 F Pulse Rate 85 Respiratory 16 Rate Blood Pressure 111/74 O2 Sat by Pulse 98 Oximetry Medical Decision Making - Medical Decision Making Was pt. sent in by a medical professional or institution (UNIQUE Travis, CODE CLERK, urgent care, hospital, or [place] health care facility...) When possible be specific @ -No Did you speak to anyone other than the patient for history (EMS, parent, family, police, friend...)? What history was obtained from this source @ -No Did you review nursing and triage notes (agree or disagree)? Why? @ -I reviewed and agree with nursing and triage notes Were old charts reviewed (outside hosp., previous admission, EMS record, old EKG, old radiological studies, urgent care reports/EKG's, [place] health care facility records)? Report findings @ -Reviewed OB ultrasound last completed on 12/19/2024 which revealed a single live intrauterine gestation with presence of subchorionic hemorrhage, estimated gestational age of 10 weeks 5 days with a heart rate of 165 Differential Diagnosis (chest pain, altered mental status, abdominal pain women, abdominal pain men, vaginal bleeding, weakness, fever, dyspnea, syncope, headache, dizziness, GI bleed, back pain, seizure, CVA, palpatations, mental health, musculoskeletal)? @ -Differential Abdominal Pain Women: Appendicitis, Cholecystitis, diverticulosis, ischemic bowel, pancreatitis, hepatitis, UTI, gastroenteritis, AAA, incarcerated hernia, bowel obstruction, constipation, inflammatory bowel, hepatitis, peptic ulcer disease, splenic infarction, perforated viscus, vulvitis, ovarian torsion, PID, kidney stone, placenta abruption, this is not meant to be an all-inclusive list EKG interpreted by me (3pts min.). @ -None X-rays interpreted by me (1pt min.). @ -None done CT interpreted by me (1pt min.). @ -None done U/S interpreted by me (1pt. min.). @ -OB ultrasound completed reveals a single viable intrauterine with a gestational age of 14 weeks 1 day with a heart rate of 153 What testing was considered but not performed or refused? (CT, X-rays, U/S, labs)? Why? @ -None What meds were considered but not given or refused? Why? @ -None Did you discuss the management of the patient with other professionals (mirna chavira i.e. , PA, CODE CLERK, lab, RT, psych nurse, social media campaign manager, acidity tester, teacher, systems support officer, corrections caseworker)? Give summary @ -No Was smoking cessation discussed for >3mins.? @ -No Was critical care preformed (if so, how long)? @ -No Were there social determinants of health that impacted care today? How? (Homelessness, low income, unemployed, alcoholism, drug addiction, transportation, low edu. Level, literacy, decrease access to med. care, prison, rehab)? @ -No Was there de-escalation of care discussed even if they declined (Discuss DNR or withdrawal of care, Hospice)? DNR status @ -No What co-morbidities impacted this encounter? (DM, HTN, Smoking, COPD, CAD, Cancer, CVA, ARF, Chemo, Hep., AIDS, mental health diagnosis, sleep apnea, morbid obesity)? @ -None Was patient admitted / discharged? Hospital course, mention meds given and route, prescriptions, significant lab abnormalities, going to OR and other pertinent info. @ -Discharge. 29-year-old female presenting with lower abdominal cramping during . Overall patient is well-appearing. Is 5000 Tylenol. Labs reveal hyponatremia of 133 likely secondary to . Urinalysis no signs infection. Ultrasound unremarkable with a intrauterine and a heart rate of 153. Patient has appointment scheduled with OB on Monday. Return parameters discussed. Patient stable for discharge. Case discussed with Dr. Escobar Undiagnosed new problem with uncertain prognosis? @ -No Drug Therapy requiring intensive monitoring for toxicity (Heparin, Nitro, Insulin, Cardizem)? @ -No Were any procedures done? @ -No Diagnosis/symptom? @ -Abdominal pain/cramping during Acute, or Chronic, or Acute on Chronic? @ -Acute Uncomplicated (without systemic symptoms) or Complicated (systemic symptoms)? @ -Uncomplicated Side effects of treatment? @ -No Exacerbation, Progression, or Severe Exacerbation? @ -No Poses a threat to life or bodily function? How? (Chest pain, [place], [place], pneumonia, PE, COPD, DKA, ARF, appy, cholecystitis, CVA, Diverticulitis, Homicidal, Suicidal, threat to staff... and all critical care pts) @ -No - Lab Data Result diagrams: 01/09/25 12:27 01/09/25 12:27 Lab Results 01/09/25 01/09/25 01/09/25 Range/Units 12:27 12:27 12:27 WBC 9.71 (4.50-10.00) 10*3/uL RBC 4.66 (4.10-5.20) 10*6/uL Hgb 12.4 (12.0-15.0) g/dL Hct 35.7 L (37.2-46.3) % MCV 76.6 L (80.0-97.0) fL MCH 26.6 L (27.0-32.0) pg MCHC 34.7 (32.0-37.0) g/dL Plt Count 228 (140-440) 10*3/uL MPV 10.0 (9.5-12.2) fL Immature Gran % (Auto) 0.6 % Neutrophils % 73.5 % Lymphocytes % 17.5 % Monocytes % 6.3 % Eosinophils % 1.6 % Basophils % 0.5 % Immature Gran # 0.06 H (0.00-0.04) 10*3/uL Neutrophils # 7.13 (1.80-7.70) 10*3/uL Lymphocytes # 1.70 (0.90-5.00) 10*3/uL Monocytes # 0.61 (0.20-1.00) 10*3/uL Eosinophils # 0.16 (0.04-0.35) 10*3/uL Basophils # 0.05 (0.00-0.10) 10*3/uL Sodium 133 L (137-145) mmol/L Potassium 4.3 (3.5-5.1) mmol/L Chloride 102 (98-107) mmol/L Carbon Dioxide 23 (22-30) mmol/L Anion Gap 8 mmol/L BUN 4 L (7-17) mg/dL Creatinine 0.45 L (0.52-1.04) mg/dL Est GFR (CKD-EPI)AfAm >90 (>60 ml/min/1.73 sqM) Est GFR (CKD-EPI)NonAf >90 (>60 ml/min/1.73 sqM) Glucose 97 (74-99) mg/dL Calcium 10.1 (8.4-10.2) mg/dL Total Bilirubin 0.9 (0.2-1.3) mg/dL AST 35 (14-36) U/L ALT 15 (4-34) U/L Alkaline Phosphatase 29 L (38-126) U/L Total Protein 7.0 (6.3-8.2) g/dL Albumin 4.1 (3.5-5.0) g/dL Urine Color Light Yellow Urine Appearance Clear (Clear) Urine pH 6.5 (5.0-8.0) Ur Specific [place] 1.013 (1.001-1.035) Urine Protein Negative (Negative) Urine Glucose (UA) Negative (Negative) Urine Ketones Negative (Negative) Urine Blood Negative (Negative) Urine Nitrite Negative (Negative) Urine Bilirubin Negative (Negative) Urine Urobilinogen <2.0 (<2.0) mg/dL Ur Leukocyte Esterase Small H (Negative) Urine RBC 1 (0-5) /hpf Urine WBC 5 (0-5) /hpf Ur Squamous Epith Cells 3 (0-4) /hpf Urine Bacteria Rare H (None) /hpf Urine Mucus Rare H (None) /hpf Disposition Clinical Impression: Abdominal pain during Disposition: HOME SELF-CARE Condition: Good Instructions (If sedation given, give patient instructions): Abdominal Pain in (ED) Additional Instructions: Please return to the Emergency Department if symptoms worsen or any other concerns. Follow-up as scheduled with OB on Monday. Is patient prescribed a controlled substance at d/c from ED?: No Referrals: None,Stated [Primary Care Provider] - 1-2 days Time of Disposition: 13:30
[2025-01-09] MEDS: ACETAMINOPHEN TAB 325 MG TAB PO STA (12:26)
[2025-01-09 12:35] LABS: Basophils # (A) 0.05 10*3/uL (0.00-0.10); Basophils % (A) 0.5 %; Eosinophils # (A) 0.16 10*3/uL (0.04-0.35); Eosinophils % (A) 1.6 %; HCT 35.7 % (37.2-46.3); HGB 12.4 g/dL (12.0-15.0); Lymphocytes % (A) 17.5 %; MCH 26.6 pg (27.0-32.0); MCHC 34.7 g/dL (32.0-37.0); MCV 76.6 fL (80.0-97.0); Monocytes # (A) 0.61 10*3/uL (0.20-1.00); Monocytes % (A) 6.3 %; Neutrophils # (A) 7.13 10*3/uL (1.80-7.70); Neutrophils % (A) 73.5 %; Platelet Count 228 10*3/uL (140-440); RBC 4.66 10*6/uL (4.10-5.20); RDW 14.5 % (11.5-14.5); WBC 9.71 10*3/uL (4.50-10.00)
[2025-01-09 12:42] LABS: Appearance,Urine Clear (Clear); Bacteria,Urine Rare /hpf; Bilirubin,Urine Negative (Negative); Blood,Urine Negative (Negative); Color,Urine Light Yellow; Glucose,Urine (UA) Negative (Negative); Ketones,Urine Negative (Negative); Leukocyte Esterase,Urine Small (Negative); Mucus,Urine Rare /hpf; Nitrite,Urine Negative (Negative); PH, Urine 6.5 (5.0-8.0); Protein,Urine Negative (Negative); RBC,Urine 1 /hpf (0-5); Specific Gravity,Urine 1.013 (1.001-1.035); Squamous Epithelial Cell,Urine 3 /hpf (0-4); Urobilinogen,Urine <2.0 mg/dL (<2.0); WBC,Urine 5 /hpf (0-5)
[2025-01-09 12:48] LABS: ALT 15 U/L (4-34); African American GFR (CKD) >90 (>60 ml/min/1.73 sqM); Anion Gap 8 mmol/L; Blood Urea Nitrogen 4 mg/dL (7-17); Calcium 10.1 mg/dL (8.4-10.2); Carbon Dioxide 23 mmol/L (22-30); Chloride 102 mmol/L (98-107); Glucose 97 mg/dL (74-99); Non-African American GFR(CKD) >90 (>60 ml/min/1.73 sqM); Sodium 133 mmol/L (137-145); Total Bilirubin 0.9 mg/dL (0.2-1.3)
[2025-01-09 12:57] LABS: AST 35 U/L (14-36); Albumin 4.1 g/dL (3.5-5.0); Alkaline Phosphatase 29 U/L (38-126); Potassium 4.3 mmol/L (3.5-5.1)
--- NOTE | 2025-01-09 13:14 | US ---
EXAMINATION TYPE: US OB limited DATE OF EXAM: 01/09/2025 COMPARISON: US CLINICAL INDICATION: Female, 29 years old with history of pelvic cramping, 14 weeks; Cramping, check viability TECHNIQUE:: Transabdominal (TA) FINDINGS: GESTATIONAL AGE / DATING Physician Established: (14 weeks/1 days) EDC: 07/09/2025 No growth performed on today?s study per ordering physician SURVEY HEART RATE: 153 bpm RHYTHM: Normal Instrument Repair Specialist notes: Viable IUP IMPRESSION: Normal cardiac activity, viable . Exam ordered as a limited OB ultrasound. [facility], Workstation: [id number], 01/09/2025 1:12 PM
[2025-01-09 13:59] VITALS: BP 119/78; PULSE 81; RESP 18; TEMP 98.7
== END 2025-01-09 13:59 | disposition home or self-care (01) ==
LOC: EC 11:40
DX: O26.891 Other specified pregnancy related conditions, first trimester (principal); Z91.040 Latex allergy status; Z91.041 Radiographic dye allergy status; Z88.8 Allergy status to other drugs, medicaments and biological substances; Z91.048 Other nonmedicinal substance allergy status; Z3A.14 14 weeks gestation of pregnancy
CPT/HCPCS: 36415; 76815; 80053; 81001; 85025; 99284

== ENCOUNTER 2025-01-19 09:04 | Emergency (ER) | payer OTHER ==
[2025-01-19 09:13] VITALS: RESP 20
--- NOTE | 2025-01-19 10:11 | ED ---
Female Urogenital HPI - General Chief complaint: Urogenital Stated complaint: Urogenital(16 weeks preg) Time Seen by Provider: 01/19/25 09:15 Source: patient, RN notes reviewed Mode of arrival: ambulatory Limitations: no limitations - History of Present Illness Initial comments: This is a 29-year-old female who presents to the emergency department for va ginal itching. Patient is 16 weeks . States that this started a couple of days ago. She and her were having intercourse and used a latex condom. Patient states that she is allergic to Lasix and immediately afterwards started to develop vaginal itching. She has tried taking Benadryl which helps, however it makes her drowsy and that makes it hard for her to continue caring for her other children. Reports possible white discharge, however she is unsure if this is related to . Denies any vaginal bleeding or pelvic pain. Believes that her symptoms are most likely related to a reaction from the condom. - Related Data Home Medications Medication Instructions Recorded Confirmed Jid-Nnjw-Ediun Acid 1 cap PO HS 01/09/25 01/09/25 [-U Capsule (formulary)] Previous Rx's Medication Instructions Recorded Ondansetron Odt [Zofran ODT] 4 mg PO Q8HR PRN #10 tab 10/24/24 Clotrimazole/Betameth Lotion 1 applic TOPICAL BID #30 gm 01/19/25 [Lotrisone] Allergies Allergy/AdvReac Type Severity Reaction Status Date / Time Iodinated Contrast Media Allergy Severe Anaphylaxis Verified 01/17/25 08:25 [Iodinated Contrast Media - IV Dye] Iodine and Iodide Containing Allergy Severe Anaphylaxis Verified 01/17/25 08:25 Produc povidone-iodine Allergy Severe Rash/Hives Verified 01/17/25 08:25 [From Betadine] soap [From Betadine] Allergy Severe Rash/Hives Verified 01/17/25 08:25 hydrocortisone Allergy Rash/Hives Verified 01/17/25 08:25 latex Allergy Rash/Hives Verified 01/17/25 08:25 iodine AdvReac Anaphylaxis Verified 01/17/25 08:25 Review of Systems ROS Statement: Those systems with pertinent positive or pertinent negative responses have been documented in the HPI. ROS Other: All systems not noted in ROS Statement are negative. Past Medical History Past Medical History: Syncope Additional Past Medical History / Comment(s): Lupus History of Any Multi-Drug Resistant Organisms: MRSA Date of last positivie culture/infection: 05/04/24 MDRO Source:: mouth Past Surgical History: Section Past Anesthesia/Blood Transfusion Reactions: Previous Problems w/ Anesthesia Additional Past Anesthesia/Blood Transfusion Reaction / Comment(s): had skin reaction to topical betadine Past Psychological History: No Psychological Hx Reported Smoking Status: Never smoker Past Alcohol Use History: None Reported Past Drug Use History: None Reported - Past Family History Mother Family Medical History: No Reported History General Exam Limitations: no limitations General appearance: alert, in no apparent distress Head exam: Present: atraumatic, normocephalic, normal inspection Respiratory exam: Present: normal lung sounds bilaterally. Absent: respiratory distress, wheezes, rales, rhonchi, stridor Cardiovascular Exam: Present: regular rate, normal rhythm External exam: Present: normal external exam. Absent: erythema, swelling, lesions Neurological exam: Present: alert, oriented X3, CN II-XII intact Psychiatric exam: Present: normal affect, normal mood Skin exam: Present: warm, dry, intact, normal color. Absent: rash Course Vital Signs 01/19/25 01/19/25 09:08 10:30 Temperature 98.1 F 98.0 F Pulse Rate 99 73 Respiratory 20 20 Rate Blood Pressure 130/81 126/80 O2 Sat by Pulse 98 97 Oximetry Medical Decision Making - Medical Decision Making This is a 29-year-old female who presents to the emergency department for vaginal itching. Was pt. sent in by a medical professional or institution? @ -No Did you speak to anyone other than the patient for history? @ -No Did you review nursing and triage notes? @ -Yes, and I agree, it is accurate with regards to the patient's symptoms. Were old charts reviewed? @ -No Differential Diagnosis? @ -vaginitis, candidiasis, BV, STI, this is not meant to be an all-inclusive list. EKG interpreted by me (3pts min.)? @ -Not obtained X-rays interpreted by me (1pt min.)? @ -Not obtained CT interpreted by me (1pt min.)? @ -Not obtained U/S interpreted by me (1pt. min.)? @ -Not obtained What testing was considered but not performed? (CT, X-rays, U/S, labs)? Why? @ -None What meds were considered but not given? Why? @ -None Did you discuss the management of the patient with other professionals? @ -No Did you reconcile home meds? @ -No Was smoking cessation discussed for >3mins.? @ -No Was critical care preformed (if so, how long)? @ -No Were there social determinants of health that impacted care today? How? (Homelessness, low income, unemployed, alcoholism, drug addiction, transportation, low edu. Level, literacy, decrease access to med. care, alf, rehab)? @ -No Was there de-escalation of care discussed even if they declined? (Discuss DNR or withdrawal of care, Hospice)? @ -No What co-morbidities impacted this encounter? (DM, HTN, Smoking, COPD, CAD, Cancer, CVA, Hep., AIDS, mental health diagnosis, sleep apnea, morbid obesity)? @ - Was patient admitted / discharged? @ -Discharged. She had possible mild irritation of the vulva on physical exam, however it was otherwise unremarkable. Given that the symptoms occurred immediately after coming into contact with the latex condoms suggests some sort of allergic reaction. There is also the possibility of a yeast infection given the white discharge with itching. Advised an antihistamine that is nondrowsy like Lori or Claritin in place of the Benadryl. Lotrisone cream prescribed to see if this helps with her symptoms. Otherwise advised follow-up with her TUBE WINDER. Patient discharged home in stable condition. Case discussed with ED attending Dr. Abdullahi. Return precautions reviewed in depth, the patient is instructed to return to the emergency department with any new, worsening, or concerning symptoms. Patient verbalized understanding. Undiagnosed new problem with uncertain prognosis? @ -None Drug Therapy requiring intensive monitoring for toxicity (Heparin, Nitro, Insulin, Cardizem)? @ -None Were any procedures done? @ -None Diagnosis/symptom? @ -Vaginitis Acute, or Chronic, or Acute on Chronic? @ -Acute Uncomplicated (without systemic symptoms) or Complicated (systemic symptoms)? @ -Uncomplicated Side effects of treatment? @ -None Exacerbation, Progression, or Severe Exacerbation] @ -Not applicable Poses a threat to life or bodily function? @ -No - Lab Data Lab Results 01/19/25 01/19/25 Range/Units 09:59 09:59 Urine Color Light Yellow Urine Appearance Clear (Clear) Urine pH 6.0 (5.0-8.0) Ur Specific [place] 1.012 (1.001-1.035) Urine Protein Negative (Negative) Urine Glucose (UA) Negative (Negative) Urine Ketones Negative (Negative) Urine Blood Negative (Negative) Urine Nitrite Negative (Negative) Urine Bilirubin Negative (Negative) Urine Urobilinogen <2.0 (<2.0) mg/dL Ur Leukocyte Esterase Trace H (Negative) Urine RBC 1 (0-5) /hpf Urine WBC 3 (0-5) /hpf Ur Squamous Epith Cells 2 (0-4) /hpf Urine Bacteria Occasional H (None) /hpf Urine Mucus Rare H (None) /hpf Trichomonas Ag (Rapid) Negative (Negative) Disposition Clinical Impression: Vaginitis Disposition: HOME SELF-CARE Additional Instructions: Return to the emergency department with any new, worsening, or concerning symptoms. Apply the cream prescribed twice daily for the next 1 to 2 weeks. You can also try taking a nondrowsy antihistamine like Lori or Claritin to help with the itching. Follow-up with your TUBE WINDER. Prescriptions: Clotrimazole/Betameth Lotion [Lotrisone] 1 applic TOPICAL BID #30 gm Is patient prescribed a controlled substance at d/c from ED?: No Referrals: None,Stated [Primary Care Provider] - 1-2 days Time of Disposition: 10:11
[2025-01-19] MEDS: metroNIDAZOLE 500 MG TAB PO STA (10:15)
[2025-01-19 10:30] LABS: Appearance,Urine Clear (Clear); Bacteria,Urine Occasional /hpf; Bilirubin,Urine Negative (Negative); Blood,Urine Negative (Negative); Color,Urine Light Yellow; Glucose,Urine (UA) Negative (Negative); Ketones,Urine Negative (Negative); Leukocyte Esterase,Urine Trace (Negative); Mucus,Urine Rare /hpf; Nitrite,Urine Negative (Negative); Protein,Urine Negative (Negative); RBC,Urine 1 /hpf (0-5); Specific Gravity,Urine 1.012 (1.001-1.035); Squamous Epithelial Cell,Urine 2 /hpf (0-4); Urobilinogen,Urine <2.0 mg/dL (<2.0); WBC,Urine 3 /hpf (0-5)
[2025-01-19 10:32] VITALS: BP 126/80; PULSE 73; TEMP 98
== END 2025-01-19 10:30 | disposition home or self-care (01) ==
LOC: EC 09:04
DX: O23.592 Infection of other part of genital tract in pregnancy, second trimester (principal); Z91.09 Other allergy status, other than to drugs and biological substances; Z91.040 Latex allergy status; Z91.041 Radiographic dye allergy status; Z88.8 Allergy status to other drugs, medicaments and biological substances; Z3A.16 16 weeks gestation of pregnancy
CPT/HCPCS: 81001; 87491; 87591; 87808; 99283

== ENCOUNTER 2025-02-12 08:34 | Emergency (ER) | payer OTHER ==
[2025-02-12 08:41] VITALS: BP 110/74; PULSE 87; RESP 18; TEMP 97.7
--- NOTE | 2025-02-12 09:06 | ED ---
General Adult HPI - General Chief complaint: Vaginal Bleeding Stated complaint: Cramping/Vaginal Bleeding(19 weeks) Time Seen by Provider: 02/12/25 08:45 Source: patient, RN notes reviewed Mode of arrival: ambulatory Limitations: no limitations - History of Present Illness Initial comments: 29 year old A2 female presents to the ED for evaluation of vaginal bleeding. She is 19 weeks . She reports she has had spotting and bleeding since yesterday around 5 pm when she was lifting something heavy. Patient denies any significant abdominal cramping patient denies any significant bleeding just states very mild. Patient has no complaints of back pain. Patient has had multiple ER visits throughout her . - Related Data Home Medications Medication Instructions Recorded Confirmed Dnr-Elrb-Bzule Acid 1 cap PO HS 01/09/25 01/09/25 [-U Capsule (formulary)] Previous Rx's Medication Instructions Recorded Ondansetron Odt [Zofran ODT] 4 mg PO Q8HR PRN #10 tab 10/24/24 Clotrimazole/Betameth Cream 1 applic TOPICAL BID #45 gm 01/19/25 [Lotrisone] Clotrimazole/Betameth Lotion 1 applic TOPICAL BID #30 gm 01/19/25 [Lotrisone] Allergies Allergy/AdvReac Type Severity Reaction Status Date / Time Iodinated Contrast Media Allergy Severe Anaphylaxis Verified 02/12/25 08:41 [Iodinated Contrast Media - IV Dye] Iodine and Iodide Containing Allergy Severe Anaphylaxis Verified 02/12/25 08:41 Produc povidone-iodine Allergy Severe Rash/Hives Verified 02/12/25 08:41 [From Betadine] soap [From Betadine] Allergy Severe Rash/Hives Verified 02/12/25 08:41 hydrocortisone Allergy Rash/Hives Verified 02/12/25 08:41 latex Allergy Rash/Hives Verified 02/12/25 08:41 iodine AdvReac Anaphylaxis Verified 02/12/25 08:41 Review of Systems ROS Statement: Those systems with pertinent positive or pertinent negative responses have been documented in the HPI. ROS Other: All systems not noted in ROS Statement are negative. Past Medical History Past Medical History: Syncope Additional Past Medical History / Comment(s): Lupus History of Any Multi-Drug Resistant Organisms: MRSA Date of last positivie culture/infection: 05/04/24 MDRO Source:: mouth Past Surgical History: Section Past Anesthesia/Blood Transfusion Reactions: Previous Problems w/ Anesthesia Additional Past Anesthesia/Blood Transfusion Reaction / Comment(s): had skin reaction to topical betadine Past Psychological History: No Psychological Hx Reported Smoking Status: Never smoker Past Alcohol Use History: None Reported Past Drug Use History: None Reported - Past Family History Mother Family Medical History: No Reported History General Exam Limitations: no limitations General appearance: alert, in no apparent distress Head exam: Present: atraumatic, normocephalic, normal inspection Neck exam: Present: normal inspection, full ROM. Absent: tenderness, meningismus, lymphadenopathy Respiratory exam: Present: normal lung sounds bilaterally. Absent: respiratory distress, wheezes, rales, rhonchi, stridor Cardiovascular Exam: Present: regular rate, normal rhythm, normal heart sounds. Absent: systolic murmur, diastolic murmur, rubs, gallop, clicks GI/Abdominal exam: Present: soft, normal bowel sounds. Absent: distended, tenderness, guarding, rebound, rigid Neurological exam: Present: alert Course Vital Signs 02/12/25 08:39 Temperature 97.7 F Pulse Rate 87 Respiratory 18 Rate Blood Pressure 110/74 O2 Sat by Pulse 99 Oximetry Medical Decision Making - Medical Decision Making Was pt. sent in by a medical professional or institution (, PA, INVENTORY ASSOCIATE AND DRIVER, urgent care, hospital, or longterm...) When possible be specific @ -No Did you speak to anyone other than the patient for history (EMS, parent, family, police, friend...)? What history was obtained from this source @ -No Did you review nursing and triage notes (agree or disagree)? Why? @ -I reviewed and agree with nursing and triage notes Were old charts reviewed (outside hosp., previous admission, EMS record, old EKG, old radiological studies, urgent care reports/EKG's, longterm records)? Report findings @ -No old charts were reviewed Differential Diagnosis (chest pain, altered mental status, abdominal pain women, abdominal pain men, vaginal bleeding, weakness, fever, dyspnea, syncope, headache, dizziness, GI bleed, back pain, seizure, CVA, palpatations, mental health, musculoskeletal)? @ -Differential Vaginal Bleeding: Spontaneous , threatened , molar , ectopic , bloody show, incompetent cervix, abruptioplacenta, placenta previa, uterine rupture, dysfunctional uterine bleeding, hemorrhage, uterine fibroids, this is not meant to be an all-inclusive list. EKG interpreted by me (3pts min.). @ -[None X-rays interpreted by me (1pt min.). @ -None done CT interpreted by me (1pt min.). @ -None done U/S interpreted by me (1pt. min.). @ -Ultrasound OB limited showing intrauterine , heart rate 147. No complicating factors. What testing was considered but not performed or refused? (CT, X-rays, U/S, labs)? Why? @ -None What meds were considered but not given or refused? Why? @ -None Did you discuss the management of the patient with other professionals (professionals i.e. , PA, INVENTORY ASSOCIATE AND DRIVER, lab, RT, psych nurse, case management social worker, nitric acid plant operator, teacher, chief communications officer, case planner)? Give summary @ -No Was smoking cessation discussed for >3mins.? @ -No Was critical care preformed (if so, how long)? @ -No Were there social determinants of health that impacted care today? How? (Homelessness, low income, unemployed, alcoholism, drug addiction, transportation, low edu. Level, literacy, decrease access to med. care, retirement, rehab)? @ -No Was there de-escalation of care discussed even if they declined (Discuss DNR or withdrawal of care, Hospice)? DNR status @ -No What co-morbidities impacted this encounter? (DM, HTN, Smoking, COPD, CAD, Cancer, CVA, ARF, Chemo, Hep., AIDS, mental health diagnosis, sleep apnea, morbid obesity)? @ -None Was patient admitted / discharged? Hospital course, mention meds given and route, prescriptions, significant lab abnormalities, going to OR and other pertinent info. @ -Discharge patient presented for mild vaginal bleeding in . Patient has normal ultrasound we discharged in stable condition return parameters cussed. Undiagnosed new problem with uncertain prognosis? @ -No Drug Therapy requiring intensive monitoring for toxicity (Heparin, Nitro, Ins ulin, Cardizem)? @ -No Were any procedures done? @ -No Diagnosis/symptom? @ -Vaginal bleeding in Acute, or Chronic, or Acute on Chronic? @ -[Acute Uncomplicated (without systemic symptoms) or Complicated (systemic symptoms)? @ -Uncomplicated Side effects of treatment? @ -No Exacerbation, Progression, or Severe Exacerbation? @ -No Poses a threat to life or bodily function? How? (Chest pain, USA, DC, pneumonia, PE, COPD, DKA, ARF, appy, cholecystitis, CVA, Diverticulitis, Homicidal, Suicidal, threat to staff... and all critical care pts) @ -No Disposition Clinical Impression: Vaginal bleeding in Disposition: HOME SELF-CARE Condition: Stable Additional Instructions: Please return to the Emergency Department if symptoms worsen or any other concerns. Is patient prescribed a controlled substance at d/c from ED?: No Referrals: None,Stated [Primary Care Provider] - 1-2 days Time of Disposition: 10:19
--- NOTE | 2025-02-12 10:13 | US ---
EXAMINATION TYPE: US OB >= 14 wk fetus DATE OF EXAM: 02/12/2025 COMPARISON: 12/19/24 CLINICAL INDICATION: Female, 29 years old with history of bleeding; spotting TECHNIQUE: Transabdominal (TA) FINDINGS: GESTATIONAL AGE / DATING Physician Established: Not yet established Dates by LMP: LMP unknown Dates by First Scan: (19 weeks/4 days) EDC: 07/12/25 Dates by Current Scan: (19 weeks/0 days) EDC: 07/09/25 Beta HCG (if available): Not available at this time SURVEY IUP: Single PLACENTA: Anterior PREVIA: No Previa KELI: 17.2 cm Normal CERVICAL LENGTH (transabdominal: norm > 3.0cm): 4.1 cm BIOMETRY PRESENTATION: Vertex LIE: Longitudinal BPD: 4.3 cm 19 weeks / 1 days HC: 16.0 cm 18 weeks / 6 days AC: 13.4 cm 18 weeks / 6 days FL: 2.9 cm 19 weeks / 0 days ESTIMATED WEIGHT IN GRAMS: 264 grams ESTIMATED WEIGHT IN LBS/OZ: 0 lbs. 9 oz. WEIGHT PERCENTAGE BASED ON ESTABLISHED DATES: Dates not established ANATOMY ASSESSED: Situs stomach Four-chamber heart Kidneys Bladder HC/AC: 1.2 Normal FL/AC: 22% Normal HEART RATE: 147 bpm RHYTHM: Normal IMPRESSION: 1. Single live intrauterine with gestational age of 19 weeks 0 days by current ultrasound b iometry. 4 days less growth than expected compared to prior exam. 2. Anterior placenta without previa. 3. Complete survey recommended at 18-20 weeks. [facility], , 02/12/2025 10:11 AM
== END 2025-02-12 10:40 | disposition home or self-care (01) ==
LOC: EC 08:34
DX: O20.9 Hemorrhage in early pregnancy, unspecified (principal); Z91.041 Radiographic dye allergy status; Z91.040 Latex allergy status; Z88.8 Allergy status to other drugs, medicaments and biological substances; Z91.048 Other nonmedicinal substance allergy status; Z3A.19 19 weeks gestation of pregnancy
CPT/HCPCS: 76805; 99284

== ENCOUNTER 2025-04-23 21:08 | Outpatient (CLI) | payer OTHER ==
[2025-04-24 00:23] VITALS: BP 122/66; PULSE 104; RESP 16; TEMP 96.1
--- NOTE | 2025-05-16 10:00 | P.MSEPDOC ---
Presenting Problems - Arrival Data Date of Arrival on Unit: 04/23/25 Time of Arrival on Unit: 21:08 Mode of Transport: Ambulatory - Complaint OB-Reason for Admission/Chief Complaint: Pain Comment: cramping [id number] with sharp burning pain located in lower abomen "in c- section scar and ovaries" and some slight spotting. Medical History - Information : 6 Para: 5 Term: 5 : 0 Abortions: Spontaneous or Elective: 0 Number of Living Children: 5 - Gestational Age Gestational Age by NORMA (wks/days): 33 Weeks and 3 Days Review of Systems - Review of Systems Constitutional: No problems Breast: No problems ENT: No problems Cardiovascular: No problems Respiratory: No problems Gastrointestinal: No problems Genitourinary: No problems Musculoskeletal: No problems Neurological: No problems Skin: No problems Vital Signs - Temperature Temperature: 96.1 F Temperature Source: Temporal Artery Scan - Pulse Pulse Oximetery Pulse Rate: 104 Pulse Assessment Method: Pulse Oximetry - Respirations Respiratory Rate: 16 Oxygen Delivery Method: Room Air O2 Sat by Pulse Oximetry: 99 - Blood Pressure Right Arm Blood Pressure: 122/66 Blood Pressure Mean: 84 Blood Pressure Source: Automatic Cuff Medical Screen Scoring - Cervical Exam Membranes: Intact - Uterine Contractions Intensity: Absent Resting: Soft to palpation - Assessment - Baby A Baseline FHR: 145 Heart Rate - NICHD Category: Category I (Normal) NST: Reactive Physician Notification - Physician Notified Physician Notified Date: 04/23/25 Physician Notified Time: 21:39 Physician: Marissa Lucas New Order Received: Yes - Notification Comment Comment: Dr. Lucas called at home, notified of pt status, GA, G/P, VSS, hx c/s x5, CAT 1 FHT, Reactive NST, contraction pattern. Orders to check cervix and dc home if closed with reassurance that this pain she is experiencing is normal pain in Maternal Triage Index - Maternal Triage Index Presenting for scheduled procedure w/no complaint: No - Stat/Priority 1 Stat Priority 1: No - Urgent/Priority 2 Urgent Priority 2: No - Prompt/Priority 3 Prompt Priority 3: No - Non-Urgent/Priority 4 Non-Urgent Priority 4: Yes Criteria Met for Priority 4: cramping q9goclp with sharpburning pain located in lower abomen "in scar and ovaries) and some slight spotting. Disposition - Disposition OB Disposition: Discharge to home Discharge Date: 04/23/25 Discharge Time: 21:53 I agree with the RN Medical Screening Exam: Yes Case reviewed; plan agreed upon as documented in EMR&OBIX.: Yes Diagnosis: PAIN, UNSPECIFIED
== END 2025-04-23 21:53 | disposition home or self-care (01) ==
LOC: FBPOP 21:08
PROVIDERS: ATTEND Obstetrics & Gynecology Obstetrics
DX: O26.893 Other specified pregnancy related conditions, third trimester (principal); Z3A.33 33 weeks gestation of pregnancy; Z88.5 Allergy status to narcotic agent; Z91.041 Radiographic dye allergy status; Z91.040 Latex allergy status; Z91.048 Other nonmedicinal substance allergy status
CPT/HCPCS: 59025; G0463; 99213